=== PATIENT | female | born 1930 | race Hispanic/Latino ===

== ENCOUNTER 2017-01-08 17:50 | Emergency (ER) | payer MEDICARE ==
[2017-01-08] MEDS ORDERED: VASOTEC IV ONE (18:13)
--- NOTE | 2017-01-08 18:45 | Emergency Department Report ---
HPI - General Chief Complaint: High BP Time Seen by Provider: 01/08/17 18:11 - HPI HPI: 86-year-old white female, very pleasant, in room 10 in the ER, called EMS today with severely elevated blood pressure. She stayed at home about pressure was 210/100. She does have a history of blood pressure usually controlled, does not remember doing anything differently today, but after dinner when she checked her blood pressure and was elevated. She became anxious, but denies any chest pain, shortness of breath, nausea, vomiting, dysuria, change in vision , neck pain or headache. Aside from high blood pressure, she does have a history of lupus control with plaquenil. He also takes an occasional muscle relaxer which she does not remember the name for muscle aches and pain from time to time. ED Past Medical Hx - Past Medical History Additional medical history: Lupus - Surgical History Past Surgical History?: Yes Additional Surgical History: "thyroid surgery" - Social History Smoking Status: Never Smoker Substance Use Type: None - Medications Home Medications: Home Medications Medication Instructions Recorded Confirmed Last Taken Type Bisacodyl [Dulcolax suppos] 10 mg NE QDAY PRN #30 supp.rect 12/15/13 Unknown Rx Pantoprazole [Protonix INJ] 40 mg IV DAILY #30 vial 12/15/13 Unknown Rx Promethazine [Phenergan SUPPOS] 25 mg NE Q6H PRN #4 supp.rect 12/15/13 Unknown Rx traZODone [Desyrel] 150 mg PO QHS #30 tablet 12/15/13 Unknown Rx amLODIPine [Norvasc] 5 mg PO DAILY #30 tab 12/18/13 Unknown Rx Hydrocortisone 1% [Hydrocortisone 1 applic TP ONCE.ED #1 tube 02/20/15 Unknown Rx 1% CREAM] cloNIDine [Catapres] 0.1 mg PO BID #60 tablet 01/08/17 Unknown Rx hydrOXYzine HCL [Atarax] 25 mg PO Q6HR PRN #90 tablet 01/08/17 Unknown Rx ED Review of Systems ROS: Stated complaint: HTN Other details as noted in HPI Comment: All other systems reviewed and negative Respiratory: no symptoms reported Endocrine: no symptoms reported Physical Exam - Physical Exam Vital Signs: Vital Signs 01/08/17 18:04 Temperature 98.6 F Pulse Rate 72 Respiratory 20 Rate Blood Pressure 168/143 O2 Sat by Pulse 96 Oximetry Physical Exam: Gen. alert and oriented 3 in no distress Head atraumatic normocephalic Eyes PERR LA EOMI Chest regular rate and rhythm normal S1-S2 lungs clear bilaterally Abdomen soft nondistended Back no point tenderness paravertebral tenderness Neuro no focal deficit. Psych normal mood. ED Course Vital Signs 01/08/17 18:04 Temperature 98.6 F Pulse Rate 72 Respiratory 20 Rate Blood Pressure 168/143 O2 Sat by Pulse 96 Oximetry ED Medical Decision Making - Lab Data Result diagrams: 01/08/17 18:18 01/08/17 18:18 Critical care attestation.: If time is entered above; I have spent that time in minutes in the direct care of this critically ill patient, excluding procedure time. ED Disposition Clinical Impression: Labile hypertension Disposition: DC-01 TO HOME OR SELFCARE Is pt being admited?: No Does the pt Need Aspirin: No Condition: Stable Instructions: Hypertension (ED) Prescriptions: cloNIDine [Catapres] 0.1 mg PO BID #60 tablet hydrOXYzine HCL [Atarax] 25 mg PO Q6HR PRN #90 tablet PRN Reason: Anxiety Referrals: PRIMARY CARE, [Primary Care Provider] - 3-5 Days
[2017-01-08 18:54] LABS: Basophils % (Auto) 0.5 % (0.0-1.8); Eosinophils % (Auto) 1.8 % (0.0-4.3); Hematocrit 37.4 % (30.3-42.9); Hemoglobin 12.1 gm/dl (10.1-14.3); Mean Corpuscular HGB Conc 32 % (30-34); Mean Corpuscular Hemoglobin 27 pg (28-32); Mean Corpuscular Volume 82 fl (79-97); Platelet Count 288 K/mm3 (140-440); Red Blood Count 4.57 M/mm3 (3.65-5.03); Red Cell Distribution Width 15.6 % (13.2-15.2); White Blood Count 4.9 K/mm3 (4.5-11.0)
--- NOTE | 2017-01-08 19:00 | Cat Scan Report ---
FINAL REPORT EXAM: CT HEAD/BRAIN WO CON HISTORY: headache, high bp TECHNIQUE: CT examination of the head without IV contrast PRIORS: None. FINDINGS: Near complete opacification of left maxillary sinus. This may be chronic since it includes scattered calcification. The other paranasal sinuses are clear as are the mastoid air cells and middle ear cavities. No acute air-fluid level visualized in the included air-filled sinuses. Bone windows demonstrate no acute fracture. There is ventricular and sulcal prominence compatible with global cerebrocortical atrophy. Low attenuation regions in the cerebral white matter, while nonspecific, are present and usually attributed to chronic ischemic gliosis. The differential includes demyelination in the appropriate clinical setting. The brain contains no mass, mass effect, hemorrhage, or acute infarct. There is no extra-axial intracranial bleed or brain bleed. There is no midline shift. IMPRESSION: No definite CT evidence of acute CVA, intracranial bleed, or brain mass Near complete opacification of left maxillary sinus may be chronic since it includes scattered calcification
[2017-01-08 19:04] LABS: INR 0.88 (0.87-1.13); Partial Thromboplastin Time 24.2 Sec. (24.2-36.6)
[2017-01-08 19:06] LABS: Alanine Aminotransferase 25 units/L (7-56); Albumin 4.2 g/dL (3.9-5); Albumin/Globulin Ratio 1.3 %; Alkaline Phosphatase 64 units/L (35-129); Anion Gap 20 mmol/L; BUN/Creatinine Ratio 26.25; Blood Urea Nitrogen 21 mg/dL (7-17); Carbon Dioxide 27 mmol/L (22-30); Chloride 93.8 mmol/L (98-107); Glucose 96 mg/dL (65-100); Potassium 4.6 mmol/L (3.6-5.0); Sodium 136 mmol/L (137-145); Total Protein 7.5 g/dL (6.3-8.2)
[2017-01-08 21:10] LABS: Bilirubin,Urine NEG (Negative); Blood,Urine SM (Negative); Ketones,Urine NEG (Negative); Leukocyte Esterase,Urine TR (Negative); Nitrite,Urine NEG (Negative); Protein,Urine <15 mg/dL mg/dL (Negative); RBC,Urine < 1.0 /HPF (0.0-6.0); Urobilinogen,Urine < 2.0 mg/dL (<2.0)
[2017-01-08] MEDS ORDERED: CATAPRES PO ONE (21:16)
[2017-01-09 01:44] VITALS: BP 132/60
== END 2017-01-09 01:48 | disposition home or self-care (01) ==
LOC: ED 17:50
DX: I10 Essential (primary) hypertension (principal)
CPT/HCPCS: 36415; 70450; 80053; 81001; 83880; 84484; 85025; 85610; 85730; 93005; 93010; 96374

== ENCOUNTER 2017-08-29 23:48 | Inpatient (IN) | payer MEDICARE ==
[2017-08-29] MEDS ORDERED: ZOFRAN ODT PO ONE (23:55)
[2017-08-30 00:13] LABS: Basophils # (Auto) 0.2 K/mm3 (0.0-0.1); Eosinophils % (Auto) 0.4 % (0.0-4.3); Hematocrit 35.6 % (30.3-42.9); Hemoglobin 11.7 gm/dl (10.1-14.3); Lymphocytes # (Auto) 0.4 K/mm3 (1.2-5.4); Lymphocytes % (Auto) 4.6 % (13.4-35.0); Mean Corpuscular HGB Conc 33 % (30-34); Mean Corpuscular Hemoglobin 27 pg (28-32); Mean Corpuscular Volume 83 fl (79-97); Monocytes # (Auto) 0.4 K/mm3 (0.0-0.8); Monocytes % (Auto) 4.7 % (0.0-7.3); Platelet Count 276 K/mm3 (140-440); Red Blood Count 4.29 M/mm3 (3.65-5.03); Red Cell Distribution Width 14.8 % (13.2-15.2)
--- NOTE | 2017-08-30 00:17 | Emergency Department Report ---
- General Chief complaint: Arrhythmia/Palpitations Stated complaint: POSS ALLERGIC REACTION/WEAKNESS Time Seen by Provider: 08/29/17 23:53 Source: patient, EMS Mode of arrival: Stretcher Limitations: Other - History of Present Illness Initial comments: 86-year-old female with a past medical history of arthritis, hypertension, lupus , and "thyroid surgery" presents to the hospital complaining of lightheadedness , weakness, fatigue, nausea, and vomiting for the past 2 days since starting Lopressor. Patient's local delivery truck driver Dr. Charles Duffy switched her from another blood pressure medication to Lopressor 25 mg twice a day 2 days ago and she has been symptomatic since. Family states that she might not be taken the medication correctly and taking extra doses. No pains or chest pain or shortness of breath. Patient admits to drinking a lot of water and is constantly asking for water here in the ED. - Related Data Home Medications Medication Instructions Recorded Confirmed Last Taken Hydroxychloroquine [Plaquenil] 200 mg PO QDAY 08/30/17 08/30/17 Unknown Losartan/Hydrochlorothiazide 1 each PO DAILY 08/30/17 08/30/17 Unknown [Hyzaar 100-12.5 Tablet] Metoprolol [Lopressor] 25 mg PO BID 08/30/17 08/30/17 Unknown Previous Rx's Medication Instructions Recorded Last Taken Type traZODone [Desyrel] 150 mg PO QHS #30 tablet 12/15/13 Unknown Rx Allergies Allergy/AdvReac Type Severity Reaction Status Date / Time aspirin Allergy Unknown Unknown Verified 02/20/15 13:03 cephalexin monohydrate Allergy Unknown Unknown Verified 02/20/15 13:03 [From Keflex] diazepam [From Valium] Allergy Unknown Unknown Verified 02/20/15 13:03 doxycycline calcium Allergy Unknown Unknown Verified 02/20/15 13:03 [From Vibramycin] doxycycline hyclate Allergy Unknown Unknown Verified 02/20/15 13:03 [From Vibramycin] doxycycline monohydrate Allergy Unknown Unknown Verified 02/20/15 13:03 [From Vibramycin] lorazepam [From Ativan] Allergy Unknown Diarrhea Verified 02/20/15 13:03 meperidine HCl [From Demerol] Allergy Unknown Unknown Verified 02/20/15 13:03 ofloxacin [From Floxin] Allergy Unknown Unknown Verified 02/20/15 13:03 pentazocine lactate Allergy Unknown Unknown Verified 02/20/15 13:03 [From Talwin] ciprofloxacin Allergy Unknown Verified 08/30/17 00:54 fexofenadine [From Nadine] Allergy Unknown Verified 08/30/17 00:55 hydrocodone Allergy Unknown Verified 08/30/17 00:54 morphine Allergy Unknown Verified 08/30/17 00:55 Sulfa (Sulfonamide Allergy Unknown Verified 02/20/15 13:03 Antibiotics) adhesive AdvReac Rash Verified 02/20/15 13:03 ED Review of Systems ROS: Stated complaint: POSS ALLERGIC REACTION/WEAKNESS Other details as noted in HPI Comment: All other systems reviewed and negative ED Past Medical Hx - Past Medical History Previous Medical History?: Yes Hx Hypertension: Yes Hx Arthritis: Yes Additional medical history: Lupus - Surgical History Additional Surgical History: "thyroid surgery" - Social History Smoking Status: Never Smoker Substance Use Type: None - Medications Home Medications: Home Medications Medication Instructions Recorded Confirmed Last Taken Type traZODone [Desyrel] 150 mg PO QHS #30 tablet 12/15/13 08/30/17 Unknown Rx Hydroxychloroquine [Plaquenil] 200 mg PO QDAY 08/30/17 08/30/17 Unknown History Losartan/Hydrochlorothiazide 1 each PO DAILY 08/30/17 08/30/17 Unknown History [Hyzaar 100-12.5 Tablet] Metoprolol [Lopressor] 25 mg PO BID 08/30/17 08/30/17 Unknown History ED Physical Exam - General Limitations: Other - Other Other exam information: General: No limitations, patient is alert in no acute distress Head exam: Atraumatic, normocephalic Eyes exam: Normal appearance, pupils equal reactive to light ENT: Moist mucous membrane, normal oropharynx Neck exam: Normal inspection, full range of motion, no meningismus nontender Respiratory exam: Clear to auscultation bilateral, no wheezes, rales, crackles Cardiovascular: Bradycardic regular rhythm Abdomen: Soft, nondistended, and nontender, with normal bowel sounds, no rebound, or guarding Extremity: Full range of motion normal inspection no deformity Back: Normal Inspection, full range of motion, no tenderness Neurologic: Alert, oriented x3, cranial nerves intact, no motor or sensory deficit Psychiatric: normal affect, normal mood Skin: Warm, dry, intact ED Course Vital Signs 08/29/17 08/30/17 08/30/17 23:58 00:01 00:11 Temperature Pulse Rate 58 L Respiratory 29 H Rate Blood Pressure 175/46 175/46 Blood Pressure [Left] O2 Sat by Pulse 100 92 97 Oximetry 08/30/17 08/30/17 08/30/17 00:15 00:21 00:30 Temperature 98.0 F Pulse Rate 60 59 L 60 Respiratory 20 25 H 30 H Rate Blood Pressure 153/59 154/50 Blood Pressure 153/59 [Left] O2 Sat by Pulse 94 94 91 Oximetry 08/30/17 00:41 Temperature Pulse Rate 60 Respiratory 20 Rate Blood Pressure 153/59 Blood Pressure [Left] O2 Sat by Pulse 93 Oximetry - Reevaluation(s) Reevaluation #1: 08/30/17 01:02 hr remains in the high 50-low 60's with stable bp - Consultations Consultation #1: 08/29/17 23:35 After EMS EKG review case was discussed with on-call [facility] local delivery truck driver Dr. Murillo prior to patient arrival to the ED. He is in agreement that EKG represents sinus bradycardia without signs of ST elevation FL and patient will be further evaluated once she presents to the ED. Consultation #2: 08/30/17 00:57 case d/w Dr Mak (nephro) urine lites and osmolality ordered as requested Recommendations normal saline at 75 ml/hr Consultation #3: 08/30/17 01:00 Case d/w Dr cruz (card) will consult ED Medical Decision Making - Lab Data Result diagrams: 08/30/17 00:05 08/30/17 00:05 Lab Results 08/30/17 08/30/17 08/30/17 Range/Units 00:05 00:05 00:05 WBC 8.0 (4.5-11.0) K/mm3 RBC 4.29 (3.65-5.03) M/mm3 Hgb 11.7 (10.1-14.3) gm/dl Hct 35.6 (30.3-42.9) % MCV 83 (79-97) fl MCH 27 L (28-32) pg MCHC 33 (30-34) % RDW 14.8 (13.2-15.2) % Plt Count 276 (140-440) K/mm3 Lymph % (Auto) 4.6 L (13.4-35.0) % [place] % (Auto) 4.7 (0.0-7.3) % Eos % (Auto) 0.4 (0.0-4.3) % Baso % (Auto) 2.0 H (0.0-1.8) % Lymph # 0.4 L (1.2-5.4) K/mm3 [place] # 0.4 (0.0-0.8) K/mm3 Eos # 0.0 (0.0-0.4) K/mm3 Baso # 0.2 H (0.0-0.1) K/mm3 Seg Neutrophils % 88.3 H (40.0-70.0) % Seg Neutrophils # 7.1 (1.8-7.7) K/mm3 Sodium 118 L* (137-145) mmol/L Potassium 5.0 (3.6-5.0) mmol/L Chloride 82.9 L (98-107) mmol/L Carbon Dioxide 22 (22-30) mmol/L Anion Gap 17 mmol/L BUN 24 H (7-17) mg/dL Creatinine 0.7 (0.7-1.2) mg/dL Estimated GFR > 60 ml/min BUN/Creatinine Ratio 34 % Glucose 146 H (65-100) mg/dL Calcium 7.8 L (8.4-10.2) mg/dL Troponin T 0.033 H (0.00-0.029) ng/mL TSH 2.550 (0.270-4.200) mlU/mL Free T4 1.67 H (0.76-1.46) ng/dL urine lytes pending - EKG Data -: EKG Interpreted by Me (right bundle branch block. Left anterior fascicular block) EKG shows normal: sinus rhythm, axis (-47), QRS complexes (149), ST-T waves ( LVH. No ST elevation FL) Rate: bradycardia (57) - EKG Data When compared to previous EKG there are: changes noted (01/2017 previous EKG shows persistent right bundle-branch block with A. fib) 08/29/17 11:35 PM EMS EKG shows sinus bradycardia with a heart rate of 84 and a right bundle branch and left anterior fascicular block. No ST elevation FL. Positive LVH - Medical Decision Making Symptomatic bradycardia Likely secondary to Lopressor Heart rate spontaneously improving Zofran given for nausea Troponin elevation No chest pain reported Cardiology consultation Hyponatremia Patient does take hydrochlorothiazide Normal saline at 75 mL per hour initiated as per nephrology request Nephrology consult Urine studies pending Hospital was informed for admission - Differential Diagnosis beta dylan overdose, hypothyroidism, FL Critical Care Time: No Critical care attestation.: If time is entered above; I have spent that time in minutes in the direct care of this critically ill patient, excluding procedure time. ED Disposition Clinical Impression: Hyponatremia, Symptomatic bradycardia, Adverse reaction to beta-dylan, SLE ( systemic lupus erythematosus), HTN (hypertension) Disposition: OP ADMIT IP TO THIS HOSP Is pt being admited?: Yes Condition: Stable Referrals: ABDIRIZAK SORIANO MD [Primary Care Provider] - 3-5 Days Time of Disposition: 01:02 (Dr Duffy/hosp)
[2017-08-30 00:35] LABS: BUN/Creatinine Ratio 34; Blood Urea Nitrogen 24 mg/dL (7-17); Calcium 7.8 mg/dL (8.4-10.2); Hemolysis Index 10
[2017-08-30] MEDS ORDERED: ZOFRAN ONE (00:42)
[2017-08-30 00:45] LABS: Free T4 (Free Thyroxine) 1.67 ng/dL (0.76-1.46)
[2017-08-30] MEDS ORDERED: ZOFRAN IV ONE (00:55)
[2017-08-30] MEDS ORDERED: NACL 0.9% 1000 ML 1,000 ML IV ONE (00:57)
[2017-08-30 01:41] LABS: Creatine Kinase MB 9.6 ng/mL (0.0-4.0)
[2017-08-30 01:42] LABS: Chol/HDL Ratio 2.34 %; HDL Cholesterol 67 mg/dL (40-59); LDL Cholesterol,Direct 88 mg/dL (50-130)
[2017-08-30 02:02] LABS: Bilirubin,Urine NEG (Negative); Blood,Urine NEG (Negative); Color,Urine Yellow (Yellow); Hyaline Casts,Urine 1 /LPF; Mucus,Urine FEW /HPF; Protein,Urine <15 mg/dL mg/dL (Negative); Urobilinogen,Urine < 2.0 mg/dL (<2.0)
--- NOTE | 2017-08-30 02:03 | History and Physical Report ---
History of Present Illness Date of examination: 08/30/17 History of present illness: A 6-year-old woman with a history of hypertension, lupus causing emergency room complaining of nausea vomiting, generalized weakness, dizziness. Patient is on antihypertensives and 1 was changed to Lopressor 25 twice a day. Patient started taking this Wednesday when her symptoms developed. She is also on losartan, hydrochlorothiazide. Daughter stated that she is been on several antihypertensives in the past, her blood pressure is difficult to control Review Of Systems: Constitutional: no weight loss Ears, eyes, nose, mouth and throat: no nasal congestion, no nasal discharge, no sinus pressure, blurry vision, diplopia Neck: No neck pain or rigidity. Cardiovascular: no Chest pain, orthopnea, palpitations Respiratory: No shortness of breath, cough Gastrointestinal: no hematochezia Genitourinary : no dysuria, frequency , hematuria Musculoskeletal: no muscle ache Integumentary: no rash, no pruritis Neurological: no parathesias, focal weakness Endocrine: no cold or heat intolerance, no polyuria or polydipsia Hematologic/Lymphatic: no easy bruising, no easy bleeding, no gland swelling Allergic/Immunologic: no urticaria, no angioedema. PAST MEDICAL HISTORY: Hypertension, lupus PAST SURGICAL HISTORY: Hysterectomy, thyroidectomy SOCIAL HISTORY: Denies alcohol, tobacco, drugs FAMILY HISTORY: Hypertension Medications and Allergies Allergies Allergy/AdvReac Type Severity Reaction Status Date / Time aspirin Allergy Unknown Unknown Verified 02/20/15 13:03 cephalexin monohydrate Allergy Unknown Unknown Verified 02/20/15 13:03 [From Keflex] diazepam [From Valium] Allergy Unknown Unknown Verified 02/20/15 13:03 doxycycline calcium Allergy Unknown Unknown Verified 02/20/15 13:03 [From Vibramycin] doxycycline hyclate Allergy Unknown Unknown Verified 02/20/15 13:03 [From Vibramycin] doxycycline monohydrate Allergy Unknown Unknown Verified 02/20/15 13:03 [From Vibramycin] lorazepam [From Ativan] Allergy Unknown Diarrhea Verified 02/20/15 13:03 meperidine HCl [From Demerol] Allergy Unknown Unknown Verified 02/20/15 13:03 ofloxacin [From Floxin] Allergy Unknown Unknown Verified 02/20/15 13:03 pentazocine lactate Allergy Unknown Unknown Verified 02/20/15 13:03 [From Talwin] ciprofloxacin Allergy Unknown Verified 08/30/17 00:54 fexofenadine [From Nadine] Allergy Unknown Verified 08/30/17 00:55 hydrocodone Allergy Unknown Verified 08/30/17 00:54 morphine Allergy Unknown Verified 08/30/17 00:55 Sulfa (Sulfonamide Allergy Unknown Verified 02/20/15 13:03 Antibiotics) adhesive AdvReac Rash Verified 02/20/15 13:03 Home Medications Medication Instructions Recorded Confirmed Last Taken Type traZODone [Desyrel] 150 mg PO QHS #30 tablet 12/15/13 08/30/17 Unknown Rx Hydroxychloroquine [Plaquenil] 200 mg PO QDAY 08/30/17 08/30/17 Unknown History Losartan/Hydrochlorothiazide 1 each PO DAILY 08/30/17 08/30/17 Unknown History [Hyzaar 100-12.5 Tablet] Metoprolol [Lopressor] 25 mg PO BID 08/30/17 08/30/17 Unknown History Active Meds: Active Medications Sodium Chloride (Nacl 0.9% 1000 Ml) 1,000 mls @ 75 mls/hr IV BOLUS ONE Stop: 08/30/17 14:16 Last Admin: 08/30/17 01:12 Dose: 75 mls/hr Exam - Physical Exam Narrative exam: Gen. appearance: Patient lying in bed, no apparent distress HEENT: Normocephalic, atraumatic, pupils equally round and reactive to light, extraocular movement intact, and no sclericterus,. No JVD or thyromegaly or nodule,neck supple, no carotid bruit ,mucous membranes moist, no exudate or erythema Heart: S1, S2, regular rate and rhythm Lungs: Clear to auscultation bilaterally, breathing comfortable Abdomen: Positive bowel sounds, nontender, nondistended, no organomegaly Extremity: No edema, cyanosis, clubbing Skin: No rash, nodules, warm, dry Neuro: Oriented 3, cranial nerves II-12 intact, speech is fluent, motor and sensory intact - Constitutional Vitals: Temp Pulse Resp BP Pulse Ox 98.0 F 67 22 172/65 81 L 08/30/17 00:15 08/30/17 01:41 08/30/17 01:41 08/30/17 01:41 08/30/17 01:41 Results - Labs CBC & Chem 7: 08/30/17 00:05 08/30/17 00:05 Labs: Abnormal lab results 08/30/17 08/30/17 08/30/17 Range/Units 00:05 00:05 00:05 MCH 27 L (28-32) pg Lymph % (Auto) 4.6 L (13.4-35.0) % Baso % (Auto) 2.0 H (0.0-1.8) % Lymph # 0.4 L (1.2-5.4) K/mm3 Baso # 0.2 H (0.0-0.1) K/mm3 Seg Neutrophils % 88.3 H (40.0-70.0) % Sodium 118 L* (137-145) mmol/L Chloride 82.9 L (98-107) mmol/L BUN 24 H (7-17) mg/dL Glucose 146 H (65-100) mg/dL Calcium 7.8 L (8.4-10.2) mg/dL Total Creatine Kinase 152 H (30-135) units/L CK-MB (CK-2) 9.6 H (0.0-4.0) ng/mL Troponin T 0.033 H (0.00-0.029) ng/mL HDL Cholesterol 67 H (40-59) mg/dL Free T4 1.67 H (0.76-1.46) ng/dL - Imaging and Cardiology EKG: image reviewed Assessment and Plan Assessment Symptomatic bradycardia due to lopressor Hyponatremia due to diuretic Hypertension Lupus Plan Admit to medicine Hold Lopressor, start IV fluid, monitor sodium levels Consult renal, cardiology Continue Procrit of his medication, IV hydralazine for blood pressure control Discharge prophylaxis
[2017-08-30] MEDS ORDERED: SODIUM CHLORIDE FLUSH SYRINGE 10 ML IV PRN (02:04)
[2017-08-30] MEDS ORDERED: TYLENOL PO PRN (02:04)
[2017-08-30] MEDS ORDERED: APRESOLINE IV PRN (02:20)
[2017-08-30 02:50] LABS: Chloride, Urine 22.8 mmolL (110-250)
[2017-08-30 03:08] LABS: Creatine Kinase MB 9.6 ng/mL (0.0-4.0)
[2017-08-30] MEDS: ZOFRAN IV PRN (04:21)
[2017-08-30] MEDS ORDERED: REGLAN IV ONE ×2 (06:04→06:16)
[2017-08-30 09:37] LABS: Creatine Kinase MB 11.6 ng/mL (0.0-4.0)
[2017-08-30] MEDS ORDERED: LOVENOX SUB-Q SCH ×2 (10:00→13:01)
--- NOTE | 2017-08-30 11:20 | Consultation ---
History of Present Illness - Reason for Consult Consult date: 08/30/17 hyponatremia, accelerated hypertension Requesting physician: ANÍBAL COKER - History of Present Illness A 86-year-old woman with a history of hypertension, lupus causing emergency room complaining of nausea vomiting, generalized weakness, dizziness. Patient is on antihypertensives and 1 was changed to Lopressor 25 twice a day. Patient started taking this Wednesday when her symptoms developed. She is also on losartan, hydrochlorothiazide. Daughter stated that she is been on several antihypertensives in the past, her blood pressure is difficult to control Review Of Systems: Constitutional: no weight loss Ears, eyes, nose, mouth and throat: no nasal congestion, no nasal discharge, no sinus pressure, blurry vision, diplopia Neck: No neck pain or rigidity. Cardiovascular: no Chest pain, orthopnea, palpitations Respiratory: No shortness of breath, cough Gastrointestinal: no hematochezia Genitourinary : no dysuria, frequency , hematuria Musculoskeletal: no muscle ache Integumentary: no rash, no pruritis Neurological: no parathesias, focal weakness Endocrine: no cold or heat intolerance, no polyuria or polydipsia Hematologic/Lymphatic: no easy bruising, no easy bleeding, no gland swelling Allergic/Immunologic: no urticaria, no angioedema. PAST MEDICAL HISTORY: Hypertension, lupus PAST SURGICAL HISTORY: Hysterectomy, thyroidectomy SOCIAL HISTORY: Denies alcohol, tobacco, drugs FAMILY HISTORY: Hypertension Medications and Allergies Allergies Allergy/AdvReac Type Severity Reaction Status Date / Time aspirin Allergy Unknown Unknown Verified 02/20/15 13:03 cephalexin monohydrate Allergy Unknown Unknown Verified 02/20/15 13:03 [From Keflex] diazepam [From Valium] Allergy Unknown Unknown Verified 02/20/15 13:03 doxycycline calcium Allergy Unknown Unknown Verified 02/20/15 13:03 [From Vibramycin] doxycycline hyclate Allergy Unknown Unknown Verified 02/20/15 13:03 [From Vibramycin] doxycycline monohydrate Allergy Unknown Unknown Verified 02/20/15 13:03 [From Vibramycin] lorazepam [From Ativan] Allergy Unknown Diarrhea Verified 02/20/15 13:03 meperidine HCl [From Demerol] Allergy Unknown Unknown Verified 02/20/15 13:03 ofloxacin [From Floxin] Allergy Unknown Unknown Verified 02/20/15 13:03 pentazocine lactate Allergy Unknown Unknown Verified 02/20/15 13:03 [From Talwin] ciprofloxacin Allergy Unknown Verified 08/30/17 00:54 fexofenadine [From Nadine] Allergy Unknown Verified 08/30/17 00:55 hydrocodone Allergy Unknown Verified 08/30/17 00:54 morphine Allergy Unknown Verified 08/30/17 00:55 Sulfa (Sulfonamide Allergy Unknown Verified 02/20/15 13:03 Antibiotics) adhesive AdvReac Rash Verified 02/20/15 13:03 Home Medications Medication Instructions Recorded Confirmed Last Taken Type traZODone [Desyrel] 150 mg PO QHS #30 tablet 12/15/13 08/30/17 Unknown Rx Hydroxychloroquine [Plaquenil] 200 mg PO QDAY 08/30/17 08/30/17 Unknown History Losartan/Hydrochlorothiazide 1 each PO DAILY 08/30/17 08/30/17 Unknown History [Hyzaar 100-12.5 Tablet] Metoprolol [Lopressor] 25 mg PO BID 08/30/17 08/30/17 Unknown History Active Meds: Active Medications Acetaminophen (Tylenol) 650 mg PO Q4H PRN PRN Reason: Pain MILD(1-3)/Fever >100.5/CASTRO Enoxaparin Sodium (Lovenox) 40 mg SUB-Q QDAY@1000 HARINI Hydralazine HCl (Apresoline) 5 mg IV Q6H PRN PRN Reason: Hypertension Last Admin: 08/30/17 04:21 Dose: 5 mg Sodium Chloride (Nacl 0.9% 1000 Ml) 1,000 mls @ 75 mls/hr IV BOLUS ONE Stop: 08/30/17 14:16 Last Admin: 08/30/17 01:12 Dose: 75 mls/hr Ondansetron HCl (Zofran) 4 mg IV Q8H PRN PRN Reason: Nausea And Vomiting Last Admin: 08/30/17 04:21 Dose: 4 mg Sodium Chloride (Sodium Chloride Flush Syringe 10 Ml) 10 ml IV BID HARINI Sodium Chloride (Sodium Chloride Flush Syringe 10 Ml) 10 ml IV PRN PRN PRN Reason: LINE FLUSH Exam - Vital Signs Vital signs: Vital Signs BP Pulse Ox 175/46 100 08/29/17 23:58 08/29/17 23:58 - Physical Exam Narrative exam: Gen. appearance: Patient lying in bed, no apparent distress HEENT: Normocephalic, atraumatic, pupils equally round and reactive to light, extraocular movement intact, and no sclericterus,. No JVD or thyromegaly or nodule,neck supple, no carotid bruit ,mucous membranes moist, no exudate or erythema Heart: S1, S2, regular rate and rhythm Lungs: Clear to auscultation bilaterally, breathing comfortable Abdomen: Positive bowel sounds, nontender, nondistended, no organomegaly Extremity: No edema, cyanosis, clubbing Skin: No rash, nodules, warm, dry Neuro: Oriented 3, cranial nerves II-12 intact, speech is fluent, motor and sensory intact Results - Lab Results 08/30/17 00:05 08/30/17 00:05 Most recent lab results Calcium 7.8 mg/dL (8.4-10.2) L 08/30/17 00:05 Magnesium 1.80 mg/dL (1.7-2.3) 08/30/17 00:05 Urine Sodium 18 mmol/L 08/30/17 01:49 Assessment and Plan Impression: * Symptomatic bradycardia due to lopressor * Hyponatremia * Accelerated Hypertension * Lupus Plan: * fluid restriction * stop diuretics * add clonidine * try to limit hydralazine in lupus patient * strict i/os * daily lytes * urine lytes
[2017-08-30] MEDS: SODIUM CHLORIDE FLUSH SYRINGE 10 ML IV SCH ×2 (12:46→22:08)
[2017-08-30] MEDS: PROCARDIA XL PO SCH ×2 (12:47→22:08)
[2017-08-30] MEDS: NACL 0.9% 1000 ML 1,000 ML IV SCH (12:47)
[2017-08-30] MEDS ORDERED: PLAQUENIL PO SCH (13:00)
--- NOTE | 2017-08-30 14:06 | Consultation ---
History of Present Illness Consult date: 08/30/17 Consult reason: bradycardia History of present illness: The patient is an 86-year-old woman who presented to the hospital complaining of weakness, dizziness which started 2 days after she was treated with Lopressor by her primary claims administrator. The indication for the Lopressor 25 mg twice a day is uncertain at the current time. On presentation to the hospital she was found to have a sinus bradycardia at 58, with a blood pressure elevated at 175 systolic. However, more significantly on laboratory exam shows found with severe hyponatremia with sodium 118. The chronicity of the hyponatremia is uncertain. Review of her laboratory findings shows a sodium of 122 in 2013, but sodium was corrected to 130s on multiple subsequent measurements until the current date. The patient denies chest pain, shortness of breath, no lower extremity edema and no syncope. Past medical history is consistent with hypertension. She has a chronically abnormal EKG with bifascicular block which is documented in her past records. Past History Past Medical History: hypertension Medications and Allergies Allergies Allergy/AdvReac Type Severity Reaction Status Date / Time aspirin Allergy Unknown Unknown Verified 02/20/15 13:03 cephalexin monohydrate Allergy Unknown Unknown Verified 02/20/15 13:03 [From Keflex] diazepam [From Valium] Allergy Unknown Unknown Verified 02/20/15 13:03 doxycycline calcium Allergy Unknown Unknown Verified 02/20/15 13:03 [From Vibramycin] doxycycline hyclate Allergy Unknown Unknown Verified 02/20/15 13:03 [From Vibramycin] doxycycline monohydrate Allergy Unknown Unknown Verified 02/20/15 13:03 [From Vibramycin] lorazepam [From Ativan] Allergy Unknown Diarrhea Verified 02/20/15 13:03 meperidine HCl [From Demerol] Allergy Unknown Unknown Verified 02/20/15 13:03 ofloxacin [From Floxin] Allergy Unknown Unknown Verified 02/20/15 13:03 pentazocine lactate Allergy Unknown Unknown Verified 02/20/15 13:03 [From Talwin] ciprofloxacin Allergy Unknown Verified 08/30/17 00:54 fexofenadine [From Nadine] Allergy Unknown Verified 08/30/17 00:55 hydrocodone Allergy Unknown Verified 08/30/17 00:54 morphine Allergy Unknown Verified 08/30/17 00:55 Sulfa (Sulfonamide Allergy Unknown Verified 02/20/15 13:03 Antibiotics) adhesive AdvReac Rash Verified 02/20/15 13:03 Home Medications Medication Instructions Recorded Confirmed Last Taken Type traZODone [Desyrel] 150 mg PO QHS #30 tablet 12/15/13 08/30/17 Unknown Rx Hydroxychloroquine [Plaquenil] 200 mg PO QDAY 08/30/17 08/30/17 Unknown History Losartan/Hydrochlorothiazide 1 each PO DAILY 08/30/17 08/30/17 Unknown History [Hyzaar 100-12.5 Tablet] Metoprolol [Lopressor] 25 mg PO BID 08/30/17 08/30/17 Unknown History Active Meds: Active Medications Acetaminophen (Tylenol) 650 mg PO Q4H PRN PRN Reason: Pain MILD(1-3)/Fever >100.5/CASTRO Atorvastatin Calcium (Lipitor) 40 mg PO QHS HARINI Clopidogrel Bisulfate (Plavix) 75 mg PO QDAY HARINI Enoxaparin Sodium (Lovenox) 60 mg SUB-Q Q12HR HARINI Hydralazine HCl (Apresoline) 5 mg IV Q6H PRN PRN Reason: Hypertension Last Admin: 08/30/17 04:21 Dose: 5 mg Hydroxychloroquine Sulfate (Plaquenil) 200 mg PO QDAY HARINI Sodium Chloride (Nacl 0.9% 1000 Ml) 1,000 mls @ 75 mls/hr IV BOLUS ONE Stop: 08/30/17 14:16 Last Admin: 08/30/17 01:12 Dose: 75 mls/hr Sodium Chloride (Nacl 0.9% 1000 Ml) 1,000 mls @ 75 mls/hr IV DIRECT HARINI Last Admin: 08/30/17 12:47 Dose: 75 mls/hr Metoprolol Tartrate (Lopressor) 25 mg PO BID HARINI Nifedipine (Procardia Xl) 60 mg PO Q12HR [facility] Last Admin: 08/30/17 12:47 Dose: 60 mg Ondansetron HCl (Zofran) 4 mg IV Q8H PRN PRN Reason: Nausea And Vomiting Last Admin: 08/30/17 04:21 Dose: 4 mg Sodium Chloride (Sodium Chloride Flush Syringe 10 Ml) 10 ml IV BID HARINI Last Admin: 08/30/17 12:46 Dose: 10 ml Sodium Chloride (Sodium Chloride Flush Syringe 10 Ml) 10 ml IV PRN PRN PRN Reason: LINE FLUSH Review of Systems Cardiovascular: no chest pain, no orthopnea, no palpitations, no rapid/ irregular heart beat, no edema, no syncope, no lightheadedness, no shortness of breath Physical Examination Vital Signs BP Pulse Ox 175/46 100 08/29/17 23:58 08/29/17 23:58 General appearance: no acute distress HEENT: Positive: PERRL Cardiac: Positive: Reg Rate and Rhythm Lungs: Positive: clear to auscultation Neuro: Positive: Grossly Intact Abdomen: Positive: Soft Female genitourinary: deferred Skin: Positive: Clear Extremities: Absent: edema Results 08/30/17 00:05 08/30/17 00:05 Cardiac Enzymes 08/30/17 08/30/17 08/30/17 Range/Units 00:05 02:32 08:16 CK-MB (CK-2) 9.6 H 9.6 H 11.6 H (0.0-4.0) ng/mL Lipids 08/30/17 Range/Units 00:05 Triglycerides 56 (2-149) mg/dL Cholesterol 157 (50-199) mg/dL HDL Cholesterol 67 H (40-59) mg/dL Cholesterol/HDL Ratio 2.34 % CBC 08/30/17 Range/Units 00:05 WBC 8.0 (4.5-11.0) K/mm3 RBC 4.29 (3.65-5.03) M/mm3 Hgb 11.7 (10.1-14.3) gm/dl Hct 35.6 (30.3-42.9) % Plt Count 276 (140-440) K/mm3 Lymph # 0.4 L (1.2-5.4) K/mm3 [place] # 0.4 (0.0-0.8) K/mm3 Eos # 0.0 (0.0-0.4) K/mm3 Baso # 0.2 H (0.0-0.1) K/mm3 Comprehensive Metabolic Panel 08/30/17 Range/Units 00:05 Sodium 118 L* (137-145) mmol/L Potassium 5.0 (3.6-5.0) mmol/L Chloride 82.9 L (98-107) mmol/L Carbon Dioxide 22 (22-30) mmol/L BUN 24 H (7-17) mg/dL Creatinine 0.7 (0.7-1.2) mg/dL Glucose 146 H (65-100) mg/dL Calcium 7.8 L (8.4-10.2) mg/dL EKG interpretations - Telemetry EKG Rhythm: Sinus Rhythm Assessment and Plan - Patient Problems (1) Dizziness and giddiness Current Visit: Yes Status: Acute Plan to address problem: Patient presents with fatigue, dizziness, and severe hyponatremia 118. Associated with this is a mild sinus bradycardia, on Lopressor therapy. In addition to discontinuation of the Lopressor, will recommend internal medicine and endocrine evaluation of the hyponatremia. Otherwise, cardiovascular status is stable, will follow conservatively.
--- NOTE | 2017-08-30 14:26 | Event Note ---
Date: 08/30/17 Pt seen and examined will cont current mx and plan as dictated in h and P cont IV fluid, monitor BMP, appreciate nephrology recommendation
[2017-08-30 15:18] LABS: BUN/Creatinine Ratio 29; Blood Urea Nitrogen 20 mg/dL (7-17); Calcium 8.4 mg/dL (8.4-10.2); Hemolysis Index 7
[2017-08-30 18:33] LABS: BUN/Creatinine Ratio 30; Blood Urea Nitrogen 18 mg/dL (7-17); Calcium 8.6 mg/dL (8.4-10.2); Hemolysis Index 11
[2017-08-30] MEDS: PLAVIX PO SCH (18:52)
[2017-08-30 21:22] LABS: BUN/Creatinine Ratio 30; Blood Urea Nitrogen 18 mg/dL (7-17); Calcium 8.2 mg/dL (8.4-10.2); Hemolysis Index 3
[2017-08-30] MEDS ORDERED: LOPRESSOR PO SCH (22:00)
[2017-08-30] MEDS ORDERED: DESYREL PO SCH ×2 (22:00)
[2017-08-30] MEDS: LOVENOX SUB-Q SCH (22:07)
[2017-08-30] MEDS: PLAQUENIL PO SCH (22:07)
[2017-08-31] MEDS ORDERED: CATAPRES PO PRN (00:32)
[2017-08-31 01:37] LABS: BUN/Creatinine Ratio 32; Blood Urea Nitrogen 16 mg/dL (7-17); Calcium 7.8 mg/dL (8.4-10.2); Hemolysis Index 25
[2017-08-31 06:38] LABS: Hematocrit 31.8 % (30.3-42.9); Hemoglobin 10.3 gm/dl (10.1-14.3); Mean Corpuscular HGB Conc 32 % (30-34); Mean Corpuscular Hemoglobin 27 pg (28-32); Mean Corpuscular Volume 84 fl (79-97); Platelet Count 259 K/mm3 (140-440); Red Cell Distribution Width 15.2 % (13.2-15.2)
[2017-08-31 06:46] LABS: BUN/Creatinine Ratio 28; Blood Urea Nitrogen 14 mg/dL (7-17); Calcium 7.8 mg/dL (8.4-10.2); Hemolysis Index 16
[2017-08-31 06:50] LABS: BUN/Creatinine Ratio 35; Blood Urea Nitrogen 14 mg/dL (7-17); Calcium 7.6 mg/dL (8.4-10.2); Hemolysis Index 15
--- NOTE | 2017-08-31 09:40 | Progress Note ---
Assessment and Plan Severe hyponatremia Mild sinus bradycardia Lopressor therapy discontinued. Hypertension Conservative cardiac management. Subjective Date of service: 08/31/17 Interval history: Patient complains of dizziness. No cardiac events reported on telemetry monitoring. Objective Vital Signs Temp Pulse Resp BP BP Pulse Ox 08/31/17 08:28 97.9 F 80 16 143/54 90 08/31/17 04:22 97.9 F 79 18 134/61 92 08/31/17 00:25 71 08/31/17 00:08 92 08/31/17 00:00 98.3 F 78 20 143/59 86 08/30/17 19:43 97.9 F 72 20 148/59 92 08/30/17 16:21 97.8 F 77 18 177/68 93 08/30/17 11:30 97.9 F 68 18 155/62 90 08/30/17 10:00 77 93 - Physical Examination General: No Apparent Distress HEENT: Positive: PERRL Cardiac: Positive: Reg Rate and Rhythm Lungs: Positive: Decreased Breath Sounds Neuro: Positive: Grossly Intact Extremities: Absent: edema - Labs and Meds CBC 08/31/17 Range/Units 04:29 WBC 6.4 (4.5-11.0) K/mm3 RBC 3.80 (3.65-5.03) M/mm3 Hgb 10.3 (10.1-14.3) gm/dl Hct 31.8 (30.3-42.9) % Plt Count 259 (140-440) K/mm3 Lymph # Scuba Instructor [place] # Scuba Instructor Eos # Scuba Instructor Baso # Sc[employer] Instructor Comprehensive Metabolic Panel 08/30/17 08/30/17 08/30/17 Range/Units 14:26 17:08 20:35 Sodium 120 L 121 L 125 L (137-145) mmol/L Potassium 4.4 4.4 4.3 (3.6-5.0) mmol/L Chloride 84.1 L 82.2 L 87.8 L (98-107) mmol/L Carbon Dioxide 25 27 27 (22-30) mmol/L BUN 20 H 18 H 18 H (7-17) mg/dL Creatinine 0.7 0.6 L 0.6 L (0.7-1.2) mg/dL Glucose 107 H 128 H 130 H (65-100) mg/dL Calcium 8.4 8.6 8.2 L (8.4-10.2) mg/dL 08/31/17 08/31/17 08/31/17 Range/Units 00:43 04:29 04:29 Sodium 124 L 124 L 124 L (137-145) mmol/L Potassium 4.5 4.5 4.3 (3.6-5.0) mmol/L Chloride 87.9 L 90.1 L 89.4 L (98-107) mmol/L Carbon Dioxide 25 20 L 22 (22-30) mmol/L BUN 16 14 14 (7-17) mg/dL Creatinine 0.5 L 0.4 L 0.5 L (0.7-1.2) mg/dL Glucose 112 H 100 101 H (65-100) mg/dL Calcium 7.8 L 7.6 L 7.8 L (8.4-10.2) mg/dL
[2017-08-31] MEDS: ZOFRAN IV PRN (10:00)
[2017-08-31] MEDS: LOVENOX SUB-Q SCH ×2 (10:00→22:25)
[2017-08-31] MEDS: PROCARDIA XL PO SCH ×2 (10:00→22:24)
[2017-08-31] MEDS: PLAVIX PO SCH (10:00)
[2017-08-31] MEDS: SODIUM CHLORIDE FLUSH SYRINGE 10 ML IV SCH ×2 (10:00→22:25)
--- NOTE | 2017-08-31 10:14 | Progress Note ---
Assessment and Plan Impression: * Symptomatic bradycardia due to lopressor * Hyponatremia * Accelerated Hypertension * Lupus * SIADH Plan: * fluid restriction * stop diuretics * add po samsca * added clonidine * gentle ivfs * try to limit hydralazine in lupus patient * strict i/os * daily lytes * urine lytes Subjective Date of service: 08/31/17 Principal diagnosis: hyponatremia Interval history: resting well in bed today Objective - Exam Narrative Exam: Gen. appearance: Patient lying in bed, no apparent distress HEENT: Normocephalic, atraumatic, pupils equally round and reactive to light, extraocular movement intact, and no sclericterus,. No JVD or thyromegaly or nodule,neck supple, no carotid bruit ,mucous membranes moist, no exudate or erythema Heart: S1, S2, regular rate and rhythm Lungs: Clear to auscultation bilaterally, breathing comfortable Abdomen: Positive bowel sounds, nontender, nondistended, no organomegaly Extremity: No edema, cyanosis, clubbing Skin: No rash, nodules, warm, dry Neuro: Oriented 3, cranial nerves II-12 intact, speech is fluent, motor and sensory intact - Vital Signs Vital signs: Vital Signs - 12hr 08/31/17 08/31/17 08/31/17 00:00 00:08 00:25 Temperature 98.3 F Pulse Rate 78 71 Respiratory 20 Rate Blood Pressure 143/59 Blood Pressure [Left] O2 Sat by Pulse 86 92 Oximetry 08/31/17 08/31/17 04:22 08:28 Temperature 97.9 F 97.9 F Pulse Rate 79 80 Respiratory 18 16 Rate Blood Pressure 134/61 Blood Pressure 143/54 [Left] O2 Sat by Pulse 92 90 Oximetry - Lab 08/31/17 04:29 08/31/17 04:29 Most recent lab results Calcium 7.6 mg/dL (8.4-10.2) L 08/31/17 04:29 Magnesium 1.80 mg/dL (1.7-2.3) 08/30/17 00:05 Urine Sodium 18 mmol/L 08/30/17 01:49
[2017-08-31] MEDS ORDERED: COLACE PO ONE (11:28)
[2017-08-31] MEDS: SAMSCA PO SCH (13:38)
--- NOTE | 2017-08-31 15:27 | Progress Note ---
<ELLIE SHERMAN - Last Filed: 08/31/17 15:15> Assessment and Plan Assessment and plan: An 86-year-old woman with a history of hypertension, lupus causing emergency room complaining of nausea vomiting, generalized weakness, dizziness. Patient is on antihypertensives and 1 was changed to Lopressor 25 twice a day. Patient started taking this Wednesday when her symptoms developed. Symptomatic bradycardia due to lopressor Heart rate has now normalized, continue to hold Lopressor, cardiology following Hyponatremia Possibly due to diuretic, patient also explains that she has decrease her sodium intake and increased her water intake continue IV fluid, monitor sodium levels nephrology following-initiated patient on Samsca Hypertension Hydralazine discontinued, continue current antihypertensives Lupus DVT prophylaxis Lovenox History Interval history: Patient seen and examined. No new issues overnight. Chart notes, nursing notes , labs reviewed. Hospitalist Physical - Constitutional Vitals: Temp Pulse Resp BP Pulse Ox 97.8 F 91 H 18 159/68 92 08/31/17 11:19 08/31/17 11:19 08/31/17 11:19 08/31/17 11:19 08/31/17 13:26 General appearance: Present: no acute distress, well-nourished - EENT Eyes: Present: PERRL, EOM intact ENT: hearing intact, clear oral mucosa - Neck Neck: Present: supple, normal ROM - Respiratory Respiratory effort: normal Respiratory: bilateral: CTA - Cardiovascular Rhythm: regular Heart Sounds: Present: S1 & S2 - Extremities Extremities: no ischemia, No edema - Abdominal General gastrointestinal: soft, non-tender, non-distended - Integumentary Integumentary: Present: clear, warm, dry - Psychiatric Psychiatric: appropriate mood/affect, intact judgment & insight, cooperative - Neurologic Neurologic: CNII-XII intact, moves all extremities - Allied Health Allied health notes reviewed: nursing Results - Labs CBC & Chem 7: 08/31/17 04:29 08/31/17 04:29 Labs: Laboratory Last Values WBC 6.4 K/mm3 (4.5-11.0) 08/31/17 04:29 RBC 3.80 M/mm3 (3.65-5.03) 08/31/17 04:29 Hgb 10.3 gm/dl (10.1-14.3) 08/31/17 04:29 Hct 31.8 % (30.3-42.9) 08/31/17 04:29 MCV 84 fl (79-97) 08/31/17 04:29 MCH 27 pg (28-32) L 08/31/17 04:29 MCHC 32 % (30-34) 08/31/17 04:29 RDW 15.2 % (13.2-15.2) 08/31/17 04:29 Plt Count 259 K/mm3 (140-440) 08/31/17 04:29 Lymph % (Auto) [employer] 08/31/17 04:29 [place] % (Auto) [employer] 08/31/17 04:29 Eos % (Auto) [employer] 08/31/17 04:29 Baso % (Auto) [employer] 08/31/17 04:29 Lymph # [employer] 08/31/17 04:29 [place] # [employer] 08/31/17 04:29 Eos # [employer] 08/31/17 04:29 Baso # [employer] 08/31/17 04:29 Seg Neutrophils % [employer] 08/31/17 04:29 Seg Neutrophils # [employer] 08/31/17 04:29 Sodium 124 mmol/L (137-145) L 08/31/17 04:29 Potassium 4.5 mmol/L (3.6-5.0) 08/31/17 04:29 Chloride 90.1 mmol/L (98-107) L 08/31/17 04:29 Carbon Dioxide 20 mmol/L (22-30) L 08/31/17 04:29 Anion Gap 18 mmol/L 08/31/17 04:29 BUN 14 mg/dL (7-17) 08/31/17 04:29 Creatinine 0.4 mg/dL (0.7-1.2) L 08/31/17 04:29 Estimated GFR > 60 ml/min 08/31/17 04:29 BUN/Creatinine Ratio 35 % 08/31/17 04:29 Glucose 100 mg/dL (65-100) 08/31/17 04:29 Calcium 7.6 mg/dL (8.4-10.2) L 08/31/17 04:29 Magnesium 1.80 mg/dL (1.7-2.3) 08/30/17 00:05 Total Creatine Kinase 150 units/L (30-135) H 08/30/17 08:16 CK-MB (CK-2) 11.6 ng/mL (0.0-4.0) H 08/30/17 08:16 CK-MB (CK-2) Rel Index 7.7 (0-4) H 08/30/17 08:16 Troponin T 0.037 ng/mL (0.00-0.029) H D 08/31/17 13:28 Triglycerides 56 mg/dL (2-149) 08/30/17 00:05 Cholesterol 157 mg/dL (50-199) 08/30/17 00:05 LDL Cholesterol Direct 88 mg/dL (50-130) 08/30/17 00:05 HDL Cholesterol 67 mg/dL (40-59) H 08/30/17 00:05 Cholesterol/HDL Ratio 2.34 % 08/30/17 00:05 TSH 2.550 mlU/mL (0.270-4.200) 08/30/17 00:05 Free T4 1.67 ng/dL (0.76-1.46) H 08/30/17 00:05 Urine Color Yellow (Yellow) 08/30/17 01:49 Urine Turbidity Clear (Clear) 08/30/17 01:49 Urine pH 6.0 (5.0-7.0) 08/30/17 01:49 Ur Specific [place] 1.015 (1.003-1.030) 08/30/17 01:49 Urine Protein <15 mg/dl mg/dL (Negative) 08/30/17 01:49 Urine Glucose (UA) Neg mg/dL (Negative) 08/30/17 01:49 Urine Ketones Neg mg/dL (Negative) 08/30/17 01:49 Urine Blood Neg (Negative) 08/30/17 01:49 Urine Nitrite Neg (Negative) 08/30/17 01:49 Urine Bilirubin Neg (Negative) 08/30/17 01:49 Urine Urobilinogen < 2.0 mg/dL (<2.0) 08/30/17 01:49 Ur Leukocyte Esterase Neg (Negative) 08/30/17 01:49 Urine WBC (Auto) 1.0 /HPF (0.0-6.0) 08/30/17 01:49 Urine RBC (Auto) 3.0 /HPF (0.0-6.0) 08/30/17 01:49 U Epithel Cells (Auto) < 1.0 /HPF (0-13.0) 08/30/17 01:49 Hyaline Casts 1 /LPF 08/30/17 01:49 Urine Mucus Few /HPF 08/30/17 01:49 Urine Osmolality 535 Mosm/kg 08/30/17 01:49 Urine Sodium 18 mmol/L 08/30/17 01:49 Urine Chloride 22.8 mmolL (110-250) L 08/30/17 01:49 <POOJA MCKEON - Last Filed: 08/31/17 19:15> History Interval history: I saw and evaluated the patient. I agree with the findings and the plan of care as documented in the Nurse Practitioner's~note, with the following corrections and additions. Patient seen and evaluated medical records reviewed Agree with their poor documentation and treatment plan Patient lives alone, discussed with case management Possible home health versus placement Continue current management Physical therapy occupational therapy, possible discharge in 1-2 days if stable Hospitalist Physical - Constitutional Vitals: Temp Pulse Resp BP Pulse Ox 97.9 F 82 18 135/58 98 08/31/17 17:47 08/31/17 17:47 08/31/17 17:47 08/31/17 17:47 08/31/17 17:47 Results - Labs CBC & Chem 7: 08/31/17 04:29 08/31/17 04:29 Labs: Laboratory Last Values WBC 6.4 K/mm3 (4.5-11.0) 08/31/17 04:29 RBC 3.80 M/mm3 (3.65-5.03) 08/31/17 04:29 Hgb 10.3 gm/dl (10.1-14.3) 08/31/17 04:29 Hct 31.8 % (30.3-42.9) 08/31/17 04:29 MCV 84 fl (79-97) 08/31/17 04:29 MCH 27 pg (28-32) L 08/31/17 04:29 MCHC 32 % (30-34) 08/31/17 04:29 RDW 15.2 % (13.2-15.2) 08/31/17 04:29 Plt Count 259 K/mm3 (140-440) 08/31/17 04:29 Lymph % (Auto) [employer] 08/31/17 04:29 [place] % (Auto) [employer] 08/31/17 04:29 Eos % (Auto) [employer] 08/31/17 04:29 Baso % (Auto) [employer] 08/31/17 04:29 Lymph # [employer] 08/31/17 04:29 [place] # [employer] 08/31/17 04:29 Eos # [employer] 08/31/17 04:29 Baso # [employer] 08/31/17 04:29 Seg Neutrophils % [employer] 08/31/17 04:29 Seg Neutrophils # [employer] 08/31/17 04:29 Sodium 124 mmol/L (137-145) L 08/31/17 04:29 Potassium 4.5 mmol/L (3.6-5.0) 08/31/17 04:29 Chloride 90.1 mmol/L (98-107) L 08/31/17 04:29 Carbon Dioxide 20 mmol/L (22-30) L 08/31/17 04:29 Anion Gap 18 mmol/L 08/31/17 04:29 BUN 14 mg/dL (7-17) 08/31/17 04:29 Creatinine 0.4 mg/dL (0.7-1.2) L 08/31/17 04:29 Estimated GFR > 60 ml/min 08/31/17 04:29 BUN/Creatinine Ratio 35 % 08/31/17 04:29 Glucose 100 mg/dL (65-100) 08/31/17 04:29 Calcium 7.6 mg/dL (8.4-10.2) L 08/31/17 04:29 Magnesium 1.80 mg/dL (1.7-2.3) 08/30/17 00:05 Total Creatine Kinase 150 units/L (30-135) H 08/30/17 08:16 CK-MB (CK-2) 11.6 ng/mL (0.0-4.0) H 08/30/17 08:16 CK-MB (CK-2) Rel Index 7.7 (0-4) H 08/30/17 08:16 Troponin T 0.054 ng/mL (0.00-0.029) H D 08/31/17 18:06 Triglycerides 56 mg/dL (2-149) 08/30/17 00:05 Cholesterol 157 mg/dL (50-199) 08/30/17 00:05 LDL Cholesterol Direct 88 mg/dL (50-130) 08/30/17 00:05 HDL Cholesterol 67 mg/dL (40-59) H 08/30/17 00:05 Cholesterol/HDL Ratio 2.34 % 08/30/17 00:05 TSH 2.550 mlU/mL (0.270-4.200) 08/30/17 00:05 Free T4 1.67 ng/dL (0.76-1.46) H 08/30/17 00:05 Urine Color Yellow (Yellow) 08/30/17 01:49 Urine Turbidity Clear (Clear) 08/30/17 01:49 Urine pH 6.0 (5.0-7.0) 08/30/17 01:49 Ur Specific [place] 1.015 (1.003-1.030) 08/30/17 01:49 Urine Protein <15 mg/dl mg/dL (Negative) 08/30/17 01:49 Urine Glucose (UA) Neg mg/dL (Negative) 08/30/17 01:49 Urine Ketones Neg mg/dL (Negative) 08/30/17 01:49 Urine Blood Neg (Negative) 08/30/17 01:49 Urine Nitrite Neg (Negative) 08/30/17 01:49 Urine Bilirubin Neg (Negative) 08/30/17 01:49 Urine Urobilinogen < 2.0 mg/dL (<2.0) 08/30/17 01:49 Ur Leukocyte Esterase Neg (Negative) 08/30/17 01:49 Urine WBC (Auto) 1.0 /HPF (0.0-6.0) 08/30/17 01:49 Urine RBC (Auto) 3.0 /HPF (0.0-6.0) 08/30/17 01:49 U Epithel Cells (Auto) < 1.0 /HPF (0-13.0) 08/30/17 01:49 Hyaline Casts 1 /LPF 08/30/17 01:49 Urine Mucus Few /HPF 08/30/17 01:49 Urine Osmolality 535 Mosm/kg 08/30/17 01:49 Urine Sodium 18 mmol/L 08/30/17 01:49 Urine Chloride 22.8 mmolL (110-250) L 08/30/17 01:49
[2017-08-31] MEDS: PLAQUENIL PO SCH (22:24)
[2017-09-01] MEDS: NACL 0.9% 1000 ML 1,000 ML IV SCH (05:59)
[2017-09-01 07:01] LABS: BUN/Creatinine Ratio 20; Blood Urea Nitrogen 10 mg/dL (7-17); Calcium 8.3 mg/dL (8.4-10.2); Hemolysis Index 1
[2017-09-01 10:21] VITALS: BP 127/46
[2017-09-01] MEDS: PROCARDIA XL PO SCH (10:30)
[2017-09-01] MEDS: LOVENOX SUB-Q SCH (10:30)
[2017-09-01] MEDS: PLAVIX PO SCH ×3 (10:30→10:44)
[2017-09-01] MEDS: SODIUM CHLORIDE FLUSH SYRINGE 10 ML IV SCH (10:31)
--- NOTE | 2017-09-01 11:42 | Progress Note ---
Assessment and Plan Severe hyponatremia Mild sinus bradycardia Lopressor therapy discontinued. Hypertension Conservative cardiac management. Stable, cardiac franco. Subjective Date of service: 09/01/17 Principal diagnosis: hyponatremia Interval history: Patient has no cardiac complaints. No reported cardiac events on telemetry overnight. Objective Vital Signs Temp Pulse Resp BP BP Pulse Ox 09/01/17 10:00 69 09/01/17 08:47 98.0 F 76 24 127/46 98 09/01/17 04:49 98.3 F 89 20 142/60 99 09/01/17 01:19 91 H 20 109/50 96 09/01/17 00:52 94 H 97 08/31/17 21:56 93 08/31/17 20:44 98.3 F 77 20 143/67 99 08/31/17 17:47 97.9 F 82 18 135/58 98 08/31/17 15:53 97.9 F 75 18 135/58 98 08/31/17 13:26 92 - Physical Examination General: No Apparent Distress HEENT: Positive: PERRL Neck: Positive: trachea midline Cardiac: Positive: Reg Rate and Rhythm Lungs: Positive: Decreased Breath Sounds Neuro: Positive: Grossly Intact Extremities: Absent: edema - Labs and Meds Comprehensive Metabolic Panel 09/01/17 Range/Units 04:22 Sodium 137 D (137-145) mmol/L Potassium 4.2 (3.6-5.0) mmol/L Chloride 97.1 L (98-107) mmol/L Carbon Dioxide 29 D (22-30) mmol/L BUN 10 (7-17) mg/dL Creatinine 0.5 L (0.7-1.2) mg/dL Glucose 103 H (65-100) mg/dL Calcium 8.3 L (8.4-10.2) mg/dL
--- NOTE | 2017-09-01 12:36 | Discharge Summary ---
Providers - Providers Date of Admission: 08/30/17 02:04 Attending physician: POOJA MCKEON 08/30/17 00:54 Consult to Physician [CONS] Urgent Comment: Consulting Provider: BRANDEE NEFF Physician Instructions: Reason For Exam: hyponatremia 08/30/17 01:00 Consult to Physician [CONS] Urgent Comment: Consulting Provider: DARIEN TORRES Physician Instructions: Reason For Exam: symptomatic bradycardia, lopressor use 08/31/17 11:28 Physical Therapy Evaluation and Treat [CONS] Routine Comment: Reason For Exam: weakness 08/31/17 11:29 Consult to Case Management [CONS] Routine Services Needed at Discharge: Home Health Services Notified:: Rocío Primary care physician: ABDIRIZAK SORIANO Hospitalization Condition: Stable Pertinent studies: 86-year-old woman with a history of hypertension, lupus presented to emergency room complaining of nausea vomiting, generalized weakness, dizziness. Patient is on antihypertensives and 1 was changed to Lopressor 25 twice a day. Patient started taking this past Wednesday when her symptoms developed. Discharge diagnoses Symptomatic bradycardia due to lopressor Heart rate has now normalized, discontinued Lopressor Hyponatremia Possibly due to diuretic, patient also explains that she has decrease her sodium intake and increased her water intake Sodium is now normal, patient placed on fluid restriction of less than 1000mL in 24 hours, regular diet Hypertension Antihypertensive changed to Nifedipine 60mg BID, all others discontinued Lupus Patient will continue her outpatient medication DVT prophylaxis Hospital course: 86-year-old woman with a history of hypertension, lupus presented to emergency room complaining of nausea vomiting, generalized weakness, dizziness. Patient is on antihypertensives and 1 was changed to Lopressor 25 twice a day. Patient started taking this past Wednesday when her symptoms developed. Discharge diagnoses Symptomatic bradycardia due to lopressor Heart rate has now normalized, discontinued Lopressor Hyponatremia Possibly due to diuretic, patient also explains that she has decrease her sodium intake and increased her water intake Sodium is now normal, patient placed on fluid restriction of less than 1000mL in 24 hours, regular diet Hypertension Antihypertensive changed to Nifedipine 60mg BID, all others discontinued Lupus Patient will continue her outpatient medication DVT prophylaxis Disposition: [id number] HOME UNDER HOME [facility] Time spent for discharge: 32 minutes Core Measure Documentation - Palliative Care Palliative Care/ Comfort Measures: Not Applicable - Core Measures Any of the following diagnoses?: none Exam - Constitutional Vitals: Temp Pulse Resp BP Pulse Ox 98.0 F 69 24 127/46 98 09/01/17 08:47 09/01/17 10:00 09/01/17 08:47 09/01/17 08:47 09/01/17 08:47 General appearance: Present: no acute distress, well-nourished - EENT Eyes: Present: PERRL ENT: hearing intact, clear oral mucosa - Neck Neck: Present: supple, normal ROM - Respiratory Respiratory effort: normal Respiratory: bilateral: CTA - Cardiovascular Heart Sounds: Present: S1 & S2. Absent: rub, click - Extremities Extremities: pulses symmetrical, No edema Peripheral Pulses: within normal limits - Abdominal General gastrointestinal: Present: soft, non-tender, non-distended, normal bowel sounds - Integumentary Integumentary: Present: clear, warm, dry - Musculoskeletal Musculoskeletal: gait normal, strength equal bilaterally - Psychiatric Psychiatric: appropriate mood/affect, intact judgment & insight - Neurologic Neurologic: CNII-XII intact, moves all extremities Plan Activity: fall precautions Diet: regular Special Instructions: restrict fluid intake to (less than 1000mL of free water within 24 hours), physical therapy, home health RN Follow up with: ABDIRIZAK SORIANO MD [Primary Care Provider] - 3-5 Days GE CARVER MD [Staff Physician] - 7 Days Prescriptions: NIFEdipine XL [Procardia Xl] 60 mg PO Q12HR #60 tablet
[2017-09-01] MEDS: SAMSCA PO SCH (14:27)
== END 2017-09-01 15:22 | disposition home health service (06) | DRG 309 ==
LOC: ED 23:48 → 4A 08-30 02:04
PROVIDERS: ADMIT Internal Medicine; ATTEND Internal Medicine
DX: R00.1 Bradycardia, unspecified (principal); E22.2 Syndrome of inappropriate secretion of antidiuretic hormone; M32.9 Systemic lupus erythematosus, unspecified; I10 Essential (primary) hypertension; T44.7X5A Adverse effect of beta-adrenoreceptor antagonists, initial encounter; M19.90 Unspecified osteoarthritis, unspecified site; T46.1X5A Adverse effect of calcium-channel blockers, initial encounter; E89.0 Postprocedural hypothyroidism; T50.2X5A Adverse effect of carbonic-anhydrase inhibitors, benzothiadiazides and other diuretics, initial encounter; Y92.89 Other specified places as the place of occurrence of the external cause; Z79.899 Other long term (current) drug therapy; Z90.710 Acquired absence of both cervix and uterus; Z82.49 Family history of ischemic heart disease and other diseases of the circulatory system; Z88.6 Allergy status to analgesic agent
CPT/HCPCS: 36415; 80048; 80061; 81001; 82436; 82550; 82553; 83735; 83935; 84300; 84439; 84443; 84484; 85025; 93005; 93010; 94760; 96361; 96374; A9270-GY; G8978-GP; G8979-GP; J0360; J1650; J2405; J2765; J7030

== ENCOUNTER 2018-08-20 18:46 | Inpatient (IN) | payer MEDICARE ==
[2018-08-20] MEDS ORDERED: NACL 0.9% 1000 ML 1,000 ML IV ONE ×2 (20:59→22:34)
[2018-08-20] MEDS ORDERED: PEPCID IV ONE (20:59)
[2018-08-20] MEDS ORDERED: ZOFRAN IV ONE (20:59)
--- NOTE | 2018-08-20 21:05 | Emergency Department Report ---
HPI - General Chief Complaint: Dyspnea/Respdistress Time Seen by Provider: 08/20/18 20:40 - HPI HPI: Room 2 The patient is an 87-year-old female presented with a chief complaint of dizziness nausea or vomiting. The patient states her symptoms began appr oximately one week ago when her physician switched her from her losartan (secondary to recall) to lisinopril. The patient states she took the lisinopril once one week ago and 3 hours later began complaining of dizziness nausea vomiting and one episode of diarrhea. For the past week the patient has had decreased by mouth intake secondary to the nausea and vomiting. Patient states the dizziness has been persistent. Intermittently the patient states she feels something rise in her chest and she begins to choke and cough. Patient denies history of fever or any new forms of pain. Patient denies chest pain or headache. Currently the patient states she feels diffusely weak Location: [See above] Duration: [See above] Quality: [See above] Severity: [See above] Modifying factors: [see above] Context: [see above] Mode of transportation: [not driving] ED Past Medical Hx - Past Medical History Hx Hypertension: Yes Hx Arthritis: Yes Additional medical history: Lupus - Surgical History Additional Surgical History: "thyroid surgery" - Family History Family history: no significant - Social History Smoking Status: Former Smoker (none 30 years) Substance Use Type: None - Medications Home Medications: Home Medications Medication Instructions Recorded Confirmed Last Taken Type traZODone [Desyrel] 150 mg PO QHS #30 tablet 12/15/13 08/30/17 Unknown Rx Hydroxychloroquine [Plaquenil] 200 mg PO QDAY 08/30/17 08/30/17 Unknown History NIFEdipine XL [Procardia Xl] 60 mg PO Q12HR #60 tablet 09/01/17 Unknown Rx ED Review of Systems ROS: Stated complaint: COUGH/WEAKNESS Other details as noted in HPI Constitutional: denies: fever Eyes: denies: eye pain ENT: denies: throat pain Respiratory: cough Cardiovascular: denies: chest pain Endocrine: no symptoms reported Gastrointestinal: nausea, vomiting Genitourinary: denies: dysuria Musculoskeletal: denies: back pain Neurological: other (dizziness). denies: headache Physical Exam - Physical Exam Vital Signs: Vital Signs 08/20/18 18:56 Temperature 97.4 F L Pulse Rate 70 Respiratory 16 Rate Blood Pressure 160/73 O2 Sat by Pulse 95 Oximetry Physical Exam: GENERAL: The patient is well-developed well-nourished female lying on stretcher not appearing to be in acute distress. [] HEENT: Normocephalic. Atraumatic. Extraocular motions are intact. Patient has moist mucous membranes. NECK: Supple. No stridor CHEST/LUNGS: Clear to auscultation. There is no respiratory distress noted. HEART/CARDIOVASCULAR: Regular. There is no tachycardia. There is no gallop rub or murmur. ABDOMEN: Abdomen is soft, nontender. Patient has normal bowel sounds. There is no abdominal distention. SKIN: There is no rash. There is no edema. There is no diaphoresis. NEURO: The patient is awake, alert, and oriented. The patient is cooperative. The patient has no focal neurologic deficits. The patient has normal speech MUSCULOSKELETAL: There is no evidence of acute injury. ED Course Vital Signs 08/20/18 18:56 Temperature 97.4 F L Pulse Rate 70 Respiratory 16 Rate Blood Pressure 160/73 O2 Sat by Pulse 95 Oximetry ED Medical Decision Making - Lab Data Result diagrams: 08/20/18 21:53 08/20/18 21:53 Laboratory Tests 08/20/18 08/20/18 08/20/18 21:53 21:53 21:53 WBC 7.3 RBC 4.57 Hgb 12.8 Hct 37.6 MCV 82 MCH 28 MCHC 34 RDW 15.1 Plt Count 321 Lymph % (Auto) 12.[address] [place] % (Auto) 8.0 H Eos % (Auto) 0.4 Baso % (Auto) 0.1 Lymph # 0.[address] [place] # 0.6 Eos # 0.0 Baso # 0.0 Seg Neutrophils % 79.1 H Seg Neutrophils # 5.8 PT 13.1 INR 0.94 APTT 23.1 L Sodium 123 L Potassium 5.5 H Chloride 86.9 L Carbon Dioxide 27 Anion Gap 15 BUN 18 H Creatinine 0.8 Estimated GFR > 60 BUN/Creatinine Ratio 23 Glucose 104 H Calcium 8.5 Total Bilirubin 0.60 AST 62 H ALT 82 H Alkaline Phosphatase 101 Total Creatine Kinase 257 H CK-MB (CK-2) 22.0 H CK-MB (CK-2) Rel Index 8.5 H Troponin T 0.062 H Total Protein 6.5 Albumin 3.9 Albumin/Globulin Ratio 1.5 Triglycerides 71 Cholesterol 173 LDL Cholesterol Direct 115 HDL Cholesterol 60 H Cholesterol/HDL Ratio 2.88 Lipase 27 - EKG Data -: EKG Interpreted by Me EKG shows normal: sinus rhythm Rate: normal - EKG Data When compared to previous EKG there are: no significant change Interpretation: unchanged when compared t (08/30/2017) - Radiology Data Radiology results: report reviewed (CT head), image reviewed (CT head) [facility] [address] [place] [address] Cat Scan Report Signed Patient: ELMO FRENCH MR#: [id number] : 1930 Acct:[id number] Age/Sex: 87 / F ADM Date: 08/20/18 Loc: ED Attending Dr: Ordering Physician: SIRISHA PEÑA MD Date of Service: 08/20/18 Procedure(s): CT head/brain wo con Accession Number(s): [id number] cc: SIRISHA PEÑA MD PROCEDURE: CT HEAD/BRAIN WO CON TECHNIQUE: Computerized tomography of the head was performed without contrast material. CT DOSE LENGTH PRODUCT: mGycm HISTORY: dizziness nausea vomiting COMPARISONS: None . FINDINGS: Skull and scalp: Normal . Paranasal sinuses: There is diffuse opacification of left maxillary sinus . Ventricles and subarachnoid spaces: Prominent consistent with cerebral atrophy appropriate for patient's age . Cerebrum: Mild degree nonspecific white matter hypodensity most likely related an acute intra-axial or extra-axial hemorrhage or mass effect.. Cerebellum and brainstem: No evidence of hemorrhage, acute infarction or mass . Vasculature: Atherosclerotic calcification is noted involving internal carotid and vertebral arteries. . Other: None . ASPECTS: 10 IMPRESSION: No acute disease Chronic left maxillary sinusitis. This document is electronically signed by Zac Barrios MD., August 20 2018 10:48:14 PM ET Transcribed By: [facility] [place] Dictated By: ZAC BARRIOS Electronically Authenticated By: ZAC BARRIOS Signed Date/Time: 08/20/182249 DD/ 39 TD/TT: 08/20/182240 - Differential Diagnosis medications reaction, angioedema, ICH, vertigo, Critical care attestation.: If time is entered above; I have spent that time in minutes in the direct care of this critically ill patient, excluding procedure time. ED Disposition Clinical Impression: Hyponatremia, Nausea & vomiting, Weakness, Elevated troponin Disposition: DC-09 OP ADMIT IP TO THIS HOSP Is pt being admited?: Yes Does the pt Need Aspirin: Yes Condition: Fair Referrals: QUYNH GRIFFIN MD [Primary Care Provider] - 3-5 Days Time of Disposition: 23:17 (hospitalist paged (Dr. Brandi Duffy))
[2018-08-20 22:27] LABS: Alanine Aminotransferase 82 units/L (7-56); Albumin 3.9 g/dL (3.9-5); BUN/Creatinine Ratio 23; Blood Urea Nitrogen 18 mg/dL (7-17); Calcium 8.5 mg/dL (8.4-10.2); Hemolysis Index 2
[2018-08-20 22:40] LABS: Chol/HDL Ratio 2.88 %; HDL Cholesterol 60 mg/dL (40-59); LDL Cholesterol,Direct 115 mg/dL (50-130)
[2018-08-20 22:41] LABS: INR 0.94 (0.87-1.13)
[2018-08-20 22:42] LABS: Partial Thromboplastin Time 23.1 Sec. (24.2-36.6)
--- NOTE | 2018-08-20 22:50 | Cat Scan Report ---
PROCEDURE: CT HEAD/BRAIN WO CON TECHNIQUE: Computerized tomography of the head was performed without contrast material. CT DOSE LENGTH PRODUCT: mGycm HISTORY: dizziness nausea vomiting COMPARISONS: None . FINDINGS: Skull and scalp: Normal . Paranasal sinuses: There is diffuse opacification of left maxillary sinus . Ventricles and subarachnoid spaces: Prominent consistent with cerebral atrophy appropriate for patie nt's age . Cerebrum: Mild degree nonspecific white matter hypodensity most likely related an acute intra-axial o r extra-axial hemorrhage or mass effect.. Cerebellum and brainstem: No evidence of hemorrhage, acute infarction or mass . Vasculature: Atherosclerotic calcification is noted involving internal carotid and vertebral arterie s. . Other: None . ASPECTS: 10 IMPRESSION: No acute disease Chronic left maxillary sinusitis. This document is electronically signed by Thomas Barrios MD., August 20 2018 10:48:14 PM ET
[2018-08-20 23:06] LABS: Basophils % (Auto) 0.1 % (0.0-1.8); Eosinophils % (Auto) 0.4 % (0.0-4.3); Hematocrit 37.6 % (30.3-42.9); Hemoglobin 12.8 gm/dl (10.1-14.3); Lymphocytes # (Auto) 0.9 K/mm3 (1.2-5.4); Lymphocytes % (Auto) 12.4 % (13.4-35.0); Mean Corpuscular HGB Conc 34 % (30-34); Mean Corpuscular Volume 82 fl (79-97); Monocytes # (Auto) 0.6 K/mm3 (0.0-0.8); Platelet Count 321 K/mm3 (140-440); Red Blood Count 4.57 M/mm3 (3.65-5.03); Red Cell Distribution Width 15.1 % (13.2-15.2)
[2018-08-20] MEDS ORDERED: PLAVIX PO ONE (23:16)
--- NOTE | 2018-08-20 23:44 | History and Physical Report ---
History of Present Illness Date of examination: 08/20/18 History of present illness: 87-year-old woman with a history of hypertension, lupus comes to the emergency room complaining of nausea vomiting, generalized weakness, dizziness. Symptoms started after her losartan was changed to lisinopril due to recall of losartan. They have decreased oral intake Review Of Systems: Constitutional: no weight loss Ears, eyes, nose, mouth and throat: no nasal congestion, no nasal discharge, no sinus pressure, blurry vision, diplopia Neck: No neck pain or rigidity. Cardiovascular: no Chest pain, orthopnea, palpitations Respiratory: No shortness of breath, cough Gastrointestinal: no hematochezia Genitourinary : no dysuria, frequency , hematuria Musculoskeletal: no muscle ache Integumentary: no rash, no pruritis Neurological: no parathesias, focal weakness Endocrine: no cold or heat intolerance, no polyuria or polydipsia Hematologic/Lymphatic: no easy bruising, no easy bleeding, no gland swelling Allergic/Immunologic: no urticaria, no angioedema. PAST MEDICAL HISTORY: Hypertension, lupus PAST SURGICAL HISTORY: Hysterectomy, thyroidectomy SOCIAL HISTORY: Denies alcohol, tobacco, drugs FAMILY HISTORY: Hypertension Medications and Allergies Allergies Allergy/AdvReac Type Severity Reaction Status Date / Time aspirin Allergy Unknown Unknown Verified 08/20/18 18:48 cephalexin monohydrate Allergy Unknown Unknown Verified 08/20/18 18:48 [From Keflex] diazepam [From Valium] Allergy Unknown Unknown Verified 08/20/18 18:48 doxycycline calcium Allergy Unknown Unknown Verified 08/20/18 18:48 [From Vibramycin] doxycycline hyclate Allergy Unknown Unknown Verified 08/20/18 18:48 [From Vibramycin] doxycycline monohydrate Allergy Unknown Unknown Verified 08/20/18 18:48 [From Vibramycin] lorazepam [From Ativan] Allergy Unknown Diarrhea Verified 08/20/18 18:48 meperidine HCl [From Demerol] Allergy Unknown Unknown Verified 08/20/18 18:48 ofloxacin [From Floxin] Allergy Unknown Unknown Verified 08/20/18 18:48 pentazocine lactate Allergy Unknown Unknown Verified 08/20/18 18:48 [From Talwin] ciprofloxacin Allergy Unknown Verified 08/20/18 18:48 fexofenadine [From Nadine] Allergy Unknown Verified 08/20/18 18:48 hydrocodone Allergy Unknown Verified 08/20/18 18:48 morphine Allergy Unknown Verified 08/20/18 18:48 Sulfa (Sulfonamide Allergy Unknown Verified 08/20/18 18:48 Antibiotics) adhesive AdvReac Rash Verified 08/20/18 18:48 Home Medications Medication Instructions Recorded Confirmed Last Taken Type traZODone [Desyrel] 150 mg PO QHS #30 tablet 12/15/13 08/30/17 Unknown Rx Hydroxychloroquine [Plaquenil] 200 mg PO QDAY 08/30/17 08/30/17 Unknown History NIFEdipine XL [Procardia Xl] 60 mg PO Q12HR #60 tablet 09/01/17 Unknown Rx Active Meds: Active Medications Sodium Chloride (Nacl 0.9% 1000 Ml) 1,000 mls @ 250 mls/hr IV ONCE ONE Stop: 08/21/18 02:33 Exam - Physical Exam Narrative exam: Gen. appearance: Patient lying in bed, no apparent distress HEENT: Normocephalic, atraumatic, pupils equally round and reactive to light, extraocular movement intact, and no sclericterus,. No JVD or thyromegaly or nodule,neck supple, no carotid bruit ,mucous membranes moist, no exudate or erythema Heart: S1, S2, regular rate and rhythm Lungs: Clear to auscultation bilaterally, breathing comfortable Abdomen: Positive bowel sounds, nontender, nondistended, no organomegaly Extremity: No edema, cyanosis, clubbing Skin: No rash, nodules, warm, dry Neuro: Oriented 3, cranial nerves II-12 intact, speech is fluent, motor and sensory intact - Constitutional Vitals: Temp Pulse Resp BP Pulse Ox 97.4 F L 70 16 160/73 95 08/20/18 18:56 08/20/18 18:56 08/20/18 18:56 08/20/18 18:56 08/20/18 18:56 Results - Labs CBC & Chem 7: 08/20/18 21:53 08/20/18 23:06 Labs: Abnormal lab results 08/20/18 08/20/18 08/20/18 Range/Units 21:53 21:53 21:53 Lymph % (Auto) 12.4 L (13.4-35.0) % [place] % (Auto) 8.0 H (0.0-7.3) % Lymph # 0.9 L (1.2-5.4) K/mm3 Seg Neutrophils % 79.1 H (40.0-70.0) % APTT 23.1 L (24.2-36.6) Sec. Sodium 123 L (137-145) mmol/L Potassium 5.5 H (3.6-5.0) mmol/L Chloride 86.9 L (98-107) mmol/L BUN 18 H (7-17) mg/dL Glucose 104 H (65-100) mg/dL AST 62 H (5-40) units/L ALT 82 H (7-56) units/L Total Creatine Kinase 257 H (30-135) units/L CK-MB (CK-2) 22.0 H (0.0-4.0) ng/mL CK-MB (CK-2) Rel Index 8.5 H (0-4) Troponin T 0.062 H (0.00-0.029) ng/mL HDL Cholesterol 60 H (40-59) mg/dL - Imaging and Cardiology CT Scan - head: report reviewed Assessment and Plan Assessment Hyponatremia Abnormal cardiac enzymes Hypertension Lupus Plan Admit to medicine start IV fluid, monitor sodium levels Check cardiac enzymes, echo, refuse cardiology consult Continue medication, IV hydralazine for blood pressure control DVT prophylaxis
[2018-08-21] MEDS ORDERED: PLAVIX ONE (00:33)
[2018-08-21] MEDS ORDERED: APRESOLINE IV PRN (04:32)
[2018-08-21] MEDS: ZOFRAN IV PRN ×2 (04:37→23:05)
[2018-08-21] MEDS: NACL 0.9% 1000 ML 1,000 ML IV SCH ×2 (05:46→14:44)
[2018-08-21 05:53] LABS: Creatine Kinase MB 23.5 ng/mL (0.0-4.0)
[2018-08-21] MEDS: SODIUM CHLORIDE FLUSH SYRINGE 10 ML IV SCH ×2 (10:34→22:57)
[2018-08-21] MEDS: LOVENOX SUB-Q SCH (10:34)
[2018-08-21] MEDS: TYLENOL PO PRN (10:35)
[2018-08-21 11:11] LABS: Basophils % (Auto) 0.2 % (0.0-1.8); Eosinophils % (Auto) 0.2 % (0.0-4.3); Hematocrit 37.8 % (30.3-42.9); Hemoglobin 12.2 gm/dl (10.1-14.3); Lymphocytes # (Auto) 0.5 K/mm3 (1.2-5.4); Lymphocytes % (Auto) 9.6 % (13.4-35.0); Mean Corpuscular HGB Conc 32 % (30-34); Mean Corpuscular Volume 84 fl (79-97); Monocytes # (Auto) 0.5 K/mm3 (0.0-0.8); Monocytes % (Auto) 9.2 % (0.0-7.3); Platelet Count 248 K/mm3 (140-440); Red Blood Count 4.51 M/mm3 (3.65-5.03); Red Cell Distribution Width 15.1 % (13.2-15.2)
[2018-08-21 11:32] LABS: Creatine Kinase MB 28.4 ng/mL (0.0-4.0)
[2018-08-21] MEDS: PLAQUENIL PO SCH (14:00)
--- NOTE | 2018-08-21 15:03 | Progress Note ---
Assessment and Plan Assessment and plan: 87-year-old woman with a history of hypertension, lupus comes to the emergency room complaining of nausea vomiting, generalized weakness, dizziness. Symptoms started after her losartan was changed to lisinopril due to recall of losartan. she reports decreased oral intake Diagnosis severe Hyponatremia dehydration Abnormal cardiac enzymes Hypertension Lupus N/V dehydration Hyperkalemia Plan dc losartan, K is now normal, fup BMP daily cont isotonic IV fluid, monitor sodium levels, nephrology consult cardiac enzymes are detectable, and mildly elevated, Cardiology consult switch BP meds to ca ch dylan DVT prophylaxis History Interval history: Review of systems Constitutional: No fevers, no malaise, no joint pains CVS: No chest pain, no orthopnea, no dyspnea on exertion, no pedal edema GI: No abdominal pain, no diarrhea, no vomiting, no constipation Respiratory: No shortness of breath, no wheezing, no coughing Hospitalist Physical - Physical exam Narrative exam: General.: Appears well, no distress, nontoxic HEENT: Moist mucous membranes, extraocular muscles intact, no lymphadenopathy Neck: supple Cardiac: S1-S2 heard Lungs: clear to auscultation bilaterally Abdomen: soft , nontender, nondistended, bowel sounds positive Extremities: no edema clubbing or cyanosis Skin: no rash or lesions Neurologic: no gross focal deficits Psych: calm, and cooperative - Constitutional Vitals: Temp Pulse Resp BP Pulse Ox 98.6 F 67 20 149/66 98 08/21/18 13:40 08/21/18 13:40 08/21/18 13:40 08/21/18 13:40 08/21/18 13:40 Results - Labs CBC & Chem 7: 08/21/18 10:20 08/20/18 23:06 Labs: Laboratory Last Values WBC 5.0 K/mm3 (4.5-11.0) 08/21/18 10:20 RBC 4.51 M/mm3 (3.65-5.03) 08/21/18 10:20 Hgb 12.2 gm/dl (10.1-14.3) 08/21/18 10:20 Hct 37.8 % (30.3-42.9) 08/21/18 10:20 MCV 84 fl (79-97) 08/21/18 10:20 MCH 27 pg (28-32) L 08/21/18 10:20 MCHC 32 % (30-34) 08/21/18 10:20 RDW 15.1 % (13.2-15.2) 08/21/18 10:20 Plt Count 248 K/mm3 (140-440) 08/21/18 10:20 Lymph % (Auto) 9.6 % (13.4-35.0) L 08/21/18 10:20 [place] % (Auto) 9.2 % (0.0-7.3) H 08/21/18 10:20 Eos % (Auto) 0.2 % (0.0-4.3) 08/21/18 10:20 Baso % (Auto) 0.2 % (0.0-1.8) 08/21/18 10:20 Lymph # 0.5 K/mm3 (1.2-5.4) L 08/21/18 10:20 [place] # 0.5 K/mm3 (0.0-0.8) 08/21/18 10:20 Eos # 0.0 K/mm3 (0.0-0.4) 08/21/18 10:20 Baso # 0.0 K/mm3 (0.0-0.1) 08/21/18 10:20 Seg Neutrophils % 80.8 % (40.0-70.0) H 08/21/18 10:20 Seg Neutrophils # 4.1 K/mm3 (1.8-7.7) 08/21/18 10:20 PT 13.1 Sec. (12.2-14.9) 08/20/18 21:53 INR 0.94 (0.87-1.13) 08/20/18 21:53 APTT 23.1 Sec. (24.2-36.6) L 08/20/18 21:53 Sodium 123 mmol/L (137-145) L 08/20/18 21:53 Potassium 5.0 mmol/L (3.6-5.0) 08/20/18 23:06 Chloride 86.9 mmol/L (98-107) L 08/20/18 21:53 Carbon Dioxide 27 mmol/L (22-30) 08/20/18 21:53 Anion Gap 15 mmol/L 08/20/18 21:53 BUN 18 mg/dL (7-17) H 08/20/18 21:53 Creatinine 0.8 mg/dL (0.7-1.2) 08/20/18 21:53 Estimated GFR > 60 ml/min 08/20/18 21:53 BUN/Creatinine Ratio 23 % 08/20/18 21:53 Glucose 104 mg/dL (65-100) H 08/20/18 21:53 Calcium 8.5 mg/dL (8.4-10.2) 08/20/18 21:53 Total Bilirubin 0.60 mg/dL (0.1-1.2) 08/20/18 21:53 AST 62 units/L (5-40) H 08/20/18 21:53 ALT 82 units/L (7-56) H 08/20/18 21:53 Alkaline Phosphatase 101 units/L (35-129) 08/20/18 21:53 Total Creatine Kinase 339 units/L (30-135) H 08/21/18 10:20 CK-MB (CK-2) 28.4 ng/mL (0.0-4.0) H 08/21/18 10:20 CK-MB (CK-2) Rel Index 8.3 (0-4) H 08/21/18 10:20 Troponin T 0.052 ng/mL (0.00-0.029) H 08/21/18 10:20 Total Protein 6.5 g/dL (6.3-8.2) 08/20/18 21:53 Albumin 3.9 g/dL (3.9-5) 08/20/18 21:53 Albumin/Globulin Ratio 1.5 % 08/20/18 21:53 Triglycerides 71 mg/dL (2-149) 08/20/18 21:53 Cholesterol 173 mg/dL (50-199) 08/20/18 21:53 LDL Cholesterol Direct 115 mg/dL (50-130) 08/20/18 21:53 HDL Cholesterol 60 mg/dL (40-59) H 08/20/18 21:53 Cholesterol/HDL Ratio 2.88 % 08/20/18 21:53 Lipase 27 units/L (13-60) 08/20/18 21:53
[2018-08-21 16:26] LABS: BUN/Creatinine Ratio 25; Blood Urea Nitrogen 20 mg/dL (7-17); Calcium 8.1 mg/dL (8.4-10.2); Hemolysis Index 4
--- NOTE | 2018-08-21 19:54 | XRay Report ---
PROCEDURE: XR CHEST ROUTINE 2V TECHNIQUE: PA and lateral radiographs of the chest obtained. HISTORY: cough COMPARISONS: None FINDINGS: Elevation the right hemidiaphragm noted. Left lower lobe opacity consistent with small effusion versu s pneumonia. No pneumothorax visualized. IMPRESSION: Left lower lobe opacity consistent with small effusion versus pneumonia.. This document is electronically signed by Gaudencio Silveira MD., August 21 2018 07:53:00 PM ET
[2018-08-21 20:23] LABS: Bilirubin,Urine NEG (Negative); Blood,Urine NEG (Negative); Color,Urine Yellow (Yellow); Hyaline Casts,Urine 1 /LPF; Mucus,Urine FEW /HPF; Urobilinogen,Urine < 2.0 mg/dL (<2.0)
[2018-08-21] MEDS ORDERED: PROCARDIA XL PO SCH (22:00)
[2018-08-21] MEDS ORDERED: DESYREL PO SCH (22:00)
[2018-08-22 04:07] LABS: BUN/Creatinine Ratio 30; Blood Urea Nitrogen 21 mg/dL (7-17); Calcium 7.8 mg/dL (8.4-10.2); Hemolysis Index 35
[2018-08-22] MEDS: NACL 0.9% 1000 ML 1,000 ML IV SCH ×2 (05:16→21:03)
[2018-08-22] MEDS ORDERED: COZAAR PO SCH ×2 (10:00→12:00)
--- NOTE | 2018-08-22 10:37 | Consultation ---
History of Present Illness Consult date: 08/22/18 Consult reason: elevated troponin History of present illness: Patient is an 87 year old woman with a history of Lupus and Hypertension who presented with complaints of dizziness with nausea vomiting and shortness of breath. The patient states her symptoms began one week ago after her physician switched her from her losartan to lisinopril. Head CT scan reports no acute abnormalities. Initial labs revealed multiple metabolic abnormalities including severe hyponatremia with a sodium of 123, elevated liver transaminase and hyperkalemia. A cardiac consultation was requested for elevated cardiac enzymes; CK/MB of 22.0 with a relative index of 8.5. Troponin of 0.062. Findings consistent with non-ST elevated myocardial infarction. Patient denies chest pain but admits to continued shortness of breath. Chest x-ray reports left lower lobe opacity. Further cardiac evaluation with an echocardiogram reveals evidence of severe pulmonary hypertension, RVSP 70-75 mmHg. Normal left ventricular systolic function, ejection fraction 50-55%. 12 lead EKG shows sinus rhythm, LAFB with a chronic RBBB. Medications and Allergies Allergies Allergy/AdvReac Type Severity Reaction Status Date / Time aspirin Allergy Unknown Unknown Verified 08/20/18 18:48 cephalexin monohydrate Allergy Unknown Unknown Verified 08/20/18 18:48 [From Keflex] diazepam [From Valium] Allergy Unknown Unknown Verified 08/20/18 18:48 doxycycline calcium Allergy Unknown Unknown Verified 08/20/18 18:48 [From Vibramycin] doxycycline hyclate Allergy Unknown Unknown Verified 08/20/18 18:48 [From Vibramycin] doxycycline monohydrate Allergy Unknown Unknown Verified 08/20/18 18:48 [From Vibramycin] lorazepam [From Ativan] Allergy Unknown Diarrhea Verified 08/20/18 18:48 meperidine HCl [From Demerol] Allergy Unknown Unknown Verified 08/20/18 18:48 ofloxacin [From Floxin] Allergy Unknown Unknown Verified 08/20/18 18:48 pentazocine lactate Allergy Unknown Unknown Verified 08/20/18 18:48 [From Talwin] ciprofloxacin Allergy Unknown Verified 08/20/18 18:48 fexofenadine [From Nadine] Allergy Unknown Verified 08/20/18 18:48 hydrocodone Allergy Unknown Verified 08/20/18 18:48 morphine Allergy Unknown Verified 08/20/18 18:48 Sulfa (Sulfonamide Allergy Unknown Verified 08/20/18 18:48 Antibiotics) adhesive AdvReac Rash Verified 08/20/18 18:48 Home Medications Medication Instructions Recorded Confirmed Last Taken Type Hydroxychloroquine [Plaquenil] 200 mg PO QDAY 08/30/17 08/21/18 Unknown History Losartan [Cozaar] 50 mg PO QDAY 08/21/18 08/21/18 Unknown History NIFEdipine XL [Procardia Xl] 30 mg PO QHS 08/21/18 08/21/18 Unknown History traZODone [Desyrel] 100 mg PO QHS 08/21/18 08/21/18 Unknown History Active Meds: Active Medications Acetaminophen (Tylenol) 650 mg PO Q4H PRN PRN Reason: Pain MILD(1-3)/Fever >100.5/CASTRO Last Admin: 08/21/18 10:35 Dose: 650 mg Documented by: Cyclobenzaprine HCl (Flexeril) 5 mg PO Q8H PRN PRN Reason: Muscle Spasm Enoxaparin Sodium (Lovenox) 30 mg SUB-Q QDAY [facility] Last Admin: 08/21/18 10:34 Dose: 30 mg Documented by: Hydralazine HCl (Apresoline) 5 mg IV Q6H PRN PRN Reason: Hypertension Hydroxychloroquine Sulfate (Plaquenil) 200 mg PO QDAY [facility] Last Admin: 08/21/18 14:00 Dose: 200 mg Documented by: Sodium Chloride (Nacl 0.9% 1000 Ml) 1,000 mls @ 100 mls/hr IV DIRECT [facility] Last Admin: 08/22/18 05:16 Dose: 100 mls/hr Documented by: Nifedipine (Procardia Xl) 30 mg PO QHS [facility] Last Admin: 08/21/18 22:56 Dose: 30 mg Documented by: Ondansetron HCl (Zofran) 4 mg IV Q4H PRN PRN Reason: Nausea And Vomiting Last Admin: 08/21/18 23:05 Dose: 4 mg Documented by: Sodium Chloride (Sodium Chloride Flush Syringe 10 Ml) 10 ml IV BID [facility] Last Admin: 08/21/18 22:57 Dose: 10 ml Documented by: Sodium Chloride (Sodium Chloride Flush Syringe 10 Ml) 10 ml IV PRN PRN PRN Reason: LINE FLUSH Trazodone HCl (Desyrel) 100 mg PO QHS [facility] Last Admin: 08/21/18 22:56 Dose: 100 mg Documented by: Physical Examination Vital Signs Temp Pulse Resp BP Pulse Ox 97.4 F L 70 16 160/73 95 08/20/18 18:56 08/20/18 18:56 08/20/18 18:56 08/20/18 18:56 08/20/18 18:56 General appearance: no acute distress HEENT: Positive: PERRL Neck: Positive: trachea midline Cardiac: Positive: Reg Rate and Rhythm Lungs: Positive: Decreased Breath Sounds Neuro: Positive: Grossly Intact Extremities: Absent: edema Results 08/21/18 10:20 08/22/18 03:13 Cardiac Enzymes 08/21/18 Range/Units 10:20 CK-MB (CK-2) 28.4 H (0.0-4.0) ng/mL CBC 08/21/18 Range/Units 10:20 WBC 5.0 (4.5-11.0) K/mm3 RBC 4.51 (3.65-5.03) M/mm3 Hgb 12.2 (10.1-14.3) gm/dl Hct 37.8 (30.3-42.9) % Plt Count 248 (140-440) K/mm3 Lymph # 0.5 L (1.2-5.4) K/mm3 [place] # 0.5 (0.0-0.8) K/mm3 Eos # 0.0 (0.0-0.4) K/mm3 Baso # 0.0 (0.0-0.1) K/mm3 Comprehensive Metabolic Panel 08/21/18 08/22/18 Range/Units 15:44 03:13 Sodium 125 L 124 L (137-145) mmol/L Potassium 5.6 H 5.3 H (3.6-5.0) mmol/L Chloride 90.7 L 93.1 L (98-107) mmol/L Carbon Dioxide 25 21 L (22-30) mmol/L BUN 20 H 21 H (7-17) mg/dL Creatinine 0.8 0.7 (0.7-1.2) mg/dL Glucose 113 H 116 H (65-100) mg/dL Calcium 8.1 L 7.8 L (8.4-10.2) mg/dL Assessment and Plan Shortness of breath Dizziness no acute intracranial process by head CT. Hyponatremia Elevated transaminase Hyperkalemia NSTEMI Chronic RBBB Echocardiogram reveals evidence of severe pulmonary hypertension, RVSP 70-75 mmHg. Normal left ventricular systolic function, ejection fraction 50-55%.
--- NOTE | 2018-08-22 11:23 | Progress Note ---
Assessment and Plan Assessment and plan: 87-year-old woman with a history of hypertension, lupus comes to the emergency room complaining of nausea vomiting, generalized weakness, dizziness. Symptoms started after her losartan was changed to lisinopril due to recall of losartan. she reports decreased oral intake Echocardiogram shows well-preserved left ventricular systolic function, mild to moderate concentric left ventricle hypertrophy, but dilated left and right atrium, moderate mitral regurgitation, moderate to severe tricuspid regurgitation and severe pulmonary hypertension. 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 DVT prophylaxis; lovenox History Interval history: Review of systems Constitutional: No fevers, no malaise, no joint pains CVS: No chest pain, no orthopnea, no dyspnea on exertion, no pedal edema GI: No abdominal pain, no diarrhea, no vomiting, no constipation Respiratory: No shortness of breath, no wheezing, no coughing Hospitalist Physical - Physical exam Narrative exam: General.: Appears well, no distress, nontoxic HEENT: Moist mucous membranes, extraocular muscles intact, no lymphadenopathy Neck: supple Cardiac: S1-S2 heard Lungs: clear to auscultation bilaterally Abdomen: soft , nontender, nondistended, bowel sounds positive Extremities: no edema clubbing or cyanosis Skin: no rash or lesions Neurologic: no gross focal deficits Psych: calm, and cooperative - Constitutional Vitals: Temp Pulse Resp BP Pulse Ox 97.6 F 66 20 137/62 91 08/22/18 08:06 08/22/18 08:06 08/22/18 08:06 08/22/18 08:06 08/22/18 08:06 General appearance: Present: no acute distress Results - Labs CBC & Chem 7: 08/21/18 10:20 08/22/18 03:13 Labs: Laboratory Last Values WBC 5.0 K/mm3 (4.5-11.0) 08/21/18 10:20 RBC 4.51 M/mm3 (3.65-5.03) 08/21/18 10:20 Hgb 12.2 gm/dl (10.1-14.3) 08/21/18 10:20 Hct 37.8 % (30.3-42.9) 08/21/18 10:20 MCV 84 fl (79-97) 08/21/18 10:20 MCH 27 pg (28-32) L 08/21/18 10:20 MCHC 32 % (30-34) 08/21/18 10:20 RDW 15.1 % (13.2-15.2) 08/21/18 10:20 Plt Count 248 K/mm3 (140-440) 08/21/18 10:20 Lymph % (Auto) 9.6 % (13.4-35.0) L 08/21/18 10:20 [place] % (Auto) 9.2 % (0.0-7.3) H 08/21/18 10:20 Eos % (Auto) 0.2 % (0.0-4.3) 08/21/18 10:20 Baso % (Auto) 0.2 % (0.0-1.8) 08/21/18 10:20 Lymph # 0.5 K/mm3 (1.2-5.4) L 08/21/18 10:20 [place] # 0.5 K/mm3 (0.0-0.8) 08/21/18 10:20 Eos # 0.0 K/mm3 (0.0-0.4) 08/21/18 10:20 Baso # 0.0 K/mm3 (0.0-0.1) 08/21/18 10:20 Seg Neutrophils % 80.8 % (40.0-70.0) H 08/21/18 10:20 Seg Neutrophils # 4.1 K/mm3 (1.8-7.7) 08/21/18 10:20 PT 13.1 Sec. (12.2-14.9) 08/20/18 21:53 INR 0.94 (0.87-1.13) 08/20/18 21:53 APTT 23.1 Sec. (24.2-36.6) L 08/20/18 21:53 Sodium 124 mmol/L (137-145) L 08/22/18 03:13 Potassium 5.3 mmol/L (3.6-5.0) H 08/22/18 03:13 Chloride 93.1 mmol/L (98-107) L 08/22/18 03:13 Carbon Dioxide 21 mmol/L (22-30) L 08/22/18 03:13 Anion Gap 15 mmol/L 08/22/18 03:13 BUN 21 mg/dL (7-17) H 08/22/18 03:13 Creatinine 0.7 mg/dL (0.7-1.2) 08/22/18 03:13 Estimated GFR > 60 ml/min 08/22/18 03:13 BUN/Creatinine Ratio 30 % 08/22/18 03:13 Glucose 116 mg/dL (65-100) H 08/22/18 03:13 Calcium 7.8 mg/dL (8.4-10.2) L 08/22/18 03:13 Total Bilirubin 0.60 mg/dL (0.1-1.2) 08/20/18 21:53 AST 62 units/L (5-40) H 08/20/18 21:53 ALT 82 units/L (7-56) H 08/20/18 21:53 Alkaline Phosphatase 101 units/L (35-129) 08/20/18 21:53 Total Creatine Kinase 339 units/L (30-135) H 08/21/18 10:20 CK-MB (CK-2) 28.4 ng/mL (0.0-4.0) H 08/21/18 10:20 CK-MB (CK-2) Rel Index 8.3 (0-4) H 08/21/18 10:20 Troponin T 0.052 ng/mL (0.00-0.029) H 08/21/18 10:20 Total Protein 6.5 g/dL (6.3-8.2) 08/20/18 21:53 Albumin 3.9 g/dL (3.9-5) 08/20/18 21:53 Albumin/Globulin Ratio 1.5 % 08/20/18 21:53 Triglycerides 71 mg/dL (2-149) 08/20/18 21:53 Cholesterol 173 mg/dL (50-199) 08/20/18 21:53 LDL Cholesterol Direct 115 mg/dL (50-130) 08/20/18 21:53 HDL Cholesterol 60 mg/dL (40-59) H 08/20/18 21:53 Cholesterol/HDL Ratio 2.88 % 08/20/18 21:53 Lipase 27 units/L (13-60) 08/20/18 21:53 Urine Color Yellow (Yellow) 08/20/18 19:43 Urine Turbidity Clear (Clear) 08/20/18 19:43 Urine pH 6.0 (5.0-7.0) 08/20/18 19:43 Ur Specific [place] 1.018 (1.003-1.030) 08/20/18 19:43 Urine Protein 100 mg/dl mg/dL (Negative) 08/20/18 19:43 Urine Glucose (UA) Neg mg/dL (Negative) 08/20/18 19:43 Urine Ketones Neg mg/dL (Negative) 08/20/18 19:43 Urine Blood Neg (Negative) 08/20/18 19:43 Urine Nitrite Neg (Negative) 08/20/18 19:43 Urine Bilirubin Neg (Negative) 08/20/18 19:43 Urine Urobilinogen < 2.0 mg/dL (<2.0) 08/20/18 19:43 Ur Leukocyte Esterase Neg (Negative) 08/20/18 19:43 Urine WBC (Auto) 1.0 /HPF (0.0-6.0) 08/20/18 19:43 Urine RBC (Auto) 7.0 /HPF (0.0-6.0) 08/20/18 19:43 U Epithel Cells (Auto) < 1.0 /HPF (0-13.0) 08/20/18 19:43 Hyaline Casts 1 /LPF 08/20/18 19:43 Urine Mucus Few /HPF 08/20/18 19:43 Active Medications - Current Medications Current Medications: Generic Name Dose Route Start Last Admin Trade Name Freq PRN Reason Stop Dose Admin Acetaminophen 650 mg 08/21/18 04:26 08/21/18 10:35 Tylenol PO 650 mg Q4H PRN Administration Pain MILD(1-3)/Fever >100.5/CASTRO Cyclobenzaprine HCl 5 mg 08/21/18 17:53 Flexeril PO Q8H PRN Muscle Spasm Enoxaparin Sodium 30 mg 08/21/18 10:00 08/21/18 10:34 Lovenox SUB-Q 30 mg QDAY HARINI Administration Furosemide 40 mg 08/22/18 12:00 Lasix PO QDAY HARINI Hydralazine HCl 5 mg 08/21/18 04:32 Apresoline IV Q6H PRN Hypertension Hydroxychloroquine Sulfate 200 mg 08/21/18 13:00 08/21/18 14:00 Plaquenil PO 200 mg QDAY HARINI Administration Sodium Chloride 1,000 mls @ 100 mls/hr 08/21/18 05:00 08/22/18 05:16 Nacl 0.9% 1000 Ml IV 100 mls/hr DIRECT HARINI Administration Losartan Potassium 50 mg 08/22/18 12:00 Cozaar PO QDAY HARINI Nifedipine 30 mg 08/21/18 22:00 08/21/18 22:56 Procardia Xl PO 30 mg QHS HARINI Administration Ondansetron HCl 4 mg 08/21/18 04:26 08/21/18 23:05 Zofran IV 4 mg Q4H PRN Administration Nausea And Vomiting Potassium Chloride 20 meq 08/22/18 12:00 K-Dur PO QDAY HARINI Sodium Chloride 10 ml 08/21/18 10:00 08/21/18 22:57 Sodium Chloride Flush Syringe 10 Ml IV 10 ml BID HARINI Administration Sodium Chloride 10 ml 08/21/18 04:26 Sodium Chloride Flush Syringe 10 Ml IV PRN PRN LINE FLUSH Trazodone HCl 100 mg 08/21/18 22:00 08/21/18 22:56 Desyrel PO 100 mg QHS HARINI Administration
[2018-08-22] MEDS ORDERED: LASIX PO SCH (12:00)
[2018-08-22] MEDS ORDERED: K-DUR PO SCH (12:00)
[2018-08-22] MEDS ORDERED: CHLORASEPTIC MM PRN (12:23)
[2018-08-22] MEDS ORDERED: CEPACOL X STRENGTH MM PRN (12:23)
[2018-08-22] MEDS: PLAQUENIL PO SCH (12:57)
[2018-08-22] MEDS: LOVENOX SUB-Q SCH (12:57)
[2018-08-22] MEDS: LASIX PO SCH (13:20)
--- NOTE | 2018-08-22 14:20 | Progress Note ---
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 For further workup of her current hyponatremic state, we will obtain urinary studies to include urine sodium, urine creatinine, and urine chloride levels along with a urine osmolality. We will also obtain repeat BMP and serum osmolality. Would also recommend evaluation of her thyroid-stimulating hormone and thyroid function studies in order to rule out hypothyroidism as a plausible cause for chronic hyponatremia. If lab studies are consistent with likely SIADH and she may have some hyperkalemia at baseline then would favor to initiate her on Samsca. We'll first await results of the aforementioned studies as well as CT scan today. We'll follow-up with patient tomorrow. We will highly recommend that she increases her overall protein intake. (2) Elevated troponin Current Visit: Yes Status: Acute Plan to address problem: Workup noted per cardiology. Echocardiogram is been reviewed. Pending CT chest today. We'll follow up with further recommendations. (3) Nausea & vomiting Current Visit: Yes Status: Acute Plan to address problem: Symptomatic control per primary team. It is important to control her nausea as it can also attributed to increased ADH secretion which can further worsen her chronic hyponatremic state. (4) Weakness Current Visit: Yes Status: Acute Plan to address problem: Management per primary team. Recommend physical therapy evaluation. (5) HTN (hypertension) Current Visit: No Status: Chronic Plan to address problem: We will monitor on her current regimen. Subjective Date of service: 08/22/18 Interval history: This is a 87-year-old pleasant female with a past medical history significant for hypertension as well as depression/anxiety who presents to the emergency department secondary to persistent symptoms of nausea, and vomiting over the past 7 days. Vomiting is minimal but her major symptoms are increased nausea, weakness, which is led to overall decreased appetite over the last week. Her daughter is at bedside and corroborates the aforementioned history. Nephrology is being consulted at this time secondary to hyponatremia. When looking at patient's laboratory studies and records from her previous hospitalization it seems that she has had issues with hyponatremia in the past. She was evaluated by nephrology at that time but since that admission has not followed up in the outpatient office. It seems that she was worked up for possible SIADH at that time. Looking at her laboratory studies they're very similar in regards to his serum sodium levels from back in 2017. Patient also has history of lupus without any evidence of renal involvement. She has had lupus over the past 30 years. To note on her previous evaluation for the hyponatremia it was thought that her hydrochlorothiazide use may have contributed to her aforementioned hyponatremia. The hydrochlorothiazide was discontinued at that time. In regards to blood pressure control she seems to be on nifedipine as well as losartan. The losartan was discontinued recently as it had been recalled and she was started on lisinopril. She had taken it for one day. To note patient is on trazodone which she has been on chronically for many years. Patient was evaluated by cardiology during this admission secondary to persistently elevated cardiac enzymes. She underwent an echocardiogram which did show evidence of severe pulmonary hypertension and apparently moderate di latation of the left and right atrium. She is pending CT scan of the chest today for further evaluation. Objective - Vital Signs Vital signs: Vital Signs - 12hr 08/22/18 08/22/18 08:06 13:06 Temperature 97.6 F 97.9 F Pulse Rate 66 63 Respiratory 20 20 Rate Blood Pressure 137/62 120/60 O2 Sat by Pulse 91 95 Oximetry - General Appearance General appearance: appears stated age, chronically ill EENT: ATNC, PERRL Neck: no JVD Respiratory: Present: Ronchi, Wheezes Cardiology: regular, S1S2 Gastrointestinal: normal, normoactive bowel sounds Integumentary: no rash Neurologic: no focal deficit, alert and oriented x3 Musculoskeletal: other (mild nonpitting edema) Psychiatric: cooperative - Lab 08/21/18 10:20 08/22/18 03:13 Most recent lab results Calcium 7.8 mg/dL (8.4-10.2) L 08/22/18 03:13 - Imaging Chest x-ray: report reviewed - Allied health notes Allied health notes reviewed: nursing Medications & Allergies - Medications Allergies/Adverse Reactions: Allergies aspirin Allergy (Unknown, Verified 08/20/18 18:48) Unknown cephalexin monohydrate [From Keflex] Allergy (Unknown, Verified 08/20/18 18:48) Unknown diazepam [From Valium] Allergy (Unknown, Verified 08/20/18 18:48) Unknown doxycycline calcium [From Vibramycin] Allergy (Unknown, Verified 08/20/18 18:48) Unknown doxycycline hyclate [From Vibramycin] Allergy (Unknown, Verified 08/20/18 18:48) Unknown doxycycline monohydrate [From Vibramycin] Allergy (Unknown, Verified 08/20/18 18:48) Unknown lorazepam [From Ativan] Allergy (Unknown, Verified 08/20/18 18:48) Diarrhea meperidine HCl [From Demerol] Allergy (Unknown, Verified 08/20/18 18:48) Unknown ofloxacin [From Floxin] Allergy (Unknown, Verified 08/20/18 18:48) Unknown pentazocine lactate [From Talwin] Allergy (Unknown, Verified 08/20/18 18:48) Unknown ciprofloxacin Allergy (Verified 08/20/18 18:48) Unknown fexofenadine [From Nadine] Allergy (Verified 08/20/18 18:48) Unknown hydrocodone Allergy (Verified 08/20/18 18:48) Unknown morphine Allergy (Verified 08/20/18 18:48) Unknown Sulfa (Sulfonamide Antibiotics) Allergy (Verified 08/20/18 18:48) Unknown adhesive Adverse Reaction (Verified 08/20/18 18:48) Rash Home Medications: Home Medications Medication Instructions Recorded Confirmed Last Taken Type Hydroxychloroquine [Plaquenil] 200 mg PO QDAY 08/30/17 08/21/18 Unknown History Losartan [Cozaar] 50 mg PO QDAY 08/21/18 08/21/18 Unknown History NIFEdipine XL [Procardia Xl] 30 mg PO QHS 08/21/18 08/21/18 Unknown History traZODone [Desyrel] 100 mg PO QHS 08/21/18 08/21/18 Unknown History Active Medications: Generic Name Dose Route Start Last Admin Trade Name Freq PRN Reason Stop Dose Admin Acetaminophen 650 mg 08/21/18 04:26 08/21/18 10:35 Tylenol PO 650 mg Q4H PRN Administration Pain MILD(1-3)/Fever >100.5/CASTRO Benzocaine/Menthol 1 each 08/22/18 12:23 Cepacol X Strength MM Q2HR PRN Sore Throat Cyclobenzaprine HCl 5 mg 08/21/18 17:53 Flexeril PO Q8H PRN Muscle Spasm Enoxaparin Sodium 30 mg 08/21/18 10:00 08/22/18 12:57 Lovenox SUB-Q 30 mg QDAY HARINI Administration Furosemide 20 mg 08/22/18 13:00 Lasix PO DAILY@0600 [facility] Hydralazine HCl 5 mg 08/21/18 04:32 Apresoline IV Q6H PRN Hypertension Hydroxychloroquine Sulfate 200 mg 08/21/18 13:00 08/22/18 12:57 Plaquenil PO 200 mg QDAY HARINI Administration Sodium Chloride 1,000 mls @ 100 mls/hr 08/21/18 05:00 08/22/18 05:16 Nacl 0.9% 1000 Ml IV 100 mls/hr DIRECT HARINI Administration Nifedipine 30 mg 08/22/18 19:00 Procardia Xl PO Q24H [facility] Ondansetron HCl 4 mg 08/21/18 04:26 08/21/18 23:05 Zofran IV 4 mg Q4H PRN Administration Nausea And Vomiting Pantoprazole Sodium 40 mg 08/22/18 13:37 Protonix PO QDAY [facility] Phenol 1 spray 08/22/18 12:23 Chloraseptic MM PRN PRN Sore Throat Sodium Chloride 10 ml 08/21/18 10:00 08/21/18 22:57 Sodium Chloride Flush Syringe 10 Ml IV 10 ml BID HARINI Administration Sodium Chloride 10 ml 08/21/18 04:26 Sodium Chloride Flush Syringe 10 Ml IV PRN PRN LINE FLUSH Trazodone HCl 100 mg 08/22/18 19:00 Desyrel PO Q24H [facility]
--- NOTE | 2018-08-22 16:31 | Vascular Lab Report ---
PROCEDURE: VL VENOUS DUPLEX LE BILAT TECHNIQUE: Ultrasound bilateral lower extremity deep venous system with pulsed and color Doppler swati luation HISTORY: LE edema COMPARISONS: FINDINGS: Deep venous system of bilateral lower extremities from the common femoral through the visualized prox imal calf veins demonstrates normal sonographic appearance. There is normal vascular flow and wavefor m on pulsed and color Doppler evaluation with normal compressibility. IMPRESSION: No evidence for deep venous thrombosis. This document is electronically signed by Mikel Costa MD., August 22 2018 04:29:15 PM ET
[2018-08-22] MEDS: SODIUM CHLORIDE FLUSH SYRINGE 10 ML IV SCH ×2 (17:17→22:29)
[2018-08-22] MEDS: PROTONIX PO SCH (18:35)
[2018-08-22] MEDS: PROCARDIA XL PO SCH (18:35)
[2018-08-22 18:51] LABS: Chloride, Urine 36.9 mmolL (110-250); Creatinine,Urine 89.3 mg/dL (0.1-20.0)
[2018-08-22] MEDS ORDERED: DESYREL PO SCH (19:00)
[2018-08-22] MEDS ORDERED: PROCARDIA XL PO SCH (19:00)
[2018-08-22] MEDS: DESYREL PO SCH (22:29)
[2018-08-23] MEDS ORDERED: PROVENTIL IH ONE ×3 (05:11→16:00)
[2018-08-23] MEDS: LASIX PO SCH ×2 (06:27→06:32)
[2018-08-23] MEDS: NACL 0.9% 1000 ML 1,000 ML IV SCH ×2 (06:27→18:22)
[2018-08-23 07:17] LABS: BUN/Creatinine Ratio 30; Blood Urea Nitrogen 24 mg/dL (7-17); Calcium 8.1 mg/dL (8.4-10.2); Hemolysis Index 7
--- NOTE | 2018-08-23 08:42 | Progress Note ---
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 She may also have an element of volume depletion given her low urine sodium and chloride. In this setting, would recommend that we continue with gentle IVF hydration and also set patient up for dose of tolvaptan today. Discussed with nursing staff and plan to time dose after she comes back from her CT chest today. (2) Elevated troponin Current Visit: Yes Status: Acute Plan to address problem: Workup noted per cardiology. Echocardiogram is been reviewed. Pending CT chest today. We'll follow up with further recommendations. (3) Nausea & vomiting Current Visit: Yes Status: Acute Plan to address problem: Symptomatic control per primary team. It is important to control her nausea as it can also attributed to increased ADH secretion which can further worsen her chronic hyponatremic state. (4) Weakness Current Visit: Yes Status: Acute Plan to address problem: Management per primary team. Recommend physical therapy evaluation. Weakness can also be seen in elderly with chronic hyponatremia (5) HTN (hypertension) Current Visit: No Status: Chronic Plan to address problem: We will monitor on her current regimen. Subjective Date of service: 08/23/18 Interval history: No acute changes. Labs noted and she remains hyponatremic. Her Urine studies and Uosm noted and she has element of increased ADH secretion, but with her low urine Na and Urine Cl levels, she also has an element of slight volume depletion . She also expressed that her mouth is dry. She remains on IVF with NS at 100cc/hr. Objective - Vital Signs Vital signs: Vital Signs - 12hr 08/22/18 08/23/18 08/23/18 21:17 04:40 07:47 Temperature 97.8 F 98.3 F Pulse Rate 61 62 Respiratory 20 20 Rate Blood Pressure 115/43 138/83 O2 Sat by Pulse 100 94 91 Oximetry 08/23/18 08:18 Temperature 98.0 F Pulse Rate 72 Respiratory 18 Rate Blood Pressure 158/72 O2 Sat by Pulse 92 Oximetry - General Appearance General appearance: chronically ill, frail, anxious EENT: ATNC, PERRL Neck: no JVD Respiratory: Present: Wheezes Cardiology: regular, S1S2 Gastrointestinal: normal, normoactive bowel sounds Integumentary: no rash, warm and dry Neurologic: alert and oriented x3 Musculoskeletal: other (-edema ) Psychiatric: agitated - Lab 08/21/18 10:20 08/23/18 06:00 Most recent lab results Calcium 8.1 mg/dL (8.4-10.2) L 08/23/18 06:00 Urine Creatinine 89.3 mg/dL (0.1-20.0) H 08/22/18 18:10 Urine Sodium 13 mmol/L 08/22/18 18:10 - Imaging Chest x-ray: report reviewed - Allied health notes Allied health notes reviewed: nursing Medications & Allergies - Medications Allergies/Adverse Reactions: Allergies aspirin Allergy (Unknown, Verified 08/20/18 18:48) Unknown cephalexin monohydrate [From Keflex] Allergy (Unknown, Verified 08/20/18 18:48) Unknown diazepam [From Valium] Allergy (Unknown, Verified 08/20/18 18:48) Unknown doxycycline calcium [From Vibramycin] Allergy (Unknown, Verified 08/20/18 18:48) Unknown doxycycline hyclate [From Vibramycin] Allergy (Unknown, Verified 08/20/18 18:48) Unknown doxycycline monohydrate [From Vibramycin] Allergy (Unknown, Verified 08/20/18 18:48) Unknown lorazepam [From Ativan] Allergy (Unknown, Verified 08/20/18 18:48) Diarrhea meperidine HCl [From Demerol] Allergy (Unknown, Verified 08/20/18 18:48) Unknown ofloxacin [From Floxin] Allergy (Unknown, Verified 08/20/18 18:48) Unknown pentazocine lactate [From Talwin] Allergy (Unknown, Verified 08/20/18 18:48) Unknown ciprofloxacin Allergy (Verified 08/20/18 18:48) Unknown fexofenadine [From Nadine] Allergy (Verified 08/20/18 18:48) Unknown hydrocodone Allergy (Verified 08/20/18 18:48) Unknown morphine Allergy (Verified 08/20/18 18:48) Unknown Sulfa (Sulfonamide Antibiotics) Allergy (Verified 08/20/18 18:48) Unknown adhesive Adverse Reaction (Verified 08/20/18 18:48) Rash Home Medications: Home Medications Medication Instructions Recorded Confirmed Last Taken Type Hydroxychloroquine [Plaquenil] 200 mg PO QDAY 08/30/17 08/21/18 Unknown History Losartan [Cozaar] 50 mg PO QDAY 08/21/18 08/21/18 Unknown History NIFEdipine XL [Procardia Xl] 30 mg PO QHS 08/21/18 08/21/18 Unknown History traZODone [Desyrel] 100 mg PO QHS 08/21/18 08/21/18 Unknown History Active Medications: Generic Name Dose Route Start Last Admin Trade Name Freq PRN Reason Stop Dose Admin Acetaminophen 650 mg 08/21/18 04:26 08/21/18 10:35 Tylenol PO 650 mg Q4H PRN Administration Pain MILD(1-3)/Fever >100.5/CASTRO Benzocaine/Menthol 1 each 08/22/18 12:23 Cepacol X Strength MM Q2HR PRN Sore Throat Cyclobenzaprine HCl 5 mg 08/21/18 17:53 Flexeril PO Q8H PRN Muscle Spasm Enoxaparin Sodium 30 mg 08/21/18 10:00 08/22/18 12:57 Lovenox SUB-Q 30 mg QDAY HARINI Administration Furosemide 20 mg 08/22/18 13:00 08/23/18 06:32 Lasix PO Not Given DAILY@0600 HARINI Hydralazine HCl 5 mg 08/21/18 04:32 Apresoline IV Q6H PRN Hypertension Hydroxychloroquine Sulfate 200 mg 08/21/18 13:00 08/22/18 12:57 Plaquenil PO 200 mg QDAY HARINI Administration Sodium Chloride 1,000 mls @ 100 mls/hr 08/21/18 05:00 08/23/18 06:27 Nacl 0.9% 1000 Ml IV 100 mls/hr DIRECT HARINI Administration Nifedipine 30 mg 08/22/18 19:00 08/22/18 18:35 Procardia Xl PO 30 mg Q24H HARINI Administration Ondansetron HCl 4 mg 08/21/18 04:26 08/21/18 23:05 Zofran IV 4 mg Q4H PRN Administration Nausea And Vomiting Pantoprazole Sodium 40 mg 08/22/18 13:37 08/22/18 18:35 Protonix PO 40 mg QDAY HARINI Administration Phenol 1 spray 08/22/18 12:23 Chloraseptic MM PRN PRN Sore Throat Sodium Chloride 10 ml 08/21/18 10:00 08/22/18 22:29 Sodium Chloride Flush Syringe 10 Ml IV Not Given BID HARINI Sodium Chloride 10 ml 08/21/18 04:26 Sodium Chloride Flush Syringe 10 Ml IV PRN PRN LINE FLUSH Trazodone HCl 100 mg 08/22/18 19:00 08/22/18 22:29 Desyrel PO Not Given Q24H HARINI
--- NOTE | 2018-08-23 10:19 | Cat Scan Report ---
CTA CHEST: HISTORY: Dizziness. COMPARISON: none. TECHNIQUE: Helical CT in 1.25mm intervals following IV contrast. Pulmonary embolus protocol. Sagittal and coronal reformatted images. Rotational MIP images. FINDINGS: Contrast bolus is satisfactory. No pulmonary embolus is identified. Thyroid gland: The left lobe is atrophic. The right lobe is normal-sized but contains tiny hypodensities and calcifications which have a benign appearance. Tracheobronchial tree: Normal. Esophagus: Normal. Heart: Mild cardiomegaly. Pericardium: Normal. Mediastinum: Normal. Lung [place]: Normal. Mild compressive atelectasis in the lower lobes. Pleural Spaces: Moderate bilateral layering pleural effusions. Musculoskeletal: Intact. Mild osteopenia and thoracic spondylosis are noted. IMPRESSION: No evidence for pulmonary embolus. CHF.
[2018-08-23] MEDS ORDERED: KIONEX PO ONE (11:00)
[2018-08-23] MEDS: LOVENOX SUB-Q SCH (11:17)
[2018-08-23] MEDS: PLAQUENIL PO SCH (11:18)
[2018-08-23] MEDS: PROTONIX PO SCH (11:18)
[2018-08-23] MEDS: SODIUM CHLORIDE FLUSH SYRINGE 10 ML IV SCH (11:19)
[2018-08-23] MEDS: ZOFRAN IV PRN ×2 (12:48→23:59)
--- NOTE | 2018-08-23 13:03 | Progress Note ---
Assessment and Plan - Patient Problems (1) Cardiac enzymes elevated Current Visit: Yes Status: Acute Plan to address problem: I had an extensive discussion with the patient and her daughter regarding the elevated cardiac isoenzymes, and a recommendation to consider invasive cardiac evaluation. Patient and daughter adamantly refuse, prefer conservative management. We will treat empirically with beta blockers, nitrates, statin and oral antiplatelet therapy as tolerated. Predischarge Lexiscan thallium. Subjective Date of service: 08/23/18 Interval history: Patient's shortness of breath has improved, but due to her persistent hyponatremia, the Lasix may need to be discontinued. There is no chest pain. She is still awaiting CT scan of the chest PE protocol. I had an extensive discussion with the patient and her daughter regarding the elevated cardiac isoenzymes, and a recommendation to consider invasive cardiac evaluation. Patient and daughter adamantly refuse, prefer conservative management. Objective Vital Signs Temp Pulse Resp BP Pulse Ox 08/23/18 08:18 98.0 F 72 18 158/72 92 08/23/18 07:47 91 08/23/18 04:40 98.3 F 62 20 138/83 94 08/22/18 21:17 97.8 F 61 20 115/43 100 08/22/18 13:06 97.9 F 63 20 120/60 95 - Physical Examination General: No Apparent Distress HEENT: Positive: PERRL Neck: Positive: trachea midline Cardiac: Positive: Reg Rate and Rhythm Lungs: Positive: Decreased Breath Sounds Neuro: Positive: Grossly Intact Abdomen: Positive: Soft Skin: Positive: Clear Extremities: Absent: edema - Labs and Meds Comprehensive Metabolic Panel 08/23/18 Range/Units 06:00 Sodium 123 L (137-145) mmol/L Potassium 5.7 H (3.6-5.0) mmol/L Chloride 92.0 L (98-107) mmol/L Carbon Dioxide 22 (22-30) mmol/L BUN 24 H (7-17) mg/dL Creatinine 0.8 (0.7-1.2) mg/dL Glucose 113 H (65-100) mg/dL Calcium 8.1 L (8.4-10.2) mg/dL - Allied health notes Allied health notes reviewed: nursing
[2018-08-23] MEDS: HumuLIN R IV SCH ×2 (15:17→18:22)
[2018-08-23] MEDS: D50W (25GM) Syringe IV SCH ×2 (15:18→23:52)
[2018-08-23] MEDS: FLEXERIL PO PRN (15:49)
--- NOTE | 2018-08-23 16:58 | Progress Note ---
Assessment and Plan Assessment and plan: 87-year-old woman with a history of hypertension, lupus comes to the emergency room complaining of nausea vomiting, generalized weakness, dizziness. Symptoms started after her losartan was changed to lisinopril due to recall of losartan. she reports decreased oral intake Echocardiogram shows well-preserved left ventricular systolic function, mild to moderate concentric left ventricle hypertrophy, but dilated left and right atrium, moderate mitral regurgitation, moderate to severe tricuspid regurgitation and severe pulmonary hypertension. Diagnosis severe Hyponatremia dehydration transient autonomic imbalance Dizzyness Chronic RBBB Abnormal cardiac enzymes Hypertension Lupus N/V dehydration Hyperkalemia pulm htn moderate protein malnutrition acute hypercapneic respiratory failure Acute COPD/Asthma diastolic CHF, acute Plan dc losartan, K still high, she did not tolerate Kayexalate, rx with insulin and d50w cont isotonic IV fluid, monitor sodium levels, nephrology consult appreciated, vaptan ordered cardiac enzymes are detectable, and mildly elevated, Cardiology consult switched BP meds to ca ch dylan CTA chest and LE dopplers neg for VTE cardiology recommended cath, but family declined and would like to continue conservative mgt cont lasix -steroids, nebs, High flow oxygen, patient is unlikely to tolerate BIPAP (pH was 7.1, and pCO2 was 60) 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 DVT prophylaxis; lovenox History Interval history: c/o muscle spasms in LE Review of systems Constitutional: No fevers, no malaise, no joint pains CVS: No chest pain, no orthopnea, no dyspnea on exertion, no pedal edema GI: No abdominal pain, no diarrhea, no constipation; she vomited today after taking kayexalate Respiratory: c/o sob and wheezing Hospitalist Physical - Physical exam Narrative exam: General.: Appears well, no distress, nontoxic HEENT: Moist mucous membranes, extraocular muscles intact, no lymphadenopathy Neck: supple Cardiac: S1-S2 heard Lungs: clear to auscultation bilaterally Abdomen: soft , nontender, nondistended, bowel sounds positive Extremities: no edema clubbing or cyanosis Skin: no rash or lesions Neurologic: no gross focal deficits Psych: calm, and cooperative - Constitutional Vitals: Temp Pulse Resp BP Pulse Ox 97.3 F L 98 H 20 137/72 96 08/23/18 13:25 08/23/18 16:28 08/23/18 16:28 08/23/18 13:25 08/23/18 15:56 General appearance: Present: no acute distress Results - Labs CBC & Chem 7: 08/21/18 10:20 08/23/18 06:00 Labs: Laboratory Last Values WBC 5.0 K/mm3 (4.5-11.0) 08/21/18 10:20 RBC 4.51 M/mm3 (3.65-5.03) 08/21/18 10:20 Hgb 12.2 gm/dl (10.1-14.3) 08/21/18 10:20 Hct 37.8 % (30.3-42.9) 08/21/18 10:20 MCV 84 fl (79-97) 08/21/18 10:20 MCH 27 pg (28-32) L 08/21/18 10:20 MCHC 32 % (30-34) 08/21/18 10:20 RDW 15.1 % (13.2-15.2) 08/21/18 10:20 Plt Count 248 K/mm3 (140-440) 08/21/18 10:20 Lymph % (Auto) 9.6 % (13.4-35.0) L 08/21/18 10:20 [place] % (Auto) 9.2 % (0.0-7.3) H 08/21/18 10:20 Eos % (Auto) 0.2 % (0.0-4.3) 08/21/18 10:20 Baso % (Auto) 0.2 % (0.0-1.8) 08/21/18 10:20 Lymph # 0.5 K/mm3 (1.2-5.4) L 08/21/18 10:20 [place] # 0.5 K/mm3 (0.0-0.8) 08/21/18 10:20 Eos # 0.0 K/mm3 (0.0-0.4) 08/21/18 10:20 Baso # 0.0 K/mm3 (0.0-0.1) 08/21/18 10:20 Seg Neutrophils % 80.8 % (40.0-70.0) H 08/21/18 10:20 Seg Neutrophils # 4.1 K/mm3 (1.8-7.7) 08/21/18 10:20 PT 13.1 Sec. (12.2-14.9) 08/20/18 21:53 INR 0.94 (0.87-1.13) 08/20/18 21:53 APTT 23.1 Sec. (24.2-36.6) L 08/20/18 21:53 POC ABG pH 7.120 (7.35-7.45) L 08/23/18 05:22 POC ABG pCO2 63.6 (35-45) H 08/23/18 05:22 POC ABG pO2 107 (80-105) H 08/23/18 05:22 POC ABG HCO3 20.7 (22-26 mml/L) 08/23/18 05:22 POC ABG Total CO2 23 (23-27mmol/L) 08/23/18 05:22 POC ABG O2 Sat 96 08/23/18 05:22 POC ABG Base Excess -9 ((-2) - (+3)mmol/L) 08/23/18 05:22 FiO2 2 % 08/23/18 05:22 Sodium 123 mmol/L (137-145) L 08/23/18 06:00 Potassium 5.7 mmol/L (3.6-5.0) H 08/23/18 06:00 Chloride 92.0 mmol/L (98-107) L 08/23/18 06:00 Carbon Dioxide 22 mmol/L (22-30) 08/23/18 06:00 Anion Gap 15 mmol/L 08/23/18 06:00 BUN 24 mg/dL (7-17) H 08/23/18 06:00 Creatinine 0.8 mg/dL (0.7-1.2) 08/23/18 06:00 Estimated GFR > 60 ml/min 08/23/18 06:00 BUN/Creatinine Ratio 30 % 08/23/18 06:00 Glucose 113 mg/dL (65-100) H 08/23/18 06:00 Calcium 8.1 mg/dL (8.4-10.2) L 08/23/18 06:00 Total Bilirubin 0.60 mg/dL (0.1-1.2) 08/20/18 21:53 AST 62 units/L (5-40) H 08/20/18 21:53 ALT 82 units/L (7-56) H 08/20/18 21:53 Alkaline Phosphatase 101 units/L (35-129) 08/20/18 21:53 Total Creatine Kinase 339 units/L (30-135) H 08/21/18 10:20 CK-MB (CK-2) 28.4 ng/mL (0.0-4.0) H 08/21/18 10:20 CK-MB (CK-2) Rel Index 8.3 (0-4) H 08/21/18 10:20 Troponin T 0.052 ng/mL (0.00-0.029) H 08/21/18 10:20 Total Protein 6.5 g/dL (6.3-8.2) 08/20/18 21:53 Albumin 3.9 g/dL (3.9-5) 08/20/18 21:53 Albumin/Globulin Ratio 1.5 % 08/20/18 21:53 Triglycerides 71 mg/dL (2-149) 08/20/18 21:53 Cholesterol 173 mg/dL (50-199) 08/20/18 21:53 LDL Cholesterol Direct 115 mg/dL (50-130) 08/20/18 21:53 HDL Cholesterol 60 mg/dL (40-59) H 08/20/18 21:53 Cholesterol/HDL Ratio 2.88 % 08/20/18 21:53 Lipase 27 units/L (13-60) 08/20/18 21:53 TSH 1.120 mlU/mL (0.270-4.200) 08/23/18 06:00 Free T4 1.14 ng/dL (0.76-1.46) 08/23/18 06:00 Urine Color Yellow (Yellow) 08/20/18 19:43 Urine Turbidity Clear (Clear) 08/20/18 19:43 Urine pH 6.0 (5.0-7.0) 08/20/18 19:43 Ur Specific [place] 1.018 (1.003-1.030) 08/20/18 19:43 Urine Protein 100 mg/dl mg/dL (Negative) 08/20/18 19:43 Urine Glucose (UA) Neg mg/dL (Negative) 08/20/18 19:43 Urine Ketones Neg mg/dL (Negative) 08/20/18 19:43 Urine Blood Neg (Negative) 08/20/18 19:43 Urine Nitrite Neg (Negative) 08/20/18 19:43 Urine Bilirubin Neg (Negative) 08/20/18 19:43 Urine Urobilinogen < 2.0 mg/dL (<2.0) 08/20/18 19:43 Ur Leukocyte Esterase Neg (Negative) 08/20/18 19:43 Urine WBC (Auto) 1.0 /HPF (0.0-6.0) 08/20/18 19:43 Urine RBC (Auto) 7.0 /HPF (0.0-6.0) 08/20/18 19:43 U Epithel Cells (Auto) < 1.0 /HPF (0-13.0) 08/20/18 19:43 Hyaline Casts 1 /LPF 08/20/18 19:43 Urine Mucus Few /HPF 08/20/18 19:43 Urine Osmolality 466 Mosm/kg 08/22/18 18:10 Urine Creatinine 89.3 mg/dL (0.1-20.0) H 08/22/18 18:10 Urine Sodium 13 mmol/L 08/22/18 18:10 Urine Chloride 36.9 mmolL (110-250) L 08/22/18 18:10 Active Medications - Current Medications Current Medications: Generic Name Dose Route Start Last Admin Trade Name Freq PRN Reason Stop Dose Admin Acetaminophen 650 mg 08/21/18 04:26 08/21/18 10:35 Tylenol PO 650 mg Q4H PRN Administration Pain MILD(1-3)/Fever >100.5/CASTRO Albuterol/Ipratropium 1 ampul 08/23/18 16:30 Duoneb *Not For Prn Use* Q6HRT [facility] Arformoterol Tartrate 15 mcg 08/23/18 20:00 Brovana Nebu Q12HRT [facility] Atorvastatin Calcium 20 mg 08/23/18 22:00 Lipitor PO QHS [facility] Benzocaine/Menthol 1 each 08/22/18 12:23 Cepacol X Strength MM Q2HR PRN Sore Throat Budesonide 0.5 mg 08/23/18 20:00 Pulmicort Q12HRT [facility] Cyclobenzaprine HCl 5 mg 08/21/18 17:53 08/23/18 15:49 Flexeril PO 5 mg Q8H PRN Administration Muscle Spasm Dextrose 50 ml 08/23/18 14:00 08/23/18 15:18 D50w (25gm) Syringe IV 08/24/18 02:01 50 ml Q6H [facility]INI Administration Enoxaparin Sodium 30 mg 08/21/18 10:00 08/23/18 11:17 Lovenox SUB-Q 30 mg QDAY [facility]INI Administration Furosemide 20 mg 08/22/18 13:00 08/23/18 06:32 Lasix PO Not Given DAILY@0600 [facility] Hydralazine HCl 5 mg 08/21/18 04:32 Apresoline IV Q6H PRN Hypertension Hydroxychloroquine Sulfate 200 mg 08/21/18 13:00 08/23/18 11:18 Plaquenil PO 200 mg QDAY HARINI Administration Sodium Chloride 1,000 mls @ 100 mls/hr 08/21/18 05:00 08/23/18 06:27 Nacl 0.9% 1000 Ml IV 100 mls/hr DIRECT HARINI Administration Insulin Human Regular 5 units 08/23/18 14:00 08/23/18 15:17 Humulin R IV 08/24/18 00:01 5 units Q6HR [facility]INI Administration Methylprednisolone Sodium Succinate 40 mg 08/23/18 17:00 Solu-Medrol IV Q8HR [facility] Nifedipine 30 mg 08/22/18 19:00 08/22/18 18:35 Procardia Xl PO 30 mg Q24H [facility]I Administration Nitroglycerin 0.4 mg 08/24/18 06:00 Nitro Dur TD QDAY@0600 [facility] Ondansetron HCl 4 mg 08/21/18 04:26 08/23/18 12:48 Zofran IV 4 mg Q4H PRN Administration Nausea And Vomiting Pantoprazole Sodium 40 mg 08/22/18 13:37 08/23/18 11:18 Protonix PO 40 mg QDAY [facility] Administration Phenol 1 spray 08/22/18 12:23 Chloraseptic MM PRN PRN Sore Throat Sodium Chloride 10 ml 08/21/18 10:00 08/23/18 11:19 Sodium Chloride Flush Syringe 10 Ml IV 10 ml BID HARINI Administration Sodium Chloride 10 ml 08/21/18 04:26 Sodium Chloride Flush Syringe 10 Ml IV PRN PRN LINE FLUSH Tolvaptan 15 mg 08/23/18 17:00 [place] PO 08/23/18 17:01 ONCE ONE Trazodone HCl 100 mg 08/22/18 19:00 08/22/18 22:29 Desyrel PO Not Given Q24H [facility] Nutrition/Malnutrition Assess - Dietary Evaluation Nutrition/Malnutrition Findings: Nutrition Notes Start: 08/23/18 14:01 Freq: Status: Active Protocol: Document 08/23/18 14:01 RD (Rec: 08/23/18 14:59 RD [id number]) Co-Sign 08/23/18 14:01 NHALL Nutrition Notes Need for Assessment generated from: MD Order Initial or Follow up Assessment Current Diagnosis Hypertension Other Pertinent Diagnosis hyponatremia, lupus, depression, anxiety, Current Diet cardiac Labs/Tests K 5.7 BUN 24 BG 113 Pertinent Medications Lasix Height 5 ft 2 in Weight 58.06 kg [place] Body Weight (kg) 50.00 BMI 23.3 Subjective/Other Information RD consulted for malnutrition. Pt's daughter at bedside and able to answer questions. No recent weight loss. Pt vomiting and not eating much per daughter report. Pt ate a few bites of breakfast and no lunch due to decreased appetite. Pt daughter requests vanilla supplemental nutrition drink for pt. Percent of energy/protein needs met: 0%/0% Burn Absent Trauma Absent GI Symptoms Vomiting Current % PO Poor (25-49%) Minimum of two criteria Yes Body Fat Depletion Moderate depletion (severe) Muscle Mass Moderate Depletion (severe) #1 Nutrition Diagnosis Inadequate oral intake Etiology Decreased appetite As Evidenced by Signs and Symptoms Pt eating less than 50% of meals Is patient on ventilator? No Is Patient Ambulatory and/or Out of Bed Yes REE-([facility]-ambulatory/OOB) [ 1266.005 [id number]] Calculation Used for Recommendations [facility] Additional Notes Protein needs: (1-1.2g/kg/day) 58-70g/day Fluid needs: 1mL/kcal Nutrition Intervention Change Diet Order: Continue cardiac Add Supplement/Snack (indicate name/kcal Ensure Enlive BID /protein ) Provides kCal: 700 Provides Protein (gm) 40 Goal #1 Meet at least 75% of nutrient needs via PO and ONS intakes Anticipated Discharge Needs: Cardiac diet Follow-Up By: 08/25/18 Additional Comments f/u: intakes
[2018-08-23] MEDS ORDERED: SAMSCA PO ONE (17:00)
[2018-08-23] MEDS: SOLU-Medrol IV SCH (18:37)
[2018-08-23] MEDS: PULMICORT IH SCH (20:10)
[2018-08-23] MEDS: BROVANA NEBU IH SCH (20:11)
[2018-08-23] MEDS: DUONEB *Not for PRN Use IH SCH ×2 (20:11)
[2018-08-24] MEDS: SOLU-Medrol IV SCH ×2 (00:02→05:59)
[2018-08-24] MEDS: SODIUM CHLORIDE FLUSH SYRINGE 10 ML IV SCH ×3 (00:03→21:01)
[2018-08-24] MEDS: TYLENOL PO PRN (01:44)
[2018-08-24] MEDS: FLEXERIL PO PRN (03:08)
[2018-08-24] MEDS: DESYREL PO SCH ×2 (03:26→20:59)
[2018-08-24] MEDS: PROCARDIA XL PO SCH ×2 (03:27→20:59)
[2018-08-24] MEDS: HumuLIN R IV SCH (04:24)
[2018-08-24] MEDS ORDERED: D10W 1,000 ML IV SCH (05:00)
[2018-08-24 05:13] LABS: Hematocrit 37.8 % (30.3-42.9); Hemoglobin 12.5 gm/dl (10.1-14.3); Mean Corpuscular HGB Conc 33 % (30-34); Mean Corpuscular Volume 82 fl (79-97); Platelet Count 223 K/mm3 (140-440); Red Blood Count 4.59 M/mm3 (3.65-5.03); Red Cell Distribution Width 14.7 % (13.2-15.2)
[2018-08-24 05:21] LABS: Partial Thromboplastin Time 24.3 Sec. (24.2-36.6)
[2018-08-24 05:31] LABS: BUN/Creatinine Ratio 32; Blood Urea Nitrogen 19 mg/dL (7-17); Hemolysis Index 11
[2018-08-24] MEDS: D50W (25GM) Syringe IV SCH (05:58)
[2018-08-24] MEDS: LASIX PO SCH ×2 (05:59→07:50)
[2018-08-24] MEDS: NITRO DUR TD SCH (06:01)
[2018-08-24 06:16] LABS: Basophils % (Manual) 0 % (0.0-1.8); Eosinophils % (Manual) 0 % (0.0-4.3); Platelet Estimate Consistent w Auto; Total Cells Counted 100
[2018-08-24] MEDS: NACL 0.9% 1000 ML 1,000 ML IV SCH (07:24)
--- NOTE | 2018-08-24 08:21 | Progress Note ---
Assessment and Plan Shortness of breath chest CTA: no evidence of PE Dizziness no acute intracranial process by head CT. Hyponatremia Elevated transaminase Hyperkalemia NSTEMI Chronic RBBB Echocardiogram reveals evidence of severe pulmonary hypertension, RVSP 70-75 mmHg. Normal left ventricular systolic function, ejection fraction 50-55%. Patient and daughter adamantly refuse, invasive cardiac evaluation. We will obtain a Lexiscan tomorrow. Continue current medical management. Subjective Date of service: 08/24/18 Interval history: Patient is resting in bed comfortably. No distress noted. Stable sinus rhythm on telemetry. Objective Vital Signs Temp Pulse Pulse Pulse Resp Resp BP 08/24/18 07:47 96 H 08/24/18 06:01 71 128/54 08/24/18 04:18 98.2 F 20 08/24/18 03:27 77 08/24/18 02:15 79 16 08/24/18 02:05 80 16 08/24/18 00:17 146/63 08/23/18 22:00 71 08/23/18 20:28 98.7 F 20 08/23/18 20:12 60 77 18 154/61 08/23/18 18:25 08/23/18 17:40 08/23/18 16:28 98 H 20 08/23/18 15:56 08/23/18 15:52 92 H 26 H 08/23/18 13:25 97.3 F L 75 18 137/72 Pulse Ox 08/24/18 07:47 08/24/18 06:01 08/24/18 04:18 08/24/18 03:27 92 08/24/18 02:15 08/24/18 02:05 08/24/18 00:17 08/23/18 22:00 92 08/23/18 20:28 08/23/18 20:12 92 08/23/18 18:25 96 08/23/18 17:40 91 08/23/18 16:28 08/23/18 15:56 96 08/23/18 15:52 08/23/18 13:25 90 - Physical Examination General: No Apparent Distress HEENT: Positive: PERRL Neck: Positive: trachea midline Cardiac: Positive: Reg Rate and Rhythm Lungs: Positive: Decreased Breath Sounds Neuro: Positive: Grossly Intact, Weakness Extremities: Absent: edema - Labs and Meds Coagulation 08/24/18 Range/Units 04:16 PT 13.8 (12.2-14.9) Sec. INR 1.00 (0.87-1.13) APTT 24.3 (24.2-36.6) Sec. CBC 08/24/18 Range/Units 04:16 WBC 6.7 (4.5-11.0) K/mm3 RBC 4.59 (3.65-5.03) M/mm3 Hgb 12.5 (10.1-14.3) gm/dl Hct 37.8 (30.3-42.9) % Plt Count 223 (140-440) K/mm3 Comprehensive Metabolic Panel 08/24/18 08/24/18 Range/Units 00:26 04:16 Sodium 125 L (137-145) mmol/L Potassium 4.8 (3.6-5.0) mmol/L Chloride 93.1 L (98-107) mmol/L Carbon Dioxide 21 L (22-30) mmol/L BUN 19 H (7-17) mg/dL Creatinine 0.6 L (0.7-1.2) mg/dL Glucose 133 H 118 H (65-100) mg/dL Calcium 8.0 L (8.4-10.2) mg/dL - Allied health notes Allied health notes reviewed: nursing
[2018-08-24] MEDS: PULMICORT IH SCH ×2 (09:00→19:44)
[2018-08-24] MEDS: BROVANA NEBU IH SCH ×2 (09:00→19:44)
[2018-08-24] MEDS: PROTONIX PO SCH (09:01)
[2018-08-24] MEDS: PLAQUENIL PO SCH (09:01)
[2018-08-24] MEDS: LOVENOX SUB-Q SCH ×2 (09:01→11:21)
[2018-08-24] MEDS: DUONEB *Not for PRN Use IH SCH ×3 (09:10→19:44)
--- NOTE | 2018-08-24 09:40 | Progress Note ---
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 She may also have an element of volume depletion given her low urine sodium and chloride. In this setting, would recommend that we continue with gentle IVF hydration but decrease to 50 cc/hr, and also set patient up for another dose of tolvaptan today which we will increase to 30 mg. (2) Elevated troponin Current Visit: Yes Status: Acute Plan to address problem: Workup noted per cardiology. Echocardiogram is been reviewed. CTA noted without any acute abnormalities. Family and patient does not want to go through with cardiac cath at this time and are opting for more medical/conservative management. (3) Nausea & vomiting Current Visit: Yes Status: Acute Plan to address problem: Symptomatic control per primary team. It is important to control her nausea as it can also attributed to increased ADH secretion which can further worsen her chronic hyponatremic state. (4) Weakness Current Visit: Yes Status: Acute Plan to address problem: Management per primary team. Recommend physical therapy evaluation. Weakness can also be seen in elderly with chronic hyponatremia (5) HTN (hypertension) Current Visit: No Status: Chronic Plan to address problem: We will monitor on her current regimen. Subjective Date of service: 08/24/18 Interval history: Hypoglycemic episode overnight. Currently on D10 @ 30 cc/hr. She continues on NS @ 100 cc/hr. She received dose of tolvaptan 15 mg last night with mild improvem ent noted. Will administer second dose today. Renal function overall is stable. Objective - Vital Signs Vital signs: Vital Signs - 12hr 08/23/18 08/24/18 08/24/18 22:00 00:17 02:05 Temperature Pulse Rate Pulse Rate [ 80 Bilateral Throughout] Pulse Rate [ 71 Left Brachial] Respiratory Rate Respiratory 16 Rate [Bilateral Throughout] Blood Pressure 146/63 O2 Sat by Pulse 92 Oximetry 08/24/18 08/24/18 08/24/18 02:15 03:27 04:18 Temperature 98.2 F Pulse Rate 77 Pulse Rate [ 79 Bilateral Throughout] Pulse Rate [ Left Brachial] Respiratory 20 Rate Respiratory 16 Rate [Bilateral Throughout] Blood Pressure O2 Sat by Pulse 92 Oximetry 08/24/18 08/24/18 08/24/18 06:01 07:47 07:51 Temperature 96.7 F L Pulse Rate 71 96 H 78 Pulse Rate [ Bilateral Throughout] Pulse Rate [ Left Brachial] Respiratory 20 Rate Respiratory Rate [Bilateral Throughout] Blood Pressure 128/54 140/72 O2 Sat by Pulse 72 L Oximetry - General Appearance General appearance: chronically ill, fatigue, frail EENT: ATNC Neck: no thyromegaly, supple Respiratory: Present: Wheezes, Decreased Breath Sounds Cardiology: regular, S1S2 Gastrointestinal: normal, normoactive bowel sounds Integumentary: no rash, warm and dry Neurologic: no focal deficit Musculoskeletal: other (mild non pitting edema ) Psychiatric: cooperative - Lab 08/24/18 04:16 08/24/18 04:16 Most recent lab results Calcium 8.0 mg/dL (8.4-10.2) L 08/24/18 04:16 Urine Creatinine 89.3 mg/dL (0.1-20.0) H 08/22/18 18:10 Urine Sodium 13 mmol/L 08/22/18 18:10 - Imaging Chest x-ray: report reviewed - Allied health notes Allied health notes reviewed: nursing Medications & Allergies - Medications Allergies/Adverse Reactions: Allergies aspirin Allergy (Unknown, Verified 08/20/18 18:48) Unknown cephalexin monohydrate [From Keflex] Allergy (Unknown, Verified 08/20/18 18:48) Unknown diazepam [From Valium] Allergy (Unknown, Verified 08/20/18 18:48) Unknown doxycycline calcium [From Vibramycin] Allergy (Unknown, Verified 08/20/18 18:48) Unknown doxycycline hyclate [From Vibramycin] Allergy (Unknown, Verified 08/20/18 18:48) Unknown doxycycline monohydrate [From Vibramycin] Allergy (Unknown, Verified 08/20/18 18:48) Unknown lorazepam [From Ativan] Allergy (Unknown, Verified 08/20/18 18:48) Diarrhea meperidine HCl [From Demerol] Allergy (Unknown, Verified 08/20/18 18:48) Unknown ofloxacin [From Floxin] Allergy (Unknown, Verified 08/20/18 18:48) Unknown pentazocine lactate [From Talwin] Allergy (Unknown, Verified 03/16/19 18:48) Unknown ciprofloxacin Allergy (Verified 08/20/18 18:48) Unknown fexofenadine [From Nadine] Allergy (Verified 08/20/18 18:48) Unknown hydrocodone Allergy (Verified 08/20/18 18:48) Unknown morphine Allergy (Verified 08/20/18 18:48) Unknown Sulfa (Sulfonamide Antibiotics) Allergy (Verified 08/20/18 18:48) Unknown adhesive Adverse Reaction (Verified 08/20/18 18:48) Rash Home Medications: Home Medications Medication Instructions Recorded Confirmed Last Taken Type Hydroxychloroquine [Plaquenil] 200 mg PO QDAY 08/30/17 08/21/18 Unknown History Losartan [Cozaar] 50 mg PO QDAY 08/21/18 08/21/18 Unknown History NIFEdipine XL [Procardia Xl] 30 mg PO QHS 08/21/18 08/21/18 Unknown History traZODone [Desyrel] 100 mg PO QHS 08/21/18 08/21/18 Unknown History Active Medications: Generic Name Dose Route Start Last Admin Trade Name Freq PRN Reason Stop Dose Admin Acetaminophen 650 mg 08/21/18 04:26 08/24/18 01:44 Tylenol PO 650 mg Q4H PRN Administration Pain MILD(1-3)/Fever >100.5/CASTRO Albuterol/Ipratropium 1 ampul 08/23/18 16:30 08/23/18 20:11 Duoneb *Not For Prn Use* IH 1 ampul Q6HRT [facility]INI Administration Arformoterol Tartrate 15 mcg 08/23/18 20:00 08/23/18 20:11 Brovana Nebu IH 15 mcg Q12HRT [facility]INI Administration Atorvastatin Calcium 20 mg 08/23/18 22:00 08/24/18 03:26 Lipitor PO 20 mg QHS [facility]INI Administration Benzocaine/Menthol 1 each 08/22/18 12:23 Cepacol X Strength MM Q2HR PRN Sore Throat Budesonide 0.5 mg 08/23/18 20:00 08/23/18 20:10 Pulmicort IH 0.5 mg Q12HRT HARINI Administration Cyclobenzaprine HCl 5 mg 08/21/18 17:53 08/24/18 03:08 Flexeril PO 5 mg Q8H PRN Administration Muscle Spasm Enoxaparin Sodium 30 mg 08/21/18 10:00 08/24/18 09:01 Lovenox SUB-Q 30 mg QDAY HARINI Administration Furosemide 20 mg 08/22/18 13:00 08/24/18 07:50 Lasix PO Not Given DAILY@0600 [facility] Hydralazine HCl 5 mg 08/21/18 04:32 Apresoline IV Q6H PRN Hypertension Hydroxychloroquine Sulfate 200 mg 08/21/18 13:00 08/24/18 09:01 Plaquenil PO 200 mg QDAY HARINI Administration Sodium Chloride 1,000 mls @ 100 mls/hr 08/21/18 05:00 08/24/18 07:24 Nacl 0.9% 1000 Ml IV 100 mls/hr DIRECT HARINI Administration Dextrose 1,000 mls @ 30 mls/hr 08/24/18 05:00 08/24/18 04:58 D10w IV 30 mls/hr DIRECT HARINI Administration Methylprednisolone Sodium Succinate 40 mg 08/23/18 17:00 08/24/18 05:59 Solu-Medrol IV 40 mg Q8HR HARIIN Administration Nifedipine 30 mg 08/22/18 19:00 08/24/18 03:27 Procardia Xl PO 30 mg Q24H [facility]INI Administration Nitroglycerin 0.4 mg 08/24/18 06:00 08/24/18 06:01 Nitro Dur TD 0.4 mg QDAY@0600 [facility] Administration Ondansetron HCl 4 mg 08/21/18 04:26 08/23/18 23:59 Zofran IV 4 mg Q4H PRN Administration Nausea And Vomiting Pantoprazole Sodium 40 mg 08/22/18 13:37 08/24/18 09:01 Protonix PO 40 mg QDAY HARINI Administration Phenol 1 spray 08/22/18 12:23 Chloraseptic MM PRN PRN Sore Throat Sodium Chloride 10 ml 08/21/18 10:00 08/24/18 09:01 Sodium Chloride Flush Syringe 10 Ml IV Not Given BID HARINI Sodium Chloride 10 ml 08/21/18 04:26 Sodium Chloride Flush Syringe 10 Ml IV PRN PRN LINE FLUSH Trazodone HCl 100 mg 08/22/18 19:00 08/24/18 03:26 Desyrel PO 100 mg Q24H [facility]INI Administration
--- NOTE | 2018-08-24 12:47 | Consultation ---
History of Present Illness Consult date: 08/25/18 Requesting physician: HERNANDEZ ABBASI Reason for consult: dyspnea History of present illness: 87 yo admitted with nausea, vomiting, chest discomfort, choking while eating, coughing while eating, poor PO intake, SOB, LE edema. No fevers, chills, sputum, hemoptysis. On HFNC currently. Feeling better since admission. Symptoms started after Losartan was changed to ACEI. Meds reviewed Past History Past Medical History: other (HTN, SLE, Hx of Hyponatremia) Social history: full code. denies: smoking, alcohol abuse, prescription drug abuse, IV drug use Family history: other (No pulm issues reported) Medications and Allergies Allergies Allergy/AdvReac Type Severity Reaction Status Date / Time aspirin Allergy Unknown Unknown Verified 08/20/18 18:48 cephalexin monohydrate Allergy Unknown Unknown Verified 08/20/18 18:48 [From Keflex] diazepam [From Valium] Allergy Unknown Unknown Verified 08/20/18 18:48 doxycycline calcium Allergy Unknown Unknown Verified 08/20/18 18:48 [From Vibramycin] doxycycline hyclate Allergy Unknown Unknown Verified 08/20/18 18:48 [From Vibramycin] doxycycline monohydrate Allergy Unknown Unknown Verified 08/20/18 18:48 [From Vibramycin] lorazepam [From Ativan] Allergy Unknown Diarrhea Verified 08/20/18 18:48 meperidine HCl [From Demerol] Allergy Unknown Unknown Verified 08/20/18 18:48 ofloxacin [From Floxin] Allergy Unknown Unknown Verified 08/20/18 18:48 pentazocine lactate Allergy Unknown Unknown Verified 08/20/18 18:48 [From Talwin] ciprofloxacin Allergy Unknown Verified 08/20/18 18:48 fexofenadine [From Nadine] Allergy Unknown Verified 08/20/18 18:48 hydrocodone Allergy Unknown Verified 08/20/18 18:48 morphine Allergy Unknown Verified 08/20/18 18:48 Sulfa (Sulfonamide Allergy Unknown Verified 08/20/18 18:48 Antibiotics) adhesive AdvReac Rash Verified 08/20/18 18:48 Home Medications Medication Instructions Recorded Confirmed Last Taken Type Hydroxychloroquine [Plaquenil] 200 mg PO QDAY 08/30/17 08/21/18 Unknown History Losartan [Cozaar] 50 mg PO QDAY 08/21/18 08/21/18 Unknown History NIFEdipine XL [Procardia Xl] 30 mg PO QHS 08/21/18 08/21/18 Unknown History traZODone [Desyrel] 100 mg PO QHS 08/21/18 08/21/18 Unknown History Active Meds: Active Medications Acetaminophen (Tylenol) 650 mg PO Q4H PRN PRN Reason: Pain MILD(1-3)/Fever >100.5/CASTRO Last Admin: 08/24/18 01:44 Dose: 650 mg Documented by: Albuterol/Ipratropium (Duoneb *Not For Prn Use*) 1 ampul IH Q6HRT [facility] Last Admin: 08/23/18 20:11 Dose: 1 ampul Documented by: Arformoterol Tartrate (Brovana Nebu) 15 mcg IH Q12HRT [facility] Last Admin: 08/23/18 20:11 Dose: 15 mcg Documented by: Atorvastatin Calcium (Lipitor) 20 mg PO QHS [facility] Last Admin: 08/24/18 03:26 Dose: 20 mg Documented by: Benzocaine/Menthol (Cepacol X Strength) 1 each MM Q2HR PRN PRN Reason: Sore Throat Budesonide (Pulmicort) 0.5 mg IH Q12HRT [facility] Last Admin: 08/23/18 20:10 Dose: 0.5 mg Documented by: Cyclobenzaprine HCl (Flexeril) 5 mg PO Q8H PRN PRN Reason: Muscle Spasm Last Admin: 08/24/18 03:08 Dose: 5 mg Documented by: Enoxaparin Sodium (Lovenox) 40 mg SUB-Q QDAY [facility] Last Admin: 08/24/18 11:21 Dose: Not Given Documented by: Fludrocortisone Acetate (Florinef) 0.2 mg PO QDAY [facility] Furosemide (Lasix) 20 mg PO DAILY@0600 [facility] Last Admin: 08/24/18 07:50 Dose: Not Given Documented by: Hydralazine HCl (Apresoline) 5 mg IV Q6H PRN PRN Reason: Hypertension Hydrocortisone Sodium Succinate (Solu-Cortef) 100 mg IV Q8HR [facility] Hydroxychloroquine Sulfate (Plaquenil) 200 mg PO QDAY [facility] Last Admin: 08/24/18 09:01 Dose: 200 mg Documented by: Nifedipine (Procardia Xl) 30 mg PO Q24H [facility] Last Admin: 08/24/18 03:27 Dose: 30 mg Documented by: Nitroglycerin (Nitro Dur) 0.4 mg TD QDAY@0600 [facility] Last Admin: 08/24/18 06:01 Dose: 0.4 mg Documented by: Ondansetron HCl (Zofran) 4 mg IV Q4H PRN PRN Reason: Nausea And Vomiting Last Admin: 08/23/18 23:59 Dose: 4 mg Documented by: Pantoprazole Sodium (Protonix) 40 mg PO QDAY [facility] Last Admin: 08/24/18 09:01 Dose: 40 mg Documented by: Phenol (Chloraseptic) 1 spray MM PRN PRN PRN Reason: Sore Throat Sodium Chloride (Sodium Chloride Flush Syringe 10 Ml) 10 ml IV BID [facility] Last Admin: 08/24/18 09:01 Dose: Not Given Documented by: Sodium Chloride (Sodium Chloride Flush Syringe 10 Ml) 10 ml IV PRN PRN PRN Reason: LINE FLUSH Tolvaptan (Samsca) 30 mg PO Q24H [facility] Trazodone HCl (Desyrel) 100 mg PO Q24H [facility] Last Admin: 08/24/18 03:26 Dose: 100 mg Documented by: Review of Systems All systems: negative Physical Examination Vital signs: Vital Signs Temp Pulse Resp BP Pulse Ox 97.4 F L 70 16 160/73 95 08/20/18 18:56 08/20/18 18:56 08/20/18 18:56 08/20/18 18:56 08/20/18 18:56 General appearance: no acute distress, alert Eyes: non-icteric ENT: oropharynx moist Neck: supple Effort: mildly labored Ascultation: Bilateral: diminished breath sounds (prolonged expiratory phase) Cardiovascular: regular rate and rhythm (no mrg) Gastrointestinal: normoactive bowel sounds, soft, non-tender, non-distended Integumentary: normal Extremities: no cyanosis, pink and warm, edema (1+ bilateral LE edema) normal mental status, non-focal exam, pupils equal and round, CN II-XII normal mood appropriate, affect normal Results - Laboratory Findings CBC and BMP: 08/24/18 04:16 08/25/18 05:50 ABG POC ABG pH 7.193 (7.35-7.45) L 08/23/18 18:22 POC ABG pCO2 54.9 (35-45) H 08/23/18 18:22 POC ABG pO2 102 (80-105) 08/23/18 18:22 POC ABG HCO3 21.1 (22-26 mml/L) 08/23/18 18:22 POC ABG Total CO2 23 (23-27mmol/L) 08/23/18 18:22 POC ABG O2 Sat 96 08/23/18 18:22 PT/INR, D-dimer PT 13.8 Sec. (12.2-14.9) 08/24/18 04:16 INR 1.00 (0.87-1.13) 08/24/18 04:16 Abnormal lab findings: Abnormal Labs 08/20/18 08/20/18 08/20/18 21:53 21:53 21:53 MCH Lymph % (Auto) 12.4 L Foard % (Auto) 8.0 H Lymph # 0.9 L Seg Neutrophils % 79.1 H Seg Neuts % (Manual) Lymphocytes % (Manual) Lymphocytes # (Manual) APTT 23.1 L POC ABG pH POC ABG pCO2 POC ABG pO2 Sodium 123 L Potassium 5.5 H Chloride 86.9 L Carbon Dioxide BUN 18 H Creatinine Glucose 104 H POC Glucose Calcium AST 62 H ALT 82 H Total Creatine Kinase 257 H CK-MB (CK-2) 22.0 H CK-MB (CK-2) Rel Index 8.5 H Troponin T 0.062 H HDL Cholesterol 60 H Urine Creatinine Urine Chloride 08/21/18 08/21/18 08/21/18 05:12 10:20 10:20 MCH 27 L Lymph % (Auto) 9.6 L Foard % (Auto) 9.2 H Lymph # 0.5 L Seg Neutrophils % 80.8 H Seg Neuts % (Manual) Lymphocytes % (Manual) Lymphocytes # (Manual) APTT POC ABG pH POC ABG pCO2 POC ABG pO2 Sodium Potassium Chloride Carbon Dioxide BUN Creatinine Glucose POC Glucose Calcium AST ALT Total Creatine Kinase 272 H 339 H CK-MB (CK-2) 23.5 H 28.4 H CK-MB (CK-2) Rel Index 8.6 H 8.3 H Troponin T 0.065 H 0.052 H HDL Cholesterol Urine Creatinine Urine Chloride 08/21/18 08/22/18 08/22/18 15:44 03:13 18:10 MCH Lymph % (Auto) Foard % (Auto) Lymph # Seg Neutrophils % Seg Neuts % (Manual) Lymphocytes % (Manual) Lymphocytes # (Manual) APTT POC ABG pH POC ABG pCO2 POC ABG pO2 Sodium 125 L 124 L Potassium 5.6 H 5.3 H Chloride 90.7 L 93.1 L Carbon Dioxide 21 L BUN 20 H 21 H Creatinine Glucose 113 H 116 H POC Glucose Calcium 8.1 L 7.8 L AST ALT Total Creatine Kinase CK-MB (CK-2) CK-MB (CK-2) Rel Index Troponin T HDL Cholesterol Urine Creatinine 89.3 H Urine Chloride 36.9 L 08/23/18 08/23/18 08/23/18 05:22 06:00 18:22 MCH Lymph % (Auto) Foard % (Auto) Lymph # Seg Neutrophils % Seg Neuts % (Manual) Lymphocytes % (Manual) Lymphocytes # (Manual) APTT POC ABG pH 7.120 L 7.193 L POC ABG pCO2 63.6 H 54.9 H POC ABG pO2 107 H Sodium 123 L Potassium 5.7 H Chloride 92.0 L Carbon Dioxide BUN 24 H Creatinine Glucose 113 H POC Glucose Calcium 8.1 L AST ALT Total Creatine Kinase CK-MB (CK-2) CK-MB (CK-2) Rel Index Troponin T HDL Cholesterol Urine Creatinine Urine Chloride 08/23/18 08/24/18 08/24/18 23:48 00:26 04:16 MCH Lymph % (Auto) Foard % (Auto) Lymph # Seg Neutrophils % Seg Neuts % (Manual) Lymphocytes % (Manual) Lymphocytes # (Manual) APTT POC ABG pH POC ABG pCO2 POC ABG pO2 Sodium 125 L Potassium Chloride 93.1 L Carbon Dioxide 21 L BUN 19 H Creatinine 0.6 L Glucose 133 H 118 H POC Glucose < 40 L Calcium 8.0 L AST ALT Total Creatine Kinase CK-MB (CK-2) CK-MB (CK-2) Rel Index Troponin T HDL Cholesterol Urine Creatinine Urine Chloride 08/24/18 08/24/18 08/24/18 04:16 06:12 11:49 MCH 27 L Lymph % (Auto) [place]oard % (Auto) Lymph # Seg Neutrophils % Seg Neuts % (Manual) 97.0 H Lymphocytes % (Manual) 1.0 L Lymphocytes # (Manual) 0.1 L APTT POC ABG pH POC ABG pCO2 POC ABG pO2 Sodium Potassium Chloride Carbon Dioxide BUN Creatinine Glucose POC Glucose 114 H 186 H Calcium AST ALT Total Creatine Kinase CK-MB (CK-2) CK-MB (CK-2) Rel Index Troponin T HDL Cholesterol Urine Creatinine Urine Chloride - Diagnostic Findings Chest x-ray: report reviewed, image reviewed CT scan - chest: report reviewed, image reviewed (small bilateral pleural effusions) Assessment and Plan Imp: 1. Hyponatremia 2. Hyperkalemia 3. Bilateral pleural effusions, ? CHF 4. NSTEMI 5. Pulm HTN, unclear etiology; could be due to L sided diastolic dysfunction 6. Acute respiratory failure, hypoxia 7. R/o Aspiration 8. SLE, doubt flare Rec: 1. Agree w/ Shreyassca, gentle Lasix 2. Wean off O2 to keep sats 88% or greater; repeat ABG and CXR in AM 3. ST eval. 4. Control BP 5. Stress test in AM; family refuses LHC 6. Consider outpatient PFTs re: pulm HTN; optimally would need RHC prior to co nsidering pulmonary vasodilators 7. Further plans pending clinical course Plan of care reviewed with patient/daughter, they understand/agree Thx for the consult. Will follow w/ you.
[2018-08-24] MEDS: FLORINEF PO SCH (14:24)
[2018-08-24] MEDS ORDERED: SAMSCA PO SCH (17:00)
[2018-08-24] MEDS: LASIX IV SCH (17:08)
--- NOTE | 2018-08-24 17:44 | Progress Note ---
Assessment and Plan Assessment and plan: 87-year-old woman with a history of hypertension, lupus comes to the emergency room complaining of nausea vomiting, generalized weakness, dizziness. Symptoms started after her losartan was changed to lisinopril due to recall of losartan. she reports decreased oral intake Echocardiogram shows well-preserved left ventricular systolic function, mild to moderate concentric left ventricle hypertrophy, but dilated left and right atrium, moderate mitral regurgitation, moderate to severe tricuspid regurgitation and severe pulmonary hypertension. 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, hydrocortisone and fludrocortisone empirically, check orthostatic vital signs dc losartan, K improved, she did not tolerate Kayexalate, rx with insulin and d50w, and K now normal cont isotonic IV fluid, monitor sodium levels, nephrology consult appreciated, vaptan ordered cardiac enzymes are detectable, and mildly elevated, Cardiology consult switched BP meds to ca ch dylan CTA chest and LE dopplers neg for VTE cardiology recommended cath, but family declined and would like to continue conservative mgt cont lasix -steroids, nebs, High flow oxygen, 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 DVT prophylaxis; lovenox History Interval history: c/o muscle spasms in LE Review of systems Constitutional: No fevers, co gen weakness CVS: No chest pain, no orthopnea, trace pedal edema GI: No abdominal pain, no diarrhea, no constipation; no vomiting Respiratory: c/o sob Hospitalist Physical - Physical exam Narrative exam: General.: Appears well, no distress, nontoxic HEENT: Moist mucous membranes, extraocular muscles intact, no lymphadenopathy Neck: supple Cardiac: S1-S2 heard Lungs: decreased air entry Abdomen: soft , nontender, nondistended, bowel sounds positive Extremities: trace bipedal edema Skin: no rash or lesions Neurologic: no gross focal deficits Psych: calm, and cooperative - Constitutional Vitals: Temp Pulse Resp BP Pulse Ox 97.3 F L 79 20 130/56 93 08/24/18 13:22 08/24/18 13:22 08/24/18 13:22 08/24/18 13:22 08/24/18 13:22 General appearance: Present: no acute distress Results - Labs CBC & Chem 7: 08/24/18 04:16 08/24/18 04:16 Labs: Laboratory Last Values WBC 6.7 K/mm3 (4.5-11.0) 08/24/18 04:16 RBC 4.59 M/mm3 (3.65-5.03) 08/24/18 04:16 Hgb 12.5 gm/dl (10.1-14.3) 08/24/18 04:16 Hct 37.8 % (30.3-42.9) 08/24/18 04:16 MCV 82 fl (79-97) 08/24/18 04:16 MCH 27 pg (28-32) L 08/24/18 04:16 MCHC 33 % (30-34) 08/24/18 04:16 RDW 14.7 % (13.2-15.2) 08/24/18 04:16 Plt Count 223 K/mm3 (140-440) 08/24/18 04:16 Lymph % (Auto) 9.6 % (13.4-35.0) L 08/21/18 10:20 Burnett % (Auto) 9.2 % (0.0-7.3) H 08/21/18 10:20 Eos % (Auto) 0.2 % (0.0-4.3) 08/21/18 10:20 Baso % (Auto) 0.2 % (0.0-1.8) 08/21/18 10:20 Lymph # 0.5 K/mm3 (1.2-5.4) L 08/21/18 10:20 Burnett # 0.5 K/mm3 (0.0-0.8) 08/21/18 10:20 Eos # 0.0 K/mm3 (0.0-0.4) 08/21/18 10:20 Baso # 0.0 K/mm3 (0.0-0.1) 08/21/18 10:20 Add Manual Diff Complete 08/24/18 04:16 Total Counted 100 08/24/18 04:16 Seg Neutrophils % Child Care Worker 08/24/18 04:16 Seg Neuts % (Manual) 97.0 % (40.0-70.0) H 08/24/18 04:16 Band Neutrophils % 0 % 08/24/18 04:16 Lymphocytes % (Manual) 1.0 % (13.4-35.0) L 08/24/18 04:16 Reactive Lymphs % (Man) 0 % 08/24/18 04:16 Monocytes % (Manual) 2.0 % (0.0-7.3) 08/24/18 04:16 Eosinophils % (Manual) 0 % (0.0-4.3) 08/24/18 04:16 Basophils % (Manual) 0 % (0.0-1.8) 08/24/18 04:16 Metamyelocytes % 0 % 08/24/18 04:16 Myelocytes % 0 % 08/24/18 04:16 Promyelocytes % 0 % 08/24/18 04:16 Blast Cells % 0 % 08/24/18 04:16 Nucleated RBC % Not Reportable 08/24/18 04:16 Seg Neutrophils # 4.1 K/mm3 (1.8-7.7) 08/21/18 10:20 Seg Neutrophils # Man 6.5 K/mm3 (1.8-7.7) 08/24/18 04:16 Band Neutrophils # 0.0 K/mm3 08/24/18 04:16 Lymphocytes # (Manual) 0.1 K/mm3 (1.2-5.4) L 08/24/18 04:16 Abs React Lymphs (Man) 0.0 K/mm3 08/24/18 04:16 Monocytes # (Manual) 0.1 K/mm3 (0.0-0.8) 08/24/18 04:16 Eosinophils # (Manual) 0.0 K/mm3 (0.0-0.4) 08/24/18 04:16 Basophils # (Manual) 0.0 K/mm3 (0.0-0.1) 08/24/18 04:16 Metamyelocytes # 0.0 K/mm3 08/24/18 04:16 Myelocytes # 0.0 K/mm3 08/24/18 04:16 Promyelocytes # 0.0 K/mm3 08/24/18 04:16 Blast Cells # 0.0 K/mm3 08/24/18 04:16 WBC Morphology Not Reportable 08/24/18 04:16 Hypersegmented Neuts Not Reportable 08/24/18 04:16 Hyposegmented Neuts Not Reportable 08/24/18 04:16 Hypogranular Neuts Not Reportable 08/24/18 04:16 Smudge Cells Not Reportable 08/24/18 04:16 Toxic Granulation Not Reportable 08/24/18 04:16 Toxic Vacuolation Not Reportable 08/24/18 04:16 Dohle Bodies Not Reportable 08/24/18 04:16 Pelger-Huet Anomaly Not Reportable 08/24/18 04:16 Kaden Rods Not Reportable 08/24/18 04:16 Platelet Estimate Consistent w auto 08/24/18 04:16 Clumped Platelets Not Reportable 08/24/18 04:16 Plt Clumps, EDTA Not Reportable 08/24/18 04:16 Large Platelets Not Reportable 08/24/18 04:16 Giant Platelets Not Reportable 08/24/18 04:16 Platelet Satelliting Not Reportable 08/24/18 04:16 Plt Morphology Comment Not Reportable 08/24/18 04:16 RBC Morphology Not Reportable 08/24/18 04:16 Dimorphic RBCs Not Reportable 08/24/18 04:16 Polychromasia Not Reportable 08/24/18 04:16 Hypochromasia Not Reportable 08/24/18 04:16 Poikilocytosis Not Reportable 08/24/18 04:16 Anisocytosis Not Reportable 08/24/18 04:16 Microcytosis Not Reportable 08/24/18 04:16 Macrocytosis Not Reportable 08/24/18 04:16 Spherocytes Not Reportable 08/24/18 04:16 Pappenheimer Bodies Not Reportable 08/24/18 04:16 Sickle Cells Not Reportable 08/24/18 04:16 Target Cells Not Reportable 08/24/18 04:16 Tear Drop Cells Not Reportable 08/24/18 04:16 Ovalocytes Not Reportable 08/24/18 04:16 Helmet Cells Not Reportable 08/24/18 04:16 Dougherty-Whitefield Bodies Not Reportable 08/24/18 04:16 Camden Rings Not Reportable 08/24/18 04:16 Pasquale Cells Not Reportable 08/24/18 04:16 Bite Cells Not Reportable 08/24/18 04:16 Crenated Cell Not Reportable 08/24/18 04:16 Elliptocytes Not Reportable 08/24/18 04:16 Acanthocytes (Spur) Not Reportable 08/24/18 04:16 Rouleaux Not Reportable 08/24/18 04:16 Hemoglobin C Crystals Not Reportable 08/24/18 04:16 Schistocytes Not Reportable 08/24/18 04:16 Malaria parasites Not Reportable 08/24/18 04:16 Sky Bodies Not Reportable 08/24/18 04:16 Hem Pathologist Commnt No 08/24/18 04:16 PT 13.8 Sec. (12.2-14.9) 08/24/18 04:16 INR 1.00 (0.87-1.13) 08/24/18 04:16 APTT 24.3 Sec. (24.2-36.6) 08/24/18 04:16 POC ABG pH 7.193 (7.35-7.45) L 08/23/18 18:22 POC ABG pCO2 54.9 (35-45) H 08/23/18 18:22 POC ABG pO2 102 (80-105) 08/23/18 18:22 POC ABG HCO3 21.1 (22-26 mml/L) 08/23/18 18:22 POC ABG Total CO2 23 (23-27mmol/L) 08/23/18 18:22 POC ABG O2 Sat 96 08/23/18 18:22 POC ABG Base Excess -7 ((-2) - (+3)mmol/L) 08/23/18 18:22 FiO2 40 % 08/23/18 18:22 Sodium 125 mmol/L (137-145) L 08/24/18 04:16 Potassium 4.8 mmol/L (3.6-5.0) 08/24/18 04:16 Chloride 93.1 mmol/L (98-107) L 08/24/18 04:16 Carbon Dioxide 21 mmol/L (22-30) L 08/24/18 04:16 Anion Gap 16 mmol/L 08/24/18 04:16 BUN 19 mg/dL (7-17) H 08/24/18 04:16 Creatinine 0.6 mg/dL (0.7-1.2) L 08/24/18 04:16 Estimated GFR > 60 ml/min 08/24/18 04:16 BUN/Creatinine Ratio 32 % 08/24/18 04:16 Glucose 118 mg/dL (65-100) H 08/24/18 04:16 POC Glucose 186 (70-105) H 08/24/18 11:49 Calcium 8.0 mg/dL (8.4-10.2) L 08/24/18 04:16 Total Bilirubin 0.60 mg/dL (0.1-1.2) 08/20/18 21:53 AST 62 units/L (5-40) H 08/20/18 21:53 ALT 82 units/L (7-56) H 08/20/18 21:53 Alkaline Phosphatase 101 units/L (35-129) 08/20/18 21:53 Total Creatine Kinase 339 units/L (30-135) H 08/21/18 10:20 CK-MB (CK-2) 28.4 ng/mL (0.0-4.0) H 08/21/18 10:20 CK-MB (CK-2) Rel Index 8.3 (0-4) H 08/21/18 10:20 Troponin T 0.052 ng/mL (0.00-0.029) H 08/21/18 10:20 Total Protein 6.5 g/dL (6.3-8.2) 08/20/18 21:53 Albumin 3.9 g/dL (3.9-5) 08/20/18 21:53 Albumin/Globulin Ratio 1.5 % 08/20/18 21:53 Triglycerides 71 mg/dL (2-149) 08/20/18 21:53 Cholesterol 173 mg/dL (50-199) 08/20/18 21:53 LDL Cholesterol Direct 115 mg/dL (50-130) 08/20/18 21:53 HDL Cholesterol 60 mg/dL (40-59) H 08/20/18 21:53 Cholesterol/HDL Ratio 2.88 % 08/20/18 21:53 Lipase 27 units/L (13-60) 08/20/18 21:53 TSH 1.120 mlU/mL (0.270-4.200) 08/23/18 06:00 Free T4 1.14 ng/dL (0.76-1.46) 08/23/18 06:00 Urine Color Yellow (Yellow) 08/20/18 19:43 Urine Turbidity Clear (Clear) 03/16/19 19:43 Urine pH 6.0 (5.0-7.0) 08/20/18 19:43 Ur Specific [place] 1.018 (1.003-1.030) 08/20/18 19:43 Urine Protein 100 mg/dl mg/dL (Negative) 08/20/18 19:43 Urine Glucose (UA) Neg mg/dL (Negative) 08/20/18 19:43 Urine Ketones Neg mg/dL (Negative) 08/20/18 19:43 Urine Blood Neg (Negative) 08/20/18 19:43 Urine Nitrite Neg (Negative) 08/20/18 19:43 Urine Bilirubin Neg (Negative) 08/20/18 19:43 Urine Urobilinogen < 2.0 mg/dL (<2.0) 08/20/18 19:43 Ur Leukocyte Esterase Neg (Negative) 08/20/18 19:43 Urine WBC (Auto) 1.0 /HPF (0.0-6.0) 08/20/18 19:43 Urine RBC (Auto) 7.0 /HPF (0.0-6.0) 08/20/18 19:43 U Epithel Cells (Auto) < 1.0 /HPF (0-13.0) 08/20/18 19:43 Hyaline Casts 1 /LPF 08/20/18 19:43 Urine Mucus Few /HPF 08/20/18 19:43 Urine Osmolality 466 Mosm/kg 08/22/18 18:10 Urine Creatinine 89.3 mg/dL (0.1-20.0) H 08/22/18 18:10 Urine Sodium 13 mmol/L 08/22/18 18:10 Urine Chloride 36.9 mmolL (110-250) L 08/22/18 18:10 Active Medications - Current Medications Current Medications: Generic Name Dose Route Start Last Admin Trade Name Freq PRN Reason Stop Dose Admin Acetaminophen 650 mg 08/21/18 04:26 08/24/18 01:44 Tylenol PO 650 mg Q4H PRN Administration Pain MILD(1-3)/Fever >100.5/CASTRO Albuterol/Ipratropium 1 ampul 08/23/18 16:30 08/24/18 15:00 Duoneb *Not For Prn Use* IH 1 ampul Q6HRT HARINI Administration Arformoterol Tartrate 15 mcg 08/23/18 20:00 08/24/18 09:00 Brovana Nebu IH 15 mcg Q12HRT HARINI Administration Atorvastatin Calcium 20 mg 08/23/18 22:00 08/24/18 03:26 Lipitor PO 20 mg QHS HARINI Administration Benzocaine/Menthol 1 each 08/22/18 12:23 Cepacol X Strength MM Q2HR PRN Sore Throat Budesonide 0.5 mg 08/23/18 20:00 08/24/18 09:00 Pulmicort IH 0.5 mg Q12HRT HARINI Administration Cyclobenzaprine HCl 5 mg 08/21/18 17:53 08/24/18 03:08 Flexeril PO 5 mg Q8H PRN Administration Muscle Spasm Enoxaparin Sodium 40 mg 08/24/18 12:00 08/24/18 11:21 Lovenox SUB-Q Not Given QDAY HARINI Fludrocortisone Acetate 0.2 mg 08/24/18 13:00 08/24/18 14:24 Florinef PO 0.2 mg QDAY HARINI Administration Furosemide 40 mg 08/24/18 17:00 08/24/18 17:08 Lasix IV 40 mg QDAY HARINI Administration Hydralazine HCl 5 mg 08/21/18 04:32 Apresoline IV Q6H PRN Hypertension Hydrocortisone Sodium Succinate 100 mg 08/24/18 14:00 08/24/18 14:23 Solu-Cortef IV 100 mg Q8HR HARINI Administration Hydroxychloroquine Sulfate 200 mg 08/21/18 13:00 08/24/18 09:01 Plaquenil PO 200 mg QDAY HARINI Administration Nifedipine 30 mg 08/22/18 19:00 08/24/18 03:27 Procardia Xl PO 30 mg Q24H HARINI Administration Nitroglycerin 0.4 mg 08/24/18 06:00 08/24/18 06:01 Nitro Dur TD 0.4 mg QDAY@0600 [facility] Administration Ondansetron HCl 4 mg 08/21/18 04:26 08/23/18 23:59 Zofran IV 4 mg Q4H PRN Administration Nausea And Vomiting Pantoprazole Sodium 40 mg 08/22/18 13:37 08/24/18 09:01 Protonix PO 40 mg QDAY [facility] Administration Phenol 1 spray 08/22/18 12:23 Chloraseptic MM PRN PRN Sore Throat Sodium Chloride 10 ml 08/21/18 10:00 08/24/18 09:01 Sodium Chloride Flush Syringe 10 Ml IV Not Given BID HARINI Sodium Chloride 10 ml 08/21/18 04:26 Sodium Chloride Flush Syringe 10 Ml IV PRN PRN LINE FLUSH Tolvaptan 30 mg 08/24/18 17:00 08/24/18 16:59 Samsca PO 30 mg Q24H HARINI Administration Trazodone HCl 100 mg 08/22/18 19:00 08/24/18 03:26 Desyrel PO 100 mg Q24H HARINI Administration Nutrition/Malnutrition Assess - Dietary Evaluation Nutrition/Malnutrition Findings: Nutrition Notes Start: 08/23/18 14:01 Freq: Status: Active Protocol: Document 08/23/18 14:01 RD (Rec: 08/23/18 14:59 RD [id number]) Co-Sign 08/23/18 14:01 NHALL Nutrition Notes Need for Assessment generated from: MD Order Initial or Follow up Assessment Current Diagnosis Hypertension Other Pertinent Diagnosis hyponatremia, lupus, depression, anxiety, Current Diet cardiac Labs/Tests K 5.7 BUN 24 BG 113 Pertinent Medications Lasix Height 5 ft 2 in Weight 58.06 kg [place] Body Weight (kg) 50.00 BMI 23.3 Subjective/Other Information RD consulted for malnutrition. Pt's daughter at bedside and able to answer questions. No recent weight loss. Pt vomiting and not eating much per daughter report. Pt ate a few bites of breakfast and no lunch due to decreased appetite. Pt daughter requests vanilla supplemental nutrition drink for pt. Percent of energy/protein needs met: 0%/0% Burn Absent Trauma Absent GI Symptoms Vomiting Current % PO Poor (25-49%) Minimum of two criteria Yes Body Fat Depletion Moderate depletion (severe) Muscle Mass Moderate Depletion (severe) #1 Nutrition Diagnosis Inadequate oral intake Etiology Decreased appetite As Evidenced by Signs and Symptoms Pt eating less than 50% of meals Is patient on ventilator? No Is Patient Ambulatory and/or Out of Bed Yes REE-([place]. Jeor-ambulatory/OOB) [ 1266.005 NUTR.[id number]] Calculation Used for Recommendations [facility] Additional Notes Protein needs: (1-1.2g/kg/day) 58-70g/day Fluid needs: 1mL/kcal Nutrition Intervention Change Diet Order: Continue cardiac Add Supplement/Snack (indicate name/kcal Ensure Enlive BID /protein ) Provides kCal: 700 Provides Protein (gm) 40 Goal #1 Meet at least 75% of nutrient needs via PO and ONS intakes Anticipated Discharge Needs: Cardiac diet Follow-Up By: 08/25/18 Additional Comments f/u: intakes
[2018-08-25] MEDS ORDERED: MILK OF MAGNESIA PO PRN (01:08)
[2018-08-25] MEDS: TYLENOL PO PRN (01:27)
[2018-08-25] MEDS: DUONEB *Not for PRN Use IH SCH ×5 (04:31→21:19)
[2018-08-25] MEDS: NITRO DUR TD SCH (06:04)
[2018-08-25 06:24] LABS: BUN/Creatinine Ratio 29; Blood Urea Nitrogen 20 mg/dL (7-17); Calcium 8.2 mg/dL (8.4-10.2); Hemolysis Index 22
[2018-08-25] MEDS: LOVENOX SUB-Q SCH (08:59)
[2018-08-25] MEDS: PLAQUENIL PO SCH (08:59)
[2018-08-25] MEDS: PROTONIX PO SCH (08:59)
[2018-08-25] MEDS: FLORINEF PO SCH (08:59)
[2018-08-25] MEDS: LASIX IV SCH (08:59)
[2018-08-25] MEDS: SODIUM CHLORIDE FLUSH SYRINGE 10 ML IV SCH ×2 (09:00→22:20)
--- NOTE | 2018-08-25 09:44 | Progress Note ---
Assessment and Plan Assessment and plan: 87-year-old woman with a history of hypertension, lupus comes to the emergency room complaining of nausea vomiting, generalized weakness, dizziness. Symptoms started after her losartan was changed to lisinopril due to recall of losartan. she reports decreased oral intake Echocardiogram shows well-preserved left ventricular systolic function, mild to moderate concentric left ventricle hypertrophy, but dilated left and right atrium, moderate mitral regurgitation, moderate to severe tricuspid regurgitation and severe pulmonary hypertension. 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 Hyponatremia dehydration transient autonomic imbalance Dizzyness Chronic RBBB Abnormal cardiac enzymes Hypertension Lupus N/V dehydration Hyperkalemia pulm htn moderate protein malnutrition acute hypercapneic respiratory failure Acute COPD/Asthma diastolic CHF, acute Plan -air conditioning unit tester cortisol tomorrow, hydrocortisone and fludrocortisone empirically, orthostatic vital signs wnl dc losartan, K improved, she did not tolerate Kayexalate, rx with insulin and d50w, and K now normal cont isotonic IV fluid, monitor sodium levels, nephrology consult appreciated, vaptan ordered cardiac enzymes are detectable, and mildly elevated, Cardiology consult switched BP meds to ca ch dylan CTA chest and LE dopplers neg for VTE cardiology recommended cath, but family declined and would like to continue conservative mgt cont iv lasix -steroids, nebs, High flow oxygen, stone banker consult appreciated DVT prophylaxis; lovenox History Interval history: c/o muscle spasms in LE Review of systems Constitutional: No fevers, co gen weakness CVS: No chest pain, no orthopnea, trace pedal edema GI: No abdominal pain, no diarrhea, no constipation; no vomiting Respiratory: c/o sob Hospitalist Physical - Physical exam Narrative exam: General.: Appears well, no distress, nontoxic HEENT: Moist mucous membranes, extraocular muscles intact, no lymphadenopathy Neck: supple Cardiac: S1-S2 heard Lungs: decreased air entry Abdomen: soft , nontender, nondistended, bowel sounds positive Extremities: trace bipedal edema Skin: no rash or lesions Neurologic: no gross focal deficits Psych: calm, and cooperative - Constitutional Vitals: Temp Pulse Resp BP Pulse Ox 97.3 F L 118 H 18 123/51 95 08/25/18 02:20 08/25/18 09:32 08/25/18 09:32 08/25/18 06:04 08/25/18 02:21 General appearance: Present: no acute distress Results - Labs CBC & Chem 7: 08/24/18 04:16 08/25/18 05:50 Labs: Laboratory Last Values WBC 6.7 K/mm3 (4.5-11.0) 08/24/18 04:16 RBC 4.59 M/mm3 (3.65-5.03) 08/24/18 04:16 Hgb 12.5 gm/dl (10.1-14.3) 08/24/18 04:16 Hct 37.8 % (30.3-42.9) 08/24/18 04:16 MCV 82 fl (79-97) 08/24/18 04:16 MCH 27 pg (28-32) L 08/24/18 04:16 MCHC 33 % (30-34) 08/24/18 04:16 RDW 14.7 % (13.2-15.2) 08/24/18 04:16 Plt Count 223 K/mm3 (140-440) 08/24/18 04:16 Lymph % (Auto) 9.6 % (13.4-35.0) L 08/21/18 10:20 Pender % (Auto) 9.2 % (0.0-7.3) H 08/21/18 10:20 Eos % (Auto) 0.2 % (0.0-4.3) 08/21/18 10:20 Baso % (Auto) 0.2 % (0.0-1.8) 08/21/18 10:20 Lymph # 0.5 K/mm3 (1.2-5.4) L 08/21/18 10:20 Pender # 0.5 K/mm3 (0.0-0.8) 08/21/18 10:20 Eos # 0.0 K/mm3 (0.0-0.4) 08/21/18 10:20 Baso # 0.0 K/mm3 (0.0-0.1) 08/21/18 10:20 Add Manual Diff Complete 08/24/18 04:16 Total Counted 100 08/24/18 04:16 Seg Neutrophils % Bank Guard 08/24/18 04:16 Seg Neuts % (Manual) 97.0 % (40.0-70.0) H 08/24/18 04:16 Band Neutrophils % 0 % 08/24/18 04:16 Lymphocytes % (Manual) 1.0 % (13.4-35.0) L 08/24/18 04:16 Reactive Lymphs % (Man) 0 % 08/24/18 04:16 Monocytes % (Manual) 2.0 % (0.0-7.3) 08/24/18 04:16 Eosinophils % (Manual) 0 % (0.0-4.3) 08/24/18 04:16 Basophils % (Manual) 0 % (0.0-1.8) 08/24/18 04:16 Metamyelocytes % 0 % 08/24/18 04:16 Myelocytes % 0 % 08/24/18 04:16 Promyelocytes % 0 % 08/24/18 04:16 Blast Cells % 0 % 08/24/18 04:16 Nucleated RBC % Not Reportable 08/24/18 04:16 Seg Neutrophils # 4.1 K/mm3 (1.8-7.7) 08/21/18 10:20 Seg Neutrophils # Man 6.5 K/mm3 (1.8-7.7) 08/24/18 04:16 Band Neutrophils # 0.0 K/mm3 08/24/18 04:16 Lymphocytes # (Manual) 0.1 K/mm3 (1.2-5.4) L 08/24/18 04:16 Abs React Lymphs (Man) 0.0 K/mm3 08/24/18 04:16 Monocytes # (Manual) 0.1 K/mm3 (0.0-0.8) 08/24/18 04:16 Eosinophils # (Manual) 0.0 K/mm3 (0.0-0.4) 08/24/18 04:16 Basophils # (Manual) 0.0 K/mm3 (0.0-0.1) 08/24/18 04:16 Metamyelocytes # 0.0 K/mm3 08/24/18 04:16 Myelocytes # 0.0 K/mm3 08/24/18 04:16 Promyelocytes # 0.0 K/mm3 08/24/18 04:16 Blast Cells # 0.0 K/mm3 08/24/18 04:16 WBC Morphology Not Reportable 08/24/18 04:16 Hypersegmented Neuts Not Reportable 08/24/18 04:16 Hyposegmented Neuts Not Reportable 08/24/18 04:16 Hypogranular Neuts Not Reportable 08/24/18 04:16 Smudge Cells Not Reportable 08/24/18 04:16 Toxic Granulation Not Reportable 08/24/18 04:16 Toxic Vacuolation Not Reportable 08/24/18 04:16 Dohle Bodies Not Reportable 08/24/18 04:16 Pelger-Huet Anomaly Not Reportable 08/24/18 04:16 Kaden Rods Not Reportable 08/24/18 04:16 Platelet Estimate Consistent w auto 08/24/18 04:16 Clumped Platelets Not Reportable 08/24/18 04:16 Plt Clumps, EDTA Not Reportable 08/24/18 04:16 Large Platelets Not Reportable 08/24/18 04:16 Giant Platelets Not Reportable 08/24/18 04:16 Platelet Satelliting Not Reportable 08/24/18 04:16 Plt Morphology Comment Not Reportable 08/24/18 04:16 RBC Morphology Not Reportable 08/24/18 04:16 Dimorphic RBCs Not Reportable 08/24/18 04:16 Polychromasia Not Reportable 08/24/18 04:16 Hypochromasia Not Reportable 08/24/18 04:16 Poikilocytosis Not Reportable 08/24/18 04:16 Anisocytosis Not Reportable 08/24/18 04:16 Microcytosis Not Reportable 08/24/18 04:16 Macrocytosis Not Reportable 08/24/18 04:16 Spherocytes Not Reportable 08/24/18 04:16 Pappenheimer Bodies Not Reportable 08/24/18 04:16 Sickle Cells Not Reportable 08/24/18 04:16 Target Cells Not Reportable 08/24/18 04:16 Tear Drop Cells Not Reportable 08/24/18 04:16 Ovalocytes Not Reportable 08/24/18 04:16 Helmet Cells Not Reportable 08/24/18 04:16 [place] Bodies Not Reportable 08/24/18 04:16 [place] Rings Not Reportable 08/24/18 04:16 Pasquale Cells Not Reportable 08/24/18 04:16 Bite Cells Not Reportable 08/24/18 04:16 Crenated Cell Not Reportable 08/24/18 04:16 Elliptocytes Not Reportable 08/24/18 04:16 Acanthocytes (Spur) Not Reportable 08/24/18 04:16 Rouleaux Not Reportable 08/24/18 04:16 Hemoglobin C Crystals Not Reportable 08/24/18 04:16 Schistocytes Not Reportable 08/24/18 04:16 Malaria parasites Not Reportable 08/24/18 04:16 Sky Bodies Not Reportable 08/24/18 04:16 Hem Pathologist Commnt No 08/24/18 04:16 PT 13.8 Sec. (12.2-14.9) 08/24/18 04:16 INR 1.00 (0.87-1.13) 08/24/18 04:16 APTT 24.3 Sec. (24.2-36.6) 08/24/18 04:16 POC ABG pH 7.193 (7.35-7.45) L 08/23/18 18:22 POC ABG pCO2 54.9 (35-45) H 08/23/18 18:22 POC ABG pO2 102 (80-105) 08/23/18 18:22 POC ABG HCO3 21.1 (22-26 mml/L) 08/23/18 18:22 POC ABG Total CO2 23 (23-27mmol/L) 08/23/18 18:22 POC ABG O2 Sat 96 08/23/18 18:22 POC ABG Base Excess -7 ((-2) - (+3)mmol/L) 08/23/18 18:22 FiO2 40 % 08/23/18 18:22 Sodium 133 mmol/L (137-145) L D 08/25/18 05:50 Potassium 4.0 mmol/L (3.6-5.0) 08/25/18 05:50 Chloride 96.4 mmol/L (98-107) L 08/25/18 05:50 Carbon Dioxide 26 mmol/L (22-30) 08/25/18 05:50 Anion Gap 15 mmol/L 08/25/18 05:50 BUN 20 mg/dL (7-17) H 08/25/18 05:50 Creatinine 0.7 mg/dL (0.7-1.2) 08/25/18 05:50 Estimated GFR > 60 ml/min 08/25/18 05:50 BUN/Creatinine Ratio 29 % 08/25/18 05:50 Glucose 147 mg/dL (65-100) H 08/25/18 05:50 POC Glucose 122 (70-105) H 08/25/18 07:36 Calcium 8.2 mg/dL (8.4-10.2) L 08/25/18 05:50 Total Bilirubin 0.60 mg/dL (0.1-1.2) 08/20/18 21:53 AST 62 units/L (5-40) H 08/20/18 21:53 ALT 82 units/L (7-56) H 08/20/18 21:53 Alkaline Phosphatase 101 units/L (35-129) 08/20/18 21:53 Total Creatine Kinase 339 units/L (30-135) H 08/21/18 10:20 CK-MB (CK-2) 28.4 ng/mL (0.0-4.0) H 08/21/18 10:20 CK-MB (CK-2) Rel Index 8.3 (0-4) H 08/21/18 10:20 Troponin T 0.052 ng/mL (0.00-0.029) H 08/21/18 10:20 Total Protein 6.5 g/dL (6.3-8.2) 08/20/18 21:53 Albumin 3.9 g/dL (3.9-5) 08/20/18 21:53 Albumin/Globulin Ratio 1.5 % 08/20/18 21:53 Triglycerides 71 mg/dL (2-149) 08/20/18 21:53 Cholesterol 173 mg/dL (50-199) 08/20/18 21:53 LDL Cholesterol Direct 115 mg/dL (50-130) 08/20/18 21:53 HDL Cholesterol 60 mg/dL (40-59) H 08/20/18 21:53 Cholesterol/HDL Ratio 2.88 % 08/20/18 21:53 Lipase 27 units/L (13-60) 08/20/18 21:53 TSH 1.120 mlU/mL (0.270-4.200) 08/23/18 06:00 Free T4 1.14 ng/dL (0.76-1.46) 08/23/18 06:00 Urine Color Yellow (Yellow) 08/20/18 19:43 Urine Turbidity Clear (Clear) 08/20/18 19:43 Urine pH 6.0 (5.0-7.0) 08/20/18 19:43 Ur Specific [place] 1.018 (1.003-1.030) 08/20/18 19:43 Urine Protein 100 mg/dl mg/dL (Negative) 08/20/18 19:43 Urine Glucose (UA) Neg mg/dL (Negative) 08/20/18 19:43 Urine Ketones Neg mg/dL (Negative) 08/20/18 19:43 Urine Blood Neg (Negative) 08/20/18 19:43 Urine Nitrite Neg (Negative) 08/20/18 19:43 Urine Bilirubin Neg (Negative) 08/20/18 19:43 Urine Urobilinogen < 2.0 mg/dL (<2.0) 08/20/18 19:43 Ur Leukocyte Esterase Neg (Negative) 08/20/18 19:43 Urine WBC (Auto) 1.0 /HPF (0.0-6.0) 08/20/18 19:43 Urine RBC (Auto) 7.0 /HPF (0.0-6.0) 08/20/18 19:43 U Epithel Cells (Auto) < 1.0 /HPF (0-13.0) 08/20/18 19:43 Hyaline Casts 1 /LPF 08/20/18 19:43 Urine Mucus Few /HPF 08/20/18 19:43 Urine Osmolality 466 Mosm/kg 08/22/18 18:10 Urine Creatinine 89.3 mg/dL (0.1-20.0) H 08/22/18 18:10 Urine Sodium 13 mmol/L 08/22/18 18:10 Urine Chloride 36.9 mmolL (110-250) L 08/22/18 18:10 Active Medications - Current Medications Current Medications: Generic Name Dose Route Start Last Admin Trade Name Freq PRN Reason Stop Dose Admin Acetaminophen 650 mg 08/21/18 04:26 08/25/18 01:27 Tylenol PO 650 mg Q4H PRN Administration Pain MILD(1-3)/Fever >100.5/CASTRO Albuterol/Ipratropium 1 ampul 08/23/18 16:30 08/25/18 04:31 Duoneb *Not For Prn Use* IH Not Given Q6HRT HARINI Arformoterol Tartrate 15 mcg 08/23/18 20:00 08/24/18 19:44 Brovana Nebu IH 15 mcg Q12HRT HARINI Administration Atorvastatin Calcium 20 mg 08/23/18 22:00 08/24/18 21:01 Lipitor PO 20 mg QHS HARINI Administration Benzocaine/Menthol 1 each 08/22/18 12:23 Cepacol X Strength MM Q2HR PRN Sore Throat Budesonide 0.5 mg 08/23/18 20:00 08/24/18 19:44 Pulmicort IH 0.5 mg Q12HRT HARINI Administration Cyclobenzaprine HCl 5 mg 08/21/18 17:53 08/24/18 03:08 Flexeril PO 5 mg Q8H PRN Administration Muscle Spasm Enoxaparin Sodium 40 mg 08/24/18 12:00 08/25/18 08:59 Lovenox SUB-Q 40 mg QDAY [facility] Administration Fludrocortisone Acetate 0.2 mg 08/24/18 13:00 08/25/18 08:59 Florinef PO 0.2 mg QDAY HARINI Administration Furosemide 40 mg 08/24/18 17:00 08/25/18 08:59 Lasix IV 40 mg QDAY HARINI Administration Hydralazine HCl 5 mg 08/21/18 04:32 Apresoline IV Q6H PRN Hypertension Hydrocortisone Sodium Succinate 100 mg 08/24/18 14:00 08/25/18 06:05 Solu-Cortef IV 100 mg Q8HR HARINI Administration Hydroxychloroquine Sulfate 200 mg 08/21/18 13:00 08/25/18 08:59 Plaquenil PO 200 mg QDAY [facility] Administration Magnesium Hydroxide 30 ml 08/25/18 01:08 08/25/18 01:27 Milk Of Magnesia PO 30 ml Q8H PRN Administration Constipation Nifedipine 30 mg 08/22/18 19:00 08/24/18 20:59 Procardia Xl PO 30 mg Q24H HARINI Administration Nitroglycerin 0.4 mg 08/24/18 06:00 08/25/18 06:04 Nitro Dur TD 0.4 mg QDAY@0600 [facility] Administration Ondansetron HCl 4 mg 08/21/18 04:26 08/23/18 23:59 Zofran IV 4 mg Q4H PRN Administration Nausea And Vomiting Pantoprazole Sodium 40 mg 08/22/18 13:37 08/25/18 08:59 Protonix PO 40 mg QDAY HARINI Administration Phenol 1 spray 08/22/18 12:23 Chloraseptic MM PRN PRN Sore Throat Sodium Chloride 10 ml 08/21/18 10:00 08/25/18 09:00 Sodium Chloride Flush Syringe 10 Ml IV 10 ml BID HARINI Administration Sodium Chloride 10 ml 08/21/18 04:26 Sodium Chloride Flush Syringe 10 Ml IV PRN PRN LINE FLUSH Tolvaptan 30 mg 08/24/18 17:00 08/24/18 16:59 Samsca PO 30 mg Q24H HARINI Administration Trazodone HCl 100 mg 08/22/18 19:00 08/24/18 20:59 Desyrel PO 100 mg Q24H HARINI Administration Nutrition/Malnutrition Assess - Dietary Evaluation Nutrition/Malnutrition Findings: Nutrition Notes Start: 08/23/18 14:01 Freq: Status: Active Protocol: Document 08/23/18 14:01 RD (Rec: 08/23/18 14:59 RD [id number]) Co-Sign 08/23/18 14:01 NHALL Nutrition Notes Need for Assessment generated from: MD Order Initial or Follow up Assessment Current Diagnosis Hypertension Other Pertinent Diagnosis hyponatremia, lupus, depression, anxiety, Current Diet cardiac Labs/Tests K 5.7 BUN 24 BG 113 Pertinent Medications Lasix Height 5 ft 2 in Weight 58.06 kg [place] Body Weight (kg) 50.00 BMI 23.3 Subjective/Other Information RD consulted for malnutrition. Pt's daughter at bedside and able to answer questions. No recent weight loss. Pt vomiting and not eating much per daughter report. Pt ate a few bites of breakfast and no lunch due to decreased appetite. Pt daughter requests vanilla supplemental nutrition drink for pt. Percent of energy/protein needs met: 0%/0% Burn Absent Trauma Absent GI Symptoms Vomiting Current % PO Poor (25-49%) Minimum of two criteria Yes Body Fat Depletion Moderate depletion (severe) Muscle Mass Moderate Depletion (severe) #1 Nutrition Diagnosis Inadequate oral intake Etiology Decreased appetite As Evidenced by Signs and Symptoms Pt eating less than 50% of meals Is patient on ventilator? No Is Patient Ambulatory and/or Out of Bed Yes REE-(Lehigh-St. Jeor-ambulatory/OOB) [ 1266.005 [id number]] Calculation Used for Recommendations [place]-St Jeor Additional Notes Protein needs: (1-1.2g/kg/day) 58-70g/day Fluid needs: 1mL/kcal Nutrition Intervention Change Diet Order: Continue cardiac Add Supplement/Snack (indicate name/kcal Ensure Enlive BID /protein ) Provides kCal: 700 Provides Protein (gm) 40 Goal #1 Meet at least 75% of nutrient needs via PO and ONS intakes Anticipated Discharge Needs: Cardiac diet Follow-Up By: 08/25/18 Additional Comments f/u: intakes
--- NOTE | 2018-08-25 10:04 | Progress Note ---
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 She may also have an element of volume depletion given her low urine sodium and chloride. The possibility of adrenal insufficiency was brought up by the primary attending and she was empirically started on solucortef/florinef therapy and serum cortisol levels were sent this am. Will discontinue any further doses of tolvaptan at present time and closely monitor. (2) Elevated troponin Current Visit: Yes Status: Acute Plan to address problem: Workup noted per cardiology. Echocardiogram is been reviewed. CTA noted without any acute abnormalities. Family and patient does not want to go through with cardiac cath at this time and are opting for more medical/conservative management. (3) Nausea & vomiting Current Visit: Yes Status: Acute Plan to address problem: Symptomatic control per primary team. It is important to control her nausea as it can also attributed to increased ADH secretion which can further worsen her chronic hyponatremic state. (4) Weakness Current Visit: Yes Status: Acute Plan to address problem: Management per primary team. Recommend physical therapy evaluation. Weakness can also be seen in elderly with chronic hyponatremia (5) HTN (hypertension) Current Visit: No Status: Chronic Plan to address problem: We will monitor on her current regimen. Subjective Date of service: 08/25/18 Interval history: Labs noted and there is improvement. Patient was started on solucortef/florinef empirically secondary to concern for possible underlying adrenal insufficiency. She was given a second dose of tolvapatan yesterday evening, which we will hold off on further administrations at present time. Cortisol levels have been sent this am and will await the results. Per patient and her daughter she had not been on steroids for ~20 years, and during this time was only on plaquenil. Patient unfortunately had some tachyarrythmias/atrial flutter this am on telemetry and is receiving an EKG. Discussed with the primary attending, and plan is to wean steroids. Objective - Vital Signs Vital signs: Vital Signs - 12hr 08/24/18 08/25/18 08/25/18 22:00 02:20 02:21 Temperature 97.3 F L Pulse Rate 90 61 63 Pulse Rate [ 85 Left Brachial] Respiratory 18 Rate Blood Pressure 123/51 O2 Sat by Pulse 98 79 L 95 Oximetry 08/25/18 08/25/18 08/25/18 06:04 09:30 09:32 Temperature Pulse Rate 63 118 H Pulse Rate [ 118 H Left Brachial] Respiratory 18 Rate Blood Pressure 123/51 O2 Sat by Pulse Oximetry - General Appearance General appearance: well-developed, appears stated age, chronically ill, frail EENT: ATNC, PERRL Neck: no JVD, supple Respiratory: Present: Clear to Ascultation Cardiology: tachycardia Gastrointestinal: normal Integumentary: warm and dry Neurologic: no focal deficit, alert and oriented x3 Musculoskeletal: other (-edema ) Psychiatric: cooperative - Lab 08/24/18 04:16 08/25/18 05:50 Most recent lab results Calcium 8.2 mg/dL (8.4-10.2) L 08/25/18 05:50 Urine Creatinine 89.3 mg/dL (0.1-20.0) H 08/22/18 18:10 Urine Sodium 13 mmol/L 08/22/18 18:10 - Allied health notes Allied health notes reviewed: nursing Medications & Allergies - Medications Allergies/Adverse Reactions: Allergies aspirin Allergy (Unknown, Verified 08/20/18 18:48) Unknown cephalexin monohydrate [From Keflex] Allergy (Unknown, Verified 08/20/18 18:48) Unknown diazepam [From Valium] Allergy (Unknown, Verified 08/20/18 18:48) Unknown doxycycline calcium [From Vibramycin] Allergy (Unknown, Verified 08/20/18 18:48) Unknown doxycycline hyclate [From Vibramycin] Allergy (Unknown, Verified 08/20/18 18:48) Unknown doxycycline monohydrate [From Vibramycin] Allergy (Unknown, Verified 08/20/18 18:48) Unknown lorazepam [From Ativan] Allergy (Unknown, Verified 08/20/18 18:48) Diarrhea meperidine HCl [From Demerol] Allergy (Unknown, Verified 08/20/18 18:48) Unknown ofloxacin [From Floxin] Allergy (Unknown, Verified 08/20/18 18:48) Unknown pentazocine lactate [From Talwin] Allergy (Unknown, Verified 08/20/18 18:48) Unknown ciprofloxacin Allergy (Verified 08/20/18 18:48) Unknown fexofenadine [From Nadine] Allergy (Verified 08/20/18 18:48) Unknown hydrocodone Allergy (Verified 08/20/18 18:48) Unknown morphine Allergy (Verified 08/20/18 18:48) Unknown Sulfa (Sulfonamide Antibiotics) Allergy (Verified 08/20/18 18:48) Unknown adhesive Adverse Reaction (Verified 08/20/18 18:48) Rash Home Medications: Home Medications Medication Instructions Recorded Confirmed Last Taken Type Hydroxychloroquine [Plaquenil] 200 mg PO QDAY 08/30/17 08/21/18 Unknown History Losartan [Cozaar] 50 mg PO QDAY 08/21/18 08/21/18 Unknown History NIFEdipine XL [Procardia Xl] 30 mg PO QHS 08/21/18 08/21/18 Unknown History traZODone [Desyrel] 100 mg PO QHS 08/21/18 08/21/18 Unknown History Active Medications: Generic Name Dose Route Start Last Admin Trade Name Freq PRN Reason Stop Dose Admin Acetaminophen 650 mg 08/21/18 04:26 08/25/18 01:27 Tylenol PO 650 mg Q4H PRN Administration Pain MILD(1-3)/Fever >100.5/CASTRO Albuterol/Ipratropium 1 ampul 08/23/18 16:30 08/25/18 04:31 Duoneb *Not For Prn Use* IH Not Given Q6HRT HARINI Arformoterol Tartrate 15 mcg 08/23/18 20:00 08/24/18 19:44 Brovana Nebu IH 15 mcg Q12HRT HARINI Administration Atorvastatin Calcium 20 mg 08/23/18 22:00 08/24/18 21:01 Lipitor PO 20 mg QHS HARINI Administration Benzocaine/Menthol 1 each 08/22/18 12:23 Cepacol X Strength MM Q2HR PRN Sore Throat Budesonide 0.5 mg 08/23/18 20:00 08/24/18 19:44 Pulmicort IH 0.5 mg Q12HRT HARINI Administration Cyclobenzaprine HCl 5 mg 08/21/18 17:53 08/24/18 03:08 Flexeril PO 5 mg Q8H PRN Administration Muscle Spasm Enoxaparin Sodium 40 mg 08/24/18 12:00 08/25/18 08:59 Lovenox SUB-Q 40 mg QDAY HARINI Administration Fludrocortisone Acetate 0.2 mg 08/24/18 13:00 08/25/18 08:59 Florinef PO 0.2 mg QDAY HARINI Administration Furosemide 40 mg 08/24/18 17:00 08/25/18 08:59 Lasix IV 40 mg QDAY HARINI Administration Hydralazine HCl 5 mg 08/21/18 04:32 Apresoline IV Q6H PRN Hypertension Hydrocortisone Sodium Succinate 100 mg 08/24/18 14:00 08/25/18 06:05 Solu-Cortef IV 100 mg Q8HR HARINI Administration Hydroxychloroquine Sulfate 200 mg 08/21/18 13:00 08/25/18 08:59 Plaquenil PO 200 mg QDAY HARINI Administration Magnesium Hydroxide 30 ml 08/25/18 01:08 08/25/18 01:27 Milk Of Magnesia PO 30 ml Q8H PRN Administration Constipation Nifedipine 30 mg 08/22/18 19:00 08/24/18 20:59 Procardia Xl PO 30 mg Q24H HARINI Administration Nitroglycerin 0.4 mg 08/24/18 06:00 08/25/18 06:04 Nitro Dur TD 0.4 mg QDAY@0600 [facility] Administration Ondansetron HCl 4 mg 08/21/18 04:26 08/23/18 23:59 Zofran IV 4 mg Q4H PRN Administration Nausea And Vomiting Pantoprazole Sodium 40 mg 08/22/18 13:37 08/25/18 08:59 Protonix PO 40 mg QDAY [facility] Administration Phenol 1 spray 08/22/18 12:23 Chloraseptic MM PRN PRN Sore Throat Sodium Chloride 10 ml 08/21/18 10:00 08/25/18 09:00 Sodium Chloride Flush Syringe 10 Ml IV 10 ml BID HARINI Administration Sodium Chloride 10 ml 08/21/18 04:26 Sodium Chloride Flush Syringe 10 Ml IV PRN PRN LINE FLUSH Tolvaptan 30 mg 08/24/18 17:00 08/24/18 16:59 Samsca PO 30 mg Q24H HARINI Administration Trazodone HCl 100 mg 08/22/18 19:00 08/24/18 20:59 Desyrel PO 100 mg Q24H HARINI Administration
[2018-08-25] MEDS: PULMICORT IH SCH ×2 (10:20→20:52)
[2018-08-25] MEDS: BROVANA NEBU IH SCH ×2 (10:21→20:52)
[2018-08-25] MEDS ORDERED: GLYCERIN ADULT 2 GM PR PRN (10:26)
[2018-08-25] MEDS: MIRALAX 3350 PO SCH (10:54)
[2018-08-25] MEDS ORDERED: DULCOLAX PR ONE (11:00)
--- NOTE | 2018-08-25 11:18 | XRay Report ---
AP CHEST: HISTORY: Pleural effusions Small bilateral pleural effusions are identified which appear unchanged since the CTA chest performed 2 days ago. Mild atelectatic changes are noted at the lung bases. The upper lung zones remain clear. Mild cardiomegaly is stable. IMPRESSION: Mild cardiomegaly and small bilateral pleural effusions.
[2018-08-25] MEDS ORDERED: MIRALAX 3350 PO SCH (12:00)
[2018-08-25] MEDS ORDERED: FLORINEF PO SCH (12:28)
--- NOTE | 2018-08-25 12:54 | Progress Note ---
Assessment and Plan Imp: 1. Hyponatremia 2. Hyperkalemia 3. Bilateral pleural effusions, ? CHF 4. NSTEMI 5. Pulm HTN, unclear etiology; could be due to L sided diastolic dysfunction 6. Acute respiratory failure, hypoxia 7. R/o Aspiration 8. SLE, doubt flare Rec: 1. Agree w/ Lasix IV and monitor sodium closely; no need for steroids pulm-franco 2. Wean off O2 to keep sats 88% or greater; repeat ABG; check CXR periodically 3. ST eval. 4. Control BP 5. Family refused stress test and LHC 6. Consider outpatient PFTs re: pulm HTN; optimally would need RHC prior to considering pulmonary vasodilators 7. Try to mobilize 8. Further plans pending clinical course; clinically better today Plan of care reviewed with patient/daughter, they understand/agree Subjective Date of service: 08/25/18 Principal diagnosis: SOB Interval history: No events. More alert. Still SOB but better. Down to 2.5L NC. Eating well. Active Medications Acetaminophen (Tylenol) 650 mg PO Q4H PRN PRN Reason: Pain MILD(1-3)/Fever >100.5/CASTRO Last Admin: 08/25/18 01:27 Dose: 650 mg Documented by: Albuterol/Ipratropium (Duoneb *Not For Prn Use*) 1 ampul IH Q6HRT [facility] Last Admin: 08/25/18 11:59 Dose: Not Given Documented by: Arformoterol Tartrate (Brovana Nebu) 15 mcg IH Q12HRT [facility] Last Admin: 08/25/18 10:21 Dose: 15 mcg Documented by: Atorvastatin Calcium (Lipitor) 20 mg PO QHS [facility] Last Admin: 08/24/18 21:01 Dose: 20 mg Documented by: Benzocaine/Menthol (Cepacol X Strength) 1 each MM Q2HR PRN PRN Reason: Sore Throat Budesonide (Pulmicort) 0.5 mg IH Q12HRT [facility] Last Admin: 08/25/18 10:20 Dose: 0.5 mg Documented by: Cyclobenzaprine HCl (Flexeril) 5 mg PO Q8H PRN PRN Reason: Muscle Spasm Last Admin: 08/24/18 03:08 Dose: 5 mg Documented by: Enoxaparin Sodium (Lovenox) 40 mg SUB-Q QDAY [facility] Last Admin: 08/25/18 08:59 Dose: 40 mg Documented by: Fludrocortisone Acetate (Florinef) 0.1 mg PO QDAY [facility] Furosemide (Lasix) 40 mg IV QDAY [facility] Glycerin (Glycerin Adult 2 Gm) 1 supp ME QDAY PRN PRN Reason: Constipation Hydralazine HCl (Apresoline) 5 mg IV Q6H PRN PRN Reason: Hypertension Hydrocortisone Sodium Succinate (Solu-Cortef) 100 mg IV Q12H [facility] Last Admin: 08/25/18 11:50 Dose: 100 mg Documented by: Hydroxychloroquine Sulfate (Plaquenil) 200 mg PO QDAY [facility] Last Admin: 08/25/18 08:59 Dose: 200 mg Documented by: Magnesium Hydroxide (Milk Of Magnesia) 30 ml PO Q8H PRN PRN Reason: Constipation Last Admin: 08/25/18 01:27 Dose: 30 ml Documented by: Nifedipine (Procardia Xl) 30 mg PO Q24H [facility] Last Admin: 08/24/18 20:59 Dose: 30 mg Documented by: Nitroglycerin (Nitro Dur) 0.4 mg TD QDAY@0600 [facility] Last Admin: 08/25/18 06:04 Dose: 0.4 mg Documented by: Ondansetron HCl (Zofran) 4 mg IV Q4H PRN PRN Reason: Nausea And Vomiting Last Admin: 08/23/18 23:59 Dose: 4 mg Documented by: Pantoprazole Sodium (Protonix) 40 mg PO QDAY [facility] Last Admin: 08/25/18 08:59 Dose: 40 mg Documented by: Phenol (Chloraseptic) 1 spray MM PRN PRN PRN Reason: Sore Throat Polyethylene Glycol (Miralax 3350) 17 gm PO QDAY [facility] Last Admin: 08/25/18 10:54 Dose: 17 gm Documented by: Senna/Docusate Sodium (Senokot S) 2 tab PO Q12H PRN PRN Reason: Laxative Effect Sodium Chloride (Sodium Chloride Flush Syringe 10 Ml) 10 ml IV BID [facility] Last Admin: 08/25/18 09:00 Dose: 10 ml Documented by: Sodium Chloride (Sodium Chloride Flush Syringe 10 Ml) 10 ml IV PRN PRN PRN Reason: LINE FLUSH Trazodone HCl (Desyrel) 100 mg PO Q24H [facility] Last Admin: 08/24/18 20:59 Dose: 100 mg Documented by: Objective Vital Signs - 12hr 08/25/18 08/25/18 08/25/18 02:20 02:21 06:04 Temperature 97.3 F L Pulse Rate 61 63 63 Pulse Rate [ Left Brachial] Respiratory 18 Rate Blood Pressure 123/51 123/51 Blood Pressure [Left] O2 Sat by Pulse 79 L 95 Oximetry 08/25/18 08/25/18 08/25/18 09:30 09:32 10:02 Temperature 97.6 F Pulse Rate 118 H 77 Pulse Rate [ 118 H Left Brachial] Respiratory 18 24 Rate Blood Pressure Blood Pressure 135/54 [Left] O2 Sat by Pulse 92 Oximetry Constitutional: no acute distress, alert Eyes: non-icteric ENT: oropharynx moist Neck: supple Effort: mildly labored Ascultation: Bilateral: diminished breath sounds (bases) Cardiovascular: other (ir/ir, no mrg) Gastrointestinal: normoactive bowel sounds, soft, non-tender, non-distended Integumentary: normal Extremities: no cyanosis, pink and warm, edema (2+ bilateral LE edema) Neurologic: normal mental status, non-focal exam, pupils equal and round, CN II- XII normal Psychiatric: mood appropriate, affect normal CBC and BMP: 08/24/18 04:16 08/25/18 05:50 ABG, PT/INR, D-dimer: ABG POC ABG pH 7.193 (7.35-7.45) L 08/23/18 18:22 POC ABG pCO2 54.9 (35-45) H 08/23/18 18:22 POC ABG pO2 102 (80-105) 08/23/18 18:22 POC ABG HCO3 21.1 (22-26 mml/L) 08/23/18 18:22 POC ABG Total CO2 23 (23-27mmol/L) 08/23/18 18:22 POC ABG O2 Sat 96 08/23/18 18:22 PT/INR, D-dimer PT 13.8 Sec. (12.2-14.9) 08/24/18 04:16 INR 1.00 (0.87-1.13) 08/24/18 04:16 Abnormal lab findings: Abnormal Labs 08/20/18 08/20/18 08/20/18 21:53 21:53 21:53 MCH Lymph % (Auto) 12.4 L [place] % (Auto) 8.0 H Lymph # 0.9 L Seg Neutrophils % 79.1 H Seg Neuts % (Manual) Lymphocytes % (Manual) Lymphocytes # (Manual) APTT 23.1 L POC ABG pH POC ABG pCO2 POC ABG pO2 Sodium 123 L Potassium 5.5 H Chloride 86.9 L Carbon Dioxide BUN 18 H Creatinine Glucose 104 H POC Glucose Calcium AST 62 H ALT 82 H Total Creatine Kinase 257 H CK-MB (CK-2) 22.0 H CK-MB (CK-2) Rel Index 8.5 H Troponin T 0.062 H HDL Cholesterol 60 H Urine Creatinine Urine Chloride 08/21/18 08/21/18 08/21/18 05:12 10:20 10:20 MCH 27 L Lymph % (Auto) 9.6 L Canadian % (Auto) 9.2 H Lymph # 0.5 L Seg Neutrophils % 80.8 H Seg Neuts % (Manual) Lymphocytes % (Manual) Lymphocytes # (Manual) APTT POC ABG pH POC ABG pCO2 POC ABG pO2 Sodium Potassium Chloride Carbon Dioxide BUN Creatinine Glucose POC Glucose Calcium AST ALT Total Creatine Kinase 272 H 339 H CK-MB (CK-2) 23.5 H 28.4 H CK-MB (CK-2) Rel Index 8.6 H 8.3 H Troponin T 0.065 H 0.052 H HDL Cholesterol Urine Creatinine Urine Chloride 08/21/18 08/22/18 08/22/18 15:44 03:13 18:10 MCH Lymph % (Auto) Canadian % (Auto) Lymph # Seg Neutrophils % Seg Neuts % (Manual) Lymphocytes % (Manual) Lymphocytes # (Manual) APTT POC ABG pH POC ABG pCO2 POC ABG pO2 Sodium 125 L 124 L Potassium 5.6 H 5.3 H Chloride 90.7 L 93.1 L Carbon Dioxide 21 L BUN 20 H 21 H Creatinine Glucose 113 H 116 H POC Glucose Calcium 8.1 L 7.8 L AST ALT Total Creatine Kinase CK-MB (CK-2) CK-MB (CK-2) Rel Index Troponin T HDL Cholesterol Urine Creatinine 89.3 H Urine Chloride 36.9 L 08/23/18 08/23/18 08/23/18 05:22 06:00 18:22 MCH Lymph % (Auto) Canadian % (Auto) Lymph # Seg Neutrophils % Seg Neuts % (Manual) Lymphocytes % (Manual) Lymphocytes # (Manual) APTT POC ABG pH 7.120 L 7.193 L POC ABG pCO2 63.6 H 54.9 H POC ABG pO2 107 H Sodium 123 L Potassium 5.7 H Chloride 92.0 L Carbon Dioxide BUN 24 H Creatinine Glucose 113 H POC Glucose Calcium 8.1 L AST ALT Total Creatine Kinase CK-MB (CK-2) CK-MB (CK-2) Rel Index Troponin T HDL Cholesterol Urine Creatinine Urine Chloride 08/23/18 08/24/18 08/24/18 23:48 00:26 04:16 MCH Lymph % (Auto) [place] % (Auto) Lymph # Seg Neutrophils % Seg Neuts % (Manual) Lymphocytes % (Manual) Lymphocytes # (Manual) APTT POC ABG pH POC ABG pCO2 POC ABG pO2 Sodium 125 L Potassium Chloride 93.1 L Carbon Dioxide 21 L BUN 19 H Creatinine 0.6 L Glucose 133 H 118 H POC Glucose < 40 L Calcium 8.0 L AST ALT Total Creatine Kinase CK-MB (CK-2) CK-MB (CK-2) Rel Index Troponin T HDL Cholesterol Urine Creatinine Urine Chloride 08/24/18 08/24/18 08/24/18 04:16 06:12 11:49 MCH 27 L Lymph % (Auto) Canadian % (Auto) Lymph # Seg Neutrophils % Seg Neuts % (Manual) 97.0 H Lymphocytes % (Manual) 1.0 L Lymphocytes # (Manual) 0.1 L APTT POC ABG pH POC ABG pCO2 POC ABG pO2 Sodium Potassium Chloride Carbon Dioxide BUN Creatinine Glucose POC Glucose 114 H 186 H Calcium AST ALT Total Creatine Kinase CK-MB (CK-2) CK-MB (CK-2) Rel Index Troponin T HDL Cholesterol Urine Creatinine Urine Chloride 08/24/18 08/25/18 08/25/18 22:28 05:50 07:36 MCH Lymph % (Auto) [place] % (Auto) Lymph # Seg Neutrophils % Seg Neuts % (Manual) Lymphocytes % (Manual) Lymphocytes # (Manual) APTT POC ABG pH POC ABG pCO2 POC ABG pO2 Sodium 133 L D Potassium Chloride 96.4 L Carbon Dioxide BUN 20 H Creatinine Glucose 147 H POC Glucose 110 H 122 H Calcium 8.2 L AST ALT Total Creatine Kinase CK-MB (CK-2) CK-MB (CK-2) Rel Index Troponin T HDL Cholesterol Urine Creatinine Urine Chloride 08/25/18 11:37 MCH Lymph % (Auto) [place] % (Auto) Lymph # Seg Neutrophils % Seg Neuts % (Manual) Lymphocytes % (Manual) Lymphocytes # (Manual) APTT POC ABG pH POC ABG pCO2 POC ABG pO2 Sodium Potassium Chloride Carbon Dioxide BUN Creatinine Glucose POC Glucose 131 H Calcium AST ALT Total Creatine Kinase CK-MB (CK-2) CK-MB (CK-2) Rel Index Troponin T HDL Cholesterol Urine Creatinine Urine Chloride Chest x-ray: report reviewed, image reviewed (small bilateral effusions) Allied health notes reviewed: nursing
--- NOTE | 2018-08-25 13:07 | Progress Note ---
Assessment and Plan Shortness of breath chest CTA: no evidence of PE Dizziness no acute intracranial process by head CT. Hyponatremia Elevated transaminase Hyperkalemia NSTEMI -patient and family members declined further cardiac evaluation and prefers conservative cardiac management. Chronic RBBB Echocardiogram reveals evidence of severe pulmonary hypertension, RVSP 70-75 mmHg. Normal left ventricular systolic function, ejection fraction 50-55%. Conservative cardiac management Subjective Date of service: 08/25/18 Principal diagnosis: SOB Interval history: Patient and daughter decline a persantine thallium stress test. Sinus rhythm with PACs on telemetry. Objective Vital Signs Temp Pulse Pulse Pulse Resp Resp BP 08/25/18 10:02 97.6 F 77 24 08/25/18 09:32 118 H 18 08/25/18 09:30 118 H 08/25/18 06:04 63 123/51 08/25/18 02:21 63 08/25/18 02:20 97.3 F L 61 18 123/51 08/24/18 22:00 90 85 08/24/18 19:53 97.3 F L 85 20 147/75 08/24/18 19:50 08/24/18 19:44 86 19 08/24/18 13:22 97.3 F L 79 20 130/56 BP Pulse Ox 08/25/18 10:02 135/54 92 08/25/18 09:32 08/25/18 09:30 08/25/18 06:04 08/25/18 02:21 95 08/25/18 02:20 79 L 08/24/18 22:00 98 08/24/18 19:53 98 08/24/18 19:50 95 08/24/18 19:44 08/24/18 13:22 93 - Physical Examination General: No Apparent Distress HEENT: Positive: PERRL Neck: Positive: trachea midline Cardiac: Positive: Irregularly Regular Lungs: Positive: Decreased Breath Sounds Neuro: Positive: Grossly Intact, Weakness Extremities: Absent: edema - Labs and Meds Comprehensive Metabolic Panel 08/25/18 Range/Units 05:50 Sodium 133 L D (137-145) mmol/L Potassium 4.0 (3.6-5.0) mmol/L Chloride 96.4 L (98-107) mmol/L Carbon Dioxide 26 (22-30) mmol/L BUN 20 H (7-17) mg/dL Creatinine 0.7 (0.7-1.2) mg/dL Glucose 147 H (65-100) mg/dL Calcium 8.2 L (8.4-10.2) mg/dL - Allied health notes Allied health notes reviewed: nursing
[2018-08-25] MEDS: DESYREL PO SCH (22:21)
[2018-08-25] MEDS: PROCARDIA XL PO SCH (22:30)
[2018-08-26] MEDS: DUONEB *Not for PRN Use IH SCH ×4 (02:30→19:42)
[2018-08-26 06:08] LABS: BUN/Creatinine Ratio 42; Blood Urea Nitrogen 25 mg/dL (7-17); Calcium 8.1 mg/dL (8.4-10.2); Hemolysis Index 0
[2018-08-26] MEDS: NITRO DUR TD SCH (07:25)
[2018-08-26] MEDS: BROVANA NEBU IH SCH ×2 (07:33→19:42)
[2018-08-26] MEDS: PULMICORT IH SCH ×2 (07:33→19:42)
--- NOTE | 2018-08-26 07:45 | Progress Note ---
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 She may also have an element of volume depletion given her low urine sodium and chloride. The possibility of adrenal insufficiency was brought up by the primary attending and she was empirically started on solucortef/florinef therapy and serum cortisol levels were sent this am. Will discontinue any further doses of tolvaptan at present time and closely monitor. Her overall serum sodium is improved at this time. Orthostatic blood pressure readings noted. Will continue to monitor. (2) Elevated troponin Current Visit: Yes Status: Acute Plan to address problem: Workup noted per cardiology. Echocardiogram is been reviewed. CTA noted without any acute abnormalities. Family and patient does not want to go through with cardiac cath at this time and are opting for more medical/conservative management. (3) Nausea & vomiting Current Visit: Yes Status: Acute Plan to address problem: Symptomatic control per primary team. It is important to control her nausea as it can also attributed to increased ADH secretion which can further worsen her chronic hyponatremic state. Her symptoms are better controlled this am. (4) Weakness Current Visit: Yes Status: Acute Plan to address problem: Management per primary team. Recommend physical therapy evaluation. Weakness can also be seen in elderly with chronic hyponatremia (5) HTN (hypertension) Current Visit: No Status: Chronic Plan to address problem: We will monitor on her current regimen. Subjective Date of service: 08/26/18 Principal diagnosis: SOB Interval history: No acute issues overnight. Labs are improved. She is receiving duoneb tx this am. Objective - Vital Signs Vital signs: Vital Signs - 12hr 08/25/18 08/25/18 08/25/18 20:26 20:39 20:55 Temperature 97.7 F Pulse Rate 100 H Pulse Rate [ Bilateral Throughout] Respiratory 24 Rate Respiratory Rate [Bilateral Throughout] Blood Pressure 125/53 O2 Sat by Pulse 91 95 Oximetry 08/25/18 08/25/18 08/26/18 20:56 21:05 02:39 Temperature 100.4 F H Pulse Rate 83 Pulse Rate [ 93 H 100 H Bilateral Throughout] Respiratory 20 Rate Respiratory 21 20 Rate [Bilateral Throughout] Blood Pressure 128/53 O2 Sat by Pulse 95 Oximetry 08/26/18 08/26/18 07:25 07:33 Temperature Pulse Rate 88 Pulse Rate [ 92 H Bilateral Throughout] Respiratory Rate Respiratory 18 Rate [Bilateral Throughout] Blood Pressure 134/43 O2 Sat by Pulse 95 Oximetry - General Appearance General appearance: well-developed, appears stated age, frail EENT: ATNC, PERRL Neck: no JVD, no thyromegaly Respiratory: Present: Wheezes Cardiology: regular, S1S2 Gastrointestinal: normal, normoactive bowel sounds Integumentary: warm and dry Neurologic: no focal deficit Psychiatric: cooperative - Lab 08/24/18 04:16 08/26/18 05:27 Most recent lab results Calcium 8.1 mg/dL (8.4-10.2) L 08/26/18 05:27 Urine Creatinine 89.3 mg/dL (0.1-20.0) H 08/22/18 18:10 Urine Sodium 13 mmol/L 08/22/18 18:10 - Allied health notes Allied health notes reviewed: nursing Medications & Allergies - Medications Allergies/Adverse Reactions: Allergies aspirin Allergy (Unknown, Verified 08/20/18 18:48) Unknown cephalexin monohydrate [From Keflex] Allergy (Unknown, Verified 08/20/18 18:48) Unknown diazepam [From Valium] Allergy (Unknown, Verified 08/20/18 18:48) Unknown doxycycline calcium [From Vibramycin] Allergy (Unknown, Verified 08/20/18 18:48) Unknown doxycycline hyclate [From Vibramycin] Allergy (Unknown, Verified 08/20/18 18:48) Unknown doxycycline monohydrate [From Vibramycin] Allergy (Unknown, Verified 08/20/18 18:48) Unknown lorazepam [From Ativan] Allergy (Unknown, Verified 08/20/18 18:48) Diarrhea meperidine HCl [From Demerol] Allergy (Unknown, Verified 08/20/18 18:48) Unknown ofloxacin [From Floxin] Allergy (Unknown, Verified 08/20/18 18:48) Unknown pentazocine lactate [From Talwin] Allergy (Unknown, Verified 08/20/18 18:48) Unknown ciprofloxacin Allergy (Verified 08/20/18 18:48) Unknown fexofenadine [From Nadine] Allergy (Verified 08/20/18 18:48) Unknown hydrocodone Allergy (Verified 08/20/18 18:48) Unknown morphine Allergy (Verified 08/20/18 18:48) Unknown Sulfa (Sulfonamide Antibiotics) Allergy (Verified 08/20/18 18:48) Unknown adhesive Adverse Reaction (Verified 08/20/18 18:48) Rash Home Medications: Home Medications Medication Instructions Recorded Confirmed Last Taken Type Hydroxychloroquine [Plaquenil] 200 mg PO QDAY 08/30/17 08/21/18 Unknown History Losartan [Cozaar] 50 mg PO QDAY 08/21/18 08/21/18 Unknown History NIFEdipine XL [Procardia Xl] 30 mg PO QHS 08/21/18 08/21/18 Unknown History traZODone [Desyrel] 100 mg PO QHS 08/21/18 08/21/18 Unknown History Active Medications: Generic Name Dose Route Start Last Admin Trade Name Freq PRN Reason Stop Dose Admin Acetaminophen 650 mg 08/21/18 04:26 08/25/18 01:27 Tylenol PO 650 mg Q4H PRN Administration Pain MILD(1-3)/Fever >100.5/CASTRO Albuterol/Ipratropium 1 ampul 08/23/18 16:30 08/26/18 07:33 Duoneb *Not For Prn Use* IH 1 ampul Q6HRT [facility] Administration Arformoterol Tartrate 15 mcg 08/23/18 20:00 08/26/18 07:33 Brovana Nebu IH Not Given Q12HRT [facility] Atorvastatin Calcium 20 mg 08/23/18 22:00 08/25/18 22:21 Lipitor PO 20 mg QHS [facility] Administration Benzocaine/Menthol 1 each 08/22/18 12:23 Cepacol X Strength MM Q2HR PRN Sore Throat Budesonide 0.5 mg 08/23/18 20:00 08/26/18 07:33 Pulmicort IH 0.5 mg Q12HRT [facility] Administration Cyclobenzaprine HCl 5 mg 08/21/18 17:53 08/24/18 03:08 Flexeril PO 5 mg Q8H PRN Administration Muscle Spasm Enoxaparin Sodium 40 mg 08/24/18 12:00 08/25/18 08:59 Lovenox SUB-Q 40 mg QDAY [facility] Administration Fludrocortisone Acetate 0.1 mg 08/26/18 10:00 Florinef PO QDAY [facility] Furosemide 40 mg 08/26/18 10:00 Lasix IV QDAY [facility] Glycerin 1 supp 08/25/18 10:26 Glycerin Adult 2 Gm MO QDAY PRN Constipation Hydralazine HCl 5 mg 08/21/18 04:32 Apresoline IV Q6H PRN Hypertension Hydrocortisone Sodium Succinate 100 mg 08/25/18 12:00 08/26/18 00:20 Solu-Cortef IV 100 mg Q12H [facility] Administration Hydroxychloroquine Sulfate 200 mg 08/21/18 13:00 08/25/18 08:59 Plaquenil PO 200 mg QDAY [facility] Administration Magnesium Hydroxide 30 ml 08/25/18 01:08 08/25/18 01:27 Milk Of Magnesia PO 30 ml Q8H PRN Administration Constipation Nifedipine 30 mg 08/22/18 19:00 08/25/18 22:30 Procardia Xl PO Not Given Q24H [facility] Nitroglycerin 0.4 mg 08/24/18 06:00 08/26/18 07:25 Nitro Dur TD 0.4 mg QDAY@0600 [facility] Administration Ondansetron HCl 4 mg 08/21/18 04:26 08/23/18 23:59 Zofran IV 4 mg Q4H PRN Administration Nausea And Vomiting Pantoprazole Sodium 40 mg 08/22/18 13:37 08/25/18 08:59 Protonix PO 40 mg QDAY [facility] Administration Phenol 1 spray 08/22/18 12:23 Chloraseptic MM PRN PRN Sore Throat Polyethylene Glycol 17 gm 08/25/18 11:00 08/25/18 10:54 Miralax 3350 PO 17 gm QDAY [facility] Administration Senna/Docusate Sodium 2 tab 08/25/18 10:25 Senokot S PO Q12H PRN Laxative Effect Sodium Chloride 10 ml 08/21/18 10:00 08/25/18 22:20 Sodium Chloride Flush Syringe 10 Ml IV 10 ml BID [facility] Administration Sodium Chloride 10 ml 08/21/18 04:26 Sodium Chloride Flush Syringe 10 Ml IV PRN PRN LINE FLUSH Trazodone HCl 100 mg 08/22/18 19:00 08/25/18 22:21 Desyrel PO 100 mg Q24H [facility] Administration
[2018-08-26] MEDS: LOVENOX SUB-Q SCH (08:59)
[2018-08-26] MEDS: LASIX IV SCH (08:59)
[2018-08-26] MEDS: MIRALAX 3350 PO SCH (08:59)
[2018-08-26] MEDS: PROTONIX PO SCH (09:00)
[2018-08-26] MEDS: PLAQUENIL PO SCH (09:00)
[2018-08-26] MEDS: SODIUM CHLORIDE FLUSH SYRINGE 10 ML IV SCH ×2 (09:01→23:50)
[2018-08-26] MEDS ORDERED: FLORINEF PO SCH (10:00)
--- NOTE | 2018-08-26 11:58 | Progress Note ---
Assessment and Plan Imp: 1. Hyponatremia 2. Hyperkalemia 3. Bilateral pleural effusions, ? CHF 4. NSTEMI 5. Pulm HTN, unclear etiology; could be due to L sided diastolic dysfunction 6. Acute respiratory failure, hypoxia 7. R/o Aspiration 8. SLE, doubt flare Rec: 1. Agree w/ Lasix IV and monitor sodium closely; no need for steroids pulm-franco; would not attempt tapping an effusion unless worsens despite diuresis 2. Wean off O2 to keep sats 88% or greater; daughter refused repeat ABG; check CXR periodically 3. ST eval. negative 4. Control BP 5. Family refused stress test and LHC 6. Consider outpatient PFTs re: pulm HTN; optimally would need RHC prior to considering pulmonary vasodilators 7. Try to mobilize 8. Further plans pending clinical course; clinically better today Plan of care reviewed with patient/daughter, they understand/agree Subjective Date of service: 08/26/18 Principal diagnosis: SOB Interval history: No events. More alert. Still SOB but better. Down to 2.5L NC. Eating well. C/o muscle aches from lying in bed. Active Medications Acetaminophen (Tylenol) 650 mg PO Q4H PRN PRN Reason: Pain MILD(1-3)/Fever >100.5/CASTRO Last Admin: 08/25/18 01:27 Dose: 650 mg Documented by: Albuterol/Ipratropium (Duoneb *Not For Prn Use*) 1 ampul IH Q6HRT [facility] Last Admin: 08/26/18 07:33 Dose: 1 ampul Documented by: Arformoterol Tartrate (Brovana Nebu) 15 mcg IH Q12HRT [facility] Last Admin: 08/26/18 07:33 Dose: Not Given Documented by: Atorvastatin Calcium (Lipitor) 20 mg PO QHS [facility] Last Admin: 08/25/18 22:21 Dose: 20 mg Documented by: Benzocaine/Menthol (Cepacol X Strength) 1 each MM Q2HR PRN PRN Reason: Sore Throat Budesonide (Pulmicort) 0.5 mg IH Q12HRT [facility] Last Admin: 08/26/18 07:33 Dose: 0.5 mg Documented by: Cyclobenzaprine HCl (Flexeril) 5 mg PO Q8H PRN PRN Reason: Muscle Spasm Last Admin: 08/24/18 03:08 Dose: 5 mg Documented by: Enoxaparin Sodium (Lovenox) 40 mg SUB-Q QDAY [facility] Last Admin: 08/26/18 08:59 Dose: 40 mg Documented by: Fludrocortisone Acetate (Florinef) 0.1 mg PO Q48HR [facility] Furosemide (Lasix) 40 mg IV QDAY [facility] Last Admin: 08/26/18 08:59 Dose: 40 mg Documented by: Glycerin (Glycerin Adult 2 Gm) 1 supp [place] QDAY PRN PRN Reason: Constipation Hydralazine HCl (Apresoline) 5 mg IV Q6H PRN PRN Reason: Hypertension Hydrocortisone Sodium Succinate (Solu-Cortef) 50 mg IV Q12HR [facility] Hydroxychloroquine Sulfate (Plaquenil) 200 mg PO QDAY [facility] Last Admin: 08/26/18 09:00 Dose: 200 mg Documented by: Magnesium Hydroxide (Milk Of Magnesia) 30 ml PO Q8H PRN PRN Reason: Constipation Last Admin: 08/25/18 01:27 Dose: 30 ml Documented by: Nifedipine (Procardia Xl) 30 mg PO Q24H [facility] Last Admin: 08/25/18 22:30 Dose: Not Given Documented by: Nitroglycerin (Nitro Dur) 0.4 mg TD QDAY@0600 [facility] Last Admin: 08/26/18 07:25 Dose: 0.4 mg Documented by: Ondansetron HCl (Zofran) 4 mg IV Q4H PRN PRN Reason: Nausea And Vomiting Last Admin: 08/23/18 23:59 Dose: 4 mg Documented by: Pantoprazole Sodium (Protonix) 40 mg PO QDAY [facility] Last Admin: 08/26/18 09:00 Dose: 40 mg Documented by: Phenol (Chloraseptic) 1 spray MM PRN PRN PRN Reason: Sore Throat Polyethylene Glycol (Miralax 3350) 17 gm PO QDAY [facility] Last Admin: 08/26/18 08:59 Dose: 17 gm Documented by: Senna/Docusate Sodium (Senokot S) 2 tab PO Q12H PRN PRN Reason: Laxative Effect Sodium Chloride (Sodium Chloride Flush Syringe 10 Ml) 10 ml IV BID [facility] Last Admin: 08/26/18 09:01 Dose: 10 ml Documented by: Sodium Chloride (Sodium Chloride Flush Syringe 10 Ml) 10 ml IV PRN PRN PRN Reason: LINE FLUSH Trazodone HCl (Desyrel) 100 mg PO Q24H [facility] Last Admin: 08/25/18 22:21 Dose: 100 mg Documented by: Objective Vital Signs - 12hr 08/26/18 08/26/18 08/26/18 02:39 07:25 07:31 Temperature 100.4 F H 97.8 F Pulse Rate 83 88 75 Pulse Rate [ Bilateral Throughout] Pulse Rate [ Left Brachial] Respiratory 20 21 Rate Respiratory Rate [Bilateral Throughout] Blood Pressure 128/53 134/43 130/57 O2 Sat by Pulse 95 97 Oximetry 08/26/18 08/26/18 08/26/18 07:32 07:33 07:54 Temperature 97.8 F Pulse Rate 74 Pulse Rate [ 92 H 83 Bilateral Throughout] Pulse Rate [ Left Brachial] Respiratory 21 Rate Respiratory 18 18 Rate [Bilateral Throughout] Blood Pressure O2 Sat by Pulse 98 95 Oximetry 08/26/18 10:00 Temperature Pulse Rate 95 H Pulse Rate [ Bilateral Throughout] Pulse Rate [ 95 H Left Brachial] Respiratory 18 Rate Respiratory Rate [Bilateral Throughout] Blood Pressure O2 Sat by Pulse 95 Oximetry Constitutional: no acute distress, alert Eyes: non-icteric ENT: oropharynx moist Neck: supple Effort: mildly labored Ascultation: Bilateral: diminished breath sounds (bases) Cardiovascular: other (ir/ir, no mrg) Gastrointestinal: normoactive bowel sounds, soft, non-tender, non-distended Integumentary: normal Extremities: no cyanosis, pink and warm, edema (2+ bilateral LE edema) Neurologic: normal mental status, non-focal exam, pupils equal and round, CN II- XII normal Psychiatric: mood appropriate, affect normal CBC and BMP: 08/24/18 04:16 08/26/18 05:27 ABG, PT/INR, D-dimer: ABG POC ABG pH 7.193 (7.35-7.45) L 08/23/18 18:22 POC ABG pCO2 54.9 (35-45) H 08/23/18 18:22 POC ABG pO2 102 (80-105) 08/23/18 18:22 POC ABG HCO3 21.1 (22-26 mml/L) 08/23/18 18:22 POC ABG Total CO2 23 (23-27mmol/L) 08/23/18 18:22 POC ABG O2 Sat 96 08/23/18 18:22 PT/INR, D-dimer PT 13.8 Sec. (12.2-14.9) 08/24/18 04:16 INR 1.00 (0.87-1.13) 08/24/18 04:16 Abnormal lab findings: Abnormal Labs 08/20/18 08/20/18 08/20/18 21:53 21:53 21:53 MCH Lymph % (Auto) 12.4 L [place] % (Auto) 8.0 H Lymph # 0.9 L Seg Neutrophils % 79.1 H Seg Neuts % (Manual) Lymphocytes % (Manual) Lymphocytes # (Manual) APTT 23.1 L POC ABG pH POC ABG pCO2 POC ABG pO2 Sodium 123 L Potassium 5.5 H Chloride 86.9 L Carbon Dioxide BUN 18 H Creatinine Glucose 104 H POC Glucose Calcium AST 62 H ALT 82 H Total Creatine Kinase 257 H CK-MB (CK-2) 22.0 H CK-MB (CK-2) Rel Index 8.5 H Troponin T 0.062 H HDL Cholesterol 60 H Urine Creatinine Urine Chloride 08/21/18 08/21/18 08/21/18 05:12 10:20 10:20 MCH 27 L Lymph % (Auto) 9.6 L [place] % (Auto) 9.2 H Lymph # 0.5 L Seg Neutrophils % 80.8 H Seg Neuts % (Manual) Lymphocytes % (Manual) Lymphocytes # (Manual) APTT POC ABG pH POC ABG pCO2 POC ABG pO2 Sodium Potassium Chloride Carbon Dioxide BUN Creatinine Glucose POC Glucose Calcium AST ALT Total Creatine Kinase 272 H 339 H CK-MB (CK-2) 23.5 H 28.4 H CK-MB (CK-2) Rel Index 8.6 H 8.3 H Troponin T 0.065 H 0.052 H HDL Cholesterol Urine Creatinine Urine Chloride 08/21/18 08/22/18 08/22/18 15:44 03:13 18:10 MCH Lymph % (Auto) [place] % (Auto) Lymph # Seg Neutrophils % Seg Neuts % (Manual) Lymphocytes % (Manual) Lymphocytes # (Manual) APTT POC ABG pH POC ABG pCO2 POC ABG pO2 Sodium 125 L 124 L Potassium 5.6 H 5.3 H Chloride 90.7 L 93.1 L Carbon Dioxide 21 L BUN 20 H 21 H Creatinine Glucose 113 H 116 H POC Glucose Calcium 8.1 L 7.8 L AST ALT Total Creatine Kinase CK-MB (CK-2) CK-MB (CK-2) Rel Index Troponin T HDL Cholesterol Urine Creatinine 89.3 H Urine Chloride 36.9 L 08/23/18 08/23/18 08/23/18 05:22 06:00 18:22 MCH Lymph % (Auto) [place] % (Auto) Lymph # Seg Neutrophils % Seg Neuts % (Manual) Lymphocytes % (Manual) Lymphocytes # (Manual) APTT POC ABG pH 7.120 L 7.193 L POC ABG pCO2 63.6 H 54.9 H POC ABG pO2 107 H Sodium 123 L Potassium 5.7 H Chloride 92.0 L Carbon Dioxide BUN 24 H Creatinine Glucose 113 H POC Glucose Calcium 8.1 L AST ALT Total Creatine Kinase CK-MB (CK-2) CK-MB (CK-2) Rel Index Troponin T HDL Cholesterol Urine Creatinine Urine Chloride 08/23/18 08/24/18 08/24/18 23:48 00:26 04:16 MCH Lymph % (Auto) [place] % (Auto) Lymph # Seg Neutrophils % Seg Neuts % (Manual) Lymphocytes % (Manual) Lymphocytes # (Manual) APTT POC ABG pH POC ABG pCO2 POC ABG pO2 Sodium 125 L Potassium Chloride 93.1 L Carbon Dioxide 21 L BUN 19 H Creatinine 0.6 L Glucose 133 H 118 H POC Glucose < 40 L Calcium 8.0 L AST ALT Total Creatine Kinase CK-MB (CK-2) CK-MB (CK-2) Rel Index Troponin T HDL Cholesterol Urine Creatinine Urine Chloride 08/24/18 08/24/18 08/24/18 04:16 06:12 11:49 MCH 27 L Lymph % (Auto) [place] % (Auto) Lymph # Seg Neutrophils % Seg Neuts % (Manual) 97.0 H Lymphocytes % (Manual) 1.0 L Lymphocytes # (Manual) 0.1 L APTT POC ABG pH POC ABG pCO2 POC ABG pO2 Sodium Potassium Chloride Carbon Dioxide BUN Creatinine Glucose POC Glucose 114 H 186 H Calcium AST ALT Total Creatine Kinase CK-MB (CK-2) CK-MB (CK-2) Rel Index Troponin T HDL Cholesterol Urine Creatinine Urine Chloride 08/24/18 08/25/18 08/25/18 22:28 05:50 07:36 MCH Lymph % (Auto) [place] % (Auto) Lymph # Seg Neutrophils % Seg Neuts % (Manual) Lymphocytes % (Manual) Lymphocytes # (Manual) APTT POC ABG pH POC ABG pCO2 POC ABG pO2 Sodium 133 L D Potassium Chloride 96.4 L Carbon Dioxide BUN 20 H Creatinine Glucose 147 H POC Glucose 110 H 122 H Calcium 8.2 L AST ALT Total Creatine Kinase CK-MB (CK-2) CK-MB (CK-2) Rel Index Troponin T HDL Cholesterol Urine Creatinine Urine Chloride 08/25/18 08/25/18 08/25/18 11:37 16:29 22:17 MCH Lymph % (Auto) [place] % (Auto) Lymph # Seg Neutrophils % Seg Neuts % (Manual) Lymphocytes % (Manual) Lymphocytes # (Manual) APTT POC ABG pH POC ABG pCO2 POC ABG pO2 Sodium Potassium Chloride Carbon Dioxide BUN Creatinine Glucose POC Glucose 131 H 132 H 127 H Calcium AST ALT Total Creatine Kinase CK-MB (CK-2) CK-MB (CK-2) Rel Index Troponin T HDL Cholesterol Urine Creatinine Urine Chloride 08/26/18 05:27 MCH Lymph % (Auto) [place] % (Auto) Lymph # Seg Neutrophils % Seg Neuts % (Manual) Lymphocytes % (Manual) Lymphocytes # (Manual) APTT POC ABG pH POC ABG pCO2 POC ABG pO2 Sodium Potassium Chloride Carbon Dioxide 33 H D BUN 25 H Creatinine 0.6 L Glucose 114 H POC Glucose Calcium 8.1 L AST ALT Total Creatine Kinase CK-MB (CK-2) CK-MB (CK-2) Rel Index Troponin T HDL Cholesterol Urine Creatinine Urine Chloride Chest x-ray: report reviewed, image reviewed (no change) Allied health notes reviewed: nursing
[2018-08-26] MEDS: TYLENOL PO PRN ×2 (12:18→23:35)
--- NOTE | 2018-08-26 13:11 | Progress Note ---
Assessment and Plan Shortness of breath chest CTA: no evidence of PE Dizziness no acute intracranial process by head CT. Hyponatremia Elevated transaminase Hyperkalemia NSTEMI -patient and family members declined further cardiac evaluation and prefers conservative cardiac management. Chronic RBBB Echocardiogram reveals evidence of severe pulmonary hypertension, RVSP 70-75 mmHg. Normal left ventricular systolic function, ejection fraction 50-55%. Conservative cardiac management Subjective Date of service: 08/26/18 Principal diagnosis: SOB Interval history: Patient is resting in bed. Still short of breath but no distress noted. Objective Vital Signs Temp Pulse Pulse Pulse Resp Resp BP 08/26/18 10:00 95 H 95 H 18 08/26/18 07:54 83 18 08/26/18 07:33 92 H 18 08/26/18 07:32 97.8 F 74 21 08/26/18 07:31 97.8 F 75 21 130/57 08/26/18 07:25 88 134/43 08/26/18 02:39 100.4 F H 83 20 128/53 08/25/18 21:05 100 H 20 08/25/18 20:56 93 H 21 08/25/18 20:55 08/25/18 20:39 100 H 08/25/18 20:26 97.7 F 24 125/53 08/25/18 14:27 106 H 18 08/25/18 14:10 96 H 18 08/25/18 13:41 97.8 F 89 22 113/52 Pulse Ox 08/26/18 10:00 95 08/26/18 07:54 08/26/18 07:33 95 08/26/18 07:32 98 08/26/18 07:31 97 08/26/18 07:25 08/26/18 02:39 95 08/25/18 21:05 08/25/18 20:56 08/25/18 20:55 95 08/25/18 20:39 91 08/25/18 20:26 08/25/18 14:27 08/25/18 14:10 08/25/18 13:41 95 - Physical Examination General: No Apparent Distress HEENT: Positive: PERRL Neck: Positive: trachea midline Cardiac: Positive: Irregularly Regular Lungs: Positive: Decreased Breath Sounds Neuro: Positive: Grossly Intact, Weakness Abdomen: Positive: Soft Skin: Positive: Clear Extremities: Absent: edema - Labs and Meds Comprehensive Metabolic Panel 08/26/18 Range/Units 05:27 Sodium 138 (137-145) mmol/L Potassium 4.9 D (3.6-5.0) mmol/L Chloride 98.1 (98-107) mmol/L Carbon Dioxide 33 H D (22-30) mmol/L BUN 25 H (7-17) mg/dL Creatinine 0.6 L (0.7-1.2) mg/dL Glucose 114 H (65-100) mg/dL Calcium 8.1 L (8.4-10.2) mg/dL - Allied health notes Allied health notes reviewed: nursing
--- NOTE | 2018-08-26 14:48 | Progress Note ---
Assessment and Plan Assessment and plan: 87-year-old woman with a history of hypertension, lupus comes to the emergency room complaining of nausea vomiting, generalized weakness, dizziness. Symptoms started after her losartan was changed to lisinopril due to recall of losartan. she reports decreased oral intake Echocardiogram shows well-preserved left ventricular systolic function, mild to moderate concentric left ventricle hypertrophy, but dilated left and right atrium, moderate mitral regurgitation, moderate to severe tricuspid regurgitation and severe pulmonary hypertension. 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 Hyponatremia dehydration transient autonomic imbalance Dizzyness Chronic RBBB Abnormal cardiac enzymes Hypertension Lupus N/V dehydration Hyperkalemia pulm htn moderate protein malnutrition acute hypercapneic respiratory failure Acute COPD/Asthma diastolic CHF, acute Plan -wic site coordinator cortisol drawn and pending, takes 3-4 days for result, hydrocortisone and fludrocortisone empirically, orthostatic vital signs wnl, Na now normal dc losartan, K improved, she did not tolerate Kayexalate, rx with insulin and d50w, and K now normal cont isotonic IV fluid, monitor sodium levels, nephrology consult appreciated, sp tolvaptan x 2 days, last dose 08/24 cardiac enzymes are detectable, and mildly elevated, Cardiology consult appreciated, she is not interested in cath., may consider stress test when she is felling better switched BP meds to ca ch dylan CTA chest and LE dopplers neg for VTE cont iv lasix -steroids, nebs, 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 DVT prophylaxis; lovenox History Interval history: muscle spasms in LE are improved Review of systems Constitutional: No fevers, co gen weakness CVS: No chest pain, no orthopnea, c/o pedal edema, and sob GI: No abdominal pain, no diarrhea, no constipation; no vomiting Respiratory: c/o sob Hospitalist Physical - Physical exam Narrative exam: General.: Appears well, no distress, nontoxic HEENT: Moist mucous membranes, extraocular muscles intact, no lymphadenopathy Neck: supple Cardiac: S1-S2 heard Lungs: decreased air entry, rales in bases Abdomen: soft , nontender, nondistended, bowel sounds positive Extremities: 2 plus bipedal edema Skin: no rash or lesions Neurologic: no gross focal deficits Psych: calm, and cooperative - Constitutional Vitals: Temp Pulse Resp BP Pulse Ox 97.6 F 82 22 149/79 91 08/26/18 14:10 08/26/18 14:38 08/26/18 14:38 08/26/18 14:10 08/26/18 14:10 General appearance: Present: no acute distress Results - Labs CBC & Chem 7: 08/24/18 04:16 08/26/18 05:27 Labs: Laboratory Last Values WBC 6.7 K/mm3 (4.5-11.0) 08/24/18 04:16 RBC 4.59 M/mm3 (3.65-5.03) 08/24/18 04:16 Hgb 12.5 gm/dl (10.1-14.3) 08/24/18 04:16 Hct 37.8 % (30.3-42.9) 08/24/18 04:16 MCV 82 fl (79-97) 08/24/18 04:16 MCH 27 pg (28-32) L 08/24/18 04:16 MCHC 33 % (30-34) 08/24/18 04:16 RDW 14.7 % (13.2-15.2) 08/24/18 04:16 Plt Count 223 K/mm3 (140-440) 08/24/18 04:16 Lymph % (Auto) 9.6 % (13.4-35.0) L 08/21/18 10:20 [place] % (Auto) 9.2 % (0.0-7.3) H 08/21/18 10:20 Eos % (Auto) 0.2 % (0.0-4.3) 08/21/18 10:20 Baso % (Auto) 0.2 % (0.0-1.8) 08/21/18 10:20 Lymph # 0.5 K/mm3 (1.2-5.4) L 08/21/18 10:20 [place]ball # 0.5 K/mm3 (0.0-0.8) 08/21/18 10:20 Eos # 0.0 K/mm3 (0.0-0.4) 08/21/18 10:20 Baso # 0.0 K/mm3 (0.0-0.1) 08/21/18 10:20 Add Manual Diff Complete 08/24/18 04:16 Total Counted 100 08/24/18 04:16 Seg Neutrophils % Elder Assistant 08/24/18 04:16 Seg Neuts % (Manual) 97.0 % (40.0-70.0) H 08/24/18 04:16 Band Neutrophils % 0 % 08/24/18 04:16 Lymphocytes % (Manual) 1.0 % (13.4-35.0) L 08/24/18 04:16 Reactive Lymphs % (Man) 0 % 08/24/18 04:16 Monocytes % (Manual) 2.0 % (0.0-7.3) 08/24/18 04:16 Eosinophils % (Manual) 0 % (0.0-4.3) 08/24/18 04:16 Basophils % (Manual) 0 % (0.0-1.8) 08/24/18 04:16 Metamyelocytes % 0 % 08/24/18 04:16 Myelocytes % 0 % 08/24/18 04:16 Promyelocytes % 0 % 08/24/18 04:16 Blast Cells % 0 % 08/24/18 04:16 Nucleated RBC % Not Reportable 08/24/18 04:16 Seg Neutrophils # 4.1 K/mm3 (1.8-7.7) 08/21/18 10:20 Seg Neutrophils # Man 6.5 K/mm3 (1.8-7.7) 08/24/18 04:16 Band Neutrophils # 0.0 K/mm3 08/24/18 04:16 Lymphocytes # (Manual) 0.1 K/mm3 (1.2-5.4) L 08/24/18 04:16 Abs React Lymphs (Man) 0.0 K/mm3 08/24/18 04:16 Monocytes # (Manual) 0.1 K/mm3 (0.0-0.8) 08/24/18 04:16 Eosinophils # (Manual) 0.0 K/mm3 (0.0-0.4) 08/24/18 04:16 Basophils # (Manual) 0.0 K/mm3 (0.0-0.1) 08/24/18 04:16 Metamyelocytes # 0.0 K/mm3 08/24/18 04:16 Myelocytes # 0.0 K/mm3 08/24/18 04:16 Promyelocytes # 0.0 K/mm3 08/24/18 04:16 Blast Cells # 0.0 K/mm3 08/24/18 04:16 WBC Morphology Not Reportable 08/24/18 04:16 Hypersegmented Neuts Not Reportable 08/24/18 04:16 Hyposegmented Neuts Not Reportable 08/24/18 04:16 Hypogranular Neuts Not Reportable 08/24/18 04:16 Smudge Cells Not Reportable 08/24/18 04:16 Toxic Granulation Not Reportable 08/24/18 04:16 Toxic Vacuolation Not Reportable 08/24/18 04:16 Dohle Bodies Not Reportable 08/24/18 04:16 Pelger-Huet Anomaly Not Reportable 08/24/18 04:16 Kaden Rods Not Reportable 08/24/18 04:16 Platelet Estimate Consistent w auto 08/24/18 04:16 Clumped Platelets Not Reportable 08/24/18 04:16 Plt Clumps, EDTA Not Reportable 08/24/18 04:16 Large Platelets Not Reportable 08/24/18 04:16 Giant Platelets Not Reportable 08/24/18 04:16 Platelet Satelliting Not Reportable 08/24/18 04:16 Plt Morphology Comment Not Reportable 08/24/18 04:16 RBC Morphology Not Reportable 08/24/18 04:16 Dimorphic RBCs Not Reportable 08/24/18 04:16 Polychromasia Not Reportable 08/24/18 04:16 Hypochromasia Not Reportable 08/24/18 04:16 Poikilocytosis Not Reportable 08/24/18 04:16 Anisocytosis Not Reportable 08/24/18 04:16 Microcytosis Not Reportable 08/24/18 04:16 Macrocytosis Not Reportable 08/24/18 04:16 Spherocytes Not Reportable 08/24/18 04:16 Pappenheimer Bodies Not Reportable 08/24/18 04:16 Sickle Cells Not Reportable 08/24/18 04:16 Target Cells Not Reportable 08/24/18 04:16 Tear Drop Cells Not Reportable 08/24/18 04:16 Ovalocytes Not Reportable 08/24/18 04:16 Helmet Cells Not Reportable 08/24/18 04:16 [place] Bodies Not Reportable 08/24/18 04:16 Only Rings Not Reportable 08/24/18 04:16 Pasquale Cells Not Reportable 08/24/18 04:16 Bite Cells Not Reportable 08/24/18 04:16 Crenated Cell Not Reportable 08/24/18 04:16 Elliptocytes Not Reportable 08/24/18 04:16 Acanthocytes (Spur) Not Reportable 08/24/18 04:16 Rouleaux Not Reportable 08/24/18 04:16 Hemoglobin C Crystals Not Reportable 08/24/18 04:16 Schistocytes Not Reportable 08/24/18 04:16 Malaria parasites Not Reportable 08/24/18 04:16 Sky Bodies Not Reportable 08/24/18 04:16 Hem Pathologist Commnt No 08/24/18 04:16 PT 13.8 Sec. (12.2-14.9) 08/24/18 04:16 INR 1.00 (0.87-1.13) 08/24/18 04:16 APTT 24.3 Sec. (24.2-36.6) 08/24/18 04:16 POC ABG pH 7.193 (7.35-7.45) L 08/23/18 18:22 POC ABG pCO2 54.9 (35-45) H 08/23/18 18:22 POC ABG pO2 102 (80-105) 08/23/18 18:22 POC ABG HCO3 21.1 (22-26 mml/L) 08/23/18 18:22 POC ABG Total CO2 23 (23-27mmol/L) 08/23/18 18:22 POC ABG O2 Sat 96 08/23/18 18:22 POC ABG Base Excess -7 ((-2) - (+3)mmol/L) 08/23/18 18:22 FiO2 40 % 08/23/18 18:22 Sodium 138 mmol/L (137-145) 08/26/18 05:27 Potassium 4.9 mmol/L (3.6-5.0) D 08/26/18 05:27 Chloride 98.1 mmol/L (98-107) 08/26/18 05:27 Carbon Dioxide 33 mmol/L (22-30) H D 08/26/18 05:27 Anion Gap 12 mmol/L 08/26/18 05:27 BUN 25 mg/dL (7-17) H 08/26/18 05:27 Creatinine 0.6 mg/dL (0.7-1.2) L 08/26/18 05:27 Estimated GFR > 60 ml/min 08/26/18 05:27 BUN/Creatinine Ratio 42 % 08/26/18 05:27 Glucose 114 mg/dL (65-100) H 08/26/18 05:27 POC Glucose 127 (70-105) H 08/25/18 22:17 Calcium 8.1 mg/dL (8.4-10.2) L 08/26/18 05:27 Total Bilirubin 0.60 mg/dL (0.1-1.2) 08/20/18 21:53 AST 62 units/L (5-40) H 08/20/18 21:53 ALT 82 units/L (7-56) H 08/20/18 21:53 Alkaline Phosphatase 101 units/L (35-129) 08/20/18 21:53 Total Creatine Kinase 339 units/L (30-135) H 08/21/18 10:20 CK-MB (CK-2) 28.4 ng/mL (0.0-4.0) H 08/21/18 10:20 CK-MB (CK-2) Rel Index 8.3 (0-4) H 08/21/18 10:20 Troponin T 0.052 ng/mL (0.00-0.029) H 08/21/18 10:20 Total Protein 6.5 g/dL (6.3-8.2) 08/20/18 21:53 Albumin 3.9 g/dL (3.9-5) 08/20/18 21:53 Albumin/Globulin Ratio 1.5 % 08/20/18 21:53 Triglycerides 71 mg/dL (2-149) 08/20/18 21:53 Cholesterol 173 mg/dL (50-199) 08/20/18 21:53 LDL Cholesterol Direct 115 mg/dL (50-130) 08/20/18 21:53 HDL Cholesterol 60 mg/dL (40-59) H 08/20/18 21:53 Cholesterol/HDL Ratio 2.88 % 08/20/18 21:53 Lipase 27 units/L (13-60) 08/20/18 21:53 TSH 1.120 mlU/mL (0.270-4.200) 08/23/18 06:00 Free T4 1.14 ng/dL (0.76-1.46) 08/23/18 06:00 Urine Color Yellow (Yellow) 08/20/18 19:43 Urine Turbidity Clear (Clear) 08/20/18 19:43 Urine pH 6.0 (5.0-7.0) 08/20/18 19:43 Ur Specific [place] 1.018 (1.003-1.030) 08/20/18 19:43 Urine Protein 100 mg/dl mg/dL (Negative) 08/20/18 19:43 Urine Glucose (UA) Neg mg/dL (Negative) 08/20/18 19:43 Urine Ketones Neg mg/dL (Negative) 08/20/18 19:43 Urine Blood Neg (Negative) 08/20/18 19:43 Urine Nitrite Neg (Negative) 08/20/18 19:43 Urine Bilirubin Neg (Negative) 08/20/18 19:43 Urine Urobilinogen < 2.0 mg/dL (<2.0) 08/20/18 19:43 Ur Leukocyte Esterase Neg (Negative) 08/20/18 19:43 Urine WBC (Auto) 1.0 /HPF (0.0-6.0) 08/20/18 19:43 Urine RBC (Auto) 7.0 /HPF (0.0-6.0) 08/20/18 19:43 U Epithel Cells (Auto) < 1.0 /HPF (0-13.0) 08/20/18 19:43 Hyaline Casts 1 /LPF 08/20/18 19:43 Urine Mucus Few /HPF 08/20/18 19:43 Urine Osmolality 466 Mosm/kg 08/22/18 18:10 Urine Creatinine 89.3 mg/dL (0.1-20.0) H 08/22/18 18:10 Urine Sodium 13 mmol/L 08/22/18 18:10 Urine Chloride 36.9 mmolL (110-250) L 08/22/18 18:10 Active Medications - Current Medications Current Medications: Generic Name Dose Route Start Last Admin Trade Name Freq PRN Reason Stop Dose Admin Acetaminophen 650 mg 08/21/18 04:26 08/26/18 12:18 Tylenol PO 650 mg Q4H PRN Administration Pain MILD(1-3)/Fever >100.5/CASTRO Albuterol/Ipratropium 1 ampul 08/23/18 16:30 08/26/18 14:37 Duoneb *Not For Prn Use* IH 1 ampul Q6HRT [facility] Administration Arformoterol Tartrate 15 mcg 08/23/18 20:00 08/26/18 07:33 Brovana Nebu IH Not Given Q12HRT [facility] Atorvastatin Calcium 20 mg 08/23/18 22:00 08/25/18 22:21 Lipitor PO 20 mg QHS [facility] Administration Benzocaine/Menthol 1 each 08/22/18 12:23 Cepacol X Strength MM Q2HR PRN Sore Throat Budesonide 0.5 mg 08/23/18 20:00 08/26/18 07:33 Pulmicort IH 0.5 mg Q12HRT [facility] Administration Cyclobenzaprine HCl 5 mg 08/21/18 17:53 08/24/18 03:08 Flexeril PO 5 mg Q8H PRN Administration Muscle Spasm Enoxaparin Sodium 40 mg 08/24/18 12:00 08/26/18 08:59 Lovenox SUB-Q 40 mg QDAY [facility] Administration Fludrocortisone Acetate 0.1 mg 08/28/18 10:00 Florinef PO Q48HR [facility] Furosemide 40 mg 08/26/18 10:00 08/26/18 08:59 Lasix IV 40 mg QDAY [facility] Administration Glycerin 1 supp 08/25/18 10:26 Glycerin Adult 2 Gm LA QDAY PRN Constipation Hydralazine HCl 5 mg 08/21/18 04:32 Apresoline IV Q6H PRN Hypertension Hydrocortisone Sodium Succinate 50 mg 08/26/18 22:00 Solu-Cortef IV Q12HR [facility] Hydroxychloroquine Sulfate 200 mg 08/21/18 13:00 08/26/18 09:00 Plaquenil PO 200 mg QDAY [facility] Administration Magnesium Hydroxide 30 ml 08/25/18 01:08 08/25/18 01:27 Milk Of Magnesia PO 30 ml Q8H PRN Administration Constipation Nifedipine 30 mg 08/22/18 19:00 08/25/18 22:30 Procardia Xl PO Not Given Q24H [facility] Nitroglycerin 0.4 mg 08/24/18 06:00 08/26/18 07:25 Nitro Dur TD 0.4 mg QDAY@0600 [facility] Administration Ondansetron HCl 4 mg 08/21/18 04:26 08/23/18 23:59 Zofran IV 4 mg Q4H PRN Administration Nausea And Vomiting Pantoprazole Sodium 40 mg 08/22/18 13:37 08/26/18 09:00 Protonix PO 40 mg QDAY [facility] Administration Phenol 1 spray 08/22/18 12:23 Chloraseptic MM PRN PRN Sore Throat Polyethylene Glycol 17 gm 08/25/18 11:00 08/26/18 08:59 Miralax 3350 PO 17 gm QDAY [facility] Administration Senna/Docusate Sodium 2 tab 08/25/18 10:25 Senokot S PO Q12H PRN Laxative Effect Sodium Chloride 10 ml 08/21/18 10:00 08/26/18 09:01 Sodium Chloride Flush Syringe 10 Ml IV 10 ml BID HARINI Administration Sodium Chloride 10 ml 08/21/18 04:26 Sodium Chloride Flush Syringe 10 Ml IV PRN PRN LINE FLUSH Trazodone HCl 100 mg 08/22/18 19:00 08/25/18 22:21 Desyrel PO 100 mg Q24H [facility] Administration Nutrition/Malnutrition Assess - Dietary Evaluation Nutrition/Malnutrition Findings: Nutrition Notes Start: 08/23/18 14 :01 Freq: Status: Active Protocol: Document 08/25/18 15:49 RD (Rec: 08/25/18 16:24 RD [email or web address]) Co-Sign 08/25/18 15:49 RM Nutrition Notes Initial or Follow up Reassessment Other Pertinent Diagnosis hyponatremia, lupus, depression, anxiety Current Diet CARDIAC Labs/Tests Reviewed Pertinent Medications Lasix Height 5 ft 2 in Weight 58.06 kg [place] Body Weight (kg) 50.00 BMI 23.3 Subjective/Other Information Pt has difficulty speaking. Pt daughter able to give information. Reports pt ate all of breakfast today, and ate half of a sandwich last night. Daughter unsure whether pt drinking Ensure. Reports pt is very picky about what food she will eat. Pt is having trouble with constipation. Percent of energy/protein needs met: 83%/ 72% Burn Absent Trauma Absent #1 Nutrition Diagnosis Inadequate oral intake As Evidenced by Signs and Symptoms Pt meeting 83% of calorie needs and 72% of protein needs Diagnosis Progress(for reassessment Improved documentation) Is patient on ventilator? No Is Patient Ambulatory and/or Out of Bed Yes REE-([place]-St. Jeor-ambulatory/OOB) [ 1266.005 [id number]] Calculation [facility] Additional Notes Protein needs: (1-1.2g/kg/day) 58-70g/day Fluid needs: 1mL/kcal Nutrition Intervention Change Diet Order: Continue cardiac Add Supplement/Snack (indicate name/kcal Ensure Enlive BID /protein ) Provides kCal: 700 Provides Protein (gm) 40 Goal #1 Meet at least 75% of nutrient needs via PO and ONS intakes Anticipated Discharge Needs: Cardiac diet Follow-Up By: 08/30/18 Additional Comments f/u: PO and ONS intakes
[2018-08-26] MEDS: DESYREL PO SCH (23:41)
[2018-08-27] MEDS: DUONEB *Not for PRN Use IH SCH ×4 (04:38→19:27)
[2018-08-27] MEDS: PULMICORT IH SCH ×2 (07:42→19:27)
[2018-08-27] MEDS: BROVANA NEBU IH SCH ×2 (07:42→19:27)
--- NOTE | 2018-08-27 07:57 | Progress Note ---
Assessment and Plan Assessment and plan: 87-year-old woman with a history of hypertension, lupus comes to the emergency room complaining of nausea vomiting, generalized weakness, dizziness. Symptoms started after her losartan was changed to lisinopril due to recall of losartan. she reports decreased oral intake Echocardiogram shows well-preserved left ventricular systolic function, mild to moderate concentric left ventricle hypertrophy, but dilated left and right atrium, moderate mitral regurgitation, moderate to severe tricuspid regurgitation and severe pulmonary hypertension. 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 manager cortisol drawn and pending, takes 3-4 days for result, hydrocortisone and fludrocortisone empirically, orthostatic vital signs wnl, Na now normal dc losartan, K improved, she did not tolerate Kayexalate, rx with insulin and d50w, and K now normal cont isotonic IV fluid, monitor sodium levels, nephrology consult appreciated, sp tolvaptan x 2 d ays, last dose 08/24 cardiac enzymes are detectable, and mildly elevated, Cardiology consult appreciated, she is not interested in cath., may consider stress test when she is felling better switched BP meds to ca ch dylan CTA chest and LE dopplers neg for VTE cont iv lasix -steroids, nebs, 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 vinay mascorro, will attempt TOV on Wednesday DVT prophylaxis; lovenox History Interval history: muscle spasms in LE are improved Review of systems Constitutional: No fevers, co gen weakness CVS: No chest pain, no orthopnea, c/o pedal edema, and sob GI: No abdominal pain, no diarrhea, no constipation; no vomiting Respiratory: sob is improved Hospitalist Physical - Physical exam Narrative exam: General.: Appears well, no distress, nontoxic HEENT: Moist mucous membranes, extraocular muscles intact, no lymphadenopathy Neck: supple Cardiac: S1-S2 heard Lungs: decreased air entry, rales in bases Abdomen: soft , nontender, nondistended, bowel sounds positive Extremities: 2 plus bipedal edema Skin: no rash or lesions Neurologic: no gross focal deficits Psych: calm, and cooperative - Constitutional Vitals: Temp Pulse Resp BP Pulse Ox 97.5 F L 68 20 134/67 95 08/27/18 02:18 08/27/18 07:42 08/27/18 07:42 08/27/18 02:18 08/27/18 07:42 General appearance: Present: no acute distress Results - Labs CBC & Chem 7: 08/24/18 04:16 08/27/18 08:16 Labs: Laboratory Last Values WBC 6.7 K/mm3 (4.5-11.0) 08/24/18 04:16 RBC 4.59 M/mm3 (3.65-5.03) 08/24/18 04:16 Hgb 12.5 gm/dl (10.1-14.3) 08/24/18 04:16 Hct 37.8 % (30.3-42.9) 08/24/18 04:16 MCV 82 fl (79-97) 08/24/18 04:16 MCH 27 pg (28-32) L 08/24/18 04:16 MCHC 33 % (30-34) 08/24/18 04:16 RDW 14.7 % (13.2-15.2) 08/24/18 04:16 Plt Count 223 K/mm3 (140-440) 08/24/18 04:16 Lymph % (Auto) 9.6 % (13.4-35.0) L 08/21/18 10:20 [place] % (Auto) 9.2 % (0.0-7.3) H 08/21/18 10:20 Eos % (Auto) 0.2 % (0.0-4.3) 08/21/18 10:20 Baso % (Auto) 0.2 % (0.0-1.8) 08/21/18 10:20 Lymph # 0.5 K/mm3 (1.2-5.4) L 08/21/18 10:20 [place] # 0.5 K/mm3 (0.0-0.8) 08/21/18 10:20 Eos # 0.0 K/mm3 (0.0-0.4) 08/21/18 10:20 Baso # 0.0 K/mm3 (0.0-0.1) 08/21/18 10:20 Add Manual Diff Complete 08/24/18 04:16 Total Counted 100 08/24/18 04:16 Seg Neutrophils % Radio Despatcher 08/24/18 04:16 Seg Neuts % (Manual) 97.0 % (40.0-70.0) H 08/24/18 04:16 Band Neutrophils % 0 % 08/24/18 04:16 Lymphocytes % (Manual) 1.0 % (13.4-35.0) L 08/24/18 04:16 Reactive Lymphs % (Man) 0 % 08/24/18 04:16 Monocytes % (Manual) 2.0 % (0.0-7.3) 08/24/18 04:16 Eosinophils % (Manual) 0 % (0.0-4.3) 08/24/18 04:16 Basophils % (Manual) 0 % (0.0-1.8) 08/24/18 04:16 Metamyelocytes % 0 % 08/24/18 04:16 Myelocytes % 0 % 08/24/18 04:16 Promyelocytes % 0 % 08/24/18 04:16 Blast Cells % 0 % 08/24/18 04:16 Nucleated RBC % Not Reportable 08/24/18 04:16 Seg Neutrophils # 4.1 K/mm3 (1.8-7.7) 08/21/18 10:20 Seg Neutrophils # Man 6.5 K/mm3 (1.8-7.7) 08/24/18 04:16 Band Neutrophils # 0.0 K/mm3 08/24/18 04:16 Lymphocytes # (Manual) 0.1 K/mm3 (1.2-5.4) L 08/24/18 04:16 Abs React Lymphs (Man) 0.0 K/mm3 08/24/18 04:16 Monocytes # (Manual) 0.1 K/mm3 (0.0-0.8) 08/24/18 04:16 Eosinophils # (Manual) 0.0 K/mm3 (0.0-0.4) 08/24/18 04:16 Basophils # (Manual) 0.0 K/mm3 (0.0-0.1) 08/24/18 04:16 Metamyelocytes # 0.0 K/mm3 08/24/18 04:16 Myelocytes # 0.0 K/mm3 08/24/18 04:16 Promyelocytes # 0.0 K/mm3 08/24/18 04:16 Blast Cells # 0.0 K/mm3 08/24/18 04:16 WBC Morphology Not Reportable 08/24/18 04:16 Hypersegmented Neuts Not Reportable 08/24/18 04:16 Hyposegmented Neuts Not Reportable 08/24/18 04:16 Hypogranular Neuts Not Reportable 08/24/18 04:16 Smudge Cells Not Reportable 08/24/18 04:16 Toxic Granulation Not Reportable 08/24/18 04:16 Toxic Vacuolation Not Reportable 08/24/18 04:16 Dohle Bodies Not Reportable 08/24/18 04:16 Pelger-Huet Anomaly Not Reportable 08/24/18 04:16 Kaden Rods Not Reportable 08/24/18 04:16 Platelet Estimate Consistent w auto 08/24/18 04:16 Clumped Platelets Not Reportable 08/24/18 04:16 Plt Clumps, EDTA Not Reportable 08/24/18 04:16 Large Platelets Not Reportable 08/24/18 04:16 Giant Platelets Not Reportable 08/24/18 04:16 Platelet Satelliting Not Reportable 08/24/18 04:16 Plt Morphology Comment Not Reportable 08/24/18 04:16 RBC Morphology Not Reportable 08/24/18 04:16 Dimorphic RBCs Not Reportable 08/24/18 04:16 Polychromasia Not Reportable 08/24/18 04:16 Hypochromasia Not Reportable 08/24/18 04:16 Poikilocytosis Not Reportable 08/24/18 04:16 Anisocytosis Not Reportable 08/24/18 04:16 Microcytosis Not Reportable 08/24/18 04:16 Macrocytosis Not Reportable 08/24/18 04:16 Spherocytes Not Reportable 08/24/18 04:16 Pappenheimer Bodies Not Reportable 08/24/18 04:16 Sickle Cells Not Reportable 08/24/18 04:16 Target Cells Not Reportable 08/24/18 04:16 Tear Drop Cells Not Reportable 08/24/18 04:16 Ovalocytes Not Reportable 08/24/18 04:16 Helmet Cells Not Reportable 08/24/18 04:16 Dougherty-Allison Bodies Not Reportable 08/24/18 04:16 [place] Rings Not Reportable 08/24/18 04:16 Pasquale Cells Not Reportable 08/24/18 04:16 Bite Cells Not Reportable 08/24/18 04:16 Crenated Cell Not Reportable 08/24/18 04:16 Elliptocytes Not Reportable 08/24/18 04:16 Acanthocytes (Spur) Not Reportable 08/24/18 04:16 Rouleaux Not Reportable 08/24/18 04:16 Hemoglobin C Crystals Not Reportable 08/24/18 04:16 Schistocytes Not Reportable 08/24/18 04:16 Malaria parasites Not Reportable 08/24/18 04:16 Sky Bodies Not Reportable 08/24/18 04:16 Hem Pathologist Commnt No 08/24/18 04:16 PT 13.8 Sec. (12.2-14.9) 08/24/18 04:16 INR 1.00 (0.87-1.13) 08/24/18 04:16 APTT 24.3 Sec. (24.2-36.6) 08/24/18 04:16 POC ABG pH 7.193 (7.35-7.45) L 08/23/18 18:22 POC ABG pCO2 54.9 (35-45) H 08/23/18 18:22 POC ABG pO2 102 (80-105) 08/23/18 18:22 POC ABG HCO3 21.1 (22-26 mml/L) 08/23/18 18:22 POC ABG Total CO2 23 (23-27mmol/L) 08/23/18 18:22 POC ABG O2 Sat 96 08/23/18 18:22 POC ABG Base Excess -7 ((-2) - (+3)mmol/L) 08/23/18 18:22 FiO2 40 % 08/23/18 18:22 Sodium 138 mmol/L (137-145) 08/26/18 05:27 Potassium 4.9 mmol/L (3.6-5.0) D 08/26/18 05:27 Chloride 98.1 mmol/L (98-107) 08/26/18 05:27 Carbon Dioxide 33 mmol/L (22-30) H D 08/26/18 05:27 Anion Gap 12 mmol/L 08/26/18 05:27 BUN 25 mg/dL (7-17) H 08/26/18 05:27 Creatinine 0.6 mg/dL (0.7-1.2) L 08/26/18 05:27 Estimated GFR > 60 ml/min 08/26/18 05:27 BUN/Creatinine Ratio 42 % 08/26/18 05:27 Glucose 114 mg/dL (65-100) H 08/26/18 05:27 POC Glucose 127 (70-105) H 08/25/18 22:17 Calcium 8.1 mg/dL (8.4-10.2) L 08/26/18 05:27 Total Bilirubin 0.60 mg/dL (0.1-1.2) 08/20/18 21:53 AST 62 units/L (5-40) H 08/20/18 21:53 ALT 82 units/L (7-56) H 08/20/18 21:53 Alkaline Phosphatase 101 units/L (35-129) 08/20/18 21:53 Total Creatine Kinase 339 units/L (30-135) H 08/21/18 10:20 CK-MB (CK-2) 28.4 ng/mL (0.0-4.0) H 08/21/18 10:20 CK-MB (CK-2) Rel Index 8.3 (0-4) H 08/21/18 10:20 Troponin T 0.052 ng/mL (0.00-0.029) H 08/21/18 10:20 Total Protein 6.5 g/dL (6.3-8.2) 08/20/18 21:53 Albumin 3.9 g/dL (3.9-5) 08/20/18 21:53 Albumin/Globulin Ratio 1.5 % 08/20/18 21:53 Triglycerides 71 mg/dL (2-149) 08/20/18 21:53 Cholesterol 173 mg/dL (50-199) 08/20/18 21:53 LDL Cholesterol Direct 115 mg/dL (50-130) 08/20/18 21:53 HDL Cholesterol 60 mg/dL (40-59) H 08/20/18 21:53 Cholesterol/HDL Ratio 2.88 % 08/20/18 21:53 Lipase 27 units/L (13-60) 08/20/18 21:53 TSH 1.120 mlU/mL (0.270-4.200) 08/23/18 06:00 Free T4 1.14 ng/dL (0.76-1.46) 08/23/18 06:00 Urine Color Yellow (Yellow) 08/20/18 19:43 Urine Turbidity Clear (Clear) 08/20/18 19:43 Urine pH 6.0 (5.0-7.0) 08/20/18 19:43 Ur Specific [place] 1.018 (1.003-1.030) 08/20/18 19:43 Urine Protein 100 mg/dl mg/dL (Negative) 08/20/18 19:43 Urine Glucose (UA) Neg mg/dL (Negative) 08/20/18 19:43 Urine Ketones Neg mg/dL (Negative) 08/20/18 19:43 Urine Blood Neg (Negative) 08/20/18 19:43 Urine Nitrite Neg (Negative) 08/20/18 19:43 Urine Bilirubin Neg (Negative) 08/20/18 19:43 Urine Urobilinogen < 2.0 mg/dL (<2.0) 08/20/18 19:43 Ur Leukocyte Esterase Neg (Negative) 08/20/18 19:43 Urine WBC (Auto) 1.0 /HPF (0.0-6.0) 08/20/18 19:43 Urine RBC (Auto) 7.0 /HPF (0.0-6.0) 08/20/18 19:43 U Epithel Cells (Auto) < 1.0 /HPF (0-13.0) 08/20/18 19:43 Hyaline Casts 1 /LPF 08/20/18 19:43 Urine Mucus Few /HPF 08/20/18 19:43 Urine Osmolality 466 Mosm/kg 08/22/18 18:10 Urine Creatinine 89.3 mg/dL (0.1-20.0) H 08/22/18 18:10 Urine Sodium 13 mmol/L 08/22/18 18:10 Urine Chloride 36.9 mmolL (110-250) L 08/22/18 18:10 Active Medications - Current Medications Current Medications: Generic Name Dose Route Start Last Admin Trade Name Freq PRN Reason Stop Dose Admin Acetaminophen 650 mg 08/21/18 04:26 08/26/18 23:35 Tylenol PO 650 mg Q4H PRN Administration Pain MILD(1-3)/Fever >100.5/CASTRO Albuterol/Ipratropium 1 ampul 08/23/18 16:30 08/27/18 07:42 Duoneb *Not For Prn Use* IH 1 ampul Q6HRT HARINI Administration Arformoterol Tartrate 15 mcg 08/23/18 20:00 08/27/18 07:42 Brovana Nebu IH 15 mcg Q12HRT HARINI Administration Atorvastatin Calcium 20 mg 08/23/18 22:00 08/26/18 23:36 Lipitor PO 20 mg QHS HARINI Administration Benzocaine/Menthol 1 each 08/22/18 12:23 Cepacol X Strength MM Q2HR PRN Sore Throat Budesonide 0.5 mg 08/23/18 20:00 08/27/18 07:42 Pulmicort IH 0.5 mg Q12HRT HARINI Administration Cyclobenzaprine HCl 5 mg 08/21/18 17:53 08/24/18 03:08 Flexeril PO 5 mg Q8H PRN Administration Muscle Spasm Enoxaparin Sodium 40 mg 08/24/18 12:00 08/26/18 08:59 Lovenox SUB-Q 40 mg QDAY [facility] Administration Fludrocortisone Acetate 0.1 mg 08/28/18 10:00 Florinef PO Q48HR [facility] Furosemide 40 mg 08/26/18 10:00 08/26/18 08:59 Lasix IV 40 mg QDAY HARINI Administration Glycerin 1 supp 08/25/18 10:26 Glycerin Adult 2 Gm MO QDAY PRN Constipation Hydralazine HCl 5 mg 08/21/18 04:32 Apresoline IV Q6H PRN Hypertension Hydrocortisone Sodium Succinate 50 mg 08/26/18 22:00 08/26/18 23:43 Solu-Cortef IV 50 mg Q12HR HARINI Administration Hydroxychloroquine Sulfate 200 mg 08/21/18 13:00 08/26/18 09:00 Plaquenil PO 200 mg QDAY [facility] Administration Magnesium Hydroxide 30 ml 08/25/18 01:08 08/25/18 01:27 Milk Of Magnesia PO 30 ml Q8H PRN Administration Constipation Nifedipine 30 mg 08/22/18 19:00 08/25/18 22:30 Procardia Xl PO Not Given Q24H [facility] Nitroglycerin 0.4 mg 08/24/18 06:00 08/26/18 07:25 Nitro Dur TD 0.4 mg QDAY@0600 HARINI Administration Ondansetron HCl 4 mg 08/21/18 04:26 08/23/18 23:59 Zofran IV 4 mg Q4H PRN Administration Nausea And Vomiting Pantoprazole Sodium 40 mg 08/22/18 13:37 08/26/18 09:00 Protonix PO 40 mg QDAY HARINI Administration Phenol 1 spray 08/22/18 12:23 Chloraseptic MM PRN PRN Sore Throat Polyethylene Glycol 17 gm 08/25/18 11:00 08/26/18 08:59 Miralax 3350 PO 17 gm QDAY [facility] Administration Senna/Docusate Sodium 2 tab 08/25/18 10:25 Senokot S PO Q12H PRN Laxative Effect Sodium Chloride 10 ml 08/21/18 10:00 08/26/18 23:50 Sodium Chloride Flush Syringe 10 Ml IV 10 ml BID HARINI Administration Sodium Chloride 10 ml 08/21/18 04:26 Sodium Chloride Flush Syringe 10 Ml IV PRN PRN LINE FLUSH Trazodone HCl 100 mg 08/22/18 19:00 08/26/18 23:41 Desyrel PO 100 mg Q24H [facility]INI Administration Nutrition/Malnutrition Assess - Dietary Evaluation Nutrition/Malnutrition Findings: Nutrition Notes Start: 08/23/18 14:01 Freq: Status: Active Protocol: Document 08/25/18 15:49 RD (Rec: 08/25/18 16:24 RD [email or web address]) Co-Sign 08/25/18 15:49 RM Nutrition Notes Initial or Follow up Reassessment Other Pertinent Diagnosis hyponatremia, lupus, depression, anxiety Current Diet CARDIAC Labs/Tests Reviewed Pertinent Medications Lasix Height 5 ft 2 in Weight 58.06 kg [place] Body Weight (kg) 50.00 BMI 23.3 Subjective/Other Information Pt has difficulty speaking. Pt daughter able to give information. Reports pt ate all of breakfast today, and ate half of a sandwich last night. Daughter unsure whether pt drinking Ensure. Reports pt is very picky about what food she will eat. Pt is having trouble with constipation. Percent of energy/protein needs met: 83%/ 72% Burn Absent Trauma Absent #1 Nutrition Diagnosis Inadequate oral intake As Evidenced by Signs and Symptoms Pt meeting 83% of calorie needs and 72% of protein needs Diagnosis Progress(for reassessment Improved documentation) Is patient on ventilator? No Is Patient Ambulatory and/or Out of Bed Yes REE-([facility]-ambulatory/OOB) [ 1266.005 [id number]] Calculation Used for Recommendations [facility] Additional Notes Protein needs: (1-1.2g/kg/day) 58-70g/day Fluid needs: 1mL/kcal Nutrition Intervention Change Diet Order: Continue cardiac Add Supplement/Snack (indicate name/kcal Ensure Enlive BID /protein ) Provides kCal: 700 Provides Protein (gm) 40 Goal #1 Meet at least 75% of nutrient needs via PO and ONS intakes Anticipated Discharge Needs: Cardiac diet Follow-Up By: 08/30/18 Additional Comments f/u: PO and ONS intakes
[2018-08-27 08:47] LABS: BUN/Creatinine Ratio 34; Blood Urea Nitrogen 24 mg/dL (7-17); Calcium 8.3 mg/dL (8.4-10.2); Hemolysis Index 7
[2018-08-27] MEDS: LOVENOX SUB-Q SCH (09:46)
[2018-08-27] MEDS: PROTONIX PO SCH (09:47)
[2018-08-27] MEDS: LASIX IV SCH ×2 (09:47→18:21)
[2018-08-27] MEDS: MIRALAX 3350 PO SCH (09:47)
[2018-08-27] MEDS: PLAQUENIL PO SCH (09:47)
[2018-08-27] MEDS: SODIUM CHLORIDE FLUSH SYRINGE 10 ML IV SCH ×2 (09:48→21:24)
--- NOTE | 2018-08-27 10:07 | Progress Note ---
Assessment and Plan 1. 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 Left ventricular ejection fraction 50-55%. 2. Status post NSTEMI. 3. SLE 4. COPD Plan. Continue with diuresis. Follow-up chest x-ray. Subjective Date of service: 08/27/18 Principal diagnosis: SOB Interval history: Complains of SOB Objective Vital Signs Temp Pulse Pulse Resp Resp BP BP 08/27/18 08:07 86 20 08/27/18 08:03 97.6 F 86 20 154/58 08/27/18 07:42 68 20 08/27/18 02:18 97.5 F L 90 18 134/67 08/26/18 20:56 97.8 F 83 18 143/57 08/26/18 20:00 83 17 08/26/18 19:43 84 16 08/26/18 15:54 08/26/18 14:53 90 20 08/26/18 14:38 82 22 08/26/18 14:10 97.6 F 150 H 22 149/79 Pulse Ox 08/27/18 08:07 08/27/18 08:03 96 08/27/18 07:42 95 08/27/18 02:18 93 08/26/18 20:56 94 08/26/18 20:00 08/26/18 19:43 95 08/26/18 15:54 95 08/26/18 14:53 08/26/18 14:38 08/26/18 14:10 91 - Physical Examination General: No Apparent Distress, Other (mild generalized anasarca) HEENT: Positive: PERRL Neck: Positive: trachea midline Cardiac: Positive: Regular Rate, Regular Rhythm, S1/S2, PMI, Laterally Displaced Lungs: Positive: clear to auscultation, No Wheeze, Rales, Rhonchi Neuro: Positive: Grossly Intact, Weakness Abdomen: Positive: Soft Skin: Positive: Clear Extremities: Present: edema, +1 Edema - Labs and Meds Comprehensive Metabolic Panel 08/27/18 Range/Units 08:16 Sodium 135 L (137-145) mmol/L Potassium 5.1 H (3.6-5.0) mmol/L Chloride 92.9 L (98-107) mmol/L Carbon Dioxide 33 H (22-30) mmol/L BUN 24 H (7-17) mg/dL Creatinine 0.7 (0.7-1.2) mg/dL Glucose 117 H (65-100) mg/dL Calcium 8.3 L (8.4-10.2) mg/dL - Telemetry EKG Rhythm: Sinus Rhythm - Allied health notes Allied health notes reviewed: nursing
[2018-08-27] MEDS: HumuLIN R IV SCH ×2 (11:49→17:18)
[2018-08-27] MEDS: D50W (25GM) Syringe IV SCH ×2 (11:49→17:18)
[2018-08-27] MEDS ORDERED: DIAMOX PO ONE ×2 (13:02→15:00)
--- NOTE | 2018-08-27 13:08 | Progress Note ---
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 Na improved s/p tolvaptan. pt also with persistent fluid overload, will cont IV lasix 40mg bid. added diamox for developing metabolic alkalosis. The possibility of adrenal insufficiency was brought up by the primary attending and she was empirically started on solucortef/florinef therapy and serum cortisol levels were sent. (2) Elevated troponin Current Visit: Yes Status: Acute Plan to address problem: Workup noted per cardiology. Echocardiogram is been reviewed. CTA noted without any acute abnormalities. Family and patient does not want to go through with cardiac cath at this time and are opting for more medical/conservative management. (3) Nausea & vomiting Current Visit: Yes Status: Acute Plan to address problem: improved (4) Weakness Current Visit: Yes Status: Acute Plan to address problem: Management per primary team. Recommend physical therapy evaluation. (5) HTN (hypertension) Current Visit: No Status: Chronic Plan to address problem: We will monitor on her current regimen. Subjective Date of service: 08/27/18 Principal diagnosis: SOB Interval history: Pt still with SOB, dyspnea interfering with sleep overnight. Objective - Vital Signs Vital signs: Vital Signs - 12hr 08/27/18 08/27/18 08/27/18 02:18 07:42 08:03 Temperature 97.5 F L 97.6 F Pulse Rate 90 86 Pulse Rate [ 68 Bilateral Throughout] Pulse Rate [ Left Brachial] Respiratory 18 20 Rate Respiratory 20 Rate [Bilateral Throughout] Blood Pressure 134/67 154/58 O2 Sat by Pulse 93 95 96 Oximetry 08/27/18 08/27/18 08:07 10:00 Temperature Pulse Rate 118 H Pulse Rate [ 86 Bilateral Throughout] Pulse Rate [ 86 Left Brachial] Respiratory 20 Rate Respiratory 20 Rate [Bilateral Throughout] Blood Pressure O2 Sat by Pulse 96 Oximetry - General Appearance General appearance: appears stated age, moderate distress, chronically ill EENT: ATNC, PERRL, mucous membranes moist Neck: no JVD Respiratory: Present: Ronchi, Decreased Breath Sounds Cardiology: regular, S1S2 Gastrointestinal: normoactive bowel sounds Integumentary: no rash, other (++ edema b/l LE ) Neurologic: no focal deficit, alert and oriented x3, strength 5/5, CN 3-12 intact Psychiatric: mood/affect appropriate, cooperative - Lab 08/24/18 04:16 08/27/18 08:16 Most recent lab results Calcium 8.3 mg/dL (8.4-10.2) L 08/27/18 08:16 Urine Creatinine 89.3 mg/dL (0.1-20.0) H 08/22/18 18:10 Urine Sodium 13 mmol/L 08/22/18 18:10 Medications & Allergies - Medications Allergies/Adverse Reactions: Allergies aspirin Allergy (Unknown, Verified 08/20/18 18:48) Unknown cephalexin monohydrate [From Keflex] Allergy (Unknown, Verified 08/20/18 18:48) Unknown diazepam [From Valium] Allergy (Unknown, Verified 08/20/18 18:48) Unknown doxycycline calcium [From Vibramycin] Allergy (Unknown, Verified 08/20/18 18:48) Unknown doxycycline hyclate [From Vibramycin] Allergy (Unknown, Verified 08/20/18 18:48) Unknown doxycycline monohydrate [From Vibramycin] Allergy (Unknown, Verified 08/20/18 18:48) Unknown lorazepam [From Ativan] Allergy (Unknown, Verified 08/20/18 18:48) Diarrhea meperidine HCl [From Demerol] Allergy (Unknown, Verified 08/20/18 18:48) Unknown ofloxacin [From Floxin] Allergy (Unknown, Verified 08/20/18 18:48) Unknown pentazocine lactate [From Talwin] Allergy (Unknown, Verified 08/20/18 18:48) Unknown ciprofloxacin Allergy (Verified 08/20/18 18:48) Unknown fexofenadine [From Nadine] Allergy (Verified 08/20/18 18:48) Unknown hydrocodone Allergy (Verified 08/20/18 18:48) Unknown morphine Allergy (Verified 08/20/18 18:48) Unknown Sulfa (Sulfonamide Antibiotics) Allergy (Verified 08/20/18 18:48) Unknown adhesive Adverse Reaction (Verified 08/20/18 18:48) Rash Home Medications: Home Medications Medication Instructions Recorded Confirmed Last Taken Type Hydroxychloroquine [Plaquenil] 200 mg PO QDAY 08/30/17 08/21/18 Unknown History Losartan [Cozaar] 50 mg PO QDAY 08/21/18 08/21/18 Unknown History NIFEdipine XL [Procardia Xl] 30 mg PO QHS 08/21/18 08/21/18 Unknown History traZODone [Desyrel] 100 mg PO QHS 08/21/18 08/21/18 Unknown History Active Medications: Generic Name Dose Route Start Last Admin Trade Name Freq PRN Reason Stop Dose Admin Acetaminophen 650 mg 08/21/18 04:26 08/26/18 23:35 Tylenol PO 650 mg Q4H PRN Administration Pain MILD(1-3)/Fever >100.5/CASTRO Acetazolamide 500 mg 08/27/18 13:02 Diamox PO 08/27/18 13:03 ONCE ONE Albuterol/Ipratropium 1 ampul 08/23/18 16:30 08/27/18 07:42 Duoneb *Not For Prn Use* IH 1 ampul Q6HRT HARINI Administration Arformoterol Tartrate 15 mcg 08/23/18 20:00 08/27/18 07:42 Brovana Nebu IH 15 mcg Q12HRT [facility]INI Administration Atorvastatin Calcium 20 mg 08/23/18 22:00 08/26/18 23:36 Lipitor PO 20 mg QHS [facility]INI Administration Benzocaine/Menthol 1 each 08/22/18 12:23 Cepacol X Strength MM Q2HR PRN Sore Throat Budesonide 0.5 mg 08/23/18 20:00 08/27/18 07:42 Pulmicort IH 0.5 mg Q12HRT HARINI Administration Cyclobenzaprine HCl 5 mg 08/21/18 17:53 08/24/18 03:08 Flexeril PO 5 mg Q8H PRN Administration Muscle Spasm Dextrose 50 ml 08/27/18 11:00 08/27/18 11:49 D50w (25gm) Syringe IV 08/27/18 17:01 50 ml Q6H HARINI Administration Enoxaparin Sodium 40 mg 08/24/18 12:00 08/27/18 09:46 Lovenox SUB-Q 40 mg QDAY [facility]IN[facility] Administration Fludrocortisone Acetate 0.1 mg 08/29/18 10:00 Florinef PO 3XW [facility]INI Furosemide 40 mg 08/27/18 18:00 Lasix IV 0600,1800 [facility] Glycerin 1 supp 08/25/18 10:26 Glycerin Adult 2 Gm SC QDAY PRN Constipation Hydralazine HCl 5 mg 08/21/18 04:32 Apresoline IV Q6H PRN Hypertension Hydrocortisone Sodium Succinate 50 mg 08/27/18 12:00 08/27/18 11:53 Solu-Cortef IV 50 mg Q24H [facility]INI Administration Hydroxychloroquine Sulfate 200 mg 08/21/18 13:00 08/27/18 09:47 Plaquenil PO 200 mg QDAY [facility] Administration Insulin Human Regular 4 units 08/27/18 11:00 08/27/18 11:49 Humulin R IV 08/27/18 17:01 4 units Q6H [facility] Administration Magnesium Hydroxide 30 ml 08/25/18 01:08 08/25/18 01:27 Milk Of Magnesia PO 30 ml Q8H PRN Administration Constipation Nifedipine 30 mg 08/22/18 19:00 08/25/18 22:30 Procardia Xl PO Not Given Q24H [facility] Nitroglycerin 0.4 mg 08/24/18 06:00 08/26/18 07:25 Nitro Dur TD 0.4 mg QDAY@0600 [facility] Administration Ondansetron HCl 4 mg 08/21/18 04:26 08/23/18 23:59 Zofran IV 4 mg Q4H PRN Administration Nausea And Vomiting Pantoprazole Sodium 40 mg 08/22/18 13:37 08/27/18 09:47 Protonix PO 40 mg QDAY [facility] Administration Phenol 1 spray 08/22/18 12:23 Chloraseptic MM PRN PRN Sore Throat Polyethylene Glycol 17 gm 08/25/18 11:00 08/27/18 09:47 Miralax 3350 PO 17 gm QDAY [facility] Administration Senna/Docusate Sodium 2 tab 08/25/18 10:25 Senokot S PO Q12H PRN Laxative Effect Sodium Chloride 10 ml 08/21/18 10:00 08/27/18 09:48 Sodium Chloride Flush Syringe 10 Ml IV 10 ml BID [facility] Administration Sodium Chloride 10 ml 08/21/18 04:26 Sodium Chloride Flush Syringe 10 Ml IV PRN PRN LINE FLUSH Trazodone HCl 100 mg 08/22/18 19:00 08/26/18 23:41 Desyrel PO 100 mg Q24H [facility] Administration Zolpidem Tartrate 5 mg 08/27/18 11:06 Ambien PO QHS PRN Sleep
--- NOTE | 2018-08-27 15:34 | Progress Note ---
Assessment and Plan Imp: 1. Hyponatremia 2. Hyperkalemia 3. Bilateral pleural effusions, ? CHF 4. NSTEMI 5. Pulm HTN, unclear etiology; could be due to L sided diastolic dysfunction 6. Acute respiratory failure, hypoxia 7. R/o Aspiration 8. SLE, doubt flare Rec: 1. Agree w/ Lasix IV and monitor sodium closely; no need for steroids pulm-franco -> these are being weaned by primary; would not attempt tapping an effusion unless worsens despite diuresis 2. Wean off O2 to keep sats 88% or greater; daughter refused repeat ABG; check CXR periodically re: effusions 3. ST eval. negative 4. Control BP 5. Family refused stress test and LHC 6. Consider outpatient PFTs re: pulm HTN; optimally would need RHC prior to considering pulmonary vasodilators 7. Try to mobilize 8. Repeat LFTs and mag, phos levels 9. Pt. basically has anasarca; repeat Albumin and check spot urine protein/Cr; optimize nutrition 10. Prognosis is guarded Plan of care reviewed with patient/daughter, they understand/agree Subjective Date of service: 08/27/18 Principal diagnosis: SOB Interval history: No events. C/o SOB, worse earlier when O2 was weaned off. Back on 2L NC. + Weak. + Agitated and anxious. Active Medications Acetaminophen (Tylenol) 650 mg PO Q4H PRN PRN Reason: Pain MILD(1-3)/Fever >100.5/CASTRO Last Admin: 08/26/18 23:35 Dose: 650 mg Documented by: Albuterol/Ipratropium (Duoneb *Not For Prn Use*) 1 ampul IH Q6HRT [facility] Last Admin: 08/27/18 13:06 Dose: Not Given Documented by: Arformoterol Tartrate (Brovana Nebu) 15 mcg IH Q12HRT [facility] Last Admin: 08/27/18 07:42 Dose: 15 mcg Documented by: Atorvastatin Calcium (Lipitor) 20 mg PO QHS [facility] Last Admin: 08/26/18 23:36 Dose: 20 mg Documented by: Benzocaine/Menthol (Cepacol X Strength) 1 each MM Q2HR PRN PRN Reason: Sore Throat Budesonide (Pulmicort) 0.5 mg IH Q12HRT [facility] Last Admin: 08/27/18 07:42 Dose: 0.5 mg Documented by: Cyclobenzaprine HCl (Flexeril) 5 mg PO Q8H PRN PRN Reason: Muscle Spasm Last Admin: 08/24/18 03:08 Dose: 5 mg Documented by: Dextrose (D50w (25gm) Syringe) 50 ml IV Q6H [facility] Stop: 08/27/18 17:01 Last Admin: 08/27/18 11:49 Dose: 50 ml Documented by: Enoxaparin Sodium (Lovenox) 40 mg SUB-Q QDAY [facility] Last Admin: 08/27/18 09:46 Dose: 40 mg Documented by: Fludrocortisone Acetate (Florinef) 0.1 mg PO 3XW [facility] Furosemide (Lasix) 40 mg IV 0600,1800 [facility] Glycerin (Glycerin Adult 2 Gm) 1 supp ND QDAY PRN PRN Reason: Constipation Hydralazine HCl (Apresoline) 5 mg IV Q6H PRN PRN Reason: Hypertension Hydrocortisone Sodium Succinate (Solu-Cortef) 50 mg IV Q24H [facility] Last Admin: 08/27/18 11:53 Dose: 50 mg Documented by: Hydroxychloroquine Sulfate (Plaquenil) 200 mg PO QDAY [facility] Last Admin: 08/27/18 09:47 Dose: 200 mg Documented by: Insulin Human Regular (Humulin R) 4 units IV Q6H [facility] Stop: 08/27/18 17:01 Last Admin: 08/27/18 11:49 Dose: 4 units Documented by: Magnesium Hydroxide (Milk Of Magnesia) 30 ml PO Q8H PRN PRN Reason: Constipation Last Admin: 08/25/18 01:27 Dose: 30 ml Documented by: Nifedipine (Procardia Xl) 30 mg PO Q24H [facility] Last Admin: 08/25/18 22:30 Dose: Not Given Documented by: Nitroglycerin (Nitro Dur) 0.4 mg TD QDAY@0600 [facility] Last Admin: 08/26/18 07:25 Dose: 0.4 mg Documented by: Ondansetron HCl (Zofran) 4 mg IV Q4H PRN PRN Reason: Nausea And Vomiting Last Admin: 08/23/18 23:59 Dose: 4 mg Documented by: Pantoprazole Sodium (Protonix) 40 mg PO QDAY [facility] Last Admin: 08/27/18 09:47 Dose: 40 mg Documented by: Phenol (Chloraseptic) 1 spray MM PRN PRN PRN Reason: Sore Throat Polyethylene Glycol (Miralax 3350) 17 gm PO QDAY [facility] Last Admin: 08/27/18 09:47 Dose: 17 gm Documented by: Senna/Docusate Sodium (Senokot S) 2 tab PO Q12H PRN PRN Reason: Laxative Effect Sodium Chloride (Sodium Chloride Flush Syringe 10 Ml) 10 ml IV BID [facility] Last Admin: 08/27/18 09:48 Dose: 10 ml Documented by: Sodium Chloride (Sodium Chloride Flush Syringe 10 Ml) 10 ml IV PRN PRN PRN Reason: LINE FLUSH Trazodone HCl (Desyrel) 100 mg PO Q24H [facility] Last Admin: 08/26/18 23:41 Dose: 100 mg Documented by: Zolpidem Tartrate (Ambien) 5 mg PO QHS PRN PRN Reason: Sleep Objective Vital Signs - 12hr 08/27/18 08/27/18 08/27/18 07:42 08:03 08:07 Temperature 97.6 F Pulse Rate 86 Pulse Rate [ 68 86 Bilateral Throughout] Pulse Rate [ Left Brachial] Respiratory 20 Rate Respiratory 20 20 Rate [Bilateral Throughout] Blood Pressure 154/58 O2 Sat by Pulse 95 96 Oximetry 08/27/18 08/27/18 10:00 13:15 Temperature 97.9 F Pulse Rate 118 H 126 H Pulse Rate [ Bilateral Throughout] Pulse Rate [ 86 Left Brachial] Respiratory 20 18 Rate Respiratory Rate [Bilateral Throughout] Blood Pressure 163/76 O2 Sat by Pulse 96 86 Oximetry Constitutional: no acute distress, alert Eyes: non-icteric ENT: oropharynx moist Neck: supple Effort: mildly labored Ascultation: Bilateral: diminished breath sounds (bases) Cardiovascular: other (ir/ir, no mrg) Gastrointestinal: normoactive bowel sounds, soft, non-tender, non-distended Integumentary: normal Extremities: no cyanosis, pink and warm, edema (2+ bilateral LE edema) Neurologic: normal mental status, non-focal exam, pupils equal and round, CN II- XII normal Psychiatric: mood appropriate, affect normal CBC and BMP: 08/24/18 04:16 08/27/18 08:16 ABG, PT/INR, D-dimer: ABG POC ABG pH 7.193 (7.35-7.45) L 08/23/18 18:22 POC ABG pCO2 54.9 (35-45) H 08/23/18 18:22 POC ABG pO2 102 (80-105) 08/23/18 18:22 POC ABG HCO3 21.1 (22-26 mml/L) 08/23/18 18:22 POC ABG Total CO2 23 (23-27mmol/L) 08/23/18 18:22 POC ABG O2 Sat 96 08/23/18 18:22 PT/INR, D-dimer PT 13.8 Sec. (12.2-14.9) 08/24/18 04:16 INR 1.00 (0.87-1.13) 08/24/18 04:16 Abnormal lab findings: Abnormal Labs 08/20/18 08/20/18 08/20/18 21:53 21:53 21:53 MCH Lymph % (Auto) 12.4 L [place] % (Auto) 8.0 H Lymph # 0.9 L Seg Neutrophils % 79.1 H Seg Neuts % (Manual) Lymphocytes % (Manual) Lymphocytes # (Manual) APTT 23.1 L POC ABG pH POC ABG pCO2 POC ABG pO2 Sodium 123 L Potassium 5.5 H Chloride 86.9 L Carbon Dioxide BUN 18 H Creatinine Glucose 104 H POC Glucose Calcium AST 62 H ALT 82 H Total Creatine Kinase 257 H CK-MB (CK-2) 22.0 H CK-MB (CK-2) Rel Index 8.5 H Troponin T 0.062 H HDL Cholesterol 60 H Urine Creatinine Urine Chloride 08/21/18 08/21/18 08/21/18 05:12 10:20 10:20 MCH 27 L Lymph % (Auto) 9.6 L [place] % (Auto) 9.2 H Lymph # 0.5 L Seg Neutrophils % 80.8 H Seg Neuts % (Manual) Lymphocytes % (Manual) Lymphocytes # (Manual) APTT POC ABG pH POC ABG pCO2 POC ABG pO2 Sodium Potassium Chloride Carbon Dioxide BUN Creatinine Glucose POC Glucose Calcium AST ALT Total Creatine Kinase 272 H 339 H CK-MB (CK-2) 23.5 H 28.4 H CK-MB (CK-2) Rel Index 8.6 H 8.3 H Troponin T 0.065 H 0.052 H HDL Cholesterol Urine Creatinine Urine Chloride 08/21/18 08/22/18 08/22/18 15:44 03:13 18:10 MCH Lymph % (Auto) [place] % (Auto) Lymph # Seg Neutrophils % Seg Neuts % (Manual) Lymphocytes % (Manual) Lymphocytes # (Manual) APTT POC ABG pH POC ABG pCO2 POC ABG pO2 Sodium 125 L 124 L Potassium 5.6 H 5.3 H Chloride 90.7 L 93.1 L Carbon Dioxide 21 L BUN 20 H 21 H Creatinine Glucose 113 H 116 H POC Glucose Calcium 8.1 L 7.8 L AST ALT Total Creatine Kinase CK-MB (CK-2) CK-MB (CK-2) Rel Index Troponin T HDL Cholesterol Urine Creatinine 89.3 H Urine Chloride 36.9 L 08/23/18 08/23/18 08/23/18 05:22 06:00 18:22 MCH Lymph % (Auto) [place] % (Auto) Lymph # Seg Neutrophils % Seg Neuts % (Manual) Lymphocytes % (Manual) Lymphocytes # (Manual) APTT POC ABG pH 7.120 L 7.193 L POC ABG pCO2 63.6 H 54.9 H POC ABG pO2 107 H Sodium 123 L Potassium 5.7 H Chloride 92.0 L Carbon Dioxide BUN 24 H Creatinine Glucose 113 H POC Glucose Calcium 8.1 L AST ALT Total Creatine Kinase CK-MB (CK-2) CK-MB (CK-2) Rel Index Troponin T HDL Cholesterol Urine Creatinine Urine Chloride 08/23/18 08/24/18 08/24/18 23:48 00:26 04:16 MCH Lymph % (Auto) [place] % (Auto) Lymph # Seg Neutrophils % Seg Neuts % (Manual) Lymphocytes % (Manual) Lymphocytes # (Manual) APTT POC ABG pH POC ABG pCO2 POC ABG pO2 Sodium 125 L Potassium Chloride 93.1 L Carbon Dioxide 21 L BUN 19 H Creatinine 0.6 L Glucose 133 H 118 H POC Glucose < 40 L Calcium 8.0 L AST ALT Total Creatine Kinase CK-MB (CK-2) CK-MB (CK-2) Rel Index Troponin T HDL Cholesterol Urine Creatinine Urine Chloride 08/24/18 08/24/18 08/24/18 04:16 06:12 11:49 MCH 27 L Lymph % (Auto) [place] % (Auto) Lymph # Seg Neutrophils % Seg Neuts % (Manual) 97.0 H Lymphocytes % (Manual) 1.0 L Lymphocytes # (Manual) 0.1 L APTT POC ABG pH POC ABG pCO2 POC ABG pO2 Sodium Potassium Chloride Carbon Dioxide BUN Creatinine Glucose POC Glucose 114 H 186 H Calcium AST ALT Total Creatine Kinase CK-MB (CK-2) CK-MB (CK-2) Rel Index Troponin T HDL Cholesterol Urine Creatinine Urine Chloride 08/24/18 08/25/18 08/25/18 22:28 05:50 07:36 MCH Lymph % (Auto) [place] % (Auto) Lymph # Seg Neutrophils % Seg Neuts % (Manual) Lymphocytes % (Manual) Lymphocytes # (Manual) APTT POC ABG pH POC ABG pCO2 POC ABG pO2 Sodium 133 L D Potassium Chloride 96.4 L Carbon Dioxide BUN 20 H Creatinine Glucose 147 H POC Glucose 110 H 122 H Calcium 8.2 L AST ALT Total Creatine Kinase CK-MB (CK-2) CK-MB (CK-2) Rel Index Troponin T HDL Cholesterol Urine Creatinine Urine Chloride 08/25/18 08/25/18 08/25/18 11:37 16:29 22:17 MCH Lymph % (Auto) [place] % (Auto) Lymph # Seg Neutrophils % Seg Neuts % (Manual) Lymphocytes % (Manual) Lymphocytes # (Manual) APTT POC ABG pH POC ABG pCO2 POC ABG pO2 Sodium Potassium Chloride Carbon Dioxide BUN Creatinine Glucose POC Glucose 131 H 132 H 127 H Calcium AST ALT Total Creatine Kinase CK-MB (CK-2) CK-MB (CK-2) Rel Index Troponin T HDL Cholesterol Urine Creatinine Urine Chloride 08/26/18 08/27/18 05:27 08:16 MCH Lymph % (Auto) [place] % (Auto) Lymph # Seg Neutrophils % Seg Neuts % (Manual) Lymphocytes % (Manual) Lymphocytes # (Manual) APTT POC ABG pH POC ABG pCO2 POC ABG pO2 Sodium 135 L Potassium 5.1 H Chloride 92.9 L Carbon Dioxide 33 H D 33 H BUN 25 H 24 H Creatinine 0.6 L Glucose 114 H 117 H POC Glucose Calcium 8.1 L 8.3 L AST ALT Total Creatine Kinase CK-MB (CK-2) CK-MB (CK-2) Rel Index Troponin T HDL Cholesterol Urine Creatinine Urine Chloride Chest x-ray: report reviewed CT scan - chest: report reviewed, image reviewed Allied health notes reviewed: nursing
[2018-08-27] MEDS: SODIUM CHLORIDE FLUSH SYRINGE 10 ML IV PRN (18:22)
[2018-08-27 18:33] LABS: Creatinine,Urine 19.4 mg/dL (0.1-20.0)
[2018-08-27] MEDS: DESYREL PO SCH (21:24)
[2018-08-27] MEDS: PROCARDIA XL PO SCH (21:27)
[2018-08-28] MEDS: NITRO DUR TD SCH (05:16)
[2018-08-28] MEDS: LASIX IV SCH ×2 (05:16→18:16)
[2018-08-28] MEDS: BROVANA NEBU IH SCH ×2 (08:32→22:34)
[2018-08-28] MEDS: PULMICORT IH SCH ×2 (08:32→22:33)
[2018-08-28] MEDS: DUONEB *Not for PRN Use IH SCH ×3 (08:32→22:35)
[2018-08-28] MEDS: LOVENOX SUB-Q SCH (09:26)
[2018-08-28] MEDS: PLAQUENIL PO SCH (09:26)
[2018-08-28] MEDS: PROTONIX PO SCH (09:26)
[2018-08-28] MEDS: SODIUM CHLORIDE FLUSH SYRINGE 10 ML IV SCH ×2 (09:27→22:00)
[2018-08-28] MEDS: MIRALAX 3350 PO SCH (09:27)
[2018-08-28] MEDS ORDERED: FLORINEF PO SCH (10:00)
--- NOTE | 2018-08-28 11:34 | Progress Note ---
Assessment and Plan 1. 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 Left ventricular ejection fraction 50-55%. 2. Status post NSTEMI. 3. SLE 4. COPD Plan. Continue present management. Subjective Date of service: 08/28/18 Principal diagnosis: SOB Interval history: Complains of SOB Objective Vital Signs Temp Pulse Pulse Pulse Resp Resp BP 08/28/18 08:50 66 16 08/28/18 08:35 63 18 08/28/18 05:16 73 128/57 08/28/18 05:00 102 H 08/28/18 02:42 98.7 F 20 125/52 08/27/18 22:00 83 16 08/27/18 19:46 83 16 08/27/18 19:28 08/27/18 19:27 81 16 08/27/18 13:15 97.9 F 126 H 18 163/76 Pulse Ox 08/28/18 08:50 08/28/18 08:35 88 08/28/18 05:16 08/28/18 05:00 08/28/18 02:42 08/27/18 22:00 96 08/27/18 19:46 08/27/18 19:28 96 08/27/18 19:27 08/27/18 13:15 86 - Physical Examination General: No Apparent Distress, Other (mild generalized anasarca) HEENT: Positive: PERRL Neck: Positive: trachea midline Cardiac: Positive: Regular Rate, S1/S2, PMI, Laterally Displaced. Negative: S3, S4 Lungs: Positive: clear to auscultation, No Wheeze, Rales, Rhonchi Neuro: Positive: Grossly Intact, Weakness Abdomen: Positive: Soft Skin: Positive: Clear Extremities: Present: edema, +1 Edema - Allied health notes Allied health notes reviewed: nursing
--- NOTE | 2018-08-28 11:36 | Progress Note ---
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 Na improved s/p tolvaptan and on IV diuretic therapy. Being worked up for adrenal insufficiency (2) Elevated troponin Current Visit: Yes Status: Acute Plan to address problem: Workup noted per cardiology. Echocardiogram is been reviewed. CTA noted without any acute abnormalities. Family and patient does not want to go through with cardiac cath at this time and are opting for more medical/conservative management. (3) Nausea & vomiting Current Visit: Yes Status: Acute Plan to address problem: improved (4) Weakness Current Visit: Yes Status: Acute Plan to address problem: Management per primary team. Recommend physical therapy evaluation. (5) HTN (hypertension) Current Visit: No Status: Chronic Plan to address problem: We will monitor on her current regimen. Subjective Date of service: 08/28/18 Principal diagnosis: SOB Interval history: Pt with improved respiratory status, denies CP, palpitations, fever, chills, n/v/d Objective - Vital Signs Vital signs: Vital Signs - 12hr 08/28/18 08/28/18 08/28/18 02:42 05:00 05:16 Temperature 98.7 F Pulse Rate 102 H 73 Pulse Rate [ Bilateral Throughout] Respiratory 20 Rate Respiratory Rate [Bilateral Throughout] Blood Pressure 125/52 128/57 O2 Sat by Pulse Oximetry 08/28/18 08/28/18 08:35 08:50 Temperature Pulse Rate Pulse Rate [ 63 66 Bilateral Throughout] Respiratory Rate Respiratory 18 16 Rate [Bilateral Throughout] Blood Pressure O2 Sat by Pulse 88 Oximetry - General Appearance General appearance: appears stated age, chronically ill EENT: ATNC, PERRL, mucous membranes moist Respiratory: Present: Decreased Breath Sounds Cardiology: regular, S1S2 Gastrointestinal: normoactive bowel sounds Integumentary: no rash, other (2+ edema b/l LE ) Neurologic: no focal deficit, alert and oriented x3, strength 5/5, CN 3-12 intact Psychiatric: mood/affect appropriate, cooperative - Lab 08/24/18 04:16 08/27/18 08:16 Most recent lab results Calcium 8.3 mg/dL (8.4-10.2) L 08/27/18 08:16 Urine Creatinine 19.4 mg/dL (0.1-20.0) 08/27/18 15:29 Urine Sodium 13 mmol/L 08/22/18 18:10 Urine Total Protein 23 mg/dL (5-11.8) H 08/27/18 15:29 Medications & Allergies - Medications Allergies/Adverse Reactions: Allergies aspirin Allergy (Unknown, Verified 08/20/18 18:48) Unknown cephalexin monohydrate [From Keflex] Allergy (Unknown, Verified 08/20/18 18:48) Unknown diazepam [From Valium] Allergy (Unknown, Verified 08/20/18 18:48) Unknown doxycycline calcium [From Vibramycin] Allergy (Unknown, Verified 08/20/18 18:48) Unknown doxycycline hyclate [From Vibramycin] Allergy (Unknown, Verified 08/20/18 18:48) Unknown doxycycline monohydrate [From Vibramycin] Allergy (Unknown, Verified 08/20/18 18:48) Unknown lorazepam [From Ativan] Allergy (Unknown, Verified 08/20/18 18:48) Diarrhea meperidine HCl [From Demerol] Allergy (Unknown, Verified 08/20/18 18:48) Unknown ofloxacin [From Floxin] Allergy (Unknown, Verified 08/20/18 18:48) Unknown pentazocine lactate [From Talwin] Allergy (Unknown, Verified 08/20/18 18:48) Unknown ciprofloxacin Allergy (Verified 08/20/18 18:48) Unknown fexofenadine [From Nadine] Allergy (Verified 08/20/18 18:48) Unknown hydrocodone Allergy (Verified 08/20/18 18:48) Unknown morphine Allergy (Verified 08/20/18 18:48) Unknown Sulfa (Sulfonamide Antibiotics) Allergy (Verified 08/20/18 18:48) Unknown adhesive Adverse Reaction (Verified 08/20/18 18:48) Rash Home Medications: Home Medications Medication Instructions Recorded Confirmed Last Taken Type Hydroxychloroquine [Plaquenil] 200 mg PO QDAY 08/30/17 08/21/18 Unknown History Losartan [Cozaar] 50 mg PO QDAY 08/21/18 08/21/18 Unknown History NIFEdipine XL [Procardia Xl] 30 mg PO QHS 08/21/18 08/21/18 Unknown History traZODone [Desyrel] 100 mg PO QHS 08/21/18 08/21/18 Unknown History Active Medications: Generic Name Dose Route Start Last Admin Trade Name Freq PRN Reason Stop Dose Admin Acetaminophen 650 mg 08/21/18 04:26 08/26/18 23:35 Tylenol PO 650 mg Q4H PRN Administration Pain MILD(1-3)/Fever >100.5/CASTRO Albuterol/Ipratropium 1 ampul 08/28/18 08:00 08/28/18 08:32 Duoneb *Not For Prn Use* IH 1 ampul TIDRT [facility] Administration Arformoterol Tartrate 15 mcg 08/23/18 20:00 08/28/18 08:32 Brovana Nebu IH 15 mcg Q12HRT [facility] Administration Atorvastatin Calcium 20 mg 08/23/18 22:00 08/27/18 21:23 Lipitor PO 20 mg QHS [facility] Administration Benzocaine/Menthol 1 each 08/22/18 12:23 Cepacol X Strength MM Q2HR PRN Sore Throat Budesonide 0.5 mg 08/23/18 20:00 08/28/18 08:32 Pulmicort IH 0.5 mg Q12HRT [facility] Administration Cyclobenzaprine HCl 5 mg 08/21/18 17:53 08/24/18 03:08 Flexeril PO 5 mg Q8H PRN Administration Muscle Spasm Enoxaparin Sodium 40 mg 08/24/18 12:00 08/28/18 09:26 Lovenox SUB-Q 40 mg QDAY [facility] Administration Fludrocortisone Acetate 0.1 mg 08/29/18 10:00 Florinef PO 3XW [facility] Furosemide 40 mg 08/27/18 18:00 08/28/18 05:16 Lasix IV 40 mg 0600,1800 [facility] Administration Glycerin 1 supp 08/25/18 10:26 Glycerin Adult 2 Gm [place] QDAY PRN Constipation Hydralazine HCl 5 mg 08/21/18 04:32 Apresoline IV Q6H PRN Hypertension Hydrocortisone Sodium Succinate 50 mg 08/27/18 12:00 08/27/18 11:53 Solu-Cortef IV 50 mg Q24H [facility] Administration Hydroxychloroquine Sulfate 200 mg 08/21/18 13:00 08/28/18 09:26 Plaquenil PO 200 mg QDAY [facility] Administration Magnesium Hydroxide 30 ml 08/25/18 01:08 08/25/18 01:27 Milk Of Magnesia PO 30 ml Q8H PRN Administration Constipation Nifedipine 30 mg 08/22/18 19:00 08/27/18 21:27 Procardia Xl PO 30 mg Q24H [facility] Administration Nitroglycerin 0.4 mg 08/24/18 06:00 08/28/18 05:16 Nitro Dur TD 0.4 mg QDAY@0600 [facility] Administration Ondansetron HCl 4 mg 08/21/18 04:26 08/23/18 23:59 Zofran IV 4 mg Q4H PRN Administration Nausea And Vomiting Pantoprazole Sodium 40 mg 08/22/18 13:37 08/28/18 09:26 Protonix PO 40 mg QDAY [facility] Administration Phenol 1 spray 08/22/18 12:23 Chloraseptic MM PRN PRN Sore Throat Polyethylene Glycol 17 gm 08/25/18 11:00 08/28/18 09:27 Miralax 3350 PO 17 gm QDAY [facility] Administration Senna/Docusate Sodium 2 tab 08/25/18 10:25 Senokot S PO Q12H PRN Laxative Effect Sodium Chloride 10 ml 08/21/18 10:00 08/28/18 09:27 Sodium Chloride Flush Syringe 10 Ml IV 10 ml BID [facility] Administration Sodium Chloride 10 ml 08/21/18 04:26 08/27/18 18:22 Sodium Chloride Flush Syringe 10 Ml IV 10 ml PRN PRN Administration LINE FLUSH Trazodone HCl 100 mg 08/22/18 19:00 08/27/18 21:24 Desyrel PO 100 mg Q24H [facility] Administration Zolpidem Tartrate 5 mg 08/27/18 11:06 Ambien PO QHS PRN Sleep
[2018-08-28] MEDS: SODIUM CHLORIDE FLUSH SYRINGE 10 ML IV PRN ×2 (12:37→16:46)
[2018-08-28 12:56] LABS: Basophils % (Auto) 0.2 % (0.0-1.8); Eosinophils # (Auto) 0.1 K/mm3 (0.0-0.4); Eosinophils % (Auto) 1.1 % (0.0-4.3); Hematocrit 38.5 % (30.3-42.9); Hemoglobin 12.5 gm/dl (10.1-14.3); Lymphocytes # (Auto) 0.8 K/mm3 (1.2-5.4); Lymphocytes % (Auto) 7.7 % (13.4-35.0); Mean Corpuscular HGB Conc 33 % (30-34); Mean Corpuscular Volume 83 fl (79-97); Monocytes # (Auto) 1.1 K/mm3 (0.0-0.8); Monocytes % (Auto) 10.4 % (0.0-7.3); Platelet Count 278 K/mm3 (140-440); Red Blood Count 4.66 M/mm3 (3.65-5.03); Red Cell Distribution Width 15.8 % (13.2-15.2)
[2018-08-28 13:13] LABS: Alanine Aminotransferase 52 units/L (7-56); Albumin 3.4 g/dL (3.9-5); BUN/Creatinine Ratio 36; Blood Urea Nitrogen 25 mg/dL (7-17); Calcium 8.1 mg/dL (8.4-10.2); Hemolysis Index 15
[2018-08-28 13:18] LABS: Bilirubin,Direct < 0.2 mg/dL (0-0.2)
[2018-08-28] MEDS: MAGIC MOUTHWASH PO SCH ×2 (14:40→21:14)
[2018-08-28] MEDS ORDERED: MAGNESIUM SULFATE 2GM/50ML 2 GM/50 ML BAG IV ONE (14:58)
[2018-08-28] MEDS ORDERED: K-DUR PO ONE (14:58)
--- NOTE | 2018-08-28 15:01 | Progress Note ---
Assessment and Plan Imp: 1. Hyponatremia 2. Hyperkalemia 3. Bilateral pleural effusions, ? CHF 4. NSTEMI 5. Pulm HTN, unclear etiology; could be due to L sided diastolic dysfunction 6. Acute respiratory failure, hypoxia 7. R/o Aspiration 8. SLE, doubt flare Rec: 1. Agree w/ Lasix IV and monitor sodium closely; no need for steroids pulm-franco -> these are being weaned by primary; would not attempt tapping an effusion unless worsens despite diuresis; recommend repeat CXR in 1-2 days 2. Wean off O2 to keep sats 88% or greater; daughter refused repeat ABG 3. ST eval. negative 4. Control BP 5. Family refused stress test and LHC 6. Consider outpatient PFTs re: pulm HTN; optimally would need RHC prior to considering pulmonary vasodilators 7. Try to mobilize 8. Replete K and Mag today 9. Albumin and Spot urine Pro/Cr unremarkable 10. Improved pulm-franco today Plan of care reviewed with patient, she understands/agrees Subjective Date of service: 08/28/18 Principal diagnosis: SOB Interval history: No events. Good diuresis. SOB is improving today. No new complaints. Active Medications Acetaminophen (Tylenol) 650 mg PO Q4H PRN PRN Reason: Pain MILD(1-3)/Fever >100.5/CASTRO Last Admin: 08/26/18 23:35 Dose: 650 mg Documented by: Albuterol/Ipratropium (Duoneb *Not For Prn Use*) 1 ampul IH TIDRT [facility] Last Admin: 08/28/18 14:11 Dose: 1 ampul Documented by: Arformoterol Tartrate (Brovana Nebu) 15 mcg IH Q12HRT [facility] Last Admin: 08/28/18 08:32 Dose: 15 mcg Documented by: Atorvastatin Calcium (Lipitor) 20 mg PO QHS [facility] Last Admin: 08/27/18 21:23 Dose: 20 mg Documented by: Benzocaine/Menthol (Cepacol X Strength) 1 each MM Q2HR PRN PRN Reason: Sore Throat Budesonide (Pulmicort) 0.5 mg IH Q12HRT [facility] Last Admin: 08/28/18 08:32 Dose: 0.5 mg Documented by: Cyclobenzaprine HCl (Flexeril) 5 mg PO Q8H PRN PRN Reason: Muscle Spasm Last Admin: 08/24/18 03:08 Dose: 5 mg Documented by: Enoxaparin Sodium (Lovenox) 40 mg SUB-Q QDAY [facility] Last Admin: 08/28/18 09:26 Dose: 40 mg Documented by: Fludrocortisone Acetate (Florinef) 0.1 mg PO 3XW HARINI Furosemide (Lasix) 40 mg IV 0600,1800 [facility] Last Admin: 08/28/18 05:16 Dose: 40 mg Documented by: Glycerin (Glycerin Adult 2 Gm) 1 supp SD QDAY PRN PRN Reason: Constipation Hydralazine HCl (Apresoline) 5 mg IV Q6H PRN PRN Reason: Hypertension Hydroxychloroquine Sulfate (Plaquenil) 200 mg PO QDAY [facility] Last Admin: 08/28/18 09:26 Dose: 200 mg Documented by: Magnesium Sulfate (Magnesium Sulfate 2gm/50ml) 2 gm in 50 mls @ 25 mls/hr IV ONCE ONE Stop: 08/28/18 16:57 Lidocaine HCl (Magic Mouthwash) 15 ml PO TID [facility] Last Admin: 08/28/18 14:40 Dose: 15 ml Documented by: Magnesium Hydroxide (Milk Of Magnesia) 30 ml PO Q8H PRN PRN Reason: Constipation Last Admin: 08/25/18 01:27 Dose: 30 ml Documented by: Nifedipine (Procardia Xl) 30 mg PO Q24H [facility] Last Admin: 08/27/18 21:27 Dose: 30 mg Documented by: Nitroglycerin (Nitro Dur) 0.4 mg TD QDAY@0600 [facility] Last Admin: 08/28/18 05:16 Dose: 0.4 mg Documented by: Ondansetron HCl (Zofran) 4 mg IV Q4H PRN PRN Reason: Nausea And Vomiting Last Admin: 08/23/18 23:59 Dose: 4 mg Documented by: Pantoprazole Sodium (Protonix) 40 mg PO QDAY [facility] Last Admin: 08/28/18 09:26 Dose: 40 mg Documented by: Phenol (Chloraseptic) 1 spray MM PRN PRN PRN Reason: Sore Throat Polyethylene Glycol (Miralax 3350) 17 gm PO QDAY [facility] Last Admin: 08/28/18 09:27 Dose: 17 gm Documented by: Potassium Chloride (K-Dur) 40 meq PO ONCE ONE Stop: 08/28/18 14:59 Senna/Docusate Sodium (Senokot S) 2 tab PO Q12H PRN PRN Reason: Laxative Effect Sodium Chloride (Sodium Chloride Flush Syringe 10 Ml) 10 ml IV BID [facility] Last Admin: 08/28/18 09:27 Dose: 10 ml Documented by: Sodium Chloride (Sodium Chloride Flush Syringe 10 Ml) 10 ml IV PRN PRN PRN Reason: LINE FLUSH Last Admin: 08/28/18 12:37 Dose: 10 ml Documented by: Trazodone HCl (Desyrel) 100 mg PO Q24H [facility] Last Admin: 08/27/18 21:24 Dose: 100 mg Documented by: Zolpidem Tartrate (Ambien) 5 mg PO QHS PRN PRN Reason: Sleep Objective Vital Signs - 12hr 08/28/18 08/28/18 08/28/18 05:00 05:16 08:35 Temperature Pulse Rate 102 H 73 Pulse Rate [ 63 Bilateral Throughout] Pulse Rate [ Left Brachial] Respiratory Rate Respiratory 18 Rate [Bilateral Throughout] Blood Pressure 128/57 O2 Sat by Pulse 88 Oximetry 08/28/18 08/28/18 08/28/18 08:50 10:00 12:01 Temperature 97.4 F L Pulse Rate 105 H 59 L Pulse Rate [ 66 Bilateral Throughout] Pulse Rate [ 66 Left Brachial] Respiratory 16 20 Rate Respiratory 16 Rate [Bilateral Throughout] Blood Pressure 121/61 O2 Sat by Pulse 86 Oximetry 08/28/18 08/28/18 08/28/18 13:59 14:13 14:25 Temperature 97.7 F Pulse Rate 60 Pulse Rate [ 60 62 Bilateral Throughout] Pulse Rate [ Left Brachial] Respiratory 18 Rate Respiratory 16 16 Rate [Bilateral Throughout] Blood Pressure 118/48 O2 Sat by Pulse 93 Oximetry Constitutional: no acute distress, alert Eyes: non-icteric ENT: oropharynx moist Neck: supple Effort: normal Ascultation: Bilateral: diminished breath sounds (bases) Cardiovascular: other (ir/ir, no mrg) Gastrointestinal: normoactive bowel sounds, soft, non-tender, non-distended Integumentary: normal Extremities: no cyanosis, pink and warm, edema (2+ bilateral LE edema) Neurologic: normal mental status, non-focal exam, pupils equal and round, CN II- XII normal Psychiatric: mood appropriate, affect normal CBC and BMP: 08/28/18 12:30 08/28/18 12:30 ABG, PT/INR, D-dimer: ABG POC ABG pH 7.193 (7.35-7.45) L 08/23/18 18:22 POC ABG pCO2 54.9 (35-45) H 08/23/18 18:22 POC ABG pO2 102 (80-105) 08/23/18 18:22 POC ABG HCO3 21.1 (22-26 mml/L) 08/23/18 18:22 POC ABG Total CO2 23 (23-27mmol/L) 08/23/18 18:22 POC ABG O2 Sat 96 08/23/18 18:22 PT/INR, D-dimer PT 13.8 Sec. (12.2-14.9) 08/24/18 04:16 INR 1.00 (0.87-1.13) 08/24/18 04:16 Abnormal lab findings: Abnormal Labs 08/20/18 08/20/18 08/20/18 21:53 21:53 21:53 MCH RDW Lymph % (Auto) 12.4 L [place] % (Auto) 8.0 H Lymph # 0.9 L [place] # Seg Neutrophils % 79.1 H Seg Neuts % (Manual) Lymphocytes % (Manual) Seg Neutrophils # Lymphocytes # (Manual) APTT 23.1 L POC ABG pH POC ABG pCO2 POC ABG pO2 Sodium 123 L Potassium 5.5 H Chloride 86.9 L Carbon Dioxide BUN 18 H Creatinine Glucose 104 H POC Glucose Calcium AST 62 H ALT 82 H Total Creatine Kinase 257 H CK-MB (CK-2) 22.0 H CK-MB (CK-2) Rel Index 8.5 H Troponin T 0.062 H Total Protein Albumin HDL Cholesterol 60 H Urine Creatinine Urine Chloride Urine Total Protein 08/21/18 08/21/18 08/21/18 05:12 10:20 10:20 MCH 27 L RDW Lymph % (Auto) 9.6 L [place] % (Auto) 9.2 H Lymph # 0.5 L [place] # Seg Neutrophils % 80.8 H Seg Neuts % (Manual) Lymphocytes % (Manual) Seg Neutrophils # Lymphocytes # (Manual) APTT POC ABG pH POC ABG pCO2 POC ABG pO2 Sodium Potassium Chloride Carbon Dioxide BUN Creatinine Glucose POC Glucose Calcium AST ALT Total Creatine Kinase 272 H 339 H CK-MB (CK-2) 23.5 H 28.4 H CK-MB (CK-2) Rel Index 8.6 H 8.3 H Troponin T 0.065 H 0.052 H Total Protein Albumin HDL Cholesterol Urine Creatinine Urine Chloride Urine Total Protein 08/21/18 08/22/18 08/22/18 15:44 03:13 18:10 MCH RDW Lymph % (Auto) [place] % (Auto) Lymph # [place] # Seg Neutrophils % Seg Neuts % (Manual) Lymphocytes % (Manual) Seg Neutrophils # Lymphocytes # (Manual) APTT POC ABG pH POC ABG pCO2 POC ABG pO2 Sodium 125 L 124 L Potassium 5.6 H 5.3 H Chloride 90.7 L 93.1 L Carbon Dioxide 21 L BUN 20 H 21 H Creatinine Glucose 113 H 116 H POC Glucose Calcium 8.1 L 7.8 L AST ALT Total Creatine Kinase CK-MB (CK-2) CK-MB (CK-2) Rel Index Troponin T Total Protein Albumin HDL Cholesterol Urine Creatinine 89.3 H Urine Chloride 36.9 L Urine Total Protein 08/23/18 08/23/18 08/23/18 05:22 06:00 18:22 MCH RDW Lymph % (Auto) [place] % (Auto) Lymph # [place] # Seg Neutrophils % Seg Neuts % (Manual) Lymphocytes % (Manual) Seg Neutrophils # Lymphocytes # (Manual) APTT POC ABG pH 7.120 L 7.193 L POC ABG pCO2 63.6 H 54.9 H POC ABG pO2 107 H Sodium 123 L Potassium 5.7 H Chloride 92.0 L Carbon Dioxide BUN 24 H Creatinine Glucose 113 H POC Glucose Calcium 8.1 L AST ALT Total Creatine Kinase CK-MB (CK-2) CK-MB (CK-2) Rel Index Troponin T Total Protein Albumin HDL Cholesterol Urine Creatinine Urine Chloride Urine Total Protein 08/23/18 08/24/18 08/24/18 23:48 00:26 04:16 MCH RDW Lymph % (Auto) [place] % (Auto) Lymph # [place] # Seg Neutrophils % Seg Neuts % (Manual) Lymphocytes % (Manual) Seg Neutrophils # Lymphocytes # (Manual) APTT POC ABG pH POC ABG pCO2 POC ABG pO2 Sodium 125 L Potassium Chloride 93.1 L Carbon Dioxide 21 L BUN 19 H Creatinine 0.6 L Glucose 133 H 118 H POC Glucose < 40 L Calcium 8.0 L AST ALT Total Creatine Kinase CK-MB (CK-2) CK-MB (CK-2) Rel Index Troponin T Total Protein Albumin HDL Cholesterol Urine Creatinine Urine Chloride Urine Total Protein 08/24/18 08/24/18 08/24/18 04:16 06:12 11:49 MCH 27 L RDW Lymph % (Auto) [place] % (Auto) Lymph # [place] # Seg Neutrophils % Seg Neuts % (Manual) 97.0 H Lymphocytes % (Manual) 1.0 L Seg Neutrophils # Lymphocytes # (Manual) 0.1 L APTT POC ABG pH POC ABG pCO2 POC ABG pO2 Sodium Potassium Chloride Carbon Dioxide BUN Creatinine Glucose POC Glucose 114 H 186 H Calcium AST ALT Total Creatine Kinase CK-MB (CK-2) CK-MB (CK-2) Rel Index Troponin T Total Protein Albumin HDL Cholesterol Urine Creatinine Urine Chloride Urine Total Protein 08/24/18 08/25/18 08/25/18 22:28 05:50 07:36 MCH RDW Lymph % (Auto) [place] % (Auto) Lymph # [place] # Seg Neutrophils % Seg Neuts % (Manual) Lymphocytes % (Manual) Seg Neutrophils # Lymphocytes # (Manual) APTT POC ABG pH POC ABG pCO2 POC ABG pO2 Sodium 133 L D Potassium Chloride 96.4 L Carbon Dioxide BUN 20 H Creatinine Glucose 147 H POC Glucose 110 H 122 H Calcium 8.2 L AST ALT Total Creatine Kinase CK-MB (CK-2) CK-MB (CK-2) Rel Index Troponin T Total Protein Albumin HDL Cholesterol Urine Creatinine Urine Chloride Urine Total Protein 08/25/18 08/25/18 08/25/18 11:37 16:29 22:17 MCH RDW Lymph % (Auto) [place] % (Auto) Lymph # [place] # Seg Neutrophils % Seg Neuts % (Manual) Lymphocytes % (Manual) Seg Neutrophils # Lymphocytes # (Manual) APTT POC ABG pH POC ABG pCO2 POC ABG pO2 Sodium Potassium Chloride Carbon Dioxide BUN Creatinine Glucose POC Glucose 131 H 132 H 127 H Calcium AST ALT Total Creatine Kinase CK-MB (CK-2) CK-MB (CK-2) Rel Index Troponin T Total Protein Albumin HDL Cholesterol Urine Creatinine Urine Chloride Urine Total Protein 08/26/18 08/27/18 08/27/18 05:27 08:16 15:29 MCH RDW Lymph % (Auto) [place] % (Auto) Lymph # [place] # Seg Neutrophils % Seg Neuts % (Manual) Lymphocytes % (Manual) Seg Neutrophils # Lymphocytes # (Manual) APTT POC ABG pH POC ABG pCO2 POC ABG pO2 Sodium 135 L Potassium 5.1 H Chloride 92.9 L Carbon Dioxide 33 H D 33 H BUN 25 H 24 H Creatinine 0.6 L Glucose 114 H 117 H POC Glucose Calcium 8.1 L 8.3 L AST ALT Total Creatine Kinase CK-MB (CK-2) CK-MB (CK-2) Rel Index Troponin T Total Protein Albumin HDL Cholesterol Urine Creatinine Urine Chloride Urine Total Protein 23 H 08/28/18 08/28/18 12:30 12:30 MCH 27 L RDW 15.8 H Lymph % (Auto) 7.7 L [place] % (Auto) 10.4 H Lymph # 0.8 L [place] # 1.1 H Seg Neutrophils % 80.6 H Seg Neuts % (Manual) Lymphocytes % (Manual) Seg Neutrophils # 8.8 H Lymphocytes # (Manual) APTT POC ABG pH POC ABG pCO2 POC ABG pO2 Sodium Potassium 3.2 L D Chloride 90.1 L Carbon Dioxide 35 H BUN 25 H Creatinine Glucose 129 H POC Glucose Calcium 8.1 L AST 72 H ALT Total Creatine Kinase CK-MB (CK-2) CK-MB (CK-2) Rel Index Troponin T Total Protein 5.3 L Albumin 3.4 L HDL Cholesterol Urine Creatinine Urine Chloride Urine Total Protein Chest x-ray: report reviewed, image reviewed CT scan - chest: report reviewed, image reviewed Allied health notes reviewed: nursing
[2018-08-28] MEDS: DESYREL PO SCH (20:59)
[2018-08-28] MEDS: PROCARDIA XL PO SCH (21:00)
[2018-08-29] MEDS: LASIX IV SCH (06:06)
[2018-08-29] MEDS: NITRO DUR TD SCH (06:08)
[2018-08-29 06:16] LABS: BUN/Creatinine Ratio 36; Blood Urea Nitrogen 25 mg/dL (7-17); Hemolysis Index 6
[2018-08-29] MEDS: PULMICORT IH SCH ×2 (07:26→21:26)
[2018-08-29] MEDS: DUONEB *Not for PRN Use IH SCH ×3 (07:26→21:54)
[2018-08-29] MEDS: BROVANA NEBU IH SCH ×2 (07:26→21:26)
--- NOTE | 2018-08-29 09:28 | Progress Note ---
Assessment and Plan Shortness of breath chest CTA: no evidence of PE Dizziness no acute intracranial process by head CT. Hyponatremia Elevated transaminase Hyperkalemia NSTEMI -patient and family members declined further cardiac evaluation and prefers conservative cardiac management. Chronic RBBB Echocardiogram reveals evidence of severe pulmonary hypertension, RVSP 70-75 mmHg. Normal left ventricular systolic function, ejection fraction 50-55%. We will obtain a 12 lead ECG for review. Subjective Date of service: 08/29/18 Principal diagnosis: SOB Interval history: Tachycardic on assessment. Patient denies chest pain and palpitations. No distress noted. Objective Vital Signs Temp Pulse Pulse Pulse Resp Resp BP 08/29/18 08:10 144 H 22 127/80 08/29/18 07:28 08/29/18 06:08 99 H 129/68 08/29/18 04:10 97.7 F 100 H 18 08/29/18 02:38 109 H 08/28/18 22:50 60 16 08/28/18 22:00 100 H 18 08/28/18 20:47 97.9 F 96 H 22 116/51 08/28/18 14:25 62 16 08/28/18 14:13 60 16 08/28/18 13:59 97.7 F 60 18 118/48 08/28/18 12:01 97.4 F L 59 L 20 121/61 08/28/18 10:00 105 H 66 16 BP Pulse Ox 08/29/18 08:10 96 08/29/18 07:28 96 08/29/18 06:08 08/29/18 04:10 113/53 93 08/29/18 02:38 08/28/18 22:50 08/28/18 22:00 93 08/28/18 20:47 94 08/28/18 14:25 08/28/18 14:13 08/28/18 13:59 93 08/28/18 12:01 86 08/28/18 10:00 - Physical Examination General: No Apparent Distress HEENT: Positive: PERRL Neck: Positive: trachea midline Cardiac: Positive: Tachycardia Lungs: Positive: Decreased Breath Sounds Neuro: Positive: Grossly Intact, Weakness Skin: Positive: Bruising Extremities: Present: +1 Edema - Labs and Meds Cardiac Enzymes 08/28/18 Range/Units 12:30 AST 72 H (5-40) units/L CBC 08/28/18 Range/Units 12:30 WBC 10.9 (4.5-11.0) K/mm3 RBC 4.66 (3.65-5.03) M/mm3 Hgb 12.5 (10.1-14.3) gm/dl Hct 38.5 (30.3-42.9) % Plt Count 278 (140-440) K/mm3 Lymph # 0.8 L (1.2-5.4) K/mm3 [place] # 1.1 H (0.0-0.8) K/mm3 Eos # 0.1 (0.0-0.4) K/mm3 Baso # 0.0 (0.0-0.1) K/mm3 Comprehensive Metabolic Panel 08/28/18 08/29/18 Range/Units 12:30 05:36 Sodium 139 137 (137-145) mmol/L Potassium 3.2 L D 3.6 (3.6-5.0) mmol/L Chloride 90.1 L 90.1 L (98-107) mmol/L Carbon Dioxide 35 H 40 H (22-30) mmol/L BUN 25 H 25 H (7-17) mg/dL Creatinine 0.7 0.7 (0.7-1.2) mg/dL Glucose 129 H 89 (65-100) mg/dL Calcium 8.1 L 8.0 L (8.4-10.2) mg/dL Direct Bilirubin < 0.2 (0-0.2) mg/dL Indirect Bilirubin 0.2 mg/dL AST 72 H (5-40) units/L ALT 52 (7-56) units/L Alkaline Phosphatase 59 (35-129) units/L Total Protein 5.3 L (6.3-8.2) g/dL Albumin 3.4 L (3.9-5) g/dL - Allied health notes Allied health notes reviewed: nursing
--- NOTE | 2018-08-29 10:12 | Progress Note ---
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 Na improved s/p tolvaptan and on IV diuretic therapy, no normalized. Being worked up for adrenal insufficiency. excellent diuresis > 4L/day UOP. switched IV lasix to po 40mg bid. (2) Elevated troponin Current Visit: Yes Status: Acute Plan to address problem: Workup noted per cardiology. Echocardiogram is been reviewed. CTA noted without any acute abnormalities. Family and patient does not want to go through with cardiac cath at this time and are opting for more medical/conservative management. (3) Nausea & vomiting Current Visit: Yes Status: Acute Plan to address problem: improved (4) Weakness Current Visit: Yes Status: Acute Plan to address problem: Management per primary team. Recommend physical therapy evaluation. (5) HTN (hypertension) Current Visit: No Status: Chronic Plan to address problem: We will monitor on her current regimen. Subjective Date of service: 08/29/18 Principal diagnosis: SOB Interval history: Pt with improved respiratory status, denies CP, palpitations, fever, chills, n/v/d Objective - Vital Signs Vital signs: Vital Signs - 12hr 08/28/18 08/29/18 08/29/18 22:50 02:38 04:10 Temperature 97.7 F Pulse Rate 109 H 100 H Pulse Rate [ 60 Bilateral Throughout] Respiratory 18 Rate Respiratory 16 Rate [Bilateral Throughout] Blood Pressure Blood Pressure 113/53 [Left] O2 Sat by Pulse 93 Oximetry 08/29/18 08/29/18 08/29/18 06:08 07:28 08:10 Temperature Pulse Rate 99 H 144 H Pulse Rate [ Bilateral Throughout] Respiratory 22 Rate Respiratory Rate [Bilateral Throughout] Blood Pressure 129/68 127/80 Blood Pressure [Left] O2 Sat by Pulse 96 96 Oximetry - General Appearance General appearance: well-developed, well-nourished, appears stated age EENT: ATNC, PERRL, mucous membranes moist Neck: no JVD Respiratory: Present: Clear to Ascultation Cardiology: regular, S1S2 Gastrointestinal: normoactive bowel sounds Integumentary: no rash, other (+ edema b/l LE ) Neurologic: no focal deficit, alert and oriented x3, strength 5/5, CN 3-12 intact Psychiatric: mood/affect appropriate, cooperative - Lab 08/28/18 12:30 08/29/18 05:36 Most recent lab results Calcium 8.0 mg/dL (8.4-10.2) L 08/29/18 05:36 Phosphorus 2.90 mg/dL (2.5-4.5) 08/28/18 12:30 Magnesium 1.70 mg/dL (1.7-2.3) 08/28/18 12:30 Urine Creatinine 19.4 mg/dL (0.1-20.0) 08/27/18 15:29 Urine Sodium 13 mmol/L 08/22/18 18:10 Urine Total Protein 23 mg/dL (5-11.8) H 08/27/18 15:29 Medications & Allergies - Medications Allergies/Adverse Reactions: Allergies aspirin Allergy (Unknown, Verified 08/20/18 18:48) Unknown cephalexin monohydrate [From Keflex] Allergy (Unknown, Verified 08/20/18 18:48) Unknown diazepam [From Valium] Allergy (Unknown, Verified 08/20/18 18:48) Unknown doxycycline calcium [From Vibramycin] Allergy (Unknown, Verified 08/20/18 18:48) Unknown doxycycline hyclate [From Vibramycin] Allergy (Unknown, Verified 08/20/18 18:48) Unknown doxycycline monohydrate [From Vibramycin] Allergy (Unknown, Verified 08/20/18 18:48) Unknown lorazepam [From Ativan] Allergy (Unknown, Verified 08/20/18 18:48) Diarrhea meperidine HCl [From Demerol] Allergy (Unknown, Verified 08/20/18 18:48) Unknown ofloxacin [From Floxin] Allergy (Unknown, Verified 08/20/18 18:48) Unknown pentazocine lactate [From Talwin] Allergy (Unknown, Verified 08/20/18 18:48) Unknown ciprofloxacin Allergy (Verified 08/20/18 18:48) Unknown fexofenadine [From Nadine] Allergy (Verified 08/20/18 18:48) Unknown hydrocodone Allergy (Verified 08/20/18 18:48) Unknown morphine Allergy (Verified 08/20/18 18:48) Unknown Sulfa (Sulfonamide Antibiotics) Allergy (Verified 08/20/18 18:48) Unknown adhesive Adverse Reaction (Verified 08/20/18 18:48) Rash Home Medications: Home Medications Medication Instructions Recorded Confirmed Last Taken Type Hydroxychloroquine [Plaquenil] 200 mg PO QDAY 08/30/17 08/21/18 Unknown History Losartan [Cozaar] 50 mg PO QDAY 08/21/18 08/21/18 Unknown History NIFEdipine XL [Procardia Xl] 30 mg PO QHS 08/21/18 08/21/18 Unknown History traZODone [Desyrel] 100 mg PO QHS 08/21/18 08/21/18 Unknown History Active Medications: Generic Name Dose Route Start Last Admin Trade Name Freq PRN Reason Stop Dose Admin Acetaminophen 650 mg 08/21/18 04:26 08/26/18 23:35 Tylenol PO 650 mg Q4H PRN Administration Pain MILD(1-3)/Fever >100.5/CASTRO Albuterol/Ipratropium 1 ampul 08/28/18 08:00 08/29/18 07:26 Duoneb *Not For Prn Use* IH Not Given TIDRT [facility] Arformoterol Tartrate 15 mcg 08/23/18 20:00 08/29/18 07:26 Brovana Nebu IH Not Given Q12HRT [facility] Atorvastatin Calcium 20 mg 08/23/18 22:00 08/28/18 20:59 Lipitor PO 20 mg QHS [facility] Administration Benzocaine/Menthol 1 each 08/22/18 12:23 Cepacol X Strength MM Q2HR PRN Sore Throat Budesonide 0.5 mg 08/23/18 20:00 08/29/18 07:26 Pulmicort IH Not Given Q12HRT [facility] Cyclobenzaprine HCl 5 mg 08/21/18 17:53 08/24/18 03:08 Flexeril PO 5 mg Q8H PRN Administration Muscle Spasm Enoxaparin Sodium 40 mg 08/24/18 12:00 08/28/18 09:26 Lovenox SUB-Q 40 mg QDAY [facility] Administration Fludrocortisone Acetate 0.1 mg 08/29/18 10:00 Florinef PO 3XW [facility]INI Furosemide 40 mg 08/29/18 18:00 Lasix PO BID [facility] Glycerin 1 supp 08/25/18 10:26 Glycerin Adult 2 Gm IN QDAY PRN Constipation Hydralazine HCl 5 mg 08/21/18 04:32 Apresoline IV Q6H PRN Hypertension Hydroxychloroquine Sulfate 200 mg 08/21/18 13:00 08/28/18 09:26 Plaquenil PO 200 mg QDAY [facility] Administration Lidocaine HCl 15 ml 08/28/18 14:00 08/28/18 21:14 Magic Mouthwash PO 15 ml TID [facility] Administration Magnesium Hydroxide 30 ml 08/25/18 01:08 08/25/18 01:27 Milk Of Magnesia PO 30 ml Q8H PRN Administration Constipation Nifedipine 30 mg 08/22/18 19:00 08/28/18 21:00 Procardia Xl PO 30 mg Q24H [facility] Administration Nitroglycerin 0.4 mg 08/24/18 06:00 08/29/18 06:08 Nitro Dur TD 0.4 mg QDAY@0600 [facility] Administration Ondansetron HCl 4 mg 08/21/18 04:26 08/23/18 23:59 Zofran IV 4 mg Q4H PRN Administration Nausea And Vomiting Pantoprazole Sodium 40 mg 08/22/18 13:37 08/28/18 09:26 Protonix PO 40 mg QDAY [facility] Administration Phenol 1 spray 08/22/18 12:23 08/28/18 21:08 Chloraseptic MM 1 spray PRN PRN Administration Sore Throat Polyethylene Glycol 17 gm 08/25/18 11:00 08/28/18 09:27 Miralax 3350 PO 17 gm QDAY [facility] Administration Senna/Docusate Sodium 2 tab 08/25/18 10:25 Senokot S PO Q12H PRN Laxative Effect Sodium Chloride 10 ml 08/21/18 10:00 08/28/18 22:00 Sodium Chloride Flush Syringe 10 Ml IV 10 ml BID [facility] Administration Sodium Chloride 10 ml 08/21/18 04:26 08/28/18 16:46 Sodium Chloride Flush Syringe 10 Ml IV 10 ml PRN PRN Administration LINE FLUSH Trazodone HCl 100 mg 08/22/18 19:00 08/28/18 20:59 Desyrel PO 100 mg Q24H [facility] Administration Zolpidem Tartrate 5 mg 08/27/18 11:06 Ambien PO QHS PRN Sleep
[2018-08-29] MEDS: PLAQUENIL PO SCH (10:37)
[2018-08-29] MEDS: LOVENOX SUB-Q SCH ×2 (10:38→21:51)
[2018-08-29] MEDS: PROTONIX PO SCH (10:39)
[2018-08-29] MEDS: FLORINEF PO SCH (10:40)
[2018-08-29] MEDS: MIRALAX 3350 PO SCH (10:40)
[2018-08-29] MEDS: SODIUM CHLORIDE FLUSH SYRINGE 10 ML IV SCH (10:41)
[2018-08-29] MEDS: MAGIC MOUTHWASH PO SCH ×2 (11:09→14:42)
--- NOTE | 2018-08-29 11:55 | Progress Note ---
Assessment and Plan Imp: 1. Hyponatremia 2. Hyperkalemia 3. Bilateral pleural effusions, ? CHF 4. NSTEMI 5. Pulm HTN, unclear etiology; could be due to L sided diastolic dysfunction 6. Acute respiratory failure, hypoxia 7. R/o Aspiration 8. SLE, doubt flare Rec: 1. Agree w/ Lasix IV and monitor sodium closely; no need for steroids pulm-franco -> these are being weaned by primary; would not attempt tapping an effusion unless worsens despite diuresis; recommend repeat CXR in 1-2 days, ordered for tomorrow 08/30 2. Wean off O2 to keep sats 88% or greater; daughter refused repeat ABG 3. ST eval. negative 4. Control BP 5. Family refused stress test and LHC 6. Consider outpatient PFTs re: pulm HTN; optimally would need RHC prior to considering pulmonary vasodilators 7. Try to mobilize 8. Replete K 9. Albumin and Spot urine Pro/Cr unremarkable 10. Improved pulm-franco today Plan of care reviewed with patient, she understands/agrees Subjective Date of service: 08/29/18 Principal diagnosis: SOB Interval history: No acute events. On 2 liters NC with sats in the mid to high 90's Objective Vital Signs - 12hr 08/29/18 08/29/18 08/29/18 02:38 04:10 06:08 Temperature 97.7 F Pulse Rate 109 H 100 H 99 H Respiratory 18 Rate Blood Pressure 129/68 Blood Pressure 113/53 [Left] O2 Sat by Pulse 93 Oximetry 08/29/18 08/29/18 07:28 08:10 Temperature Pulse Rate 144 H Respiratory 22 Rate Blood Pressure 127/80 Blood Pressure [Left] O2 Sat by Pulse 96 96 Oximetry Constitutional: no acute distress, alert Eyes: non-icteric ENT: oropharynx moist Neck: supple Effort: normal Ascultation: Bilateral: diminished breath sounds (bases) Cardiovascular: other (ir/ir, no mrg) Gastrointestinal: normoactive bowel sounds, soft, non-tender, non-distended Integumentary: normal Extremities: no cyanosis, pink and warm, edema (2+ bilateral LE edema) Neurologic: normal mental status, non-focal exam, pupils equal and round, CN II- XII normal Psychiatric: mood appropriate, affect normal CBC and BMP: 08/28/18 12:30 08/29/18 05:36 ABG, PT/INR, D-dimer: ABG POC ABG pH 7.193 (7.35-7.45) L 08/23/18 18:22 POC ABG pCO2 54.9 (35-45) H 08/23/18 18:22 POC ABG pO2 102 (80-105) 08/23/18 18:22 POC ABG HCO3 21.1 (22-26 mml/L) 08/23/18 18:22 POC ABG Total CO2 23 (23-27mmol/L) 08/23/18 18:22 POC ABG O2 Sat 96 08/23/18 18:22 PT/INR, D-dimer PT 13.8 Sec. (12.2-14.9) 08/24/18 04:16 INR 1.00 (0.87-1.13) 08/24/18 04:16 Abnormal lab findings: Abnormal Labs 08/20/18 08/20/18 08/20/18 21:53 21:53 21:53 MCH RDW Lymph % (Auto) 12.4 L [place] % (Auto) 8.0 H Lymph # 0.9 L [place] # Seg Neutrophils % 79.1 H Seg Neuts % (Manual) Lymphocytes % (Manual) Seg Neutrophils # Lymphocytes # (Manual) APTT 23.1 L POC ABG pH POC ABG pCO2 POC ABG pO2 Sodium 123 L Potassium 5.5 H Chloride 86.9 L Carbon Dioxide BUN 18 H Creatinine Glucose 104 H POC Glucose Calcium AST 62 H ALT 82 H Total Creatine Kinase 257 H CK-MB (CK-2) 22.0 H CK-MB (CK-2) Rel Index 8.5 H Troponin T 0.062 H Total Protein Albumin HDL Cholesterol 60 H Urine Creatinine Urine Chloride Urine Total Protein 08/21/18 08/21/18 08/21/18 05:12 10:20 10:20 MCH 27 L RDW Lymph % (Auto) 9.6 L [place] % (Auto) 9.2 H Lymph # 0.5 L [place] # Seg Neutrophils % 80.8 H Seg Neuts % (Manual) Lymphocytes % (Manual) Seg Neutrophils # Lymphocytes # (Manual) APTT POC ABG pH POC ABG pCO2 POC ABG pO2 Sodium Potassium Chloride Carbon Dioxide BUN Creatinine Glucose POC Glucose Calcium AST ALT Total Creatine Kinase 272 H 339 H CK-MB (CK-2) 23.5 H 28.4 H CK-MB (CK-2) Rel Index 8.6 H 8.3 H Troponin T 0.065 H 0.052 H Total Protein Albumin HDL Cholesterol Urine Creatinine Urine Chloride Urine Total Protein 08/21/18 08/22/18 08/22/18 15:44 03:13 18:10 MCH RDW Lymph % (Auto) [place] % (Auto) Lymph # [place] # Seg Neutrophils % Seg Neuts % (Manual) Lymphocytes % (Manual) Seg Neutrophils # Lymphocytes # (Manual) APTT POC ABG pH POC ABG pCO2 POC ABG pO2 Sodium 125 L 124 L Potassium 5.6 H 5.3 H Chloride 90.7 L 93.1 L Carbon Dioxide 21 L BUN 20 H 21 H Creatinine Glucose 113 H 116 H POC Glucose Calcium 8.1 L 7.8 L AST ALT Total Creatine Kinase CK-MB (CK-2) CK-MB (CK-2) Rel Index Troponin T Total Protein Albumin HDL Cholesterol Urine Creatinine 89.3 H Urine Chloride 36.9 L Urine Total Protein 08/23/18 08/23/18 08/23/18 05:22 06:00 18:22 MCH RDW Lymph % (Auto) [place] % (Auto) Lymph # [place] # Seg Neutrophils % Seg Neuts % (Manual) Lymphocytes % (Manual) Seg Neutrophils # Lymphocytes # (Manual) APTT POC ABG pH 7.120 L 7.193 L POC ABG pCO2 63.6 H 54.9 H POC ABG pO2 107 H Sodium 123 L Potassium 5.7 H Chloride 92.0 L Carbon Dioxide BUN 24 H Creatinine Glucose 113 H POC Glucose Calcium 8.1 L AST ALT Total Creatine Kinase CK-MB (CK-2) CK-MB (CK-2) Rel Index Troponin T Total Protein Albumin HDL Cholesterol Urine Creatinine Urine Chloride Urine Total Protein 08/23/18 08/24/18 08/24/18 23:48 00:26 04:16 MCH RDW Lymph % (Auto) [place] % (Auto) Lymph # [place] # Seg Neutrophils % Seg Neuts % (Manual) Lymphocytes % (Manual) Seg Neutrophils # Lymphocytes # (Manual) APTT POC ABG pH POC ABG pCO2 POC ABG pO2 Sodium 125 L Potassium Chloride 93.1 L Carbon Dioxide 21 L BUN 19 H Creatinine 0.6 L Glucose 133 H 118 H POC Glucose < 40 L Calcium 8.0 L AST ALT Total Creatine Kinase CK-MB (CK-2) CK-MB (CK-2) Rel Index Troponin T Total Protein Albumin HDL Cholesterol Urine Creatinine Urine Chloride Urine Total Protein 08/24/18 08/24/18 08/24/18 04:16 06:12 11:49 MCH 27 L RDW Lymph % (Auto) [place] % (Auto) Lymph # [place] # Seg Neutrophils % Seg Neuts % (Manual) 97.0 H Lymphocytes % (Manual) 1.0 L Seg Neutrophils # Lymphocytes # (Manual) 0.1 L APTT POC ABG pH POC ABG pCO2 POC ABG pO2 Sodium Potassium Chloride Carbon Dioxide BUN Creatinine Glucose POC Glucose 114 H 186 H Calcium AST ALT Total Creatine Kinase CK-MB (CK-2) CK-MB (CK-2) Rel Index Troponin T Total Protein Albumin HDL Cholesterol Urine Creatinine Urine Chloride Urine Total Protein 08/24/18 08/25/18 08/25/18 22:28 05:50 07:36 MCH RDW Lymph % (Auto) [place] % (Auto) Lymph # [place] # Seg Neutrophils % Seg Neuts % (Manual) Lymphocytes % (Manual) Seg Neutrophils # Lymphocytes # (Manual) APTT POC ABG pH POC ABG pCO2 POC ABG pO2 Sodium 133 L D Potassium Chloride 96.4 L Carbon Dioxide BUN 20 H Creatinine Glucose 147 H POC Glucose 110 H 122 H Calcium 8.2 L AST ALT Total Creatine Kinase CK-MB (CK-2) CK-MB (CK-2) Rel Index Troponin T Total Protein Albumin HDL Cholesterol Urine Creatinine Urine Chloride Urine Total Protein 08/25/18 08/25/18 08/25/18 11:37 16:29 22:17 MCH RDW Lymph % (Auto) [place] % (Auto) Lymph # [place] # Seg Neutrophils % Seg Neuts % (Manual) Lymphocytes % (Manual) Seg Neutrophils # Lymphocytes # (Manual) APTT POC ABG pH POC ABG pCO2 POC ABG pO2 Sodium Potassium Chloride Carbon Dioxide BUN Creatinine Glucose POC Glucose 131 H 132 H 127 H Calcium AST ALT Total Creatine Kinase CK-MB (CK-2) CK-MB (CK-2) Rel Index Troponin T Total Protein Albumin HDL Cholesterol Urine Creatinine Urine Chloride Urine Total Protein 08/26/18 08/27/18 08/27/18 05:27 08:16 15:29 MCH RDW Lymph % (Auto) [place] % (Auto) Lymph # [place] # Seg Neutrophils % Seg Neuts % (Manual) Lymphocytes % (Manual) Seg Neutrophils # Lymphocytes # (Manual) APTT POC ABG pH POC ABG pCO2 POC ABG pO2 Sodium 135 L Potassium 5.1 H Chloride 92.9 L Carbon Dioxide 33 H D 33 H BUN 25 H 24 H Creatinine 0.6 L Glucose 114 H 117 H POC Glucose Calcium 8.1 L 8.3 L AST ALT Total Creatine Kinase CK-MB (CK-2) CK-MB (CK-2) Rel Index Troponin T Total Protein Albumin HDL Cholesterol Urine Creatinine Urine Chloride Urine Total Protein 23 H 08/28/18 08/28/18 08/29/18 12:30 12:30 05:36 MCH 27 L RDW 15.8 H Lymph % (Auto) 7.7 L [place] % (Auto) 10.4 H Lymph # 0.8 L [place] # 1.1 H Seg Neutrophils % 80.6 H Seg Neuts % (Manual) Lymphocytes % (Manual) Seg Neutrophils # 8.8 H Lymphocytes # (Manual) APTT POC ABG pH POC ABG pCO2 POC ABG pO2 Sodium Potassium 3.2 L D Chloride 90.1 L 90.1 L Carbon Dioxide 35 H 40 H BUN 25 H 25 H Creatinine Glucose 129 H POC Glucose Calcium 8.1 L 8.0 L AST 72 H ALT Total Creatine Kinase CK-MB (CK-2) CK-MB (CK-2) Rel Index Troponin T Total Protein 5.3 L Albumin 3.4 L HDL Cholesterol Urine Creatinine Urine Chloride Urine Total Protein Allied health notes reviewed: nursing
--- NOTE | 2018-08-29 12:18 | Progress Note ---
Assessment and Plan Assessment and plan: 87-year-old woman with a history of hypertension, lupus comes to the emergency room complaining of nausea vomiting, generalized weakness, dizziness. Symptoms started after her losartan was changed to lisinopril due to recall of losartan. she reports decreased oral intake Echocardiogram shows well-preserved left ventricular systolic function, mild to moderate concentric left ventricle hypertrophy, but dilated left and right atrium, moderate mitral regurgitation, moderate to severe tricuspid regurgitation and severe pulmonary hypertension. 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 Hyponatremia dehydration transient autonomic imbalance Dizzyness Chronic RBBB Abnormal cardiac enzymes Hypertension Lupus N/V dehydration Hyperkalemia pulm htn moderate protein malnutrition acute hypercapneic respiratory failure Acute COPD/Asthma diastolic CHF, acute urinary retention Plan -chief technician x ray cortisol drawn and pending, takes 3-4 days for result, hydrocortisone and fludrocortisone empirically, orthostatic vital signs wnl, Na now normal dc losartan, K improved, she did not tolerate Kayexalate, rx with insulin and d50w, and K now normal cont isotonic IV fluid, monitor sodium levels, nephrology consult appreciated, sp tolvaptan x 2 d ays, last dose 08/24 cardiac enzymes are detectable, and mildly elevated, Cardiology consult appreciated, she is not interested in cath., may consider stress test when she is felling better switched BP meds to ca ch dylan CTA chest and LE dopplers neg for VTE cont iv lasix -steroids, nebs, wean oxygen livestock 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 agent consult appreciated sp mascorro, order to dc mascorro was placed DVT prophylaxis; lovenox History Interval history: muscle spasms in LE are improved Review of systems Constitutional: No fevers, co gen weakness CVS: No chest pain, no orthopnea, c/o pedal edema, and sob GI: No abdominal pain, no diarrhea, no constipation; no vomiting Respiratory: sob is improved Hospitalist Physical - Physical exam Narrative exam: General.: Appears well, no distress, nontoxic HEENT: Moist mucous membranes, extraocular muscles intact, no lymphadenopathy Neck: supple Cardiac: S1-S2 heard Lungs: decreased air entry, rales in bases Abdomen: soft , nontender, nondistended, bowel sounds positive Extremities: 2 plus bipedal edema Skin: no rash or lesions Neurologic: no gross focal deficits Psych: calm, and cooperative - Constitutional Vitals: Temp Pulse Resp BP Pulse Ox 97.7 F 144 H 22 127/80 96 08/29/18 04:10 08/29/18 08:10 08/29/18 08:10 08/29/18 08:10 08/29/18 08:10 General appearance: Present: no acute distress Results - Labs CBC & Chem 7: 08/28/18 12:30 08/30/18 08:08 Labs: Laboratory Last Values WBC 10.9 K/mm3 (4.5-11.0) 08/28/18 12:30 RBC 4.66 M/mm3 (3.65-5.03) 08/28/18 12:30 Hgb 12.5 gm/dl (10.1-14.3) 08/28/18 12:30 Hct 38.5 % (30.3-42.9) 08/28/18 12:30 MCV 83 fl (79-97) 08/28/18 12:30 MCH 27 pg (28-32) L 08/28/18 12:30 MCHC 33 % (30-34) 08/28/18 12:30 RDW 15.8 % (13.2-15.2) H 08/28/18 12:30 Plt Count 278 K/mm3 (140-440) 08/28/18 12:30 Lymph % (Auto) 7.7 % (13.4-35.0) L 08/28/18 12:30 [place] % (Auto) 10.4 % (0.0-7.3) H 08/28/18 12:30 Eos % (Auto) 1.1 % (0.0-4.3) 08/28/18 12:30 Baso % (Auto) 0.2 % (0.0-1.8) 08/28/18 12:30 Lymph # 0.8 K/mm3 (1.2-5.4) L 08/28/18 12:30 [place] # 1.1 K/mm3 (0.0-0.8) H 08/28/18 12:30 Eos # 0.1 K/mm3 (0.0-0.4) 08/28/18 12:30 Baso # 0.0 K/mm3 (0.0-0.1) 08/28/18 12:30 Add Manual Diff Complete 08/24/18 04:16 Total Counted 100 08/24/18 04:16 Seg Neutrophils % 80.6 % (40.0-70.0) H 08/28/18 12:30 Seg Neuts % (Manual) 97.0 % (40.0-70.0) H 08/24/18 04:16 Band Neutrophils % 0 % 08/24/18 04:16 Lymphocytes % (Manual) 1.0 % (13.4-35.0) L 08/24/18 04:16 Reactive Lymphs % (Man) 0 % 08/24/18 04:16 Monocytes % (Manual) 2.0 % (0.0-7.3) 08/24/18 04:16 Eosinophils % (Manual) 0 % (0.0-4.3) 08/24/18 04:16 Basophils % (Manual) 0 % (0.0-1.8) 08/24/18 04:16 Metamyelocytes % 0 % 08/24/18 04:16 Myelocytes % 0 % 08/24/18 04:16 Promyelocytes % 0 % 08/24/18 04:16 Blast Cells % 0 % 08/24/18 04:16 Nucleated RBC % Not Reportable 08/24/18 04:16 Seg Neutrophils # 8.8 K/mm3 (1.8-7.7) H 08/28/18 12:30 Seg Neutrophils # Man 6.5 K/mm3 (1.8-7.7) 08/24/18 04:16 Band Neutrophils # 0.0 K/mm3 08/24/18 04:16 Lymphocytes # (Manual) 0.1 K/mm3 (1.2-5.4) L 08/24/18 04:16 Abs React Lymphs (Man) 0.0 K/mm3 08/24/18 04:16 Monocytes # (Manual) 0.1 K/mm3 (0.0-0.8) 08/24/18 04:16 Eosinophils # (Manual) 0.0 K/mm3 (0.0-0.4) 08/24/18 04:16 Basophils # (Manual) 0.0 K/mm3 (0.0-0.1) 08/24/18 04:16 Metamyelocytes # 0.0 K/mm3 08/24/18 04:16 Myelocytes # 0.0 K/mm3 08/24/18 04:16 Promyelocytes # 0.0 K/mm3 08/24/18 04:16 Blast Cells # 0.0 K/mm3 08/24/18 04:16 WBC Morphology Not Reportable 08/24/18 04:16 Hypersegmented Neuts Not Reportable 08/24/18 04:16 Hyposegmented Neuts Not Reportable 08/24/18 04:16 Hypogranular Neuts Not Reportable 08/24/18 04:16 Smudge Cells Not Reportable 08/24/18 04:16 Toxic Granulation Not Reportable 08/24/18 04:16 Toxic Vacuolation Not Reportable 08/24/18 04:16 Dohle Bodies Not Reportable 08/24/18 04:16 Pelger-Huet Anomaly Not Reportable 08/24/18 04:16 Kaden Rods Not Reportable 08/24/18 04:16 Platelet Estimate Consistent w auto 08/24/18 04:16 Clumped Platelets Not Reportable 08/24/18 04:16 Plt Clumps, EDTA Not Reportable 08/24/18 04:16 Large Platelets Not Reportable 08/24/18 04:16 Giant Platelets Not Reportable 08/24/18 04:16 Platelet Satelliting Not Reportable 08/24/18 04:16 Plt Morphology Comment Not Reportable 08/24/18 04:16 RBC Morphology Not Reportable 08/24/18 04:16 Dimorphic RBCs Not Reportable 08/24/18 04:16 Polychromasia Not Reportable 08/24/18 04:16 Hypochromasia Not Reportable 08/24/18 04:16 Poikilocytosis Not Reportable 08/24/18 04:16 Anisocytosis Not Reportable 08/24/18 04:16 Microcytosis Not Reportable 08/24/18 04:16 Macrocytosis Not Reportable 08/24/18 04:16 Spherocytes Not Reportable 08/24/18 04:16 Pappenheimer Bodies Not Reportable 08/24/18 04:16 Sickle Cells Not Reportable 08/24/18 04:16 Target Cells Not Reportable 08/24/18 04:16 Tear Drop Cells Not Reportable 08/24/18 04:16 Ovalocytes Not Reportable 08/24/18 04:16 Helmet Cells Not Reportable 08/24/18 04:16 [place] Bodies Not Reportable 08/24/18 04:16 [place] Rings Not Reportable 08/24/18 04:16 Pasquale Cells Not Reportable 08/24/18 04:16 Bite Cells Not Reportable 08/24/18 04:16 Crenated Cell Not Reportable 08/24/18 04:16 Elliptocytes Not Reportable 08/24/18 04:16 Acanthocytes (Spur) Not Reportable 08/24/18 04:16 Rouleaux Not Reportable 08/24/18 04:16 Hemoglobin C Crystals Not Reportable 08/24/18 04:16 Schistocytes Not Reportable 08/24/18 04:16 Malaria parasites Not Reportable 08/24/18 04:16 Sky Bodies Not Reportable 08/24/18 04:16 Hem Pathologist Commnt No 08/24/18 04:16 PT 13.8 Sec. (12.2-14.9) 08/24/18 04:16 INR 1.00 (0.87-1.13) 08/24/18 04:16 APTT 24.3 Sec. (24.2-36.6) 08/24/18 04:16 POC ABG pH 7.193 (7.35-7.45) L 08/23/18 18:22 POC ABG pCO2 54.9 (35-45) H 08/23/18 18:22 POC ABG pO2 102 (80-105) 08/23/18 18:22 POC ABG HCO3 21.1 (22-26 mml/L) 08/23/18 18:22 POC ABG Total CO2 23 (23-27mmol/L) 08/23/18 18:22 POC ABG O2 Sat 96 08/23/18 18:22 POC ABG Base Excess -7 ((-2) - (+3)mmol/L) 08/23/18 18:22 FiO2 40 % 08/23/18 18:22 Sodium 137 mmol/L (137-145) 08/29/18 05:36 Potassium 3.6 mmol/L (3.6-5.0) 08/29/18 05:36 Chloride 90.1 mmol/L (98-107) L 08/29/18 05:36 Carbon Dioxide 40 mmol/L (22-30) H 08/29/18 05:36 Anion Gap 11 mmol/L 08/29/18 05:36 BUN 25 mg/dL (7-17) H 08/29/18 05:36 Creatinine 0.7 mg/dL (0.7-1.2) 08/29/18 05:36 Estimated GFR > 60 ml/min 08/29/18 05:36 BUN/Creatinine Ratio 36 % 08/29/18 05:36 Glucose 89 mg/dL (65-100) 08/29/18 05:36 POC Glucose 94 (70-105) 08/27/18 17:21 Calcium 8.0 mg/dL (8.4-10.2) L 08/29/18 05:36 Phosphorus 2.90 mg/dL (2.5-4.5) 08/28/18 12:30 Magnesium 1.70 mg/dL (1.7-2.3) 08/28/18 12:30 Total Bilirubin 0.40 mg/dL (0.1-1.2) 08/28/18 12:30 Direct Bilirubin < 0.2 mg/dL (0-0.2) 08/28/18 12:30 Indirect Bilirubin 0.2 mg/dL 08/28/18 12:30 AST 72 units/L (5-40) H 08/28/18 12:30 ALT 52 units/L (7-56) 08/28/18 12:30 Alkaline Phosphatase 59 units/L (35-129) 08/28/18 12:30 Total Creatine Kinase 339 units/L (30-135) H 08/21/18 10:20 CK-MB (CK-2) 28.4 ng/mL (0.0-4.0) H 08/21/18 10:20 CK-MB (CK-2) Rel Index 8.3 (0-4) H 08/21/18 10:20 Troponin T 0.052 ng/mL (0.00-0.029) H 08/21/18 10:20 Total Protein 5.3 g/dL (6.3-8.2) L 08/28/18 12:30 Albumin 3.4 g/dL (3.9-5) L 08/28/18 12:30 Albumin/Globulin Ratio 1.8 % 08/28/18 12:30 Triglycerides 71 mg/dL (2-149) 08/20/18 21:53 Cholesterol 173 mg/dL (50-199) 08/20/18 21:53 LDL Cholesterol Direct 115 mg/dL (50-130) 08/20/18 21:53 HDL Cholesterol 60 mg/dL (40-59) H 08/20/18 21:53 Cholesterol/HDL Ratio 2.88 % 08/20/18 21:53 Lipase 27 units/L (13-60) 08/20/18 21:53 TSH 1.120 mlU/mL (0.270-4.200) 08/23/18 06:00 Free T4 1.14 ng/dL (0.76-1.46) 08/23/18 06:00 Total Cortisol 69.1 mcg/dL () 08/25/18 05:50 Urine Color Yellow (Yellow) 08/20/18 19:43 Urine Turbidity Clear (Clear) 08/20/18 19:43 Urine pH 6.0 (5.0-7.0) 08/20/18 19:43 Ur Specific Kelly 1.018 (1.003-1.030) 08/20/18 19:43 Urine Protein 100 mg/dl mg/dL (Negative) 08/20/18 19:43 Urine Glucose (UA) Neg mg/dL (Negative) 08/20/18 19:43 Urine Ketones Neg mg/dL (Negative) 08/20/18 19:43 Urine Blood Neg (Negative) 08/20/18 19:43 Urine Nitrite Neg (Negative) 08/20/18 19:43 Urine Bilirubin Neg (Negative) 08/20/18 19:43 Urine Urobilinogen < 2.0 mg/dL (<2.0) 08/20/18 19:43 Ur Leukocyte Esterase Neg (Negative) 08/20/18 19:43 Urine WBC (Auto) 1.0 /HPF (0.0-6.0) 08/20/18 19:43 Urine RBC (Auto) 7.0 /HPF (0.0-6.0) 08/20/18 19:43 U Epithel Cells (Auto) < 1.0 /HPF (0-13.0) 08/20/18 19:43 Hyaline Casts 1 /LPF 08/20/18 19:43 Urine Mucus Few /HPF 08/20/18 19:43 Urine Osmolality 466 Mosm/kg 08/22/18 18:10 Urine Creatinine 19.4 mg/dL (0.1-20.0) 08/27/18 15:29 Urine Sodium 13 mmol/L 08/22/18 18:10 Urine Chloride 36.9 mmolL (110-250) L 08/22/18 18:10 Urine Total Protein 23 mg/dL (5-11.8) H 08/27/18 15:29 Active Medications - Current Medications Current Medications: Generic Name Dose Route Start Last Admin Trade Name Freq PRN Reason Stop Dose Admin Acetaminophen 650 mg 08/21/18 04:26 08/26/18 23:35 Tylenol PO 650 mg Q4H PRN Administration Pain MILD(1-3)/Fever >100.5/CASTRO Albuterol/Ipratropium 1 ampul 08/28/18 08:00 08/29/18 07:26 Duoneb *Not For Prn Use* IH Not Given TIDRT [facility] Arformoterol Tartrate 15 mcg 08/23/18 20:00 08/29/18 07:26 Brovana Nebu IH Not Given Q12HRT [facility] Atorvastatin Calcium 20 mg 08/23/18 22:00 08/28/18 20:59 Lipitor PO 20 mg QHS HARINI Administration Benzocaine/Menthol 1 each 08/22/18 12:23 Cepacol X Strength MM Q2HR PRN Sore Throat Budesonide 0.5 mg 08/23/18 20:00 08/29/18 07:26 Pulmicort IH Not Given Q12HRT [facility] Cyclobenzaprine HCl 5 mg 08/21/18 17:53 08/24/18 03:08 Flexeril PO 5 mg Q8H PRN Administration Muscle Spasm Enoxaparin Sodium 40 mg 08/24/18 12:00 08/29/18 10:38 Lovenox SUB-Q 40 mg QDAY HARINI Administration Fludrocortisone Acetate 0.1 mg 08/29/18 10:00 08/29/18 10:40 Florinef PO 0.1 mg 3XW HARINI Administration Furosemide 40 mg 08/29/18 18:00 Lasix PO 0600,1800 HARINI Glycerin 1 supp 08/25/18 10:26 Glycerin Adult 2 Gm MD QDAY PRN Constipation Hydralazine HCl 5 mg 08/21/18 04:32 Apresoline IV Q6H PRN Hypertension Hydroxychloroquine Sulfate 200 mg 08/21/18 13:00 08/29/18 10:37 Plaquenil PO 200 mg QDAY HARINI Administration Lidocaine HCl 15 ml 08/28/18 14:00 08/29/18 11:09 Magic Mouthwash PO 15 ml TID HARINI Administration Magnesium Hydroxide 30 ml 08/25/18 01:08 08/25/18 01:27 Milk Of Magnesia PO 30 ml Q8H PRN Administration Constipation Nifedipine 30 mg 08/22/18 19:00 08/28/18 21:00 Procardia Xl PO 30 mg Q24H HARINI Administration Nitroglycerin 0.4 mg 08/24/18 06:00 08/29/18 06:08 Nitro Dur TD 0.4 mg QDAY@0600 HARINI Administration Ondansetron HCl 4 mg 08/21/18 04:26 08/23/18 23:59 Zofran IV 4 mg Q4H PRN Administration Nausea And Vomiting Pantoprazole Sodium 40 mg 08/22/18 13:37 08/29/18 10:39 Protonix PO 40 mg QDAY HARINI Administration Phenol 1 spray 08/22/18 12:23 08/28/18 21:08 Chloraseptic MM 1 spray PRN PRN Administration Sore Throat Polyethylene Glycol 17 gm 08/25/18 11:00 08/29/18 10:40 Miralax 3350 PO 17 gm QDAY HARINI Administration Senna/Docusate Sodium 2 tab 08/25/18 10:25 Senokot S PO Q12H PRN Laxative Effect Sodium Chloride 10 ml 08/21/18 10:00 08/29/18 10:41 Sodium Chloride Flush Syringe 10 Ml IV 10 ml BID HARINI Administration Sodium Chloride 10 ml 08/21/18 04:26 08/28/18 16:46 Sodium Chloride Flush Syringe 10 Ml IV 10 ml PRN PRN Administration LINE FLUSH Trazodone HCl 100 mg 08/22/18 19:00 08/28/18 20:59 Desyrel PO 100 mg Q24H HARINI Administration Zolpidem Tartrate 5 mg 08/27/18 11:06 Ambien PO QHS PRN Sleep Nutrition/Malnutrition Assess - Dietary Evaluation Nutrition/Malnutrition Findings: Nutrition Notes Start: 08/23/18 14:01 Freq: Status: Active Protocol: Document 08/25/18 15:49 RD (Rec: 08/25/18 16:24 RD [email or web address]) Co-Sign 08/25/18 15:49 RM Nutrition Notes Initial or Follow up Reassessment Other Pertinent Diagnosis hyponatremia, lupus, depression, anxiety Current Diet CARDIAC Labs/Tests Reviewed Pertinent Medications Lasix Height 5 ft 2 in Weight 58.06 kg [place] Body Weight (kg) 50.00 BMI 23.3 Subjective/Other Information Pt has difficulty speaking. Pt daughter able to give information. Reports pt ate all of breakfast today, and ate half of a sandwich last night. Daughter unsure whether pt drinking Ensure. Reports pt is very picky about what food she will eat. Pt is having trouble with constipation. Percent of energy/protein needs met: 83%/ 72% Burn Absent Trauma Absent #1 Nutrition Diagnosis Inadequate oral intake As Evidenced by Signs and Symptoms Pt meeting 83% of calorie needs and 72% of protein needs Diagnosis Progress(for reassessment Improved documentation) Is patient on ventilator? No Is Patient Ambulatory and/or Out of Bed Yes REE-([facility]-ambulatory/OOB) [ 1266.005 NUTR.[id number]] Calculation Used for Recommendations [facility] Additional Notes Protein needs: (1-1.2g/kg/day) 58-70g/day Fluid needs: 1mL/kcal Nutrition Intervention Change Diet Order: Continue cardiac Add Supplement/Snack (indicate name/kcal Ensure Enlive BID /protein ) Provides kCal: 700 Provides Protein (gm) 40 Goal #1 Meet at least 75% of nutrient needs via PO and ONS intakes Anticipated Discharge Needs: Cardiac diet Follow-Up By: 08/30/18 Additional Comments f/u: PO and ONS intakes
[2018-08-29] MEDS: CORDARONE PO SCH ×2 (14:39→21:49)
[2018-08-29] MEDS: LOPRESSOR PO SCH ×2 (14:39→18:41)
[2018-08-29] MEDS: PROCARDIA XL PO SCH (18:43)
[2018-08-29] MEDS: LASIX PO SCH (18:43)
[2018-08-29] MEDS: DESYREL PO SCH (18:55)
[2018-08-30] MEDS: PULMICORT IH SCH ×3 (07:30→20:28)
[2018-08-30] MEDS: BROVANA NEBU IH SCH ×3 (07:30→20:28)
[2018-08-30] MEDS: DUONEB *Not for PRN Use IH SCH ×4 (07:30→20:28)
[2018-08-30] MEDS: LASIX PO SCH ×2 (08:36→20:05)
[2018-08-30] MEDS: NITRO DUR TD SCH (08:37)
[2018-08-30 08:47] LABS: BUN/Creatinine Ratio 33; Blood Urea Nitrogen 26 mg/dL (7-17); Calcium 8.2 mg/dL (8.4-10.2); Hemolysis Index 1
--- NOTE | 2018-08-30 09:13 | Progress Note ---
Assessment and Plan Assessment and plan: 87-year-old woman with a history of hypertension, lupus comes to the emergency room complaining of nausea vomiting, generalized weakness, dizziness. Symptoms started after her losartan was changed to lisinopril due to recall of losartan. she reports decreased oral intake Echocardiogram shows well-preserved left ventricular systolic function, mild to moderate concentric left ventricle hypertrophy, but dilated left and right atrium, moderate mitral regurgitation, moderate to severe tricuspid regurgitation and severe pulmonary hypertension. 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 vinay mascorro, order to dc mascorro was placed DVT prophylaxis; lovenox Cont PT, daughter would like subacute rehab History Interval history: Review of systems Constitutional: No fevers, co gen weakness CVS: No chest pain, no orthopnea, c/o pedal edema, and sob GI: No abdominal pain, no diarrhea, no constipation; no vomiting Respiratory: sob is improved Hospitalist Physical - Physical exam Narrative exam: General.: Appears well, no distress, nontoxic HEENT: Moist mucous membranes, extraocular muscles intact, no lymphadenopathy Neck: supple Cardiac: S1-S2 heard Lungs: decreased air entry, rales in bases Abdomen: soft , nontender, nondistended, bowel sounds positive Extremities: 2 plus bipedal edema Skin: no rash or lesions Neurologic: no gross focal deficits Psych: calm, and cooperative - Constitutional Vitals: Temp Pulse Resp BP Pulse Ox 98.0 F 54 L 18 118/83 97 08/30/18 07:52 08/30/18 07:59 08/30/18 07:59 08/30/18 07:52 08/30/18 08:00 General appearance: Present: no acute distress Results - Labs CBC & Chem 7: 08/28/18 12:30 08/31/18 04:41 Labs: Laboratory Last Values WBC 10.9 K/mm3 (4.5-11.0) 08/28/18 12:30 RBC 4.66 M/mm3 (3.65-5.03) 08/28/18 12:30 Hgb 12.5 gm/dl (10.1-14.3) 08/28/18 12:30 Hct 38.5 % (30.3-42.9) 08/28/18 12:30 MCV 83 fl (79-97) 08/28/18 12:30 MCH 27 pg (28-32) L 08/28/18 12:30 MCHC 33 % (30-34) 08/28/18 12:30 RDW 15.8 % (13.2-15.2) H 08/28/18 12:30 Plt Count 278 K/mm3 (140-440) 08/28/18 12:30 Lymph % (Auto) 7.7 % (13.4-35.0) L 08/28/18 12:30 [place] % (Auto) 10.4 % (0.0-7.3) H 08/28/18 12:30 Eos % (Auto) 1.1 % (0.0-4.3) 08/28/18 12:30 Baso % (Auto) 0.2 % (0.0-1.8) 08/28/18 12:30 Lymph # 0.8 K/mm3 (1.2-5.4) L 08/28/18 12:30 [place] # 1.1 K/mm3 (0.0-0.8) H 08/28/18 12:30 Eos # 0.1 K/mm3 (0.0-0.4) 08/28/18 12:30 Baso # 0.0 K/mm3 (0.0-0.1) 08/28/18 12:30 Add Manual Diff Complete 08/24/18 04:16 Total Counted 100 08/24/18 04:16 Seg Neutrophils % 80.6 % (40.0-70.0) H 08/28/18 12:30 Seg Neuts % (Manual) 97.0 % (40.0-70.0) H 08/24/18 04:16 Band Neutrophils % 0 % 08/24/18 04:16 Lymphocytes % (Manual) 1.0 % (13.4-35.0) L 08/24/18 04:16 Reactive Lymphs % (Man) 0 % 08/24/18 04:16 Monocytes % (Manual) 2.0 % (0.0-7.3) 08/24/18 04:16 Eosinophils % (Manual) 0 % (0.0-4.3) 08/24/18 04:16 Basophils % (Manual) 0 % (0.0-1.8) 08/24/18 04:16 Metamyelocytes % 0 % 08/24/18 04:16 Myelocytes % 0 % 08/24/18 04:16 Promyelocytes % 0 % 08/24/18 04:16 Blast Cells % 0 % 08/24/18 04:16 Nucleated RBC % Not Reportable 08/24/18 04:16 Seg Neutrophils # 8.8 K/mm3 (1.8-7.7) H 08/28/18 12:30 Seg Neutrophils # Man 6.5 K/mm3 (1.8-7.7) 08/24/18 04:16 Band Neutrophils # 0.0 K/mm3 08/24/18 04:16 Lymphocytes # (Manual) 0.1 K/mm3 (1.2-5.4) L 08/24/18 04:16 Abs React Lymphs (Man) 0.0 K/mm3 08/24/18 04:16 Monocytes # (Manual) 0.1 K/mm3 (0.0-0.8) 08/24/18 04:16 Eosinophils # (Manual) 0.0 K/mm3 (0.0-0.4) 08/24/18 04:16 Basophils # (Manual) 0.0 K/mm3 (0.0-0.1) 08/24/18 04:16 Metamyelocytes # 0.0 K/mm3 08/24/18 04:16 Myelocytes # 0.0 K/mm3 08/24/18 04:16 Promyelocytes # 0.0 K/mm3 08/24/18 04:16 Blast Cells # 0.0 K/mm3 08/24/18 04:16 WBC Morphology Not Reportable 08/24/18 04:16 Hypersegmented Neuts Not Reportable 08/24/18 04:16 Hyposegmented Neuts Not Reportable 08/24/18 04:16 Hypogranular Neuts Not Reportable 08/24/18 04:16 Smudge Cells Not Reportable 08/24/18 04:16 Toxic Granulation Not Reportable 08/24/18 04:16 Toxic Vacuolation Not Reportable 08/24/18 04:16 Dohle Bodies Not Reportable 08/24/18 04:16 Pelger-Huet Anomaly Not Reportable 08/24/18 04:16 Kaden Rods Not Reportable 08/24/18 04:16 Platelet Estimate Consistent w auto 08/24/18 04:16 Clumped Platelets Not Reportable 08/24/18 04:16 Plt Clumps, EDTA Not Reportable 08/24/18 04:16 Large Platelets Not Reportable 08/24/18 04:16 Giant Platelets Not Reportable 08/24/18 04:16 Platelet Satelliting Not Reportable 08/24/18 04:16 Plt Morphology Comment Not Reportable 08/24/18 04:16 RBC Morphology Not Reportable 08/24/18 04:16 Dimorphic RBCs Not Reportable 08/24/18 04:16 Polychromasia Not Reportable 08/24/18 04:16 Hypochromasia Not Reportable 08/24/18 04:16 Poikilocytosis Not Reportable 08/24/18 04:16 Anisocytosis Not Reportable 08/24/18 04:16 Microcytosis Not Reportable 08/24/18 04:16 Macrocytosis Not Reportable 08/24/18 04:16 Spherocytes Not Reportable 08/24/18 04:16 Pappenheimer Bodies Not Reportable 08/24/18 04:16 Sickle Cells Not Reportable 08/24/18 04:16 Target Cells Not Reportable 08/24/18 04:16 Tear Drop Cells Not Reportable 08/24/18 04:16 Ovalocytes Not Reportable 08/24/18 04:16 Helmet Cells Not Reportable 08/24/18 04:16 [place] Bodies Not Reportable 08/24/18 04:16 [place] Rings Not Reportable 08/24/18 04:16 [place] Cells Not Reportable 08/24/18 04:16 Bite Cells Not Reportable 08/24/18 04:16 Crenated Cell Not Reportable 08/24/18 04:16 Elliptocytes Not Reportable 08/24/18 04:16 Acanthocytes (Spur) Not Reportable 08/24/18 04:16 Rouleaux Not Reportable 08/24/18 04:16 Hemoglobin C Crystals Not Reportable 08/24/18 04:16 Schistocytes Not Reportable 08/24/18 04:16 Malaria parasites Not Reportable 08/24/18 04:16 Sky Bodies Not Reportable 08/24/18 04:16 Hem Pathologist Commnt No 08/24/18 04:16 PT 13.8 Sec. (12.2-14.9) 08/24/18 04:16 INR 1.00 (0.87-1.13) 08/24/18 04:16 APTT 24.3 Sec. (24.2-36.6) 08/24/18 04:16 POC ABG pH 7.193 (7.35-7.45) L 08/23/18 18:22 POC ABG pCO2 54.9 (35-45) H 08/23/18 18:22 POC ABG pO2 102 (80-105) 08/23/18 18:22 POC ABG HCO3 21.1 (22-26 mml/L) 08/23/18 18:22 POC ABG Total CO2 23 (23-27mmol/L) 08/23/18 18:22 POC ABG O2 Sat 96 08/23/18 18:22 POC ABG Base Excess -7 ((-2) - (+3)mmol/L) 08/23/18 18:22 FiO2 40 % 08/23/18 18:22 Sodium 138 mmol/L (137-145) 08/30/18 08:08 Potassium 4.2 mmol/L (3.6-5.0) 08/30/18 08:08 Chloride 88.9 mmol/L (98-107) L 08/30/18 08:08 Carbon Dioxide 40 mmol/L (22-30) H 08/30/18 08:08 Anion Gap 13 mmol/L 08/30/18 08:08 BUN 26 mg/dL (7-17) H 08/30/18 08:08 Creatinine 0.8 mg/dL (0.7-1.2) 08/30/18 08:08 Estimated GFR > 60 ml/min 08/30/18 08:08 BUN/Creatinine Ratio 33 % 08/30/18 08:08 Glucose 83 mg/dL (65-100) 08/30/18 08:08 POC Glucose 94 (70-105) 08/27/18 17:21 Calcium 8.2 mg/dL (8.4-10.2) L 08/30/18 08:08 Phosphorus 2.90 mg/dL (2.5-4.5) 08/28/18 12:30 Magnesium 1.70 mg/dL (1.7-2.3) 08/28/18 12:30 Total Bilirubin 0.40 mg/dL (0.1-1.2) 08/28/18 12:30 Direct Bilirubin < 0.2 mg/dL (0-0.2) 08/28/18 12:30 Indirect Bilirubin 0.2 mg/dL 08/28/18 12:30 AST 72 units/L (5-40) H 08/28/18 12:30 ALT 52 units/L (7-56) 08/28/18 12:30 Alkaline Phosphatase 59 units/L (35-129) 08/28/18 12:30 Total Creatine Kinase 339 units/L (30-135) H 08/21/18 10:20 CK-MB (CK-2) 28.4 ng/mL (0.0-4.0) H 08/21/18 10:20 CK-MB (CK-2) Rel Index 8.3 (0-4) H 08/21/18 10:20 Troponin T 0.052 ng/mL (0.00-0.029) H 08/21/18 10:20 Total Protein 5.3 g/dL (6.3-8.2) L 08/28/18 12:30 Albumin 3.4 g/dL (3.9-5) L 08/28/18 12:30 Albumin/Globulin Ratio 1.8 % 08/28/18 12:30 Triglycerides 71 mg/dL (2-149) 08/20/18 21:53 Cholesterol 173 mg/dL (50-199) 08/20/18 21:53 LDL Cholesterol Direct 115 mg/dL (50-130) 08/20/18 21:53 HDL Cholesterol 60 mg/dL (40-59) H 08/20/18 21:53 Cholesterol/HDL Ratio 2.88 % 08/20/18 21:53 Lipase 27 units/L (13-60) 08/20/18 21:53 TSH 1.120 mlU/mL (0.270-4.200) 08/23/18 06:00 Free T4 1.14 ng/dL (0.76-1.46) 08/23/18 06:00 Total Cortisol 69.1 mcg/dL () 08/25/18 05:50 Urine Color Yellow (Yellow) 08/20/18 19:43 Urine Turbidity Clear (Clear) 08/20/18 19:43 Urine pH 6.0 (5.0-7.0) 08/20/18 19:43 Ur Specific [place] 1.018 (1.003-1.030) 08/20/18 19:43 Urine Protein 100 mg/dl mg/dL (Negative) 08/20/18 19:43 Urine Glucose (UA) Neg mg/dL (Negative) 08/20/18 19:43 Urine Ketones Neg mg/dL (Negative) 08/20/18 19:43 Urine Blood Neg (Negative) 08/20/18 19:43 Urine Nitrite Neg (Negative) 08/20/18 19:43 Urine Bilirubin Neg (Negative) 08/20/18 19:43 Urine Urobilinogen < 2.0 mg/dL (<2.0) 08/20/18 19:43 Ur Leukocyte Esterase Neg (Negative) 08/20/18 19:43 Urine WBC (Auto) 1.0 /HPF (0.0-6.0) 08/20/18 19:43 Urine RBC (Auto) 7.0 /HPF (0.0-6.0) 08/20/18 19:43 U Epithel Cells (Auto) < 1.0 /HPF (0-13.0) 08/20/18 19:43 Hyaline Casts 1 /LPF 08/20/18 19:43 Urine Mucus Few /HPF 08/20/18 19:43 Urine Osmolality 466 Mosm/kg 08/22/18 18:10 Urine Creatinine 19.4 mg/dL (0.1-20.0) 08/27/18 15:29 Urine Sodium 13 mmol/L 08/22/18 18:10 Urine Chloride 36.9 mmolL (110-250) L 08/22/18 18:10 Urine Total Protein 23 mg/dL (5-11.8) H 08/27/18 15:29 Active Medications - Current Medications Current Medications: Generic Name Dose Route Start Last Admin Trade Name Freq PRN Reason Stop Dose Admin Acetaminophen 650 mg 08/21/18 04:26 08/26/18 23:35 Tylenol PO 650 mg Q4H PRN Administration Pain MILD(1-3)/Fever >100.5/CASTRO Albuterol/Ipratropium 1 ampul 08/28/18 08:00 08/30/18 07:30 Duoneb *Not For Prn Use* IH 1 ampul TIDRT HARINI Administration Amiodarone HCl 400 mg 08/29/18 13:00 08/29/18 21:49 Cordarone PO 08/30/18 22:01 400 mg BID HARINI Administration Amiodarone HCl 200 mg 08/31/18 10:00 Cordarone PO QDAY HARINI Arformoterol Tartrate 15 mcg 08/23/18 20:00 08/30/18 07:30 Brovana Nebu IH 15 mcg Q12HRT HARINI Administration Atorvastatin Calcium 20 mg 08/23/18 22:00 08/29/18 21:50 Lipitor PO 20 mg QHS HARINI Administration Benzocaine/Menthol 1 each 08/22/18 12:23 Cepacol X Strength MM Q2HR PRN Sore Throat Budesonide 0.5 mg 08/23/18 20:00 08/30/18 07:30 Pulmicort IH 0.5 mg Q12HRT HARINI Administration Cyclobenzaprine HCl 5 mg 08/21/18 17:53 08/24/18 03:08 Flexeril PO 5 mg Q8H PRN Administration Muscle Spasm Enoxaparin Sodium 60 mg 08/29/18 22:00 08/29/18 21:51 Lovenox SUB-Q 60 mg BID HARINI Administration Fludrocortisone Acetate 0.1 mg 08/29/18 10:00 08/29/18 10:40 Florinef PO 0.1 mg 3XW HARINI Administration Furosemide 40 mg 08/29/18 18:00 08/30/18 08:36 Lasix PO 40 mg 0600,1800 HARINI Administration Glycerin 1 supp 08/25/18 10:26 Glycerin Adult 2 Gm ID QDAY PRN Constipation Hydralazine HCl 5 mg 08/21/18 04:32 Apresoline IV Q6H PRN Hypertension Hydroxychloroquine Sulfate 200 mg 08/21/18 13:00 08/29/18 10:37 Plaquenil PO 200 mg QDAY HARINI Administration Lidocaine HCl 15 ml 08/28/18 14:00 08/29/18 14:42 Magic Mouthwash PO 15 ml TID [facility] Administration Magnesium Hydroxide 30 ml 08/25/18 01:08 08/25/18 01:27 Milk Of Magnesia PO 30 ml Q8H PRN Administration Constipation Metoprolol Tartrate 25 mg 08/29/18 13:00 08/29/18 18:41 Lopressor PO 25 mg Q6H [facility] Administration Nifedipine 30 mg 08/22/18 19:00 08/29/18 18:43 Procardia Xl PO Not Given Q24H [facility] Nitroglycerin 0.4 mg 08/24/18 06:00 08/30/18 08:37 Nitro Dur TD 0.4 mg QDAY@0600 [facility] Administration Ondansetron HCl 4 mg 08/21/18 04:26 08/23/18 23:59 Zofran IV 4 mg Q4H PRN Administration Nausea And Vomiting Pantoprazole Sodium 40 mg 08/22/18 13:37 08/29/18 10:39 Protonix PO 40 mg QDAY [facility] Administration Phenol 1 spray 08/22/18 12:23 08/28/18 21:08 Chloraseptic MM 1 spray PRN PRN Administration Sore Throat Polyethylene Glycol 17 gm 08/25/18 11:00 08/29/18 10:40 Miralax 3350 PO 17 gm QDAY [facility] Administration Senna/Docusate Sodium 2 tab 08/25/18 10:25 Senokot S PO Q12H PRN Laxative Effect Sodium Chloride 10 ml 08/21/18 10:00 08/29/18 10:41 Sodium Chloride Flush Syringe 10 Ml IV 10 ml BID HARINI Administration Sodium Chloride 10 ml 08/21/18 04:26 08/28/18 16:46 Sodium Chloride Flush Syringe 10 Ml IV 10 ml PRN PRN Administration LINE FLUSH Trazodone HCl 100 mg 08/22/18 19:00 08/29/18 18:55 Desyrel PO 100 mg Q24H HARINI Administration Zolpidem Tartrate 5 mg 08/27/18 11:06 Ambien PO QHS PRN Sleep Nutrition/Malnutrition Assess - Dietary Evaluation Nutrition/Malnutrition Findings: Nutrition Notes Start: 08/23/18 14:01 Freq: Status: Active Protocol: Document 08/25/18 15:49 RD (Rec: 08/25/18 16:24 RD [email or web address]) Co-Sign 08/25/18 15:49 RM Nutrition Notes Initial or Follow up Reassessment Other Pertinent Diagnosis hyponatremia, lupus, depression, anxiety Current Diet CARDIAC Labs/Tests Reviewed Pertinent Medications Lasix Height 5 ft 2 in Weight 58.06 kg [place] Body Weight (kg) 50.00 BMI 23.3 Subjective/Other Information Pt has difficulty speaking. Pt daughter able to give information. Reports pt ate all of breakfast today, and ate half of a sandwich last night. Daughter unsure whether pt drinking Ensure. Reports pt is very picky about what food she will eat. Pt is having trouble with constipation. Percent of energy/protein needs met: 83%/ 72% Burn Absent Trauma Absent #1 Nutrition Diagnosis Inadequate oral intake As Evidenced by Signs and Symptoms Pt meeting 83% of calorie needs and 72% of protein needs Diagnosis Progress(for reassessment Improved documentation) Is patient on ventilator? No Is Patient Ambulatory and/or Out of Bed Yes REE-([facility]-ambulatory/OOB) [ 1266.005 [id number]] Calculation Used for Recommendations [facility] Additional Notes Protein needs: (1-1.2g/kg/day) 58-70g/day Fluid needs: 1mL/kcal Nutrition Intervention Change Diet Order: Continue cardiac Add Supplement/Snack (indicate name/kcal Ensure Enlive BID /protein ) Provides kCal: 700 Provides Protein (gm) 40 Goal #1 Meet at least 75% of nutrient needs via PO and ONS intakes Anticipated Discharge Needs: Cardiac diet Follow-Up By: 08/30/18 Additional Comments f/u: PO and ONS intakes
--- NOTE | 2018-08-30 09:22 | XRay Report ---
AP CHEST: HISTORY: Hypoxemia Compared to 08/25/18. Mild cardiomegaly is stable. Normal pulmonary vessels. Small bilateral pleural effusions are identified although they have decreased significantly since 08/25/18. Partial atelectasis of the right lower lobe and middle lobe are suspected. No obvious infiltrate or pneumothorax. The bony structures are grossly intact. IMPRESSION: Slight improvement in CHF since 08/25/18.
[2018-08-30] MEDS: CORDARONE PO SCH ×2 (09:59→21:51)
[2018-08-30] MEDS: FLORINEF PO SCH (10:00)
[2018-08-30] MEDS: LOVENOX SUB-Q SCH (10:02)
[2018-08-30] MEDS: PLAQUENIL PO SCH (10:03)
--- NOTE | 2018-08-30 10:03 | Progress Note ---
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 Na improved s/p tolvaptan and on IV diuretic therapy, now normalized. Being worked up for adrenal insufficiency. cont lasix 40mg bid. (2) Elevated troponin Current Visit: Yes Status: Acute Plan to address problem: Workup noted per cardiology. Echocardiogram is been reviewed. CTA noted without any acute abnormalities. Family and patient does not want to go through with cardiac cath at this time and are opting for more medical/conservative management. (3) Nausea & vomiting Current Visit: Yes Status: Acute Plan to address problem: improved (4) Weakness Current Visit: Yes Status: Acute Plan to address problem: Management per primary team. Recommend physical therapy evaluation. (5) HTN (hypertension) Current Visit: No Status: Chronic Plan to address problem: We will monitor on her current regimen. Subjective Date of service: 08/30/18 Principal diagnosis: SOB Interval history: Pt with improved respiratory status, denies CP, palpitations, fever, chills, n/v/d Objective - Vital Signs Vital signs: Vital Signs - 12hr 08/30/18 08/30/18 08/30/18 02:43 07:50 07:52 Temperature 97.6 F 98.0 F Pulse Rate 53 L 120 H Pulse Rate [ 53 L Bilateral Throughout] Respiratory 18 20 Rate Respiratory 18 Rate [Bilateral Throughout] Blood Pressure 110/56 118/83 O2 Sat by Pulse 97 97 Oximetry 08/30/18 08/30/18 07:59 08:00 Temperature Pulse Rate Pulse Rate [ 54 L Bilateral Throughout] Respiratory Rate Respiratory 18 Rate [Bilateral Throughout] Blood Pressure O2 Sat by Pulse 97 Oximetry - General Appearance General appearance: well-developed, appears stated age, chronically ill EENT: ATNC, PERRL, mucous membranes moist Neck: no JVD Respiratory: Present: Clear to Ascultation Cardiology: regular, S1S2 Gastrointestinal: normoactive bowel sounds Integumentary: no rash, other (++ edema b/l LE ) Neurologic: no focal deficit, alert and oriented x3, strength 5/5, CN 3-12 intact Psychiatric: mood/affect appropriate, cooperative - Lab 08/28/18 12:30 08/30/18 08:08 Most recent lab results Calcium 8.2 mg/dL (8.4-10.2) L 08/30/18 08:08 Phosphorus 2.90 mg/dL (2.5-4.5) 08/28/18 12:30 Magnesium 1.70 mg/dL (1.7-2.3) 08/28/18 12:30 Urine Creatinine 19.4 mg/dL (0.1-20.0) 08/27/18 15:29 Urine Sodium 13 mmol/L 08/22/18 18:10 Urine Total Protein 23 mg/dL (5-11.8) H 08/27/18 15:29 Medications & Allergies - Medications Allergies/Adverse Reactions: Allergies aspirin Allergy (Unknown, Verified 08/20/18 18:48) Unknown cephalexin monohydrate [From Keflex] Allergy (Unknown, Verified 08/20/18 18:48) Unknown diazepam [From Valium] Allergy (Unknown, Verified 08/20/18 18:48) Unknown doxycycline calcium [From Vibramycin] Allergy (Unknown, Verified 08/20/18 18:48) Unknown doxycycline hyclate [From Vibramycin] Allergy (Unknown, Verified 08/20/18 18:48) Unknown doxycycline monohydrate [From Vibramycin] Allergy (Unknown, Verified 08/20/18 18:48) Unknown lorazepam [From Ativan] Allergy (Unknown, Verified 08/20/18 18:48) Diarrhea meperidine HCl [From Demerol] Allergy (Unknown, Verified 08/20/18 18:48) Unknown ofloxacin [From Floxin] Allergy (Unknown, Verified 08/20/18 18:48) Unknown pentazocine lactate [From Talwin] Allergy (Unknown, Verified 08/20/18 18:48) Unknown ciprofloxacin Allergy (Verified 08/20/18 18:48) Unknown fexofenadine [From Nadine] Allergy (Verified 08/20/18 18:48) Unknown hydrocodone Allergy (Verified 08/20/18 18:48) Unknown morphine Allergy (Verified 08/20/18 18:48) Unknown Sulfa (Sulfonamide Antibiotics) Allergy (Verified 08/20/18 18:48) Unknown adhesive Adverse Reaction (Verified 08/20/18 18:48) Rash Home Medications: Home Medications Medication Instructions Recorded Confirmed Last Taken Type Hydroxychloroquine [Plaquenil] 200 mg PO QDAY 08/30/17 08/21/18 Unknown History Losartan [Cozaar] 50 mg PO QDAY 08/21/18 08/21/18 Unknown History NIFEdipine XL [Procardia Xl] 30 mg PO QHS 08/21/18 08/21/18 Unknown History traZODone [Desyrel] 100 mg PO QHS 08/21/18 08/21/18 Unknown History Active Medications: Generic Name Dose Route Start Last Admin Trade Name Freq PRN Reason Stop Dose Admin Acetaminophen 650 mg 08/21/18 04:26 08/26/18 23:35 Tylenol PO 650 mg Q4H PRN Administration Pain MILD(1-3)/Fever >100.5/CASTRO Albuterol/Ipratropium 1 ampul 08/28/18 08:00 08/30/18 07:30 Duoneb *Not For Prn Use* IH 1 ampul TIDRT HARINI Administration Amiodarone HCl 400 mg 08/29/18 13:00 08/29/18 21:49 Cordarone PO 08/30/18 22:01 400 mg BID HARINI Administration Amiodarone HCl 200 mg 08/31/18 10:00 Cordarone PO QDAY HARINI Arformoterol Tartrate 15 mcg 08/23/18 20:00 08/30/18 07:30 Brovana Nebu IH 15 mcg Q12HRT HARINI Administration Atorvastatin Calcium 20 mg 08/23/18 22:00 08/29/18 21:50 Lipitor PO 20 mg QHS HARINI Administration Benzocaine/Menthol 1 each 08/22/18 12:23 Cepacol X Strength MM Q2HR PRN Sore Throat Budesonide 0.5 mg 08/23/18 20:00 08/30/18 07:30 Pulmicort IH 0.5 mg Q12HRT HARINI Administration Cyclobenzaprine HCl 5 mg 08/21/18 17:53 08/24/18 03:08 Flexeril PO 5 mg Q8H PRN Administration Muscle Spasm Enoxaparin Sodium 60 mg 08/29/18 22:00 08/29/18 21:51 Lovenox SUB-Q 60 mg BID HARINI Administration Fludrocortisone Acetate 0.1 mg 08/29/18 10:00 08/29/18 10:40 Florinef PO 0.1 mg 3XW HARINI Administration Furosemide 40 mg 08/29/18 18:00 08/30/18 08:36 Lasix PO 40 mg 0600,1800 ON LICENSE OF [facility] Administration Glycerin 1 supp 08/25/18 10:26 Glycerin Adult 2 Gm LA QDAY PRN Constipation Hydralazine HCl 5 mg 08/21/18 04:32 Apresoline IV Q6H PRN Hypertension Hydroxychloroquine Sulfate 200 mg 08/21/18 13:00 08/29/18 10:37 Plaquenil PO 200 mg QDAY HARINI Administration Lidocaine HCl 15 ml 08/28/18 14:00 08/29/18 14:42 Magic Mouthwash PO 15 ml TID ON LICENSE OF [facility] Administration Magnesium Hydroxide 30 ml 08/25/18 01:08 08/25/18 01:27 Milk Of Magnesia PO 30 ml Q8H PRN Administration Constipation Metoprolol Tartrate 25 mg 08/29/18 13:00 08/29/18 18:41 Lopressor PO 25 mg Q6H ON LICENSE OF [facility] Administration Nifedipine 30 mg 08/22/18 19:00 08/29/18 18:43 Procardia Xl PO Not Given Q24H ON LICENSE OF [facility] Nitroglycerin 0.4 mg 08/24/18 06:00 08/30/18 08:37 Nitro Dur TD 0.4 mg QDAY@0600 ON LICENSE OF [facility] Administration Ondansetron HCl 4 mg 08/21/18 04:26 08/23/18 23:59 Zofran IV 4 mg Q4H PRN Administration Nausea And Vomiting Pantoprazole Sodium 40 mg 08/22/18 13:37 08/29/18 10:39 Protonix PO 40 mg QDAY ON LICENSE OF [facility] Administration Phenol 1 spray 08/22/18 12:23 08/28/18 21:08 Chloraseptic MM 1 spray PRN PRN Administration Sore Throat Polyethylene Glycol 17 gm 08/30/18 09:16 Miralax 3350 PO QDAY PRN Constipation Senna/Docusate Sodium 2 tab 08/25/18 10:25 Senokot S PO Q12H PRN Laxative Effect Sodium Chloride 10 ml 08/21/18 10:00 08/29/18 10:41 Sodium Chloride Flush Syringe 10 Ml IV 10 ml BID HARINI Administration Sodium Chloride 10 ml 08/21/18 04:26 08/28/18 16:46 Sodium Chloride Flush Syringe 10 Ml IV 10 ml PRN PRN Administration LINE FLUSH Trazodone HCl 100 mg 08/22/18 19:00 08/29/18 18:55 Desyrel PO 100 mg Q24H HARINI Administration Zolpidem Tartrate 5 mg 08/27/18 11:06 Ambien PO QHS PRN Sleep
[2018-08-30] MEDS: PROTONIX PO SCH (10:04)
[2018-08-30] MEDS: SODIUM CHLORIDE FLUSH SYRINGE 10 ML IV SCH ×3 (10:05→21:47)
[2018-08-30] MEDS: MAGIC MOUTHWASH PO SCH ×4 (10:37→21:49)
[2018-08-30] MEDS: LOPRESSOR PO SCH ×3 (10:38→20:06)
--- NOTE | 2018-08-30 12:10 | Progress Note ---
Assessment and Plan Shortness of breath chest CTA: no evidence of PE Dizziness no acute intracranial process by head CT. Hyponatremia Elevated transaminase Hyperkalemia NSTEMI -patient and family members declined further cardiac evaluation and prefers conservative cardiac management. Chronic RBBB Paroxysmal Atrial flutter on amiodarone and metoprolol for suppression. Echocardiogram reveals evidence of severe pulmonary hypertension, RVSP 70-75 mmHg. Normal left ventricular systolic function, ejection fraction 50-55%. Continue amiodarone and metoprolol for suppression of paroxysmal Aflutter. We will initiate long-term oral anticoagulation with low dose eliquis for CVA prophylaxis. Subjective Date of service: 08/30/18 Principal diagnosis: SOB Interval history: Patient has reverted to sinus rhythm. Objective Vital Signs Temp Pulse Pulse Resp Resp BP BP 08/30/18 10:38 118/83 08/30/18 08:00 08/30/18 07:59 54 L 18 08/30/18 07:52 98.0 F 120 H 20 118/83 08/30/18 07:50 53 L 18 08/30/18 02:43 97.6 F 53 L 18 110/56 08/29/18 21:50 121 H 18 08/29/18 21:29 08/29/18 21:28 110 H 16 08/29/18 20:01 98.6 F 82 18 110/66 08/29/18 18:45 52 L 08/29/18 18:41 110 H 110/65 08/29/18 18:15 58 L 110/65 08/29/18 13:48 98.0 F 146 H 20 110/68 Pulse Ox 08/30/18 10:38 08/30/18 08:00 97 08/30/18 07:59 08/30/18 07:52 97 08/30/18 07:50 08/30/18 02:43 97 08/29/18 21:50 08/29/18 21:29 97 08/29/18 21:28 08/29/18 20:01 96 08/29/18 18:45 92 08/29/18 18:41 08/29/18 18:15 86 08/29/18 13:48 96 - Physical Examination General: No Apparent Distress HEENT: Positive: PERRL Neck: Positive: trachea midline Cardiac: Positive: Irregularly Regular Lungs: Positive: Decreased Breath Sounds Neuro: Positive: Grossly Intact, Weakness Skin: Positive: Bruising Extremities: Present: +1 Edema - Labs and Meds Comprehensive Metabolic Panel 08/30/18 Range/Units 08:08 Sodium 138 (137-145) mmol/L Potassium 4.2 (3.6-5.0) mmol/L Chloride 88.9 L (98-107) mmol/L Carbon Dioxide 40 H (22-30) mmol/L BUN 26 H (7-17) mg/dL Creatinine 0.8 (0.7-1.2) mg/dL Glucose 83 (65-100) mg/dL Calcium 8.2 L (8.4-10.2) mg/dL - Allied health notes Allied health notes reviewed: nursing
--- NOTE | 2018-08-30 13:32 | Progress Note ---
Assessment and Plan Imp: 1. Hyponatremia 2. Hyperkalemia 3. Bilateral pleural effusions, ? CHF 4. NSTEMI 5. Pulm HTN, unclear etiology; could be due to L sided diastolic dysfunction 6. Acute respiratory failure, hypoxia 7. R/o Aspiration 8. SLE, doubt flare Rec: 1. Agree w/ Lasix IV and monitor sodium closely; no need for steroids pulm-franco 2. Wean off O2 to keep sats 88% or greater; daughter refused repeat ABG 3. ST eval. negative 4. Control BP 5. Family refused stress test and LHC 6. Consider outpatient PFTs re: pulm HTN; optimally would need RHC prior to considering pulmonary vasodilators 7. Try to mobilize 8. Improved pulm-franco today Subjective Date of service: 08/30/18 Principal diagnosis: SOB Interval history: No acute events. Repeat CXR is slightly improved on the left. Down to 2 liters NC Objective Vital Signs - 12hr 08/30/18 08/30/18 08/30/18 02:43 07:50 07:52 Temperature 97.6 F 98.0 F Pulse Rate 53 L 120 H Pulse Rate [ 53 L Bilateral Throughout] Respiratory 18 20 Rate Respiratory 18 Rate [Bilateral Throughout] Blood Pressure 110/56 118/83 O2 Sat by Pulse 97 97 Oximetry 08/30/18 08/30/18 08/30/18 07:59 08:00 10:38 Temperature Pulse Rate Pulse Rate [ 54 L Bilateral Throughout] Respiratory Rate Respiratory 18 Rate [Bilateral Throughout] Blood Pressure 118/83 O2 Sat by Pulse 97 Oximetry Constitutional: no acute distress, alert Eyes: non-icteric ENT: oropharynx moist Neck: supple Effort: normal Ascultation: Bilateral: diminished breath sounds (bases) Cardiovascular: other (ir/ir, no mrg) Gastrointestinal: normoactive bowel sounds, soft, non-tender, non-distended Integumentary: normal Extremities: no cyanosis, pink and warm, edema (2+ bilateral LE edema) Neurologic: normal mental status, non-focal exam, pupils equal and round, CN II- XII normal Psychiatric: mood appropriate, affect normal CBC and BMP: 08/28/18 12:30 08/30/18 08:08 ABG, PT/INR, D-dimer: ABG POC ABG pH 7.193 (7.35-7.45) L 08/23/18 18:22 POC ABG pCO2 54.9 (35-45) H 08/23/18 18:22 POC ABG pO2 102 (80-105) 08/23/18 18:22 POC ABG HCO3 21.1 (22-26 mml/L) 08/23/18 18:22 POC ABG Total CO2 23 (23-27mmol/L) 08/23/18 18:22 POC ABG O2 Sat 96 08/23/18 18:22 PT/INR, D-dimer PT 13.8 Sec. (12.2-14.9) 08/24/18 04:16 INR 1.00 (0.87-1.13) 08/24/18 04:16 Abnormal lab findings: Abnormal Labs 08/20/18 08/20/18 08/20/18 21:53 21:53 21:53 MCH RDW Lymph % (Auto) 12.4 L Ray % (Auto) 8.0 H Lymph # 0.9 L Ray # Seg Neutrophils % 79.1 H Seg Neuts % (Manual) Lymphocytes % (Manual) Seg Neutrophils # Lymphocytes # (Manual) APTT 23.1 L POC ABG pH POC ABG pCO2 POC ABG pO2 Sodium 123 L Potassium 5.5 H Chloride 86.9 L Carbon Dioxide BUN 18 H Creatinine Glucose 104 H POC Glucose Calcium AST 62 H ALT 82 H Total Creatine Kinase 257 H CK-MB (CK-2) 22.0 H CK-MB (CK-2) Rel Index 8.5 H Troponin T 0.062 H Total Protein Albumin HDL Cholesterol 60 H Urine Creatinine Urine Chloride Urine Total Protein 08/21/18 08/21/18 08/21/18 05:12 10:20 10:20 MCH 27 L RDW Lymph % (Auto) 9.6 L Ray % (Auto) 9.2 H Lymph # 0.5 L Ray # Seg Neutrophils % 80.8 H Seg Neuts % (Manual) Lymphocytes % (Manual) Seg Neutrophils # Lymphocytes # (Manual) APTT POC ABG pH POC ABG pCO2 POC ABG pO2 Sodium Potassium Chloride Carbon Dioxide BUN Creatinine Glucose POC Glucose Calcium AST ALT Total Creatine Kinase 272 H 339 H CK-MB (CK-2) 23.5 H 28.4 H CK-MB (CK-2) Rel Index 8.6 H 8.3 H Troponin T 0.065 H 0.052 H Total Protein Albumin HDL Cholesterol Urine Creatinine Urine Chloride Urine Total Protein 08/21/18 08/22/18 08/22/18 15:44 03:13 18:10 MCH RDW Lymph % (Auto) Ray % (Auto) Lymph # Ray # Seg Neutrophils % Seg Neuts % (Manual) Lymphocytes % (Manual) Seg Neutrophils # Lymphocytes # (Manual) APTT POC ABG pH POC ABG pCO2 POC ABG pO2 Sodium 125 L 124 L Potassium 5.6 H 5.3 H Chloride 90.7 L 93.1 L Carbon Dioxide 21 L BUN 20 H 21 H Creatinine Glucose 113 H 116 H POC Glucose Calcium 8.1 L 7.8 L AST ALT Total Creatine Kinase CK-MB (CK-2) CK-MB (CK-2) Rel Index Troponin T Total Protein Albumin HDL Cholesterol Urine Creatinine 89.3 H Urine Chloride 36.9 L Urine Total Protein 08/23/18 08/23/18 08/23/18 05:22 06:00 18:22 MCH RDW Lymph % (Auto) Ray % (Auto) Lymph # Ray # Seg Neutrophils % Seg Neuts % (Manual) Lymphocytes % (Manual) Seg Neutrophils # Lymphocytes # (Manual) APTT POC ABG pH 7.120 L 7.193 L POC ABG pCO2 63.6 H 54.9 H POC ABG pO2 107 H Sodium 123 L Potassium 5.7 H Chloride 92.0 L Carbon Dioxide BUN 24 H Creatinine Glucose 113 H POC Glucose Calcium 8.1 L AST ALT Total Creatine Kinase CK-MB (CK-2) CK-MB (CK-2) Rel Index Troponin T Total Protein Albumin HDL Cholesterol Urine Creatinine Urine Chloride Urine Total Protein 08/23/18 08/24/18 08/24/18 23:48 00:26 04:16 MCH RDW Lymph % (Auto) Ray % (Auto) Lymph # Ray # Seg Neutrophils % Seg Neuts % (Manual) Lymphocytes % (Manual) Seg Neutrophils # Lymphocytes # (Manual) APTT POC ABG pH POC ABG pCO2 POC ABG pO2 Sodium 125 L Potassium Chloride 93.1 L Carbon Dioxide 21 L BUN 19 H Creatinine 0.6 L Glucose 133 H 118 H POC Glucose < 40 L Calcium 8.0 L AST ALT Total Creatine Kinase CK-MB (CK-2) CK-MB (CK-2) Rel Index Troponin T Total Protein Albumin HDL Cholesterol Urine Creatinine Urine Chloride Urine Total Protein 08/24/18 08/24/18 08/24/18 04:16 06:12 11:49 MCH 27 L RDW Lymph % (Auto) Ray % (Auto) Lymph # Ray # Seg Neutrophils % Seg Neuts % (Manual) 97.0 H Lymphocytes % (Manual) 1.0 L Seg Neutrophils # Lymphocytes # (Manual) 0.1 L APTT POC ABG pH POC ABG pCO2 POC ABG pO2 Sodium Potassium Chloride Carbon Dioxide BUN Creatinine Glucose POC Glucose 114 H 186 H Calcium AST ALT Total Creatine Kinase CK-MB (CK-2) CK-MB (CK-2) Rel Index Troponin T Total Protein Albumin HDL Cholesterol Urine Creatinine Urine Chloride Urine Total Protein 08/24/18 08/25/18 08/25/18 22:28 05:50 07:36 MCH RDW Lymph % (Auto) Ray % (Auto) Lymph # Ray # Seg Neutrophils % Seg Neuts % (Manual) Lymphocytes % (Manual) Seg Neutrophils # Lymphocytes # (Manual) APTT POC ABG pH POC ABG pCO2 POC ABG pO2 Sodium 133 L D Potassium Chloride 96.4 L Carbon Dioxide BUN 20 H Creatinine Glucose 147 H POC Glucose 110 H 122 H Calcium 8.2 L AST ALT Total Creatine Kinase CK-MB (CK-2) CK-MB (CK-2) Rel Index Troponin T Total Protein Albumin HDL Cholesterol Urine Creatinine Urine Chloride Urine Total Protein 08/25/18 08/25/18 08/25/18 11:37 16:29 22:17 MCH RDW Lymph % (Auto) Ray % (Auto) Lymph # Ray # Seg Neutrophils % Seg Neuts % (Manual) Lymphocytes % (Manual) Seg Neutrophils # Lymphocytes # (Manual) APTT POC ABG pH POC ABG pCO2 POC ABG pO2 Sodium Potassium Chloride Carbon Dioxide BUN Creatinine Glucose POC Glucose 131 H 132 H 127 H Calcium AST ALT Total Creatine Kinase CK-MB (CK-2) CK-MB (CK-2) Rel Index Troponin T Total Protein Albumin HDL Cholesterol Urine Creatinine Urine Chloride Urine Total Protein 08/26/18 08/27/18 08/27/18 05:27 08:16 15:29 MCH RDW Lymph % (Auto) Ray % (Auto) Lymph # Ray # Seg Neutrophils % Seg Neuts % (Manual) Lymphocytes % (Manual) Seg Neutrophils # Lymphocytes # (Manual) APTT POC ABG pH POC ABG pCO2 POC ABG pO2 Sodium 135 L Potassium 5.1 H Chloride 92.9 L Carbon Dioxide 33 H D 33 H BUN 25 H 24 H Creatinine 0.6 L Glucose 114 H 117 H POC Glucose Calcium 8.1 L 8.3 L AST ALT Total Creatine Kinase CK-MB (CK-2) CK-MB (CK-2) Rel Index Troponin T Total Protein Albumin HDL Cholesterol Urine Creatinine Urine Chloride Urine Total Protein 23 H 08/28/18 08/28/18 08/29/18 12:30 12:30 05:36 MCH 27 L RDW 15.8 H Lymph % (Auto) 7.7 L Ray % (Auto) 10.4 H Lymph # 0.8 L Ray # 1.1 H Seg Neutrophils % 80.6 H Seg Neuts % (Manual) Lymphocytes % (Manual) Seg Neutrophils # 8.8 H Lymphocytes # (Manual) APTT POC ABG pH POC ABG pCO2 POC ABG pO2 Sodium Potassium 3.2 L D Chloride 90.1 L 90.1 L Carbon Dioxide 35 H 40 H BUN 25 H 25 H Creatinine Glucose 129 H POC Glucose Calcium 8.1 L 8.0 L AST 72 H ALT Total Creatine Kinase CK-MB (CK-2) CK-MB (CK-2) Rel Index Troponin T Total Protein 5.3 L Albumin 3.4 L HDL Cholesterol Urine Creatinine Urine Chloride Urine Total Protein 08/30/18 08:08 MCH RDW Lymph % (Auto) Ray % (Auto) Lymph # Ray # Seg Neutrophils % Seg Neuts % (Manual) Lymphocytes % (Manual) Seg Neutrophils # Lymphocytes # (Manual) APTT POC ABG pH POC ABG pCO2 POC ABG pO2 Sodium Potassium Chloride 88.9 L Carbon Dioxide 40 H BUN 26 H Creatinine Glucose POC Glucose Calcium 8.2 L AST ALT Total Creatine Kinase CK-MB (CK-2) CK-MB (CK-2) Rel Index Troponin T Total Protein Albumin HDL Cholesterol Urine Creatinine Urine Chloride Urine Total Protein Allied health notes reviewed: nursing
[2018-08-30] MEDS: PROCARDIA XL PO SCH (20:00)
[2018-08-30] MEDS: DESYREL PO SCH (21:47)
[2018-08-30] MEDS: ELIQUIS PO SCH (21:47)
[2018-08-31] MEDS: LOPRESSOR PO SCH ×2 (02:12→21:51)
[2018-08-31] MEDS: NITRO DUR TD SCH (05:07)
[2018-08-31] MEDS: ZOFRAN IV PRN (05:07)
[2018-08-31] MEDS: LASIX PO SCH (05:07)
[2018-08-31 06:20] LABS: BUN/Creatinine Ratio 41; Blood Urea Nitrogen 33 mg/dL (7-17); Calcium 7.9 mg/dL (8.4-10.2); Hemolysis Index 4
[2018-08-31] MEDS: PULMICORT IH SCH ×2 (08:48→21:38)
[2018-08-31] MEDS: BROVANA NEBU IH SCH ×2 (08:48→21:38)
[2018-08-31] MEDS: DUONEB *Not for PRN Use IH SCH ×3 (09:30→21:38)
[2018-08-31] MEDS: CORDARONE PO SCH (10:08)
[2018-08-31] MEDS: MAGIC MOUTHWASH PO SCH ×3 (10:08→21:54)
[2018-08-31] MEDS: PROTONIX PO SCH (10:09)
[2018-08-31] MEDS: PLAQUENIL PO SCH (10:09)
[2018-08-31] MEDS: ELIQUIS PO SCH ×2 (10:09→21:53)
[2018-08-31] MEDS: FLORINEF PO SCH (10:12)
--- NOTE | 2018-08-31 10:52 | Progress Note ---
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 Na improved s/p tolvaptan and on IV diuretic therapy. cont lasix 40mg bid. (2) Elevated troponin Current Visit: Yes Status: Acute Plan to address problem: Workup noted per cardiology. Echocardiogram is been reviewed. CTA noted without any acute abnormalities. Family and patient does not want to go through with cardiac cath at this time and are opting for more medical/conservative ma nagement. (3) Nausea & vomiting Current Visit: Yes Status: Acute Plan to address problem: improved (4) Weakness Current Visit: Yes Status: Acute Plan to address problem: Management per primary team. Recommend physical therapy evaluation. (5) HTN (hypertension) Current Visit: No Status: Chronic Plan to address problem: We will monitor on her current regimen. Subjective Date of service: 08/31/18 Principal diagnosis: SOB Interval history: Pt denies CP, SOB, palpitations, fever, chills, dysuria. Objective - Vital Signs Vital signs: Vital Signs - 12hr 08/31/18 08/31/18 08/31/18 01:49 02:12 07:50 Temperature 97.8 F 97.6 F Pulse Rate 44 L 51 L Pulse Rate [ Bilateral Throughout] Pulse Rate [ Bilateral] Respiratory 22 22 Rate Respiratory Rate [Bilateral Throughout] Respiratory Rate [Bilateral ] Blood Pressure 133/64 114/69 O2 Sat by Pulse 93 94 Oximetry 08/31/18 08/31/18 08:50 09:17 Temperature Pulse Rate Pulse Rate [ 52 L Bilateral Throughout] Pulse Rate [ 56 L Bilateral] Respiratory Rate Respiratory 20 Rate [Bilateral Throughout] Respiratory 20 Rate [Bilateral ] Blood Pressure O2 Sat by Pulse 94 Oximetry - General Appearance General appearance: well-developed, well-nourished, appears stated age EENT: ATNC, PERRL, mucous membranes moist Respiratory: Present: Decreased Breath Sounds Cardiology: regular, S1S2 Gastrointestinal: normoactive bowel sounds Integumentary: no rash, other (+2 edema b/l LE ) Neurologic: no focal deficit, alert and oriented x3, strength 5/5, CN 3-12 intact Psychiatric: mood/affect appropriate, cooperative - Lab 08/28/18 12:30 08/31/18 04:41 Most recent lab results Calcium 7.9 mg/dL (8.4-10.2) L 08/31/18 04:41 Phosphorus 2.90 mg/dL (2.5-4.5) 08/28/18 12:30 Magnesium 1.70 mg/dL (1.7-2.3) 08/28/18 12:30 Urine Creatinine 19.4 mg/dL (0.1-20.0) 08/27/18 15:29 Urine Sodium 13 mmol/L 08/22/18 18:10 Urine Total Protein 23 mg/dL (5-11.8) H 08/27/18 15:29 Medications & Allergies - Medications Allergies/Adverse Reactions: Allergies aspirin Allergy (Unknown, Verified 08/20/18 18:48) Unknown cephalexin monohydrate [From Keflex] Allergy (Unknown, Verified 08/20/18 18:48) Unknown diazepam [From Valium] Allergy (Unknown, Verified 08/20/18 18:48) Unknown doxycycline calcium [From Vibramycin] Allergy (Unknown, Verified 08/20/18 18:48) Unknown doxycycline hyclate [From Vibramycin] Allergy (Unknown, Verified 08/20/18 18:48) Unknown doxycycline monohydrate [From Vibramycin] Allergy (Unknown, Verified 08/20/18 18:48) Unknown lorazepam [From Ativan] Allergy (Unknown, Verified 08/20/18 18:48) Diarrhea meperidine HCl [From Demerol] Allergy (Unknown, Verified 08/20/18 18:48) Unknown ofloxacin [From Floxin] Allergy (Unknown, Verified 08/20/18 18:48) Unknown pentazocine lactate [From Talwin] Allergy (Unknown, Verified 08/20/18 18:48) Unknown ciprofloxacin Allergy (Verified 08/20/18 18:48) Unknown fexofenadine [From Nadine] Allergy (Verified 08/20/18 18:48) Unknown hydrocodone Allergy (Verified 08/20/18 18:48) Unknown morphine Allergy (Verified 08/20/18 18:48) Unknown Sulfa (Sulfonamide Antibiotics) Allergy (Verified 08/20/18 18:48) Unknown adhesive Adverse Reaction (Verified 08/20/18 18:48) Rash Home Medications: Home Medications Medication Instructions Recorded Confirmed Last Taken Type Hydroxychloroquine [Plaquenil] 200 mg PO QDAY 08/30/17 08/21/18 Unknown History Losartan [Cozaar] 50 mg PO QDAY 08/21/18 08/21/18 Unknown History NIFEdipine XL [Procardia Xl] 30 mg PO QHS 08/21/18 08/21/18 Unknown History traZODone [Desyrel] 100 mg PO QHS 08/21/18 08/21/18 Unknown History Active Medications: Generic Name Dose Route Start Last Admin Trade Name Freq PRN Reason Stop Dose Admin Acetaminophen 650 mg 08/21/18 04:26 08/26/18 23:35 Tylenol PO 650 mg Q4H PRN Administration Pain MILD(1-3)/Fever >100.5/CASTRO Albuterol/Ipratropium 1 ampul 08/28/18 08:00 08/31/18 09:30 Duoneb *Not For Prn Use* IH Not Given TIDRT HARINI Amiodarone HCl 200 mg 08/31/18 10:00 08/31/18 10:08 Cordarone PO 200 mg QDAY HARINI Administration Apixaban 2.5 mg 08/30/18 22:00 08/31/18 10:09 Eliquis PO 2.5 mg Q12HR HARINI Administration Protocol Arformoterol Tartrate 15 mcg 08/23/18 20:00 08/31/18 08:48 Brovana Nebu IH 15 mcg Q12HRT HARINI Administration Atorvastatin Calcium 20 mg 08/23/18 22:00 08/30/18 21:47 Lipitor PO 20 mg QHS HARINI Administration Benzocaine/Menthol 1 each 08/22/18 12:23 Cepacol X Strength MM Q2HR PRN Sore Throat Budesonide 0.5 mg 08/23/18 20:00 08/31/18 08:48 Pulmicort IH 0.5 mg Q12HRT HARINI Administration Cyclobenzaprine HCl 5 mg 08/21/18 17:53 08/24/18 03:08 Flexeril PO 5 mg Q8H PRN Administration Muscle Spasm Fludrocortisone Acetate 0.1 mg 08/29/18 10:00 08/31/18 10:12 Florinef PO 0.1 mg 3XW HARINI Administration Furosemide 40 mg 08/29/18 18:00 08/31/18 05:07 Lasix PO 40 mg 0600,1800 HARINI Administration Glycerin 1 supp 08/25/18 10:26 Glycerin Adult 2 Gm RI QDAY PRN Constipation Hydralazine HCl 5 mg 08/21/18 04:32 Apresoline IV Q6H PRN Hypertension Hydroxychloroquine Sulfate 200 mg 08/21/18 13:00 08/31/18 10:09 Plaquenil PO 200 mg QDAY HARINI Administration Lidocaine HCl 15 ml 08/28/18 14:00 08/31/18 10:08 Magic Mouthwash PO 15 ml TID HARINI Administration Magnesium Hydroxide 30 ml 08/25/18 01:08 08/25/18 01:27 Milk Of Magnesia PO 30 ml Q8H PRN Administration Constipation Metoprolol Tartrate 25 mg 08/29/18 13:00 08/31/18 02:12 Lopressor PO 25 mg Q6H HARINI Administration Nifedipine 30 mg 08/22/18 19:00 08/30/18 20:00 Procardia Xl PO 30 mg Q24H HARINI Administration Nitroglycerin 0.4 mg 08/24/18 06:00 08/31/18 05:07 Nitro Dur TD 0.4 mg QDAY@0600 [facility] Administration Ondansetron HCl 4 mg 08/21/18 04:26 08/31/18 05:07 Zofran IV 4 mg Q4H PRN Administration Nausea And Vomiting Pantoprazole Sodium 40 mg 08/22/18 13:37 08/31/18 10:09 Protonix PO 40 mg QDAY HARINI Administration Phenol 1 spray 08/22/18 12:23 08/28/18 21:08 Chloraseptic MM 1 spray PRN PRN Administration Sore Throat Polyethylene Glycol 17 gm 08/30/18 09:16 Miralax 3350 PO QDAY PRN Constipation Senna/Docusate Sodium 2 tab 08/25/18 10:25 Senokot S PO Q12H PRN Laxative Effect Sodium Chloride 10 ml 08/21/18 10:00 08/30/18 21:47 Sodium Chloride Flush Syringe 10 Ml IV 10 ml BID HARINI Administration Sodium Chloride 10 ml 08/21/18 04:26 08/28/18 16:46 Sodium Chloride Flush Syringe 10 Ml IV 10 ml PRN PRN Administration LINE FLUSH Trazodone HCl 100 mg 08/22/18 19:00 08/30/18 21:47 Desyrel PO 100 mg Q24H HARINI Administration Zolpidem Tartrate 5 mg 08/27/18 11:06 Ambien PO QHS PRN Sleep
--- NOTE | 2018-08-31 11:16 | Progress Note ---
Assessment and Plan Shortness of breath chest CTA: no evidence of PE Dizziness no acute intracranial process by head CT. Hyponatremia Elevated transaminase Hyperkalemia NSTEMI -patient and family members declined further cardiac evaluation and prefers conservative cardiac management. Chronic RBBB Paroxysmal Atrial flutter on amiodarone and metoprolol for suppression. initiated on low dose eliquis Echocardiogram reveals evidence of severe pulmonary hypertension, RVSP 70-75 mmHg. Normal left ventricular systolic function, ejection fraction 50-55%. Continue medical management for paroxysmal Aflutter. Subjective Date of service: 08/31/18 Principal diagnosis: SOB Interval history: Patient reports nausea this morning. She denies chest pain. No distress noted. Objective Vital Signs Temp Pulse Pulse Pulse Pulse Resp Resp 08/31/18 09:17 08/31/18 08:50 52 L 56 L 20 08/31/18 07:50 97.6 F 51 L 22 08/31/18 02:12 44 L 08/31/18 01:49 97.8 F 22 08/30/18 21:03 08/30/18 20:35 50 L 17 08/30/18 20:28 45 L 17 08/30/18 19:54 84 20 08/30/18 19:15 97.5 F L 62 18 08/30/18 13:50 97.8 F 43 L 20 Resp BP Pulse Ox 08/31/18 09:17 94 08/31/18 08:50 20 08/31/18 07:50 114/69 94 08/31/18 02:12 93 08/31/18 01:49 133/64 08/30/18 21:03 96 08/30/18 20:35 08/30/18 20:28 08/30/18 19:54 08/30/18 19:15 127/59 95 08/30/18 13:50 111/57 94 - Physical Examination General: No Apparent Distress HEENT: Positive: PERRL Neck: Positive: trachea midline Cardiac: Positive: Irregularly Regular Lungs: Positive: Decreased Breath Sounds Neuro: Positive: Grossly Intact, Weakness Skin: Positive: Bruising Extremities: Present: +1 Edema - Labs and Meds Comprehensive Metabolic Panel 08/31/18 Range/Units 04:41 Sodium 132 L (137-145) mmol/L Potassium 4.0 (3.6-5.0) mmol/L Chloride 84.9 L (98-107) mmol/L Carbon Dioxide 36 H (22-30) mmol/L BUN 33 H (7-17) mg/dL Creatinine 0.8 (0.7-1.2) mg/dL Glucose 81 (65-100) mg/dL Calcium 7.9 L (8.4-10.2) mg/dL - Allied health notes Allied health notes reviewed: nursing
--- NOTE | 2018-08-31 16:13 | Progress Note ---
Assessment and Plan Imp: 1. Hyponatremia 2. Hyperkalemia 3. Bilateral pleural effusions, ? CHF 4. NSTEMI 5. Pulm HTN, unclear etiology; could be due to L sided diastolic dysfunction 6. Acute respiratory failure, hypoxia 7. R/o Aspiration 8. SLE, doubt flare Rec: 1. Agree w/ Lasix IV and monitor sodium closely; no need for steroids pulm-franco, continue daily net negative state 2. Wean off O2 to keep sats 88% or greater; daughter refused repeat ABG. Should be able to wean off completely. Would still do walk test prior to discharge if patient and family in agree. 3.Consider outpatient PFTs re: pulm HTN; optimally would need RHC prior to considering pulmonary vasodilators 4. Pulm status is stable to improving. Can follow up with Melvin in 10-14 days post discharge. Will see as needed. Subjective Date of service: 08/31/18 Principal diagnosis: SOB Interval history: Patient down to 1 liter NC with sat of 94. Comfortable. Objective Vital Signs - 12hr 08/31/18 08/31/18 08/31/18 07:50 08:50 09:17 Temperature 97.6 F Pulse Rate 51 L Pulse Rate [ 52 L Bilateral Throughout] Pulse Rate [ 56 L Bilateral] Pulse Rate [ Left Brachial] Respiratory 22 Rate Respiratory 20 Rate [Bilateral Throughout] Respiratory 20 Rate [Bilateral ] Blood Pressure 114/69 O2 Sat by Pulse 94 94 Oximetry 08/31/18 08/31/18 08/31/18 10:00 10:15 13:45 Temperature Pulse Rate 65 54 L Pulse Rate [ 56 L Bilateral Throughout] Pulse Rate [ 54 L Bilateral] Pulse Rate [ 52 L Left Brachial] Respiratory 18 18 Rate Respiratory 16 Rate [Bilateral Throughout] Respiratory 20 Rate [Bilateral ] Blood Pressure 112/58 O2 Sat by Pulse 95 Oximetry 08/31/18 14:25 Temperature 97.9 F Pulse Rate 52 L Pulse Rate [ Bilateral Throughout] Pulse Rate [ Bilateral] Pulse Rate [ Left Brachial] Respiratory 21 Rate Respiratory Rate [Bilateral Throughout] Respiratory Rate [Bilateral ] Blood Pressure 127/52 O2 Sat by Pulse 96 Oximetry Constitutional: no acute distress, alert Eyes: non-icteric ENT: oropharynx moist Neck: supple Effort: normal Ascultation: Bilateral: diminished breath sounds (bases) Cardiovascular: other (ir/ir, no mrg) Gastrointestinal: normoactive bowel sounds, soft, non-tender, non-distended Integumentary: normal Extremities: no cyanosis, pink and warm, edema (2+ bilateral LE edema) Neurologic: normal mental status, non-focal exam, pupils equal and round, CN II- XII normal Psychiatric: mood appropriate, affect normal CBC and BMP: 08/28/18 12:30 08/31/18 04:41 ABG, PT/INR, D-dimer: ABG POC ABG pH 7.193 (7.35-7.45) L 08/23/18 18:22 POC ABG pCO2 54.9 (35-45) H 08/23/18 18:22 POC ABG pO2 102 (80-105) 08/23/18 18:22 POC ABG HCO3 21.1 (22-26 mml/L) 08/23/18 18:22 POC ABG Total CO2 23 (23-27mmol/L) 08/23/18 18:22 POC ABG O2 Sat 96 08/23/18 18:22 PT/INR, D-dimer PT 13.8 Sec. (12.2-14.9) 08/24/18 04:16 INR 1.00 (0.87-1.13) 08/24/18 04:16 Abnormal lab findings: Abnormal Labs 08/20/18 08/20/18 08/20/18 21:53 21:53 21:53 MCH RDW Lymph % (Auto) 12.[address] [facility] % (Auto) 8.0 H Lymph # 0.[address] [facility] # Seg Neutrophils % 79.1 H Seg Neuts % (Manual) Lymphocytes % (Manual) Seg Neutrophils # Lymphocytes # (Manual) APTT 23.1 L POC ABG pH POC ABG pCO2 POC ABG pO2 Sodium 123 L Potassium 5.5 H Chloride 86.9 L Carbon Dioxide BUN 18 H Creatinine Glucose 104 H POC Glucose Calcium AST 62 H ALT 82 H Total Creatine Kinase 257 H CK-MB (CK-2) 22.0 H CK-MB (CK-2) Rel Index 8.5 H Troponin T 0.062 H Total Protein Albumin HDL Cholesterol 60 H Urine Creatinine Urine Chloride Urine Total Protein 08/21/18 08/21/18 08/21/18 05:12 10:20 10:20 MCH 27 L RDW Lymph % (Auto) 9.[address] % (Auto) 9.2 H Lymph # 0.[address] [facility] # Seg Neutrophils % 80.8 H Seg Neuts % (Manual) Lymphocytes % (Manual) Seg Neutrophils # Lymphocytes # (Manual) APTT POC ABG pH POC ABG pCO2 POC ABG pO2 Sodium Potassium Chloride Carbon Dioxide BUN Creatinine Glucose POC Glucose Calcium AST ALT Total Creatine Kinase 272 H 339 H CK-MB (CK-2) 23.5 H 28.4 H CK-MB (CK-2) Rel Index 8.6 H 8.3 H Troponin T 0.065 H 0.052 H Total Protein Albumin HDL Cholesterol Urine Creatinine Urine Chloride Urine Total Protein 08/21/18 08/22/18 08/22/18 15:44 03:13 18:10 MCH RDW Lymph % (Auto) [facility] % (Auto) Lymph # [facility] # Seg Neutrophils % Seg Neuts % (Manual) Lymphocytes % (Manual) Seg Neutrophils # Lymphocytes # (Manual) APTT POC ABG pH POC ABG pCO2 POC ABG pO2 Sodium 125 L 124 L Potassium 5.6 H 5.3 H Chloride 90.7 L 93.1 L Carbon Dioxide 21 L BUN 20 H 21 H Creatinine Glucose 113 H 116 H POC Glucose Calcium 8.1 L 7.8 L AST ALT Total Creatine Kinase CK-MB (CK-2) CK-MB (CK-2) Rel Index Troponin T Total Protein Albumin HDL Cholesterol Urine Creatinine 89.3 H Urine Chloride 36.9 L Urine Total Protein 08/23/18 08/23/18 08/23/18 05:22 06:00 18:22 MCH RDW Lymph % (Auto) [facility] % (Auto) Lymph # [facility] # Seg Neutrophils % Seg Neuts % (Manual) Lymphocytes % (Manual) Seg Neutrophils # Lymphocytes # (Manual) APTT POC ABG pH 7.120 L 7.193 L POC ABG pCO2 63.6 H 54.9 H POC ABG pO2 107 H Sodium 123 L Potassium 5.7 H Chloride 92.0 L Carbon Dioxide BUN 24 H Creatinine Glucose 113 H POC Glucose Calcium 8.1 L AST ALT Total Creatine Kinase CK-MB (CK-2) CK-MB (CK-2) Rel Index Troponin T Total Protein Albumin HDL Cholesterol Urine Creatinine Urine Chloride Urine Total Protein 08/23/18 08/24/18 08/24/18 23:48 00:26 04:16 MCH RDW Lymph % (Auto) [facility] % (Auto) Lymph # [facility] # Seg Neutrophils % Seg Neuts % (Manual) Lymphocytes % (Manual) Seg Neutrophils # Lymphocytes # (Manual) APTT POC ABG pH POC ABG pCO2 POC ABG pO2 Sodium 125 L Potassium Chloride 93.1 L Carbon Dioxide 21 L BUN 19 H Creatinine 0.6 L Glucose 133 H 118 H POC Glucose < 40 L Calcium 8.0 L AST ALT Total Creatine Kinase CK-MB (CK-2) CK-MB (CK-2) Rel Index Troponin T Total Protein Albumin HDL Cholesterol Urine Creatinine Urine Chloride Urine Total Protein 08/24/18 08/24/18 08/24/18 04:16 06:12 11:49 MCH 27 L RDW Lymph % (Auto) [facility] % (Auto) Lymph # [facility] # Seg Neutrophils % Seg Neuts % (Manual) 97.0 H Lymphocytes % (Manual) 1.0 L Seg Neutrophils # Lymphocytes # (Manual) 0.1 L APTT POC ABG pH POC ABG pCO2 POC ABG pO2 Sodium Potassium Chloride Carbon Dioxide BUN Creatinine Glucose POC Glucose 114 H 186 H Calcium AST ALT Total Creatine Kinase CK-MB (CK-2) CK-MB (CK-2) Rel Index Troponin T Total Protein Albumin HDL Cholesterol Urine Creatinine Urine Chloride Urine Total Protein 08/24/18 08/25/18 08/25/18 22:28 05:50 07:36 MCH RDW Lymph % (Auto) [facility] % (Auto) Lymph # [facility] # Seg Neutrophils % Seg Neuts % (Manual) Lymphocytes % (Manual) Seg Neutrophils # Lymphocytes # (Manual) APTT POC ABG pH POC ABG pCO2 POC ABG pO2 Sodium 133 L D Potassium Chloride 96.4 L Carbon Dioxide BUN 20 H Creatinine Glucose 147 H POC Glucose 110 H 122 H Calcium 8.2 L AST ALT Total Creatine Kinase CK-MB (CK-2) CK-MB (CK-2) Rel Index Troponin T Total Protein Albumin HDL Cholesterol Urine Creatinine Urine Chloride Urine Total Protein 08/25/18 08/25/18 08/25/18 11:37 16:29 22:17 MCH RDW Lymph % (Auto) [facility] % (Auto) Lymph # [facility] # Seg Neutrophils % Seg Neuts % (Manual) Lymphocytes % (Manual) Seg Neutrophils # Lymphocytes # (Manual) APTT POC ABG pH POC ABG pCO2 POC ABG pO2 Sodium Potassium Chloride Carbon Dioxide BUN Creatinine Glucose POC Glucose 131 H 132 H 127 H Calcium AST ALT Total Creatine Kinase CK-MB (CK-2) CK-MB (CK-2) Rel Index Troponin T Total Protein Albumin HDL Cholesterol Urine Creatinine Urine Chloride Urine Total Protein 08/26/18 08/27/18 08/27/18 05:27 08:16 15:29 MCH RDW Lymph % (Auto) [facility] % (Auto) Lymph # [facility] # Seg Neutrophils % Seg Neuts % (Manual) Lymphocytes % (Manual) Seg Neutrophils # Lymphocytes # (Manual) APTT POC ABG pH POC ABG pCO2 POC ABG pO2 Sodium 135 L Potassium 5.1 H Chloride 92.9 L Carbon Dioxide 33 H D 33 H BUN 25 H 24 H Creatinine 0.6 L Glucose 114 H 117 H POC Glucose Calcium 8.1 L 8.3 L AST ALT Total Creatine Kinase CK-MB (CK-2) CK-MB (CK-2) Rel Index Troponin T Total Protein Albumin HDL Cholesterol Urine Creatinine Urine Chloride Urine Total Protein 23 H 08/28/18 08/28/18 08/29/18 12:30 12:30 05:36 MCH 27 L RDW 15.8 H Lymph % (Auto) 7.[address] [facility] % (Auto) 10.4 H Lymph # 0.[address] [facility] # 1.1 H Seg Neutrophils % 80.6 H Seg Neuts % (Manual) Lymphocytes % (Manual) Seg Neutrophils # 8.8 H Lymphocytes # (Manual) APTT POC ABG pH POC ABG pCO2 POC ABG pO2 Sodium Potassium 3.2 L D Chloride 90.1 L 90.1 L Carbon Dioxide 35 H 40 H BUN 25 H 25 H Creatinine Glucose 129 H POC Glucose Calcium 8.1 L 8.0 L AST 72 H ALT Total Creatine Kinase CK-MB (CK-2) CK-MB (CK-2) Rel Index Troponin T Total Protein 5.3 L Albumin 3.4 L HDL Cholesterol Urine Creatinine Urine Chloride Urine Total Protein 08/30/18 08/31/18 08:08 04:41 MCH RDW Lymph % (Auto) [facility] % (Auto) Lymph # [facility] # Seg Neutrophils % Seg Neuts % (Manual) Lymphocytes % (Manual) Seg Neutrophils # Lymphocytes # (Manual) APTT POC ABG pH POC ABG pCO2 POC ABG pO2 Sodium 132 L Potassium Chloride 88.9 L 84.9 L Carbon Dioxide 40 H 36 H BUN 26 H 33 H Creatinine Glucose POC Glucose Calcium 8.2 L 7.9 L AST ALT Total Creatine Kinase CK-MB (CK-2) CK-MB (CK-2) Rel Index Troponin T Total Protein Albumin HDL Cholesterol Urine Creatinine Urine Chloride Urine Total Protein Allied health notes reviewed: nursing
[2018-08-31] MEDS: SODIUM CHLORIDE FLUSH SYRINGE 10 ML IV SCH ×2 (16:55→21:54)
[2018-08-31] MEDS: LASIX IV SCH (17:12)
--- NOTE | 2018-08-31 17:24 | Progress Note ---
Assessment and Plan Assessment and plan: 87-year-old woman with a history of hypertension, lupus comes to the emergency room complaining of nausea vomiting, generalized weakness, dizziness. Symptoms started after her losartan was changed to lisinopril due to recall of losartan. she reports decreased oral intake Echocardiogram shows well-preserved left ventricular systolic function, mild to moderate concentric left ventricle hypertrophy, but dilated left and right atrium, moderate mitral regurgitation, moderate to severe tricuspid regurgitation and severe pulmonary hypertension. 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 Orthostatic vital signs wnl, Na now normal dc losartan, K improved, she did not tolerate Kayexalate, rx with insulin and d50w, and K now normal iv fluids were dc due to fluid overload, cardiac enzymes are detectable, and mildly elevated, Cardiology consult appreciated, she is not interested in cath., may consider stress test when she is felling better switched BP meds to ca ch dylan CTA chest and LE dopplers neg for VTE cont iv lasix, cont rate./rhythym control and eliquis per cardiology -wean oxygen as tolerated mechanical assembly consult appreciated sp mascorro, order to dc mascorro was placed DVT prophylaxis; lovenox Cont PT, daughter would like subacute rehab History Interval history: Review of systems Constitutional: No fevers, co gen weakness CVS: No chest pain, no orthopnea, c/o pedal edema, and sob GI: No abdominal pain, no diarrhea, no constipation; no vomiting Respiratory: sob is improved Hospitalist Physical - Physical exam Narrative exam: General.: Appears well, no distress, nontoxic HEENT: Moist mucous membranes, extraocular muscles intact, no lymphadenopathy Neck: supple Cardiac: S1-S2 heard Lungs: decreased air entry, rales in bases Abdomen: soft , nontender, nondistended, bowel sounds positive Extremities: 2 plus bipedal edema Skin: no rash or lesions Neurologic: no gross focal deficits Psych: calm, and cooperative - Constitutional Vitals: Temp Pulse Resp BP Pulse Ox 97.9 F 62 21 121/57 98 03/27/19 14:25 08/31/18 17:10 08/31/18 14:25 08/31/18 17:10 08/31/18 17:10 General appearance: Present: no acute distress Results - Labs CBC & Chem 7: 08/28/18 12:30 08/31/18 04:41 Labs: Laboratory Last Values WBC 10.9 K/mm3 (4.5-11.0) 08/28/18 12:30 RBC 4.66 M/mm3 (3.65-5.03) 08/28/18 12:30 Hgb 12.5 gm/dl (10.1-14.3) 08/28/18 12:30 Hct 38.5 % (30.3-42.9) 08/28/18 12:30 MCV 83 fl (79-97) 08/28/18 12:30 MCH 27 pg (28-32) L 08/28/18 12:30 MCHC 33 % (30-34) 08/28/18 12:30 RDW 15.8 % (13.2-15.2) H 08/28/18 12:30 Plt Count 278 K/mm3 (140-440) 08/28/18 12:30 Lymph % (Auto) 7.7 % (13.4-35.0) L 08/28/18 12:30 [place] % (Auto) 10.4 % (0.0-7.3) H 08/28/18 12:30 Eos % (Auto) 1.1 % (0.0-4.3) 08/28/18 12:30 Baso % (Auto) 0.2 % (0.0-1.8) 08/28/18 12:30 Lymph # 0.8 K/mm3 (1.2-5.4) L 08/28/18 12:30 [place] # 1.1 K/mm3 (0.0-0.8) H 08/28/18 12:30 Eos # 0.1 K/mm3 (0.0-0.4) 08/28/18 12:30 Baso # 0.0 K/mm3 (0.0-0.1) 08/28/18 12:30 Add Manual Diff Complete 08/24/18 04:16 Total Counted 100 08/24/18 04:16 Seg Neutrophils % 80.6 % (40.0-70.0) H 08/28/18 12:30 Seg Neuts % (Manual) 97.0 % (40.0-70.0) H 08/24/18 04:16 Band Neutrophils % 0 % 08/24/18 04:16 Lymphocytes % (Manual) 1.0 % (13.4-35.0) L 08/24/18 04:16 Reactive Lymphs % (Man) 0 % 08/24/18 04:16 Monocytes % (Manual) 2.0 % (0.0-7.3) 08/24/18 04:16 Eosinophils % (Manual) 0 % (0.0-4.3) 08/24/18 04:16 Basophils % (Manual) 0 % (0.0-1.8) 08/24/18 04:16 Metamyelocytes % 0 % 08/24/18 04:16 Myelocytes % 0 % 08/24/18 04:16 Promyelocytes % 0 % 08/24/18 04:16 Blast Cells % 0 % 08/24/18 04:16 Nucleated RBC % Not Reportable 08/24/18 04:16 Seg Neutrophils # 8.8 K/mm3 (1.8-7.7) H 08/28/18 12:30 Seg Neutrophils # Man 6.5 K/mm3 (1.8-7.7) 08/24/18 04:16 Band Neutrophils # 0.0 K/mm3 08/24/18 04:16 Lymphocytes # (Manual) 0.1 K/mm3 (1.2-5.4) L 08/24/18 04:16 Abs React Lymphs (Man) 0.0 K/mm3 08/24/18 04:16 Monocytes # (Manual) 0.1 K/mm3 (0.0-0.8) 08/24/18 04:16 Eosinophils # (Manual) 0.0 K/mm3 (0.0-0.4) 08/24/18 04:16 Basophils # (Manual) 0.0 K/mm3 (0.0-0.1) 08/24/18 04:16 Metamyelocytes # 0.0 K/mm3 08/24/18 04:16 Myelocytes # 0.0 K/mm3 08/24/18 04:16 Promyelocytes # 0.0 K/mm3 08/24/18 04:16 Blast Cells # 0.0 K/mm3 08/24/18 04:16 WBC Morphology Not Reportable 08/24/18 04:16 Hypersegmented Neuts Not Reportable 08/24/18 04:16 Hyposegmented Neuts Not Reportable 08/24/18 04:16 Hypogranular Neuts Not Reportable 08/24/18 04:16 Smudge Cells Not Reportable 08/24/18 04:16 Toxic Granulation Not Reportable 08/24/18 04:16 Toxic Vacuolation Not Reportable 08/24/18 04:16 Dohle Bodies Not Reportable 08/24/18 04:16 Pelger-Huet Anomaly Not Reportable 08/24/18 04:16 Kaden Rods Not Reportable 08/24/18 04:16 Platelet Estimate Consistent w auto 08/24/18 04:16 Clumped Platelets Not Reportable 08/24/18 04:16 Plt Clumps, EDTA Not Reportable 08/24/18 04:16 Large Platelets Not Reportable 08/24/18 04:16 Giant Platelets Not Reportable 08/24/18 04:16 Platelet Satelliting Not Reportable 08/24/18 04:16 Plt Morphology Comment Not Reportable 08/24/18 04:16 RBC Morphology Not Reportable 08/24/18 04:16 Dimorphic RBCs Not Reportable 08/24/18 04:16 Polychromasia Not Reportable 08/24/18 04:16 Hypochromasia Not Reportable 08/24/18 04:16 Poikilocytosis Not Reportable 08/24/18 04:16 Anisocytosis Not Reportable 08/24/18 04:16 Microcytosis Not Reportable 08/24/18 04:16 Macrocytosis Not Reportable 08/24/18 04:16 Spherocytes Not Reportable 08/24/18 04:16 Pappenheimer Bodies Not Reportable 08/24/18 04:16 Sickle Cells Not Reportable 08/24/18 04:16 Target Cells Not Reportable 08/24/18 04:16 Tear Drop Cells Not Reportable 08/24/18 04:16 Ovalocytes Not Reportable 08/24/18 04:16 Helmet Cells Not Reportable 08/24/18 04:16 [place] Bodies Not Reportable 08/24/18 04:16 [place] Rings Not Reportable 08/24/18 04:16 [place] Cells Not Reportable 08/24/18 04:16 Bite Cells Not Reportable 08/24/18 04:16 Crenated Cell Not Reportable 08/24/18 04:16 Elliptocytes Not Reportable 08/24/18 04:16 Acanthocytes (Spur) Not Reportable 08/24/18 04:16 Rouleaux Not Reportable 08/24/18 04:16 Hemoglobin C Crystals Not Reportable 08/24/18 04:16 Schistocytes Not Reportable 08/24/18 04:16 Malaria parasites Not Reportable 08/24/18 04:16 Sky Bodies Not Reportable 08/24/18 04:16 Hem Pathologist Commnt No 08/24/18 04:16 PT 13.8 Sec. (12.2-14.9) 08/24/18 04:16 INR 1.00 (0.87-1.13) 08/24/18 04:16 APTT 24.3 Sec. (24.2-36.6) 08/24/18 04:16 POC ABG pH 7.193 (7.35-7.45) L 08/23/18 18:22 POC ABG pCO2 54.9 (35-45) H 08/23/18 18:22 POC ABG pO2 102 (80-105) 08/23/18 18:22 POC ABG HCO3 21.1 (22-26 mml/L) 08/23/18 18:22 POC ABG Total CO2 23 (23-27mmol/L) 08/23/18 18:22 POC ABG O2 Sat 96 08/23/18 18:22 POC ABG Base Excess -7 ((-2) - (+3)mmol/L) 08/23/18 18:22 FiO2 40 % 08/23/18 18:22 Sodium 132 mmol/L (137-145) L 08/31/18 04:41 Potassium 4.0 mmol/L (3.6-5.0) 08/31/18 04:41 Chloride 84.9 mmol/L (98-107) L 08/31/18 04:41 Carbon Dioxide 36 mmol/L (22-30) H 08/31/18 04:41 Anion Gap 15 mmol/L 08/31/18 04:41 BUN 33 mg/dL (7-17) H 08/31/18 04:41 Creatinine 0.8 mg/dL (0.7-1.2) 08/31/18 04:41 Estimated GFR > 60 ml/min 08/31/18 04:41 BUN/Creatinine Ratio 41 % 08/31/18 04:41 Glucose 81 mg/dL (65-100) 08/31/18 04:41 POC Glucose 94 (70-105) 08/27/18 17:21 Calcium 7.9 mg/dL (8.4-10.2) L 08/31/18 04:41 Phosphorus 2.90 mg/dL (2.5-4.5) 08/28/18 12:30 Magnesium 1.70 mg/dL (1.7-2.3) 08/28/18 12:30 Total Bilirubin 0.40 mg/dL (0.1-1.2) 08/28/18 12:30 Direct Bilirubin < 0.2 mg/dL (0-0.2) 08/28/18 12:30 Indirect Bilirubin 0.2 mg/dL 08/28/18 12:30 AST 72 units/L (5-40) H 08/28/18 12:30 ALT 52 units/L (7-56) 08/28/18 12:30 Alkaline Phosphatase 59 units/L (35-129) 08/28/18 12:30 Total Creatine Kinase 339 units/L (30-135) H 08/21/18 10:20 CK-MB (CK-2) 28.4 ng/mL (0.0-4.0) H 08/21/18 10:20 CK-MB (CK-2) Rel Index 8.3 (0-4) H 08/21/18 10:20 Troponin T 0.052 ng/mL (0.00-0.029) H 08/21/18 10:20 Total Protein 5.3 g/dL (6.3-8.2) L 08/28/18 12:30 Albumin 3.4 g/dL (3.9-5) L 08/28/18 12:30 Albumin/Globulin Ratio 1.8 % 08/28/18 12:30 Triglycerides 71 mg/dL (2-149) 08/20/18 21:53 Cholesterol 173 mg/dL (50-199) 08/20/18 21:53 LDL Cholesterol Direct 115 mg/dL (50-130) 08/20/18 21:53 HDL Cholesterol 60 mg/dL (40-59) H 08/20/18 21:53 Cholesterol/HDL Ratio 2.88 % 08/20/18 21:53 Lipase 27 units/L (13-60) 08/20/18 21:53 TSH 1.120 mlU/mL (0.270-4.200) 08/23/18 06:00 Free T4 1.14 ng/dL (0.76-1.46) 08/23/18 06:00 Total Cortisol 69.1 mcg/dL () 08/25/18 05:50 Urine Color Yellow (Yellow) 08/20/18 19:43 Urine Turbidity Clear (Clear) 08/20/18 19:43 Urine pH 6.0 (5.0-7.0) 08/20/18 19:43 Ur Specific [place] 1.018 (1.003-1.030) 08/20/18 19:43 Urine Protein 100 mg/dl mg/dL (Negative) 08/20/18 19:43 Urine Glucose (UA) Neg mg/dL (Negative) 08/20/18 19:43 Urine Ketones Neg mg/dL (Negative) 08/20/18 19:43 Urine Blood Neg (Negative) 08/20/18 19:43 Urine Nitrite Neg (Negative) 08/20/18 19:43 Urine Bilirubin Neg (Negative) 08/20/18 19:43 Urine Urobilinogen < 2.0 mg/dL (<2.0) 08/20/18 19:43 Ur Leukocyte Esterase Neg (Negative) 08/20/18 19:43 Urine WBC (Auto) 1.0 /HPF (0.0-6.0) 08/20/18 19:43 Urine RBC (Auto) 7.0 /HPF (0.0-6.0) 08/20/18 19:43 U Epithel Cells (Auto) < 1.0 /HPF (0-13.0) 08/20/18 19:43 Hyaline Casts 1 /LPF 08/20/18 19:43 Urine Mucus Few /HPF 08/20/18 19:43 Urine Osmolality 466 Mosm/kg 08/22/18 18:10 Urine Creatinine 19.4 mg/dL (0.1-20.0) 08/27/18 15:29 Urine Sodium 13 mmol/L 08/22/18 18:10 Urine Chloride 36.9 mmolL (110-250) L 08/22/18 18:10 Urine Total Protein 23 mg/dL (5-11.8) H 08/27/18 15:29 Active Medications - Current Medications Current Medications: Generic Name Dose Route Start Last Admin Trade Name Freq PRN Reason Stop Dose Admin Acetaminophen 650 mg 08/21/18 04:26 08/26/18 23:35 Tylenol PO 650 mg Q4H PRN Administration Pain MILD(1-3)/Fever >100.5/CASTRO Albuterol/Ipratropium 1 ampul 08/28/18 08:00 08/31/18 13:41 Duoneb *Not For Prn Use* IH 1 ampul TIDRT HARINI Administration Amiodarone HCl 200 mg 08/31/18 10:00 08/31/18 10:08 Cordarone PO 200 mg QDAY HARINI Administration Apixaban 2.5 mg 08/30/18 22:00 08/31/18 10:09 Eliquis PO 2.5 mg Q12HR HARINI Administration Protocol Arformoterol Tartrate 15 mcg 08/23/18 20:00 08/31/18 08:48 Brovana Nebu IH 15 mcg Q12HRT HARINI Administration Atorvastatin Calcium 20 mg 08/23/18 22:00 08/30/18 21:47 Lipitor PO 20 mg QHS HARINI Administration Benzocaine/Menthol 1 each 08/22/18 12:23 Cepacol X Strength MM Q2HR PRN Sore Throat Budesonide 0.5 mg 08/23/18 20:00 08/31/18 08:48 Pulmicort IH 0.5 mg Q12HRT HARINI Administration Cyclobenzaprine HCl 5 mg 08/21/18 17:53 08/24/18 03:08 Flexeril PO 5 mg Q8H PRN Administration Muscle Spasm Fludrocortisone Acetate 0.1 mg 08/29/18 10:00 08/31/18 10:12 Florinef PO 0.1 mg 3XW HARINI Administration Furosemide 40 mg 08/31/18 16:00 08/31/18 17:12 Lasix IV 40 mg 0600,1800 HARINI Administration Hydralazine HCl 5 mg 08/21/18 04:32 Apresoline IV Q6H PRN Hypertension Hydroxychloroquine Sulfate 200 mg 08/21/18 13:00 08/31/18 10:09 Plaquenil PO 200 mg QDAY HARINI Administration Lidocaine HCl 15 ml 08/28/18 14:00 08/31/18 15:00 Magic Mouthwash PO 15 ml TID HARINI Administration Metoprolol Tartrate 25 mg 08/29/18 13:00 08/31/18 02:12 Lopressor PO 25 mg Q6H HARINI Administration Nifedipine 30 mg 08/22/18 19:00 08/30/18 20:00 Procardia Xl PO 30 mg Q24H HARINI Administration Nitroglycerin 0.4 mg 08/24/18 06:00 08/31/18 05:07 Nitro Dur TD 0.4 mg QDAY@0600 [facility] Administration Ondansetron HCl 4 mg 08/21/18 04:26 08/31/18 05:07 Zofran IV 4 mg Q4H PRN Administration Nausea And Vomiting Pantoprazole Sodium 40 mg 08/22/18 13:37 08/31/18 10:09 Protonix PO 40 mg QDAY HARINI Administration Phenol 1 spray 08/22/18 12:23 08/28/18 21:08 Chloraseptic MM 1 spray PRN PRN Administration Sore Throat Polyethylene Glycol 17 gm 08/30/18 09:16 Miralax 3350 PO QDAY PRN Constipation Senna/Docusate Sodium 2 tab 08/25/18 10:25 Senokot S PO Q12H PRN Laxative Effect Sodium Chloride 10 ml 08/21/18 10:00 08/31/18 16:55 Sodium Chloride Flush Syringe 10 Ml IV Not Given BID HARINI Sodium Chloride 10 ml 08/21/18 04:26 08/28/18 16:46 Sodium Chloride Flush Syringe 10 Ml IV 10 ml PRN PRN Administration LINE FLUSH Trazodone HCl 100 mg 08/22/18 19:00 08/30/18 21:47 Desyrel PO 100 mg Q24H HARINI Administration Zolpidem Tartrate 5 mg 08/27/18 11:06 Ambien PO QHS PRN Sleep Nutrition/Malnutrition Assess - Dietary Evaluation Nutrition/Malnutrition Findings: Nutrition Notes Start: 08/23/18 14:01 Freq: Status: Active Protocol: Document 08/30/18 12:14 RD (Rec: 08/30/18 12:44 RD [email or web address]) Co-Sign 08/30/18 12:14 LP Nutrition Notes Initial or Follow up Reassessment Current Diagnosis Hypertension Other Pertinent Diagnosis hyponatremia, lupus, depression, anxiety Current Diet CARDIAC Labs/Tests BUN 26 Pertinent Medications Lasix Height 5 ft 2 in Weight 58.06 kg [place] Body Weight (kg) 50.00 BMI 23.3 Subjective/Other Information Pt reported eating much better , stated she ate most of her breakfast today and half of her lunch yesterday. Pt reports a better appetite. Pt states she does not like Ensure Enlive and would like Ensure Clear instead. Percent of energy/protein needs met: 100%/ 100% Burn Absent Trauma Absent Current % PO Good (75-100%) #1 Nutrition Diagnosis Inadequate oral intake As Evidenced by Signs and Symptoms Pt meeting 100% of calorie and protein needs Diagnosis Progress(for reassessment Resolved documentation) Is patient on ventilator? No Is Patient Ambulatory and/or Out of Bed Yes REE-([place]-St. Jeor-ambulatory/OOB) [ 1266.005 NUTR.[id number]] Calculation Used for Recommendations [place]-St Jeor Additional Notes Protein needs: (1-1.2g/kg/day) 58-70g/day Fluid needs: 1mL/kcal Nutrition Intervention Change Diet Order: Continue cardiac Add Supplement/Snack (indicate name/kcal Ensure Clear BID /protein ) Provides kCal: 480 Provides Protein (gm) 16 Goal #1 Continue to meet at least 75% of nutrient needs via PO and ONS intakes Anticipated Discharge Needs: Cardiac diet Follow-Up By: 09/06/18 Additional Comments f/u: stable intakes
[2018-08-31] MEDS: SENOKOT S PO PRN (20:26)
[2018-08-31] MEDS: DESYREL PO SCH (21:53)
[2018-08-31] MEDS: PROCARDIA XL PO SCH (21:53)
[2018-09-01] MEDS: LOPRESSOR PO SCH ×6 (01:51→22:28)
[2018-09-01] MEDS: MAGIC MOUTHWASH PO SCH ×3 (01:52→15:59)
[2018-09-01] MEDS: NITRO DUR TD SCH (06:06)
[2018-09-01] MEDS: LASIX IV SCH ×2 (06:06→18:21)
[2018-09-01 06:50] LABS: Calcium 7.7 mg/dL (8.4-10.2)
[2018-09-01] MEDS: BROVANA NEBU IH SCH ×2 (07:27→20:15)
[2018-09-01] MEDS: PULMICORT IH SCH ×2 (07:27→20:15)
[2018-09-01] MEDS: DUONEB *Not for PRN Use IH SCH ×3 (07:28→20:16)
--- NOTE | 2018-09-01 09:46 | Progress Note ---
Assessment and Plan Shortness of breath chest CTA: no evidence of PE Dizziness no acute intracranial process by head CT. Hyponatremia Elevated transaminase Hyperkalemia NSTEMI -patient and family members declined further cardiac evaluation and prefers conservative cardiac management. Chronic RBBB Paroxysmal Atrial flutter on amiodarone and metoprolol for suppression. initiated on low dose eliquis Echocardiogram reveals evidence of severe pulmonary hypertension, RVSP 70-75 mmHg. Normal left ventricular systolic function, ejection fraction 50-55%. Continue medical management for paroxysmal Aflutter. Subjective Date of service: 09/01/18 Principal diagnosis: SOB Interval history: Patient reports nausea this morning. She denies chest pain. No distress noted. Objective Vital Signs Temp Pulse Pulse Pulse Pulse Resp Resp 09/01/18 08:43 97.5 F L 65 22 09/01/18 08:17 54 L 20 09/01/18 06:08 09/01/18 06:06 54 L 09/01/18 02:04 97.5 F L 80 09/01/18 01:53 64 09/01/18 01:51 64 09/01/18 01:50 32.1 F L 65 08/31/18 22:00 61 80 20 08/31/18 21:51 57 L 08/31/18 21:48 82 08/31/18 21:41 08/31/18 21:40 74 08/31/18 20:07 98.3 F 57 L 20 08/31/18 18:44 08/31/18 17:10 62 08/31/18 14:25 97.9 F 52 L 21 08/31/18 13:45 56 L 54 L 16 08/31/18 10:15 54 L 18 08/31/18 10:00 65 52 L 18 Resp BP BP BP Pulse Ox 09/01/18 08:43 146/56 97 09/01/18 08:17 09/01/18 06:08 133/50 09/01/18 06:06 133/50 09/01/18 02:04 143/48 94 09/01/18 01:53 143/48 09/01/18 01:51 143/48 09/01/18 01:50 91 08/31/18 22:00 08/31/18 21:51 109/55 08/31/18 21:48 18 03/27/19 21:41 97 08/31/18 21:40 18 08/31/18 20:07 109/55 98 08/31/18 18:44 122/59 08/31/18 17:10 121/57 98 08/31/18 14:25 127/52 96 08/31/18 13:45 20 08/31/18 10:15 112/58 95 08/31/18 10:00 - Physical Examination General: No Apparent Distress HEENT: Positive: PERRL Neck: Positive: trachea midline Cardiac: Positive: Irregularly Regular Lungs: Positive: Decreased Breath Sounds Neuro: Positive: Grossly Intact, Weakness Skin: Positive: Bruising Extremities: Absent: lower extr. pulses - Labs and Meds Comprehensive Metabolic Panel 09/01/18 Range/Units 05:04 Sodium 131 L (137-145) mmol/L Potassium 4.1 (3.6-5.0) mmol/L Chloride 82.8 L (98-107) mmol/L Carbon Dioxide 37 H (22-30) mmol/L BUN 41 H (7-17) mg/dL Creatinine 1.0 (0.7-1.2) mg/dL Glucose 113 H (65-100) mg/dL Calcium 7.7 L (8.4-10.2) mg/dL - Allied health notes Allied health notes reviewed: nursing
[2018-09-01] MEDS: FLORINEF PO SCH (09:58)
[2018-09-01] MEDS: PLAQUENIL PO SCH (09:58)
[2018-09-01] MEDS: CORDARONE PO SCH ×2 (09:58→15:58)
[2018-09-01] MEDS: PROTONIX PO SCH (09:58)
[2018-09-01] MEDS: ELIQUIS PO SCH (09:58)
[2018-09-01] MEDS: SODIUM CHLORIDE FLUSH SYRINGE 10 ML IV SCH (09:59)
--- NOTE | 2018-09-01 10:29 | Progress Note ---
Assessment and Plan Assessment and plan: 87-year-old woman with a history of hypertension, lupus comes to the emergency room complaining of nausea vomiting, generalized weakness, dizziness. Symptoms started after her losartan was changed to lisinopril due to recall of losartan. she reports decreased oral intake Echocardiogram shows well-preserved left ventricular systolic function, mild to moderate concentric left ventricle hypertrophy, but dilated left and right atrium, moderate mitral regurgitation, moderate to severe tricuspid regurgitation and severe pulmonary hypertension. 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 Orthostatic vital signs wnl, Na now normal dc losartan, K improved, she did not tolerate Kayexalate, rx with insulin and d50w, and K now normal iv fluids were dc due to fluid overload, cardiac enzymes are detectable, and mildly elevated, Cardiology consult appreciated, she is not interested in cath., may consider stress test when she is felling better switched BP meds to ca ch dylan CTA chest and LE dopplers neg for VTE cont iv lasix, cont rate./rhythym control and eliquis per cardiology -wean oxygen as tolerated senior scrum master consult appreciated sp mascorro, which was removed, patient now urinating with no issues -anusol and tucks as needed for hemorrhoid discomfort, already on stool s ofteners DVT prophylaxis; lovenox Cont PT, daughter would like subacute rehab, awaiting placement The patient frequently vomits when all her pills are given to her together. I have explained to the nurse that she simply receive one pill at a time, and her pills are supposed to be spaced out by one hour each. The patient's takes her pills one at a time at home and spaces them out. This has been explained to the nursing staff. And the orders have been amended in [place]. History Interval history: Review of systems Constitutional: No fevers, co gen weakness CVS: No chest pain, no orthopnea, c/o pedal edema, and sob GI: No abdominal pain, no diarrhea, no constipation; she vomited this morning after she took all her pills at the same time c/o rectal pain due to hemorrhoids Respiratory: sob is improved Hospitalist Physical - Physical exam Narrative exam: General.: Appears well, no distress, nontoxic HEENT: Moist mucous membranes, extraocular muscles intact, no lymphadenopathy Neck: supple Cardiac: S1-S2 heard Lungs: decreased air entry, rales in bases Abdomen: soft , nontender, nondistended, bowel sounds positive Extremities: 2 plus bipedal edema Skin: no rash or lesions Neurologic: no gross focal deficits Psych: calm, and cooperative - Constitutional Vitals: Temp Pulse Resp BP Pulse Ox 97.5 F L 65 22 146/56 97 09/01/18 08:43 09/01/18 08:43 09/01/18 08:43 09/01/18 10:10 09/01/18 08:43 General appearance: Present: no acute distress Results - Labs CBC & Chem 7: 08/28/18 12:30 09/01/18 05:04 Labs: Laboratory Last Values WBC 10.9 K/mm3 (4.5-11.0) 08/28/18 12:30 RBC 4.66 M/mm3 (3.65-5.03) 08/28/18 12:30 Hgb 12.5 gm/dl (10.1-14.3) 08/28/18 12:30 Hct 38.5 % (30.3-42.9) 08/28/18 12:30 MCV 83 fl (79-97) 08/28/18 12:30 MCH 27 pg (28-32) L 08/28/18 12:30 MCHC 33 % (30-34) 08/28/18 12:30 RDW 15.8 % (13.2-15.2) H 08/28/18 12:30 Plt Count 278 K/mm3 (140-440) 08/28/18 12:30 Lymph % (Auto) 7.7 % (13.4-35.0) L 08/28/18 12:30 [place] % (Auto) 10.4 % (0.0-7.3) H 08/28/18 12:30 Eos % (Auto) 1.1 % (0.0-4.3) 08/28/18 12:30 Baso % (Auto) 0.2 % (0.0-1.8) 08/28/18 12:30 Lymph # 0.8 K/mm3 (1.2-5.4) L 08/28/18 12:30 [place] # 1.1 K/mm3 (0.0-0.8) H 08/28/18 12:30 Eos # 0.1 K/mm3 (0.0-0.4) 08/28/18 12:30 Baso # 0.0 K/mm3 (0.0-0.1) 08/28/18 12:30 Add Manual Diff Complete 08/24/18 04:16 Total Counted 100 08/24/18 04:16 Seg Neutrophils % 80.6 % (40.0-70.0) H 08/28/18 12:30 Seg Neuts % (Manual) 97.0 % (40.0-70.0) H 08/24/18 04:16 Band Neutrophils % 0 % 08/24/18 04:16 Lymphocytes % (Manual) 1.0 % (13.4-35.0) L 08/24/18 04:16 Reactive Lymphs % (Man) 0 % 08/24/18 04:16 Monocytes % (Manual) 2.0 % (0.0-7.3) 08/24/18 04:16 Eosinophils % (Manual) 0 % (0.0-4.3) 08/24/18 04:16 Basophils % (Manual) 0 % (0.0-1.8) 08/24/18 04:16 Metamyelocytes % 0 % 08/24/18 04:16 Myelocytes % 0 % 08/24/18 04:16 Promyelocytes % 0 % 08/24/18 04:16 Blast Cells % 0 % 08/24/18 04:16 Nucleated RBC % Not Reportable 08/24/18 04:16 Seg Neutrophils # 8.8 K/mm3 (1.8-7.7) H 08/28/18 12:30 Seg Neutrophils # Man 6.5 K/mm3 (1.8-7.7) 08/24/18 04:16 Band Neutrophils # 0.0 K/mm3 08/24/18 04:16 Lymphocytes # (Manual) 0.1 K/mm3 (1.2-5.4) L 08/24/18 04:16 Abs React Lymphs (Man) 0.0 K/mm3 08/24/18 04:16 Monocytes # (Manual) 0.1 K/mm3 (0.0-0.8) 08/24/18 04:16 Eosinophils # (Manual) 0.0 K/mm3 (0.0-0.4) 08/24/18 04:16 Basophils # (Manual) 0.0 K/mm3 (0.0-0.1) 08/24/18 04:16 Metamyelocytes # 0.0 K/mm3 08/24/18 04:16 Myelocytes # 0.0 K/mm3 08/24/18 04:16 Promyelocytes # 0.0 K/mm3 08/24/18 04:16 Blast Cells # 0.0 K/mm3 08/24/18 04:16 WBC Morphology Not Reportable 08/24/18 04:16 Hypersegmented Neuts Not Reportable 08/24/18 04:16 Hyposegmented Neuts Not Reportable 08/24/18 04:16 Hypogranular Neuts Not Reportable 08/24/18 04:16 Smudge Cells Not Reportable 08/24/18 04:16 Toxic Granulation Not Reportable 08/24/18 04:16 Toxic Vacuolation Not Reportable 08/24/18 04:16 Dohle Bodies Not Reportable 08/24/18 04:16 Pelger-Huet Anomaly Not Reportable 08/24/18 04:16 Kaden Rods Not Reportable 08/24/18 04:16 Platelet Estimate Consistent w auto 08/24/18 04:16 Clumped Platelets Not Reportable 08/24/18 04:16 Plt Clumps, EDTA Not Reportable 08/24/18 04:16 Large Platelets Not Reportable 08/24/18 04:16 Giant Platelets Not Reportable 08/24/18 04:16 Platelet Satelliting Not Reportable 08/24/18 04:16 Plt Morphology Comment Not Reportable 08/24/18 04:16 RBC Morphology Not Reportable 08/24/18 04:16 Dimorphic RBCs Not Reportable 08/24/18 04:16 Polychromasia Not Reportable 08/24/18 04:16 Hypochromasia Not Reportable 08/24/18 04:16 Poikilocytosis Not Reportable 08/24/18 04:16 Anisocytosis Not Reportable 08/24/18 04:16 Microcytosis Not Reportable 08/24/18 04:16 Macrocytosis Not Reportable 08/24/18 04:16 Spherocytes Not Reportable 08/24/18 04:16 Pappenheimer Bodies Not Reportable 08/24/18 04:16 Sickle Cells Not Reportable 08/24/18 04:16 Target Cells Not Reportable 08/24/18 04:16 Tear Drop Cells Not Reportable 08/24/18 04:16 Ovalocytes Not Reportable 08/24/18 04:16 Helmet Cells Not Reportable 08/24/18 04:16 Dougherty-Brenham Bodies Not Reportable 08/24/18 04:16 [place] Rings Not Reportable 08/24/18 04:16 Pasquale Cells Not Reportable 08/24/18 04:16 Bite Cells Not Reportable 08/24/18 04:16 Crenated Cell Not Reportable 08/24/18 04:16 Elliptocytes Not Reportable 08/24/18 04:16 Acanthocytes (Spur) Not Reportable 08/24/18 04:16 Rouleaux Not Reportable 08/24/18 04:16 Hemoglobin C Crystals Not Reportable 08/24/18 04:16 Schistocytes Not Reportable 08/24/18 04:16 Malaria parasites Not Reportable 08/24/18 04:16 Sky Bodies Not Reportable 08/24/18 04:16 Hem Pathologist Commnt No 08/24/18 04:16 PT 13.8 Sec. (12.2-14.9) 08/24/18 04:16 INR 1.00 (0.87-1.13) 08/24/18 04:16 APTT 24.3 Sec. (24.2-36.6) 08/24/18 04:16 POC ABG pH 7.193 (7.35-7.45) L 08/23/18 18:22 POC ABG pCO2 54.9 (35-45) H 08/23/18 18:22 POC ABG pO2 102 (80-105) 08/23/18 18:22 POC ABG HCO3 21.1 (22-26 mml/L) 08/23/18 18:22 POC ABG Total CO2 23 (23-27mmol/L) 08/23/18 18:22 POC ABG O2 Sat 96 08/23/18 18:22 POC ABG Base Excess -7 ((-2) - (+3)mmol/L) 08/23/18 18:22 FiO2 40 % 08/23/18 18:22 Sodium 131 mmol/L (137-145) L 09/01/18 05:04 Potassium 4.1 mmol/L (3.6-5.0) 09/01/18 05:04 Chloride 82.8 mmol/L (98-107) L 09/01/18 05:04 Carbon Dioxide 37 mmol/L (22-30) H 09/01/18 05:04 Anion Gap 15 mmol/L 09/01/18 05:04 BUN 41 mg/dL (7-17) H 09/01/18 05:04 Creatinine 1.0 mg/dL (0.7-1.2) 09/01/18 05:04 Estimated GFR 53 ml/min 09/01/18 05:04 BUN/Creatinine Ratio 41 % 09/01/18 05:04 Glucose 113 mg/dL (65-100) H 09/01/18 05:04 POC Glucose 94 (70-105) 08/27/18 17:21 Calcium 7.7 mg/dL (8.4-10.2) L 09/01/18 05:04 Phosphorus 2.90 mg/dL (2.5-4.5) 08/28/18 12:30 Magnesium 1.70 mg/dL (1.7-2.3) 08/28/18 12:30 Total Bilirubin 0.40 mg/dL (0.1-1.2) 08/28/18 12:30 Direct Bilirubin < 0.2 mg/dL (0-0.2) 08/28/18 12:30 Indirect Bilirubin 0.2 mg/dL 08/28/18 12:30 AST 72 units/L (5-40) H 08/28/18 12:30 ALT 52 units/L (7-56) 08/28/18 12:30 Alkaline Phosphatase 59 units/L (35-129) 08/28/18 12:30 Total Creatine Kinase 339 units/L (30-135) H 08/21/18 10:20 CK-MB (CK-2) 28.4 ng/mL (0.0-4.0) H 08/21/18 10:20 CK-MB (CK-2) Rel Index 8.3 (0-4) H 08/21/18 10:20 Troponin T 0.052 ng/mL (0.00-0.029) H 08/21/18 10:20 Total Protein 5.3 g/dL (6.3-8.2) L 08/28/18 12:30 Albumin 3.4 g/dL (3.9-5) L 08/28/18 12:30 Albumin/Globulin Ratio 1.8 % 08/28/18 12:30 Triglycerides 71 mg/dL (2-149) 08/20/18 21:53 Cholesterol 173 mg/dL (50-199) 08/20/18 21:53 LDL Cholesterol Direct 115 mg/dL (50-130) 08/20/18 21:53 HDL Cholesterol 60 mg/dL (40-59) H 08/20/18 21:53 Cholesterol/HDL Ratio 2.88 % 08/20/18 21:53 Lipase 27 units/L (13-60) 08/20/18 21:53 TSH 1.120 mlU/mL (0.270-4.200) 08/23/18 06:00 Free T4 1.14 ng/dL (0.76-1.46) 08/23/18 06:00 Total Cortisol 69.1 mcg/dL () 08/25/18 05:50 Urine Color Yellow (Yellow) 08/20/18 19:43 Urine Turbidity Clear (Clear) 08/20/18 19:43 Urine pH 6.0 (5.0-7.0) 08/20/18 19:43 Ur Specific [place] 1.018 (1.003-1.030) 08/20/18 19:43 Urine Protein 100 mg/dl mg/dL (Negative) 08/20/18 19:43 Urine Glucose (UA) Neg mg/dL (Negative) 08/20/18 19:43 Urine Ketones Neg mg/dL (Negative) 08/20/18 19:43 Urine Blood Neg (Negative) 08/20/18 19:43 Urine Nitrite Neg (Negative) 08/20/18 19:43 Urine Bilirubin Neg (Negative) 08/20/18 19:43 Urine Urobilinogen < 2.0 mg/dL (<2.0) 08/20/18 19:43 Ur Leukocyte Esterase Neg (Negative) 08/20/18 19:43 Urine WBC (Auto) 1.0 /HPF (0.0-6.0) 08/20/18 19:43 Urine RBC (Auto) 7.0 /HPF (0.0-6.0) 08/20/18 19:43 U Epithel Cells (Auto) < 1.0 /HPF (0-13.0) 08/20/18 19:43 Hyaline Casts 1 /LPF 08/20/18 19:43 Urine Mucus Few /HPF 08/20/18 19:43 Urine Osmolality 466 Mosm/kg 08/22/18 18:10 Urine Creatinine 19.4 mg/dL (0.1-20.0) 08/27/18 15:29 Urine Sodium 13 mmol/L 08/22/18 18:10 Urine Chloride 36.9 mmolL (110-250) L 08/22/18 18:10 Urine Total Protein 23 mg/dL (5-11.8) H 08/27/18 15:29 Active Medications - Current Medications Current Medications: Generic Name Dose Route Start Last Admin Trade Name Freq PRN Reason Stop Dose Admin Acetaminophen 650 mg 08/21/18 04:26 08/26/18 23:35 Tylenol PO 650 mg Q4H PRN Administration Pain MILD(1-3)/Fever >100.5/CASTRO Albuterol/Ipratropium 1 ampul 08/28/18 08:00 09/01/18 07:28 Duoneb *Not For Prn Use* IH Not Given TIDRT [facility] Amiodarone HCl 200 mg 08/31/18 10:00 09/01/18 09:58 Cordarone PO 200 mg QDAY HARINI Administration Apixaban 2.5 mg 08/30/18 22:00 09/01/18 09:58 Eliquis PO 2.5 mg Q12HR HARINI Administration Protocol Arformoterol Tartrate 15 mcg 08/23/18 20:00 09/01/18 07:27 Brovana Nebu IH 15 mcg Q12HRT HARINI Administration Atorvastatin Calcium 20 mg 08/23/18 22:00 08/31/18 21:53 Lipitor PO 20 mg QHS HARINI Administration Benzocaine/Menthol 1 each 08/22/18 12:23 Cepacol X Strength MM Q2HR PRN Sore Throat Budesonide 0.5 mg 08/23/18 20:00 09/01/18 07:27 Pulmicort IH 0.5 mg Q12HRT HARINI Administration Cyclobenzaprine HCl 5 mg 08/21/18 17:53 08/24/18 03:08 Flexeril PO 5 mg Q8H PRN Administration Muscle Spasm Fludrocortisone Acetate 0.1 mg 08/29/18 10:00 09/01/18 09:58 Florinef PO 0.1 mg 3XW HARINI Administration Furosemide 40 mg 08/31/18 16:00 09/01/18 06:06 Lasix IV 40 mg 0600,1800 [facility] Administration Hydralazine HCl 5 mg 08/21/18 04:32 Apresoline IV Q6H PRN Hypertension Hydroxychloroquine Sulfate 200 mg 08/21/18 13:00 09/01/18 09:58 Plaquenil PO 200 mg QDAY [facility] Administration Lidocaine HCl 15 ml 08/28/18 14:00 09/01/18 09:57 Magic Mouthwash PO 15 ml TID [facility] Administration Metoprolol Tartrate 25 mg 08/29/18 13:00 09/01/18 10:11 Lopressor PO 25 mg Q6H [facility] Administration Nifedipine 30 mg 08/22/18 19:00 08/31/18 21:53 Procardia Xl PO Not Given Q24H [facility] Nitroglycerin 0.4 mg 08/24/18 06:00 09/01/18 06:06 Nitro Dur TD 0.4 mg QDAY@0600 [facility] Administration Ondansetron HCl 4 mg 08/21/18 04:26 08/31/18 05:07 Zofran IV 4 mg Q4H PRN Administration Nausea And Vomiting Pantoprazole Sodium 40 mg 08/22/18 13:37 09/01/18 09:58 Protonix PO 40 mg QDAY [facility] Administration Phenol 1 spray 08/22/18 12:23 08/28/18 21:08 Chloraseptic MM 1 spray PRN PRN Administration Sore Throat Polyethylene Glycol 17 gm 08/30/18 09:16 Miralax 3350 PO QDAY PRN Constipation Senna/Docusate Sodium 2 tab 08/25/18 10:25 08/31/18 20:26 Senokot S PO 2 tab Q12H PRN Administration Laxative Effect Sodium Chloride 10 ml 08/21/18 10:00 09/01/18 09:59 Sodium Chloride Flush Syringe 10 Ml IV 10 ml BID HARINI Administration Sodium Chloride 10 ml 08/21/18 04:26 08/28/18 16:46 Sodium Chloride Flush Syringe 10 Ml IV 10 ml PRN PRN Administration LINE FLUSH Trazodone HCl 100 mg 08/22/18 19:00 08/31/18 21:53 Desyrel PO 100 mg Q24H HARINI Administration Zolpidem Tartrate 5 mg 08/27/18 11:06 Ambien PO QHS PRN Sleep Nutrition/Malnutrition Assess - Dietary Evaluation Nutrition/Malnutrition Findings: Nutrition Notes Start: 08/23/18 14:01 Freq: Status: Active Protocol: Document 08/30/18 12:14 RD (Rec: 08/30/18 12:44 RD [email or web address]) Co-Sign 08/30/18 12:14 LP Nutrition Notes Initial or Follow up Reassessment Current Diagnosis Hypertension Other Pertinent Diagnosis hyponatremia, lupus, depression, anxiety Current Diet CARDIAC Labs/Tests BUN 26 Pertinent Medications Lasix Height 5 ft 2 in Weight 58.06 kg [place] Body Weight (kg) 50.00 BMI 23.3 Subjective/Other Information Pt reported eating much better , stated she ate most of her breakfast today and half of her lunch yesterday. Pt reports a better appetite. Pt states she does not like Ensure Enlive and would like Ensure Clear instead. Percent of energy/protein needs met: 100%/ 100% Burn Absent Trauma Absent Current % PO Good (75-100%) #1 Nutrition Diagnosis Inadequate oral intake As Evidenced by Signs and Symptoms Pt meeting 100% of calorie and protein needs Diagnosis Progress(for reassessment Resolved documentation) Is patient on ventilator? No Is Patient Ambulatory and/or Out of Bed Yes REE-([place] Je[place]-ambulatory/OOB) [ 1266.005 [id number]] Calculation Used for Recommendations [place] Je[place] Additional Notes Protein needs: (1-1.2g/kg/day) 58-70g/day Fluid needs: 1mL/kcal Nutrition Intervention Change Diet Order: Continue cardiac Add Supplement/Snack (indicate name/kcal Ensure Clear BID /protein ) Provides kCal: 480 Provides Protein (gm) 16 Goal #1 Continue to meet at least 75% of nutrient needs via PO and ONS intakes Anticipated Discharge Needs: Cardiac diet Follow-Up By: 09/06/18 Additional Comments f/u: stable intakes
[2018-09-01] MEDS ORDERED: TUCKS PAD TP PRN (10:49)
[2018-09-01] MEDS ORDERED: PROCTOSOL-HC PR PRN (10:49)
--- NOTE | 2018-09-01 14:19 | Progress Note ---
Assessment and Plan Imp: 1. Hyponatremia 2. Hyperkalemia 3. Bilateral pleural effusions, ? CHF 4. NSTEMI 5. Pulm HTN, unclear etiology; could be due to L sided diastolic dysfunction 6. Acute respiratory failure, hypoxia 7. R/o Aspiration 8. SLE, doubt flare Rec: 1. Agree w/ Lasix IV and monitor sodium closely; no need for steroids pulm-franco, continue daily net negative state 2. Wean off O2 to keep sats 88% or greater; daughter refused repeat ABG. Should be able to wean off completely. Would still do walk test prior to discharge if patient and family in agree. 3.Consider outpatient PFTs re: pulm HTN; optimally would need RHC prior to considering pulmonary vasodilators 4. Pulm status is stable to improving. Can follow up with Melvin in 10-14 days post discharge. Will sign off, call if questions. Subjective Date of service: 09/01/18 Principal diagnosis: SOB Interval history: No acute events. Objective Vital Signs - 12hr 09/01/18 09/01/18 09/01/18 06:06 06:08 07:50 Temperature Pulse Rate 54 L Pulse Rate [ 83 Bilateral Throughout] Pulse Rate [ 84 Bilateral] Pulse Rate [ Left Brachial] Respiratory Rate Respiratory 16 Rate [Bilateral Throughout] Respiratory 16 Rate [Bilateral ] Blood Pressure 133/50 133/50 Blood Pressure [Right] O2 Sat by Pulse Oximetry 09/01/18 09/01/18 09/01/18 08:17 08:43 10:10 Temperature 97.5 F L Pulse Rate 65 Pulse Rate [ Bilateral Throughout] Pulse Rate [ Bilateral] Pulse Rate [ 54 L Left Brachial] Respiratory 20 22 Rate Respiratory Rate [Bilateral Throughout] Respiratory Rate [Bilateral ] Blood Pressure 146/56 Blood Pressure 146/56 [Right] O2 Sat by Pulse 97 Oximetry Constitutional: no acute distress, alert Eyes: non-icteric ENT: oropharynx moist Neck: supple Effort: normal Ascultation: Bilateral: diminished breath sounds (bases) Cardiovascular: other (ir/ir, no mrg) Gastrointestinal: normoactive bowel sounds, soft, non-tender, non-distended Integumentary: normal Extremities: no cyanosis, pink and warm, edema (2+ bilateral LE edema) Neurologic: normal mental status, non-focal exam, pupils equal and round, CN II- XII normal Psychiatric: mood appropriate, affect normal CBC and BMP: 08/28/18 12:30 09/01/18 05:04 ABG, PT/INR, D-dimer: ABG POC ABG pH 7.193 (7.35-7.45) L 08/23/18 18:22 POC ABG pCO2 54.9 (35-45) H 08/23/18 18:22 POC ABG pO2 102 (80-105) 08/23/18 18:22 POC ABG HCO3 21.1 (22-26 mml/L) 08/23/18 18:22 POC ABG Total CO2 23 (23-27mmol/L) 08/23/18 18:22 POC ABG O2 Sat 96 08/23/18 18:22 PT/INR, D-dimer PT 13.8 Sec. (12.2-14.9) 08/24/18 04:16 INR 1.00 (0.87-1.13) 08/24/18 04:16 Abnormal lab findings: Abnormal Labs 08/20/18 08/20/18 08/20/18 21:53 21:53 21:53 MCH RDW Lymph % (Auto) 12.4 L [place] % (Auto) 8.0 H Lymph # 0.9 L [place] # Seg Neutrophils % 79.1 H Seg Neuts % (Manual) Lymphocytes % (Manual) Seg Neutrophils # Lymphocytes # (Manual) APTT 23.1 L POC ABG pH POC ABG pCO2 POC ABG pO2 Sodium 123 L Potassium 5.5 H Chloride 86.9 L Carbon Dioxide BUN 18 H Creatinine Glucose 104 H POC Glucose Calcium AST 62 H ALT 82 H Total Creatine Kinase 257 H CK-MB (CK-2) 22.0 H CK-MB (CK-2) Rel Index 8.5 H Troponin T 0.062 H Total Protein Albumin HDL Cholesterol 60 H Urine Creatinine Urine Chloride Urine Total Protein 08/21/18 08/21/18 08/21/18 05:12 10:20 10:20 MCH 27 L RDW Lymph % (Auto) 9.6 L [place] % (Auto) 9.2 H Lymph # 0.5 L [place] # Seg Neutrophils % 80.8 H Seg Neuts % (Manual) Lymphocytes % (Manual) Seg Neutrophils # Lymphocytes # (Manual) APTT POC ABG pH POC ABG pCO2 POC ABG pO2 Sodium Potassium Chloride Carbon Dioxide BUN Creatinine Glucose POC Glucose Calcium AST ALT Total Creatine Kinase 272 H 339 H CK-MB (CK-2) 23.5 H 28.4 H CK-MB (CK-2) Rel Index 8.6 H 8.3 H Troponin T 0.065 H 0.052 H Total Protein Albumin HDL Cholesterol Urine Creatinine Urine Chloride Urine Total Protein 08/21/18 08/22/18 08/22/18 15:44 03:13 18:10 MCH RDW Lymph % (Auto) [place] % (Auto) Lymph # [place] # Seg Neutrophils % Seg Neuts % (Manual) Lymphocytes % (Manual) Seg Neutrophils # Lymphocytes # (Manual) APTT POC ABG pH POC ABG pCO2 POC ABG pO2 Sodium 125 L 124 L Potassium 5.6 H 5.3 H Chloride 90.7 L 93.1 L Carbon Dioxide 21 L BUN 20 H 21 H Creatinine Glucose 113 H 116 H POC Glucose Calcium 8.1 L 7.8 L AST ALT Total Creatine Kinase CK-MB (CK-2) CK-MB (CK-2) Rel Index Troponin T Total Protein Albumin HDL Cholesterol Urine Creatinine 89.3 H Urine Chloride 36.9 L Urine Total Protein 08/23/18 08/23/18 08/23/18 05:22 06:00 18:22 MCH RDW Lymph % (Auto) [place] % (Auto) Lymph # [place] # Seg Neutrophils % Seg Neuts % (Manual) Lymphocytes % (Manual) Seg Neutrophils # Lymphocytes # (Manual) APTT POC ABG pH 7.120 L 7.193 L POC ABG pCO2 63.6 H 54.9 H POC ABG pO2 107 H Sodium 123 L Potassium 5.7 H Chloride 92.0 L Carbon Dioxide BUN 24 H Creatinine Glucose 113 H POC Glucose Calcium 8.1 L AST ALT Total Creatine Kinase CK-MB (CK-2) CK-MB (CK-2) Rel Index Troponin T Total Protein Albumin HDL Cholesterol Urine Creatinine Urine Chloride Urine Total Protein 08/23/18 08/24/18 08/24/18 23:48 00:26 04:16 MCH RDW Lymph % (Auto) [place] % (Auto) Lymph # [place] # Seg Neutrophils % Seg Neuts % (Manual) Lymphocytes % (Manual) Seg Neutrophils # Lymphocytes # (Manual) APTT POC ABG pH POC ABG pCO2 POC ABG pO2 Sodium 125 L Potassium Chloride 93.1 L Carbon Dioxide 21 L BUN 19 H Creatinine 0.6 L Glucose 133 H 118 H POC Glucose < 40 L Calcium 8.0 L AST ALT Total Creatine Kinase CK-MB (CK-2) CK-MB (CK-2) Rel Index Troponin T Total Protein Albumin HDL Cholesterol Urine Creatinine Urine Chloride Urine Total Protein 08/24/18 08/24/18 08/24/18 04:16 06:12 11:49 MCH 27 L RDW Lymph % (Auto) [place] % (Auto) Lymph # [place] # Seg Neutrophils % Seg Neuts % (Manual) 97.0 H Lymphocytes % (Manual) 1.0 L Seg Neutrophils # Lymphocytes # (Manual) 0.1 L APTT POC ABG pH POC ABG pCO2 POC ABG pO2 Sodium Potassium Chloride Carbon Dioxide BUN Creatinine Glucose POC Glucose 114 H 186 H Calcium AST ALT Total Creatine Kinase CK-MB (CK-2) CK-MB (CK-2) Rel Index Troponin T Total Protein Albumin HDL Cholesterol Urine Creatinine Urine Chloride Urine Total Protein 08/24/18 08/25/18 08/25/18 22:28 05:50 07:36 MCH RDW Lymph % (Auto) [place] % (Auto) Lymph # [place] # Seg Neutrophils % Seg Neuts % (Manual) Lymphocytes % (Manual) Seg Neutrophils # Lymphocytes # (Manual) APTT POC ABG pH POC ABG pCO2 POC ABG pO2 Sodium 133 L D Potassium Chloride 96.4 L Carbon Dioxide BUN 20 H Creatinine Glucose 147 H POC Glucose 110 H 122 H Calcium 8.2 L AST ALT Total Creatine Kinase CK-MB (CK-2) CK-MB (CK-2) Rel Index Troponin T Total Protein Albumin HDL Cholesterol Urine Creatinine Urine Chloride Urine Total Protein 08/25/18 08/25/18 08/25/18 11:37 16:29 22:17 MCH RDW Lymph % (Auto) [place] % (Auto) Lymph # [place] # Seg Neutrophils % Seg Neuts % (Manual) Lymphocytes % (Manual) Seg Neutrophils # Lymphocytes # (Manual) APTT POC ABG pH POC ABG pCO2 POC ABG pO2 Sodium Potassium Chloride Carbon Dioxide BUN Creatinine Glucose POC Glucose 131 H 132 H 127 H Calcium AST ALT Total Creatine Kinase CK-MB (CK-2) CK-MB (CK-2) Rel Index Troponin T Total Protein Albumin HDL Cholesterol Urine Creatinine Urine Chloride Urine Total Protein 08/26/18 08/27/18 08/27/18 05:27 08:16 15:29 MCH RDW Lymph % (Auto) [place] % (Auto) Lymph # [place] # Seg Neutrophils % Seg Neuts % (Manual) Lymphocytes % (Manual) Seg Neutrophils # Lymphocytes # (Manual) APTT POC ABG pH POC ABG pCO2 POC ABG pO2 Sodium 135 L Potassium 5.1 H Chloride 92.9 L Carbon Dioxide 33 H D 33 H BUN 25 H 24 H Creatinine 0.6 L Glucose 114 H 117 H POC Glucose Calcium 8.1 L 8.3 L AST ALT Total Creatine Kinase CK-MB (CK-2) CK-MB (CK-2) Rel Index Troponin T Total Protein Albumin HDL Cholesterol Urine Creatinine Urine Chloride Urine Total Protein 23 H 08/28/18 08/28/18 08/29/18 12:30 12:30 05:36 MCH 27 L RDW 15.8 H Lymph % (Auto) 7.7 L [place] % (Auto) 10.4 H Lymph # 0.8 L [place] # 1.1 H Seg Neutrophils % 80.6 H Seg Neuts % (Manual) Lymphocytes % (Manual) Seg Neutrophils # 8.8 H Lymphocytes # (Manual) APTT POC ABG pH POC ABG pCO2 POC ABG pO2 Sodium Potassium 3.2 L D Chloride 90.1 L 90.1 L Carbon Dioxide 35 H 40 H BUN 25 H 25 H Creatinine Glucose 129 H POC Glucose Calcium 8.1 L 8.0 L AST 72 H ALT Total Creatine Kinase CK-MB (CK-2) CK-MB (CK-2) Rel Index Troponin T Total Protein 5.3 L Albumin 3.4 L HDL Cholesterol Urine Creatinine Urine Chloride Urine Total Protein 08/30/18 08/31/18 09/01/18 08:08 04:41 05:04 MCH RDW Lymph % (Auto) [place] % (Auto) Lymph # [place] # Seg Neutrophils % Seg Neuts % (Manual) Lymphocytes % (Manual) Seg Neutrophils # Lymphocytes # (Manual) APTT POC ABG pH POC ABG pCO2 POC ABG pO2 Sodium 132 L 131 L Potassium Chloride 88.9 L 84.9 L 82.8 L Carbon Dioxide 40 H 36 H 37 H BUN 26 H 33 H 41 H Creatinine Glucose 113 H POC Glucose Calcium 8.2 L 7.9 L 7.7 L AST ALT Total Creatine Kinase CK-MB (CK-2) CK-MB (CK-2) Rel Index Troponin T Total Protein Albumin HDL Cholesterol Urine Creatinine Urine Chloride Urine Total Protein Allied health notes reviewed: nursing
--- NOTE | 2018-09-01 15:43 | Progress Note ---
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 Na was improving s/p tolvaptan and on IV diuretic therapy, but now trending down again after switching lasix to po. agree with resuming IV lasix 40mg bid for volume control. Will give another dose of tolvaptan. (2) Elevated troponin Current Visit: Yes Status: Acute Plan to address problem: Workup noted per cardiology. Echocardiogram is been reviewed. CTA noted without any acute abnormalities. Family and patient does not want to go through with cardiac cath at this time and are opting for more medical/conservative management. (3) Nausea & vomiting Current Visit: Yes Status: Acute Plan to address problem: improved (4) Weakness Current Visit: Yes Status: Acute Plan to address problem: Management per primary team. Recommend physical therapy evaluation. (5) HTN (hypertension) Current Visit: No Status: Chronic Plan to address problem: We will monitor on her current regimen. Subjective Date of service: 09/01/18 Principal diagnosis: SOB Interval history: Pt denies CP, SOB, palpitations, fever, chills, dysuria. decreased UOP noted with worsening SOB Objective - Vital Signs Vital signs: Vital Signs - 12hr 09/01/18 09/01/18 09/01/18 06:06 06:08 07:50 Temperature Pulse Rate 54 L Pulse Rate [ 83 Bilateral Throughout] Pulse Rate [ 84 Bilateral] Pulse Rate [ Left Brachial] Respiratory Rate Respiratory 16 Rate [Bilateral Throughout] Respiratory 16 Rate [Bilateral ] Blood Pressure 133/50 133/50 Blood Pressure [Right] O2 Sat by Pulse Oximetry 09/01/18 09/01/18 09/01/18 08:17 08:43 10:00 Temperature 97.5 F L Pulse Rate 65 65 Pulse Rate [ Bilateral Throughout] Pulse Rate [ Bilateral] Pulse Rate [ 54 L Left Brachial] Respiratory 20 22 Rate Respiratory Rate [Bilateral Throughout] Respiratory Rate [Bilateral ] Blood Pressure Blood Pressure 146/56 [Right] O2 Sat by Pulse 97 Oximetry 09/01/18 10:10 Temperature Pulse Rate Pulse Rate [ Bilateral Throughout] Pulse Rate [ Bilateral] Pulse Rate [ Left Brachial] Respiratory Rate Respiratory Rate [Bilateral Throughout] Respiratory Rate [Bilateral ] Blood Pressure 146/56 Blood Pressure [Right] O2 Sat by Pulse Oximetry - General Appearance General appearance: well-developed, appears stated age EENT: ATNC, PERRL, mucous membranes moist Neck: no JVD Respiratory: Present: Decreased Breath Sounds Cardiology: regular, S1S2 Gastrointestinal: normoactive bowel sounds Integumentary: no rash, other (+ edema b/l LE ) Neurologic: no focal deficit, alert and oriented x3, strength 5/5, CN 3-12 intact Psychiatric: mood/affect appropriate, cooperative - Lab 08/28/18 12:30 09/01/18 05:04 Most recent lab results Calcium 7.7 mg/dL (8.4-10.2) L 09/01/18 05:04 Phosphorus 2.90 mg/dL (2.5-4.5) 08/28/18 12:30 Magnesium 1.70 mg/dL (1.7-2.3) 08/28/18 12:30 Urine Creatinine 19.4 mg/dL (0.1-20.0) 08/27/18 15:29 Urine Sodium 13 mmol/L 08/22/18 18:10 Urine Total Protein 23 mg/dL (5-11.8) H 08/27/18 15:29 Medications & Allergies - Medications Allergies/Adverse Reactions: Allergies aspirin Allergy (Unknown, Verified 08/20/18 18:48) Unknown cephalexin monohydrate [From Keflex] Allergy (Unknown, Verified 08/20/18 18:48) Unknown diazepam [From Valium] Allergy (Unknown, Verified 08/20/18 18:48) Unknown doxycycline calcium [From Vibramycin] Allergy (Unknown, Verified 08/20/18 18:48) Unknown doxycycline hyclate [From Vibramycin] Allergy (Unknown, Verified 08/20/18 18:48) Unknown doxycycline monohydrate [From Vibramycin] Allergy (Unknown, Verified 08/20/18 18:48) Unknown lorazepam [From Ativan] Allergy (Unknown, Verified 08/20/18 18:48) Diarrhea meperidine HCl [From Demerol] Allergy (Unknown, Verified 08/20/18 18:48) Unknown ofloxacin [From Floxin] Allergy (Unknown, Verified 08/20/18 18:48) Unknown pentazocine lactate [From Talwin] Allergy (Unknown, Verified 08/20/18 18:48) Unknown ciprofloxacin Allergy (Verified 08/20/18 18:48) Unknown fexofenadine [From Nadine] Allergy (Verified 08/20/18 18:48) Unknown hydrocodone Allergy (Verified 08/20/18 18:48) Unknown morphine Allergy (Verified 08/20/18 18:48) Unknown Sulfa (Sulfonamide Antibiotics) Allergy (Verified 08/20/18 18:48) Unknown adhesive Adverse Reaction (Verified 08/20/18 18:48) Rash Home Medications: Home Medications Medication Instructions Recorded Confirmed Last Taken Type Hydroxychloroquine [Plaquenil] 200 mg PO QDAY 08/30/17 08/21/18 Unknown History Losartan [Cozaar] 50 mg PO QDAY 08/21/18 08/21/18 Unknown History NIFEdipine XL [Procardia Xl] 30 mg PO QHS 08/21/18 08/21/18 Unknown History traZODone [Desyrel] 100 mg PO QHS 08/21/18 08/21/18 Unknown History Active Medications: Generic Name Dose Route Start Last Admin Trade Name Freq PRN Reason Stop Dose Admin Acetaminophen 650 mg 08/21/18 04:26 08/26/18 23:35 Tylenol PO 650 mg Q4H PRN Administration Pain MILD(1-3)/Fever >100.5/CASTRO Albuterol/Ipratropium 1 ampul 08/28/18 08:00 09/01/18 13:27 Duoneb *Not For Prn Use* IH Not Given TIDRT [facility] Amiodarone HCl 200 mg 09/01/18 12:00 Cordarone PO Q24H HARINI Apixaban 2.5 mg 09/02/18 07:00 Eliquis PO Q24H [facility] Protocol Arformoterol Tartrate 15 mcg 08/23/18 20:00 09/01/18 07:27 Brovana Nebu IH 15 mcg Q12HRT [facility]INI Administration Atorvastatin Calcium 20 mg 08/23/18 22:00 08/31/18 21:53 Lipitor PO 20 mg QHS HARINI Administration Benzocaine/Menthol 1 each 08/22/18 12:23 Cepacol X Strength MM Q2HR PRN Sore Throat Budesonide 0.5 mg 08/23/18 20:00 09/01/18 07:27 Pulmicort IH 0.5 mg Q12HRT HARINI Administration Cyclobenzaprine HCl 5 mg 08/21/18 17:53 08/24/18 03:08 Flexeril PO 5 mg Q8H PRN Administration Muscle Spasm Fludrocortisone Acetate 0.1 mg 08/29/18 10:00 09/01/18 09:58 Florinef PO 0.1 mg 3XW [facility] Administration Furosemide 40 mg 08/31/18 16:00 09/01/18 06:06 Lasix IV 40 mg 0600,1800 [facility] Administration Hydralazine HCl 5 mg 08/21/18 04:32 Apresoline IV Q6H PRN Hypertension Hydrocortisone Acetate 1 applic 09/01/18 10:49 Proctosol-Hc UT Q8H PRN Hemorrhoids Hydroxychloroquine Sulfate 200 mg 09/02/18 08:00 Plaquenil PO Q24H [facility] Lidocaine HCl 15 ml 08/28/18 14:00 09/01/18 09:57 Magic Mouthwash PO 15 ml TID [facility] Administration Metoprolol Tartrate 25 mg 08/29/18 13:00 09/01/18 10:11 Lopressor PO 25 mg Q6H [facility] Administration Nifedipine 30 mg 09/02/18 09:00 Procardia Xl PO Q24H [facility] Nitroglycerin 0.4 mg 08/24/18 06:00 09/01/18 06:06 Nitro Dur TD 0.4 mg QDAY@0600 [facility] Administration Ondansetron HCl 4 mg 08/21/18 04:26 08/31/18 05:07 Zofran IV 4 mg Q4H PRN Administration Nausea And Vomiting Pantoprazole Sodium 40 mg 08/22/18 13:37 09/01/18 09:58 Protonix PO 40 mg QDAY [facility] Administration Phenol 1 spray 08/22/18 12:23 08/28/18 21:08 Chloraseptic MM 1 spray PRN PRN Administration Sore Throat Polyethylene Glycol 17 gm 08/30/18 09:16 Miralax 3350 PO QDAY PRN Constipation Senna/Docusate Sodium 2 tab 08/25/18 10:25 08/31/18 20:26 Senokot S PO 2 tab Q12H PRN Administration Laxative Effect Sodium Chloride 10 ml 08/21/18 10:00 09/01/18 09:59 Sodium Chloride Flush Syringe 10 Ml IV 10 ml BID [facility]INI Administration Sodium Chloride 10 ml 08/21/18 04:26 08/28/18 16:46 Sodium Chloride Flush Syringe 10 Ml IV 10 ml PRN PRN Administration LINE FLUSH Trazodone HCl 100 mg 08/22/18 19:00 08/31/18 21:53 Desyrel PO 100 mg Q24H [facility] Administration Witch Rhea/Glycerin 1 each 09/01/18 10:49 Tucks Pad TP PRN PRN Hemorrhoids Zolpidem Tartrate 5 mg 08/27/18 11:06 Ambien PO QHS PRN Sleep
[2018-09-01] MEDS: FLEXERIL PO PRN (15:56)
[2018-09-01] MEDS ORDERED: SAMSCA PO ONE (16:30)
[2018-09-01] MEDS: DESYREL PO SCH (22:28)
[2018-09-02] MEDS: MAGIC MOUTHWASH PO SCH ×4 (05:44→23:33)
[2018-09-02] MEDS: LASIX IV SCH (06:09)
[2018-09-02] MEDS: NITRO DUR TD SCH (06:11)
[2018-09-02] MEDS: SODIUM CHLORIDE FLUSH SYRINGE 10 ML IV SCH ×2 (06:15→09:42)
[2018-09-02 06:49] LABS: Calcium 8.1 mg/dL (8.4-10.2)
[2018-09-02] MEDS: LOPRESSOR PO SCH ×4 (06:54→23:32)
[2018-09-02] MEDS: ELIQUIS PO SCH (06:59)
[2018-09-02] MEDS: PROCARDIA XL PO SCH (08:45)
[2018-09-02] MEDS: PLAQUENIL PO SCH (08:45)
[2018-09-02] MEDS: PROTONIX PO SCH (09:41)
[2018-09-02] MEDS: FLORINEF PO SCH (09:41)
--- NOTE | 2018-09-02 09:50 | Progress Note ---
Assessment and Plan Shortness of breath chest CTA: no evidence of PE Dizziness no acute intracranial process by head CT. Hyponatremia Elevated transaminase Hyperkalemia NSTEMI - patient and family members declined further cardiac evaluation and prefers conservative cardiac management. Chronic RBBB Paroxysmal Atrial flutter on amiodarone and metoprolol for suppression. initiated on low dose eliquis Echocardiogram reveals evidence of severe pulmonary hypertension, RVSP 70-75 mmHg. Normal left ventricular systolic function, ejection fraction 50-55%. Recommendations: Continue medical management for paroxysmal Aflutter. Switch IV lasix to po Subjective Date of service: 09/02/18 Principal diagnosis: SOB Interval history: Patient appears pale and lethargic Patient denies chest pain or shortness of breath Patient is not on tele Objective Vital Signs Temp Pulse Pulse Resp Resp BP BP 09/02/18 07:06 98.9 F 72 16 140/49 09/02/18 07:04 72 140/49 09/02/18 06:11 64 148/64 09/02/18 02:51 68 09/02/18 02:00 97.8 F 64 18 148/66 09/02/18 00:25 67 20 09/01/18 22:28 64 153/63 09/01/18 20:17 64 20 09/01/18 20:10 97.3 F L 61 18 153/63 09/01/18 15:57 135/57 09/01/18 15:06 98.0 F 60 20 132/50 09/01/18 10:10 146/56 09/01/18 10:00 65 Pulse Ox 09/02/18 07:06 94 09/02/18 07:04 09/02/18 06:11 09/02/18 02:51 88 09/02/18 02:00 95 09/02/18 00:25 09/01/18 22:28 09/01/18 20:17 97 09/01/18 20:10 94 09/01/18 15:57 09/01/18 15:06 92 09/01/18 10:10 09/01/18 10:00 - Physical Examination General: No Apparent Distress HEENT: Positive: PERRL Neck: Positive: trachea midline Cardiac: Positive: Reg Rate and Rhythm Lungs: Positive: Normal Exam Neuro: Positive: Grossly Intact, Weakness Abdomen: Positive: Soft Skin: Positive: Bruising Extremities: Absent: lower extr. pulses - Labs and Meds Comprehensive Metabolic Panel 09/02/18 Range/Units 05:13 Sodium 131 L (137-145) mmol/L Potassium 4.1 (3.6-5.0) mmol/L Chloride 83.2 L (98-107) mmol/L Carbon Dioxide 40 H (22-30) mmol/L BUN 43 H (7-17) mg/dL Creatinine 0.9 (0.7-1.2) mg/dL Glucose 111 H (65-100) mg/dL Calcium 8.1 L (8.4-10.2) mg/dL - Allied health notes Allied health notes reviewed: nursing
[2018-09-02] MEDS: BROVANA NEBU IH SCH ×2 (09:59→20:10)
[2018-09-02] MEDS: PULMICORT IH SCH ×2 (09:59→20:10)
[2018-09-02] MEDS: DUONEB *Not for PRN Use IH SCH ×3 (09:59→20:10)
[2018-09-02] MEDS: MACROBID PO SCH ×2 (10:19→23:36)
[2018-09-02] MEDS: CORDARONE PO SCH (11:52)
--- NOTE | 2018-09-02 15:23 | Progress Note ---
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 cont laisx 40mg po bid, another tolvaptan 15mg po given. discussed Na restriction /fluid restriction to 1.5L/day. (2) Nausea & vomiting Current Visit: Yes Status: Acute Plan to address problem: improved (3) Weakness Current Visit: Yes Status: Acute Plan to address problem: Management per primary team. Recommend physical therapy evaluation. (4) HTN (hypertension) Current Visit: No Status: Chronic Plan to address problem: We will monitor on her current regimen. (5) NSTEMI (non-ST elevated myocardial infarction) Current Visit: Yes Status: Acute Plan to address problem: Pt and family declined further cardiac evaluation and prefers conservative cardiac management. Follow cardiology recommendations Subjective Date of service: 09/02/18 Principal diagnosis: SOB Interval history: Pt denies CP, SOB, palpitations, fever, chills, dysuria. worsening b/l LE edema reported. Objective - Vital Signs Vital signs: Vital Signs - 12hr 09/02/18 09/02/18 09/02/18 06:11 07:04 07:06 Temperature 98.9 F Pulse Rate 64 72 72 Pulse Rate [ Bilateral Throughout] Pulse Rate [ From Monitor] Respiratory 16 Rate Respiratory Rate [Bilateral Throughout] Blood Pressure 148/64 140/49 Blood Pressure 140/49 [Right] O2 Sat by Pulse 94 Oximetry 09/02/18 09/02/18 09/02/18 09:59 10:00 10:09 Temperature Pulse Rate 65 Pulse Rate [ 57 L 60 Bilateral Throughout] Pulse Rate [ 65 From Monitor] Respiratory 18 Rate Respiratory 18 18 Rate [Bilateral Throughout] Blood Pressure Blood Pressure [Right] O2 Sat by Pulse 98 Oximetry 09/02/18 09/02/18 09/02/18 13:33 13:42 14:36 Temperature 98.1 F Pulse Rate 63 61 Pulse Rate [ 60 Bilateral Throughout] Pulse Rate [ From Monitor] Respiratory 20 Rate Respiratory 18 Rate [Bilateral Throughout] Blood Pressure 101/41 101/41 Blood Pressure [Right] O2 Sat by Pulse 94 Oximetry 09/02/18 14:46 Temperature Pulse Rate Pulse Rate [ 59 L Bilateral Throughout] Pulse Rate [ From Monitor] Respiratory Rate Respiratory 18 Rate [Bilateral Throughout] Blood Pressure Blood Pressure [Right] O2 Sat by Pulse Oximetry - General Appearance General appearance: well-developed, appears stated age, chronically ill EENT: ATNC, PERRL, mucous membranes moist Neck: no JVD Respiratory: Present: Decreased Breath Sounds Cardiology: regular, S1S2 Gastrointestinal: normoactive bowel sounds Integumentary: no rash, other (2+ b/l pitting edema LE ) Neurologic: no focal deficit, alert and oriented x3, strength 5/5, CN 3-12 intact Psychiatric: mood/affect appropriate, cooperative - Lab 08/28/18 12:30 09/02/18 05:13 Most recent lab results Calcium 8.1 mg/dL (8.4-10.2) L 09/02/18 05:13 Phosphorus 2.90 mg/dL (2.5-4.5) 08/28/18 12:30 Magnesium 1.70 mg/dL (1.7-2.3) 08/28/18 12:30 Urine Creatinine 19.4 mg/dL (0.1-20.0) 08/27/18 15:29 Urine Sodium 13 mmol/L 08/22/18 18:10 Urine Total Protein 23 mg/dL (5-11.8) H 08/27/18 15:29 Medications & Allergies - Medications Allergies/Adverse Reactions: Allergies Sulfa (Sulfonamide Antibiotics) Allergy (Mild, Verified 09/02/18 11:13) Unknown rashes of her perineum and her mouth aspirin Allergy (Unknown, Verified 08/20/18 18:48) Unknown cephalexin monohydrate [From Keflex] Allergy (Unknown, Verified 08/20/18 18:48) Unknown diazepam [From Valium] Allergy (Unknown, Verified 08/20/18 18:48) Unknown doxycycline calcium [From Vibramycin] Allergy (Unknown, Verified 08/20/18 18:48) Unknown doxycycline hyclate [From Vibramycin] Allergy (Unknown, Verified 08/20/18 18:48) Unknown doxycycline monohydrate [From Vibramycin] Allergy (Unknown, Verified 08/20/18 18:48) Unknown lorazepam [From Ativan] Allergy (Unknown, Verified 08/20/18 18:48) Diarrhea meperidine HCl [From Demerol] Allergy (Unknown, Verified 08/20/18 18:48) Unknown ofloxacin [From Floxin] Allergy (Unknown, Verified 08/20/18 18:48) Unknown pentazocine lactate [From Talwin] Allergy (Unknown, Verified 08/20/18 18:48) Unknown ciprofloxacin Allergy (Verified 08/20/18 18:48) Unknown fexofenadine [From Nadine] Allergy (Verified 08/20/18 18:48) Unknown hydrocodone Allergy (Verified 08/20/18 18:48) Unknown morphine Allergy (Verified 08/20/18 18:48) Unknown adhesive Adverse Reaction (Verified 08/20/18 18:48) Rash Home Medications: Home Medications Medication Instructions Recorded Confirmed Last Taken Type Hydroxychloroquine [Plaquenil] 200 mg PO QDAY 08/30/17 08/21/18 Unknown History Losartan [Cozaar] 50 mg PO QDAY 08/21/18 08/21/18 Unknown History NIFEdipine XL [Procardia Xl] 30 mg PO QHS 08/21/18 08/21/18 Unknown History traZODone [Desyrel] 100 mg PO QHS 08/21/18 08/21/18 Unknown History Active Medications: Generic Name Dose Route Start Last Admin Trade Name Freq PRN Reason Stop Dose Admin Acetaminophen 650 mg 08/21/18 04:26 08/26/18 23:35 Tylenol PO 650 mg Q4H PRN Administration Pain MILD(1-3)/Fever >100.5/CASTRO Albuterol/Ipratropium 1 ampul 08/28/18 08:00 09/02/18 14:36 Duoneb *Not For Prn Use* IH 1 ampul TIDRT HARINI Administration Amiodarone HCl 200 mg 09/01/18 12:00 09/02/18 11:52 Cordarone PO 200 mg Q24H HARINI Administration Apixaban 2.5 mg 09/02/18 07:00 09/02/18 06:59 Eliquis PO 2.5 mg Q24H HARINI Administration Protocol Arformoterol Tartrate 15 mcg 08/23/18 20:00 09/02/18 09:59 Brovana Nebu IH 15 mcg Q12HRT HARINI Administration Atorvastatin Calcium 20 mg 08/23/18 22:00 09/01/18 22:27 Lipitor PO 20 mg QHS HARINI Administration Benzocaine/Menthol 1 each 08/22/18 12:23 Cepacol X Strength MM Q2HR PRN Sore Throat Budesonide 0.5 mg 08/23/18 20:00 09/02/18 09:59 Pulmicort IH 0.5 mg Q12HRT [facility] Administration Cyclobenzaprine HCl 5 mg 08/21/18 17:53 09/01/18 15:56 Flexeril PO 5 mg Q8H PRN Administration Muscle Spasm Fludrocortisone Acetate 0.1 mg 08/29/18 10:00 09/02/18 09:41 Florinef PO 0.1 mg 3XW [facility] Administration Furosemide 40 mg 09/02/18 18:00 Lasix PO 0600,1800 [facility] Hydralazine HCl 5 mg 08/21/18 04:32 Apresoline IV Q6H PRN Hypertension Hydrocortisone Acetate 1 applic 09/01/18 10:49 09/01/18 16:09 Proctosol-Hc MI 1 applic Q8H PRN Administration Hemorrhoids Hydroxychloroquine Sulfate 200 mg 09/02/18 08:00 09/02/18 08:45 Plaquenil PO 200 mg Q24H [facility] Administration Lidocaine HCl 15 ml 08/28/18 14:00 09/02/18 13:43 Magic Mouthwash PO Not Given TID [facility] Metoprolol Tartrate 25 mg 08/29/18 13:00 09/02/18 13:42 Lopressor PO Not Given Q6H [facility] Nifedipine 30 mg 09/02/18 09:00 09/02/18 08:45 Procardia Xl PO 30 mg Q24H [facility] Administration Nitrofurantoin Macrocrystals 100 mg 09/02/18 10:00 09/02/18 10:19 Macrobid PO 100 mg Q12HR [facility] Administration Nitroglycerin 0.4 mg 08/24/18 06:00 09/02/18 06:11 Nitro Dur TD 0.4 mg QDAY@0600 [facility] Administration Ondansetron HCl 4 mg 08/21/18 04:26 08/31/18 05:07 Zofran IV 4 mg Q4H PRN Administration Nausea And Vomiting Pantoprazole Sodium 40 mg 08/22/18 13:37 09/02/18 09:41 Protonix PO 40 mg QDAY [facility] Administration Phenol 1 spray 08/22/18 12:23 08/28/18 21:08 Chloraseptic MM 1 spray PRN PRN Administration Sore Throat Polyethylene Glycol 17 gm 08/30/18 09:16 Miralax 3350 PO QDAY PRN Constipation Senna/Docusate Sodium 2 tab 08/25/18 10:25 08/31/18 20:26 Senokot S PO 2 tab Q12H PRN Administration Laxative Effect Sodium Chloride 10 ml 08/21/18 10:00 09/02/18 09:42 Sodium Chloride Flush Syringe 10 Ml IV 10 ml BID HARINI Administration Sodium Chloride 10 ml 08/21/18 04:26 08/28/18 16:46 Sodium Chloride Flush Syringe 10 Ml IV 10 ml PRN PRN Administration LINE FLUSH Trazodone HCl 100 mg 08/22/18 19:00 09/01/18 22:28 Desyrel PO 100 mg Q24H HARINI Administration Witch Rhea/Glycerin 1 each 09/01/18 10:49 09/01/18 16:09 Tucks Pad TP 1 each PRN PRN Administration Hemorrhoids Zolpidem Tartrate 5 mg 08/27/18 11:06 Ambien PO QHS PRN Sleep
[2018-09-02] MEDS ORDERED: SAMSCA PO NR (16:00)
[2018-09-02] MEDS: LASIX PO SCH (17:03)
[2018-09-02] MEDS: DESYREL PO SCH (23:32)
[2018-09-03 06:37] LABS: Calcium 7.8 mg/dL (8.4-10.2)
[2018-09-03] MEDS: PLAQUENIL PO SCH (08:22)
[2018-09-03] MEDS: ELIQUIS PO SCH (08:22)
[2018-09-03] MEDS: PROCARDIA XL PO SCH (08:24)
[2018-09-03] MEDS: MAGIC MOUTHWASH PO SCH ×3 (08:24→21:00)
[2018-09-03] MEDS: LOPRESSOR PO SCH ×3 (08:25→21:06)
[2018-09-03] MEDS: PULMICORT IH SCH ×2 (08:32→21:39)
[2018-09-03] MEDS: DUONEB *Not for PRN Use IH SCH ×3 (08:32→21:47)
[2018-09-03] MEDS: BROVANA NEBU IH SCH ×2 (08:33→21:46)
[2018-09-03] MEDS: MACROBID PO SCH ×2 (10:08→21:00)
[2018-09-03] MEDS: SODIUM CHLORIDE FLUSH SYRINGE 10 ML IV SCH ×2 (10:08→21:03)
[2018-09-03] MEDS: FLORINEF PO SCH (10:09)
[2018-09-03] MEDS: PROTONIX PO SCH (10:09)
[2018-09-03] MEDS: CORDARONE PO SCH (15:58)
[2018-09-03] MEDS: DESYREL PO SCH (21:12)
[2018-09-03] MEDS: FLEXERIL PO PRN (21:12)
[2018-09-03] MEDS: LASIX PO SCH (21:22)
[2018-09-03] MEDS: NITRO DUR TD SCH (21:23)
--- NOTE | 2018-09-03 22:36 | Progress Note ---
Assessment and Plan 87-year-old woman with a history of hypertension, lupus comes to the emergency room complaining of nausea vomiting, generalized weakness, dizziness. Symptoms started after her losartan was changed to lisinopril due to recall of losartan. she reports decreased oral intake Echocardiogram shows well-preserved left ventricular systolic function, mild to moderate concentric left ventricle hypertrophy, but dilated left and right atrium, moderate mitral regurgitation, moderate to severe tricuspid regurgitation and severe pulmonary hypertension. 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 Orthostatic vital signs wnl, Na now normal dc losartan, K improved, she did not tolerate Kayexalate, rx with insulin and d50w, and K now normal iv fluids were dc due to fluid overload, cardiac enzymes are detectable, and mildly elevated, Cardiology consult appreciated, she is not interested in cath., may consider stress test when she is felling better switched BP meds to ca ch dylan CTA chest and LE dopplers neg for VTE cont iv lasix, cont rate./rhythym control and eliquis per cardiology -wean oxygen as tolerated molder consult appreciated sp mascorro, which was removed, patient now urinating with no issues -anusol and tucks as needed for hemorrhoid discomfort, already on stool softeners DVT prophylaxis; lovenox Cont PT, daughter would like subacute rehab, awaiting placement Subjective Date of service: 09/03/18 Principal diagnosis: SOB Interval history: Patient seen and examined. No new complaints. Laying quietly in bed. Afebrile. No nausea no vomiting. Objective - Exam Narrative Exam: Constitutional: Well-nourished well-developed. In no distress Head: Normocephalic atraumatic Eyes: Pupils are equal round and reactive to light Nose: No enlarged turbinates, no septal deviation. Mouth: Moist mucous membranes. Neck: Supple no thyromegaly. No bruit. No JVD Heart: Regular rate and rhythm, S1-S2 normal. No rubs murmurs or gallop Lungs: Clear to auscultation bilaterally. no rales or rhonchi Abdomen: Soft, nontender. Bowel sound are present. Extremities: No edema, no cyanosis, no clubbing. Neuro: Alert oriented Oriented x3. No focal sensory or motor deficit. Skin: No rashes or hyperpigmented spots Musculoskeletal system: No joint pain or swelling Hematological: No petechia or subcutanous hemorrhages. Immunological: No multiple septic spots on the skin Lymphatic: No generalized lymphadenopathy Psychiatry: Euthymic. Calm. - Constitutional Vitals: Vital Signs - 12hr 09/03/18 09/03/18 09/03/18 21:06 21:47 21:48 Pulse Rate 110 H Pulse Rate [ 75 Bilateral Throughout] Respiratory 18 Rate [Bilateral Throughout] Blood Pressure 116/49 O2 Sat by Pulse 98 Oximetry - Labs CBC & Chem 7: 08/28/18 12:30 09/03/18 05:32 Labs: Abnormal lab results 09/03/18 Range/Units 05:32 Sodium 134 L (137-145) mmol/L Chloride 85.0 L (98-107) mmol/L Carbon Dioxide 40 H (22-30) mmol/L BUN 37 H (7-17) mg/dL Glucose 128 H (65-100) mg/dL Calcium 7.8 L (8.4-10.2) mg/dL
--- NOTE | 2018-09-03 22:38 | Progress Note ---
Assessment and Plan 87-year-old woman with a history of hypertension, lupus comes to the emergency room complaining of nausea vomiting, generalized weakness, dizziness. Symptoms started after her losartan was changed to lisinopril due to recall of losartan. she reports decreased oral intake Echocardiogram shows well-preserved left ventricular systolic function, mild to moderate concentric left ventricle hypertrophy, but dilated left and right atriu m, moderate mitral regurgitation, moderate to severe tricuspid regurgitation and severe pulmonary hypertension. 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 Orthostatic vital signs wnl, Na now normal dc losartan, K improved, she did not tolerate Kayexalate, rx with insulin and d50w, and K now normal iv fluids were dc due to fluid overload, cardiac enzymes are detectable, and mildly elevated, Cardiology consult appreciated, she is not interested in cath., may consider stress test when she is felling better switched BP meds to ca ch dylan CTA chest and LE dopplers neg for VTE cont iv lasix, cont rate./rhythym control and eliquis per cardiology -wean oxygen as tolerated child abuse worker consult appreciated sp mascorro, which was removed, patient now urinating with no issues -anusol and tucks as needed for hemorrhoid discomfort, already on stool softeners DVT prophylaxis; lovenox Cont PT, daughter would like subacute rehab, awaiting placement Subjective Date of service: 09/02/18 Principal diagnosis: SOB, hyponatremia Interval history: Patient seen and examined. No new complaints. Laying quietly in bed. Afebrile. No nausea no vomiting. Objective - Exam Narrative Exam: Constitutional: Well-nourished well-developed. In no distress Head: Normocephalic atraumatic Eyes: Pupils are equal round and reactive to light Nose: No enlarged turbinates, no septal deviation. Mouth: Moist mucous membranes. Neck: Supple no thyromegaly. No bruit. No JVD Heart: Regular rate and rhythm, S1-S2 normal. No rubs murmurs or gallop Lungs: Clear to auscultation bilaterally. no rales or rhonchi Abdomen: Soft, nontender. Bowel sound are present. Extremities: No edema, no cyanosis, no clubbing. Neuro: Alert oriented Oriented x3. No focal sensory or motor deficit. Skin: No rashes or hyperpigmented spots Musculoskeletal system: No joint pain or swelling Hematological: No petechia or subcutanous hemorrhages. Immunological: No multiple septic spots on the skin Lymphatic: No generalized lymphadenopathy Psychiatry: Euthymic. Calm. - Constitutional Vitals: Vital Signs - 12hr 09/03/18 09/03/18 09/03/18 21:06 21:47 21:48 Pulse Rate 110 H Pulse Rate [ 75 Bilateral Throughout] Respiratory 18 Rate [Bilateral Throughout] Blood Pressure 116/49 O2 Sat by Pulse 98 Oximetry - Labs CBC & Chem 7: 08/28/18 12:30 09/03/18 05:32 Labs: Abnormal lab results 09/03/18 Range/Units 05:32 Sodium 134 L (137-145) mmol/L Chloride 85.0 L (98-107) mmol/L Carbon Dioxide 40 H (22-30) mmol/L BUN 37 H (7-17) mg/dL Glucose 128 H (65-100) mg/dL Calcium 7.8 L (8.4-10.2) mg/dL
[2018-09-04] MEDS: LOPRESSOR PO SCH ×4 (03:09→18:25)
[2018-09-04] MEDS: LASIX PO SCH ×2 (06:29→18:25)
[2018-09-04] MEDS: NITRO DUR TD SCH (06:30)
[2018-09-04] MEDS: SODIUM CHLORIDE FLUSH SYRINGE 10 ML IV SCH ×3 (06:37→22:30)
[2018-09-04] MEDS: PROCARDIA XL PO SCH (08:00)
[2018-09-04 08:45] LABS: Hemoglobin 6.6 gm/dl (10.1-14.3); Mean Corpuscular HGB Conc 33 % (30-34); Mean Corpuscular Volume 83 fl (79-97); Platelet Count 265 K/mm3 (140-440); Red Blood Count 2.41 M/mm3 (3.65-5.03); Red Cell Distribution Width 15.5 % (13.2-15.2)
[2018-09-04 09:13] LABS: Alanine Aminotransferase 95 units/L (7-56); Albumin 2.5 g/dL (3.9-5); BUN/Creatinine Ratio 34; Blood Urea Nitrogen 27 mg/dL (7-17); Calcium 7.8 mg/dL (8.4-10.2); Hemolysis Index 0
[2018-09-04] MEDS: FLORINEF PO SCH (09:22)
[2018-09-04] MEDS: ELIQUIS PO SCH (09:23)
[2018-09-04] MEDS: MACROBID PO SCH ×2 (09:23→22:31)
[2018-09-04] MEDS: PLAQUENIL PO SCH (09:23)
[2018-09-04] MEDS: PROTONIX PO SCH (09:23)
[2018-09-04] MEDS: MAGIC MOUTHWASH PO SCH ×3 (09:24→23:16)
[2018-09-04] MEDS: SENOKOT S PO PRN (09:34)
[2018-09-04] MEDS: BROVANA NEBU IH SCH ×2 (11:06→20:41)
[2018-09-04] MEDS: DUONEB *Not for PRN Use IH SCH ×3 (11:07→20:41)
[2018-09-04] MEDS: PULMICORT IH SCH ×2 (11:07→20:41)
[2018-09-04 13:00] LABS: Band Neutrophils # (Manual) 0.2 K/mm3; Basophils % (Manual) 0 % (0.0-1.8); Eosinophils % (Manual) 0 % (0.0-4.3); Total Cells Counted 100
[2018-09-04 13:01] LABS: Large Platelets Few; Platelet Estimate Consistent w Auto; Target Cells Few
[2018-09-04] MEDS ORDERED: NACL 0.9% 500 ML 500 ML IV ONE (13:11)
--- NOTE | 2018-09-04 13:11 | Progress Note ---
Assessment and Plan 87-year-old woman with a history of hypertension, lupus comes to the emergency room complaining of nausea vomiting, generalized weakness, dizziness. Symptoms started after her losartan was changed to lisinopril due to recall of losartan. she reports decreased oral intake Echocardiogram shows well-preserved left ventricular systolic function, mild to moderate concentric left ventricle hypertrophy, but dilated left and right atrium, moderate mitral regurgitation, moderate to severe tricuspid regurgitation and severe pulmonary hypertension. 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 Repeat UA for any hematuria. Obtain CT scan of the abdomen and pelvis with and without contrast. Obtain urology consult after CT is done Stool for occult blood Blood cx for Leukocytosis -High sodium improved cardiac enzymes are detectable, and mildly elevated, Cardiology consult appreciated, she is not interested in cath., may consider stress test when she is felling better switched BP meds to ca ch dylan CTA chest and LE dopplers neg for VTE cont iv lasix, cont rate./rhythym control and eliquis per cardiology -wean oxygen as tolerated printing table hand consult appreciated On Westbrook's catheter -anusol and tucks as needed for hemorrhoid discomfort, already on stool softeners DVT prophylaxis; lovenox Cont PT, daughter would like subacute rehab, awaiting placement Subjective Date of service: 09/04/18 Principal diagnosis: SOB, hyponatremia Interval history: Patient seen and examined. No new complaints. Laying quietly in bed. Afebrile. nauseated but no vomiting. Objective - Exam Narrative Exam: Constitutional: Well-nourished well-developed. In no distress. Patient's daughter by the bedside Head: Normocephalic atraumatic Eyes: Palor. Pupils are equal round and reactive to light Nose: No enlarged turbinates, no septal deviation. Mouth: Moist mucous membranes. Neck: Supple no thyromegaly. No bruit. No JVD Heart: Regular rate and rhythm, S1-S2 normal. No rubs murmurs or gallop Lungs: Clear to auscultation bilaterally. no rales or rhonchi Abdomen: Soft, nontender. Bowel sound are present. Extremities: No edema, no cyanosis, no clubbing. Neuro: Alert oriented Oriented x3. No focal sensory or motor deficit. Skin: No rashes or hyperpigmented spots Genitourinary system: Indwelling Westbrook's catheter with clear urine Musculoskeletal system: No joint pain or swelling Hematological: No petechia or subcutanous hemorrhages. Immunological: No multiple septic spots on the skin Lymphatic: No generalized lymphadenopathy Psychiatry: Euthymic. Calm. - Constitutional Vitals: Vital Signs - 12hr 09/04/18 09/04/18 09/04/18 02:32 03:09 06:30 Temperature 98.3 F Pulse Rate 78 78 Respiratory 20 Rate Blood Pressure 119/42 118/49 118/49 - Labs CBC & Chem 7: 09/04/18 08:02 09/04/18 08:02 Labs: Abnormal lab results 09/04/18 09/04/18 Range/Units 08:02 08:02 WBC 15.3 H (4.5-11.0) K/mm3 RBC 2.41 L (3.65-5.03) M/mm3 Hgb 6.6 L (10.1-14.3) gm/dl Hct 20.0 L (30.3-42.9) % MCH 27 L (28-32) pg RDW 15.5 H (13.2-15.2) % Seg Neuts % (Manual) 96.0 H (40.0-70.0) % Lymphocytes % (Manual) 0 L (13.4-35.0) % Seg Neutrophils # Man 14.7 H (1.8-7.7) K/mm3 Lymphocytes # (Manual) 0.0 L (1.2-5.4) K/mm3 Sodium 133 L (137-145) mmol/L Chloride 81.9 L (98-107) mmol/L Carbon Dioxide 39 H (22-30) mmol/L BUN 27 H (7-17) mg/dL Glucose 115 H (65-100) mg/dL Calcium 7.8 L (8.4-10.2) mg/dL AST 46 H (5-40) units/L ALT 95 H (7-56) units/L Total Protein 4.8 L (6.3-8.2) g/dL Albumin 2.5 L (3.9-5) g/dL
[2018-09-04] MEDS: CORDARONE PO SCH (13:13)
[2018-09-04] MEDS: REGLAN IV PRN ×2 (13:49→22:31)
--- NOTE | 2018-09-04 16:16 | XRay Report ---
PROCEDURE: XR CHEST 1V AP HISTORY: shortness of breath FINDINGS: Single frontal view of the chest was acquired and compared to the prior examination of 2018. There is stable cardiomegaly. There is a new right basilar infiltrate suspicious for pneumonia. The l eft lung appears clear. IMPRESSION: New right basilar infiltrate This document is electronically signed by Jose Cordoba MD., September 04 2018 04:14:22 PM ET
--- NOTE | 2018-09-04 17:50 | Cat Scan Report ---
PROCEDURE: CT ABDOMEN PELVIS WO/W CON TECHNIQUE: Computerized axial tomography of the abdomen and pelvis was performed before and after th e IV injection of 100 mL iodinated nonionic contrast. Automated exposure control, adjustment of mA an d/or kV according to patient size, or iterative reconstruction dose optimization techniques were util ized. CT DOSE LENGTH PRODUCT: 3050.6 mGycm HISTORY: urinary obstruction COMPARISONS: None . FINDINGS: Visualized lower thorax: Bilateral pleural effusions and lung base consolidation. Liver: Normal size and attenuation. Spleen: Normal size and attenuation. Gallbladder and biliary system: Gallbladder is present. Pancreas: Normal. Adrenals: Normal. Kidneys: Right renal cysts. No hydronephrosis bilaterally. There is patchy decreased cortical enhance ment in the right kidney lower pole, which is nonspecific. Correlate for possible pyelonephritis GI tract: No bowel obstruction or inflammation . Lymph nodes and mesentery: Normal. Vasculature: Aortic atherosclerotic calcification. Bladder: Decompressed with Westbrook catheter. Reproductive organs: Uterus is absent. Peritoneum: There is moderate volume of free fluid in the pelvis and right upper quadrant. Musculoskeletal structures: Severe right hip joint osteoarthritis. Other: There is a hematoma of the right lower anterior abdominal wall musculature involving the righ t rectus abdominis, measuring 6.6 x 8.9 x 7.4 cm . IMPRESSION: There is a large hematoma of the right lower anterior abdominal wall musculature measuring up to 8.9 cm. No hydronephrosis bilaterally. There is patchy decreased cortical enhancement in the right kidney low er pole which is nonspecific. Correlate for possible pyelonephritis. Bilateral pleural effusions and atelectasis or infectious airspace consolidation. This document is electronically signed by Rosetta Davidson MD., September 04 2018 05:48:32 PM ET
[2018-09-04] MEDS: DESYREL PO SCH (23:15)
[2018-09-05] MEDS: LOPRESSOR PO SCH ×4 (01:47→20:00)
[2018-09-05] MEDS: NITRO DUR TD SCH (05:35)
[2018-09-05] MEDS: LASIX PO SCH ×2 (05:35→19:54)
[2018-09-05 06:27] LABS: Hematocrit 24.2 % (30.3-42.9); Mean Corpuscular HGB Conc 33 % (30-34); Mean Corpuscular Volume 82 fl (79-97); Platelet Count 270 K/mm3 (140-440); Red Blood Count 2.95 M/mm3 (3.65-5.03); Red Cell Distribution Width 16.2 % (13.2-15.2)
[2018-09-05 06:35] LABS: INR 1.05 (0.87-1.13); Partial Thromboplastin Time 26.4 Sec. (24.2-36.6)
[2018-09-05 06:52] LABS: Alanine Aminotransferase 80 units/L (7-56); Albumin 2.6 g/dL (3.9-5); BUN/Creatinine Ratio 31; Blood Urea Nitrogen 25 mg/dL (7-17); Hemolysis Index 5
[2018-09-05] MEDS: MAGIC MOUTHWASH PO SCH ×3 (08:08→20:28)
[2018-09-05 08:41] LABS: Basophils % (Manual) 0 % (0.0-1.8); Eosinophils % (Manual) 0 % (0.0-4.3); Total Cells Counted 100
[2018-09-05 08:42] LABS: Anisocytosis Few; Platelet Estimate Consistent w Auto; Poikilocytosis Few
[2018-09-05] MEDS: DUONEB *Not for PRN Use IH SCH ×3 (09:27→23:36)
[2018-09-05] MEDS: PULMICORT IH SCH ×2 (09:27→23:24)
[2018-09-05] MEDS: BROVANA NEBU IH SCH ×2 (09:28→23:24)
[2018-09-05] MEDS: FLORINEF PO SCH (11:05)
[2018-09-05] MEDS: MACROBID PO SCH ×2 (11:48→22:04)
[2018-09-05] MEDS: PROTONIX PO SCH (11:49)
[2018-09-05] MEDS: ELIQUIS PO SCH (12:05)
[2018-09-05] MEDS: PLAQUENIL PO SCH (12:06)
[2018-09-05] MEDS: CORDARONE PO SCH (13:57)
[2018-09-05] MEDS: MIRALAX 3350 PO PRN (14:07)
[2018-09-05] MEDS: PROCARDIA XL PO SCH (14:45)
[2018-09-05] MEDS: SODIUM CHLORIDE FLUSH SYRINGE 10 ML IV SCH ×2 (14:49→22:05)
--- NOTE | 2018-09-05 17:33 | Progress Note ---
Assessment and Plan 87-year-old woman with a history of hypertension, lupus comes to the emergency room complaining of nausea vomiting, generalized weakness, dizziness. Symptoms started after her losartan was changed to lisinopril due to recall of losartan. she reports decreased oral intake Echocardiogram shows well-preserved left ventricular systolic function, mild to moderate concentric left ventricle hypertrophy, but dilated left and right atrium, moderate mitral regurgitation, moderate to severe tricuspid regurgitation and severe pulmonary hypertension. Diagnosis Pneumonia - new onset. 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 Repeat UA for any hematuria. Obtain CT scan of the abdomen and pelvis with and without contrast. Showed no abnormality. 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 Still short of breath. Laying quietly in bed. Afebrile. nauseated but no vomiting. Objective - Exam Narrative Exam: Constitutional: Alert. Well-nourished well-developed. In no distress. Head: Normocephalic atraumatic Eyes: Palor. Pupils are equal round and reactive to light Nose: No enlarged turbinates, no septal deviation. Mouth: Moist mucous membranes. Neck: Supple no thyromegaly. No bruit. No JVD Heart: Regular rate and rhythm, S1-S2 normal. No rubs murmurs or gallop Lungs: decreased bilaterally. no rales or rhonchi Abdomen: Soft, nontender. Bowel sound are present. Extremities: No edema, no cyanosis, no clubbing. Neuro: Alert oriented Oriented x3. No focal sensory or motor deficit. Skin: 1+ edema or hyperpigmented spots Genitourinary system: Indwelling Westbrook's catheter with clear urine Musculoskeletal system: No joint pain or swelling Hematological: No petechia or subcutanous hemorrhages. Immunological: No multiple septic spots on the skin Lymphatic: No generalized lymphadenopathy Psychiatry: Euthymic. Calm. - Constitutional Vitals: Vital Signs - 12hr 09/05/18 09/05/18 09/05/18 05:35 08:09 09:27 Temperature 98.2 F Pulse Rate 90 93 H Pulse Rate [ 114 H Bilateral Throughout] Respiratory 18 Rate Respiratory 20 Rate [Bilateral Throughout] Blood Pressure 116/49 127/53 O2 Sat by Pulse 90 94 Oximetry 09/05/18 09/05/18 09/05/18 09:37 13:49 15:15 Temperature 98.1 F Pulse Rate 129 H Pulse Rate [ 122 H 120 H Bilateral Throughout] Respiratory 18 Rate Respiratory 20 20 Rate [Bilateral Throughout] Blood Pressure 122/58 O2 Sat by Pulse 93 Oximetry 09/05/18 15:25 Temperature Pulse Rate Pulse Rate [ 122 H Bilateral Throughout] Respiratory Rate Respiratory 20 Rate [Bilateral Throughout] Blood Pressure O2 Sat by Pulse Oximetry - Labs CBC & Chem 7: 09/05/18 05:46 09/05/18 05:46 Labs: Abnormal lab results 09/04/18 09/05/18 09/05/18 Range/Units 13:26 05:46 05:46 WBC 13.6 H (4.5-11.0) K/mm3 RBC 2.95 L (3.65-5.03) M/mm3 Hgb 8.0 L (10.1-14.3) gm/dl Hct 24.2 L (30.3-42.9) % MCH 27 L (28-32) pg RDW 16.2 H (13.2-15.2) % Seg Neuts % (Manual) 97.0 H (40.0-70.0) % Lymphocytes % (Manual) 2.0 L (13.4-35.0) % Seg Neutrophils # Man 13.2 H (1.8-7.7) K/mm3 Lymphocytes # (Manual) 0.3 L (1.2-5.4) K/mm3 Sodium 135 L (137-145) mmol/L Chloride 85.2 L (98-107) mmol/L Carbon Dioxide 39 H (22-30) mmol/L BUN 25 H (7-17) mg/dL Glucose 121 H (65-100) mg/dL Calcium 8.0 L (8.4-10.2) mg/dL ALT 80 H (7-56) units/L Total Protein 5.0 L (6.3-8.2) g/dL Albumin 2.6 L (3.9-5) g/dL Crossmatch See Detail
[2018-09-05] MEDS ORDERED: VANCOMYCIN PHARMACY TO DOSE IV SCH (19:00)
[2018-09-05] MEDS ORDERED: VANCOMYCIN 1,250 MG in NACL 0.9% 250ML 250 ML IV ONE (19:00)
[2018-09-05] MEDS: DESYREL PO SCH (20:27)
[2018-09-05] MEDS ORDERED: ZOSYN/NS 3.375GM/50ML 3.375 GM/50 ML BAG IV SCH (22:00)
[2018-09-05] MEDS: ZOSYN/NS 2.25 GM/50ML 2.25 GM/50 ML BAG IV SCH (22:05)
[2018-09-05] MEDS: AMBIEN PO PRN (22:43)
[2018-09-06 01:50] LABS: Hematocrit 24.2 % (30.3-42.9); Hemoglobin 7.9 gm/dl (10.1-14.3)
[2018-09-06] MEDS: LOPRESSOR PO SCH ×4 (02:00→22:35)
[2018-09-06 02:07] LABS: INR 1.1 (0.87-1.13)
[2018-09-06 02:08] LABS: Partial Thromboplastin Time 32.4 Sec. (24.2-36.6)
[2018-09-06] MEDS: ZOSYN/NS 2.25 GM/50ML 2.25 GM/50 ML BAG IV SCH ×4 (05:00→22:37)
[2018-09-06] MEDS: NITRO DUR TD SCH (05:22)
[2018-09-06] MEDS: LASIX PO SCH ×2 (05:22→17:20)
[2018-09-06] MEDS: ELIQUIS PO SCH (06:05)
[2018-09-06 06:09] LABS: Basophils % (Auto) 0.1 % (0.0-1.8); Eosinophils # (Auto) 0.1 K/mm3 (0.0-0.4); Eosinophils % (Auto) 1.2 % (0.0-4.3); Hematocrit 23.2 % (30.3-42.9); Hemoglobin 7.6 gm/dl (10.1-14.3); Lymphocytes # (Auto) 0.4 K/mm3 (1.2-5.4); Lymphocytes % (Auto) 3.3 % (13.4-35.0); Mean Corpuscular HGB Conc 33 % (30-34); Mean Corpuscular Volume 83 fl (79-97); Monocytes # (Auto) 0.9 K/mm3 (0.0-0.8); Monocytes % (Auto) 7.8 % (0.0-7.3); Platelet Count 259 K/mm3 (140-440); Red Blood Count 2.78 M/mm3 (3.65-5.03); Red Cell Distribution Width 15.7 % (13.2-15.2)
[2018-09-06 06:35] LABS: Alanine Aminotransferase 69 units/L (7-56); Albumin 2.4 g/dL (3.9-5); BUN/Creatinine Ratio 36; Blood Urea Nitrogen 29 mg/dL (7-17); Calcium 7.8 mg/dL (8.4-10.2); Hemolysis Index 8
[2018-09-06] MEDS: MAGIC MOUTHWASH PO SCH ×3 (08:00→22:38)
[2018-09-06] MEDS: PROCARDIA XL PO SCH (09:00)
[2018-09-06] MEDS: FLORINEF PO SCH (10:00)
[2018-09-06] MEDS: PROTONIX PO SCH (10:02)
[2018-09-06] MEDS: MACROBID PO SCH ×2 (10:02→22:34)
[2018-09-06] MEDS: SODIUM CHLORIDE FLUSH SYRINGE 10 ML IV SCH ×2 (10:11→22:37)
[2018-09-06] MEDS: BROVANA NEBU IH SCH ×2 (10:16→20:21)
[2018-09-06] MEDS: DUONEB *Not for PRN Use IH SCH ×3 (10:16→20:21)
[2018-09-06] MEDS: PULMICORT IH SCH ×2 (10:16→20:21)
--- NOTE | 2018-09-06 14:42 | Progress Note ---
Assessment and Plan Assessment and plan: 87-year-old woman with a history of hypertension, lupus comes to the emergency room complaining of nausea vomiting, generalized weakness, dizziness. Symptoms started after her losartan was changed to lisinopril due to recall of losartan. she reports decreased oral intake Echocardiogram shows well-preserved left ventricular systolic function, mild to moderate concentric left ventricle hypertrophy, but dilated left and right atrium, moderate mitral regurgitation, moderate to severe tricuspid regurgitation and severe pulmonary hypertension. 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 I have explained to the nurse that she simply receive one pill at a time, and her pills are supposed to be spaced out by one hour each. The patient's takes her pills one at a time at home and spaces them out. This has been explained to the nursing staff. And the orders have been amended in [employer]. History Interval history: Review of systems Constitutional: No fevers, co gen weakness CVS: No chest pain, no orthopnea, c/o pedal edema, and sob GI: No abdominal pain, no diarrhea, no constipation; no more vomiting c/o rectal pain due to hemorrhoids Respiratory: sob is improved Hospitalist Physical - Physical exam Narrative exam: General.: Appears well, no distress, nontoxic HEENT: Moist mucous membranes, extraocular muscles intact, no lymphadenopathy Neck: supple Cardiac: S1-S2 heard Lungs: decreased air entry, rales in bases Abdomen: soft , nontender, nondistended, bowel sounds positive Extremities: 2 plus bipedal edema Skin: no rash or lesions Neurologic: no gross focal deficits Psych: calm, and cooperative - Constitutional Vitals: Temp Pulse Resp BP Pulse Ox 97.1 F L 100 H 18 132/58 96 09/06/18 14:06 09/06/18 14:19 09/06/18 14:19 09/06/18 14:06 09/06/18 10:00 General appearance: Present: no acute distress Results - Labs CBC & Chem 7: 09/06/18 05:13 09/06/18 05:13 Labs: Laboratory Last Values WBC 11.2 K/mm3 (4.5-11.0) H 09/06/18 05:13 RBC 2.78 M/mm3 (3.65-5.03) L 09/06/18 05:13 Hgb 7.6 gm/dl (10.1-14.3) L 09/06/18 05:13 Hct 23.2 % (30.3-42.9) L 09/06/18 05:13 MCV 83 fl (79-97) 09/06/18 05:13 MCH 27 pg (28-32) L 09/06/18 05:13 MCHC 33 % (30-34) 09/06/18 05:13 RDW 15.7 % (13.2-15.2) H 09/06/18 05:13 Plt Count 259 K/mm3 (140-440) 09/06/18 05:13 Lymph % (Auto) 3.3 % (13.4-35.0) L 09/06/18 05:13 Davis % (Auto) 7.8 % (0.0-7.3) H 09/06/18 05:13 Eos % (Auto) 1.2 % (0.0-4.3) 09/06/18 05:13 Baso % (Auto) 0.1 % (0.0-1.8) 09/06/18 05:13 Lymph # 0.4 K/mm3 (1.2-5.4) L 09/06/18 05:13 Davis # 0.9 K/mm3 (0.0-0.8) H 09/06/18 05:13 Eos # 0.1 K/mm3 (0.0-0.4) 09/06/18 05:13 Baso # 0.0 K/mm3 (0.0-0.1) 09/06/18 05:13 Add Manual Diff Complete 09/05/18 05:46 Total Counted 100 09/05/18 05:46 Seg Neutrophils % 87.6 % (40.0-70.0) H 09/06/18 05:13 Seg Neuts % (Manual) 97.0 % (40.0-70.0) H 09/05/18 05:46 Band Neutrophils % 0 % 09/05/18 05:46 Lymphocytes % (Manual) 2.0 % (13.4-35.0) L 09/05/18 05:46 Reactive Lymphs % (Man) 0 % 09/05/18 05:46 Monocytes % (Manual) 1.0 % (0.0-7.3) 09/05/18 05:46 Eosinophils % (Manual) 0 % (0.0-4.3) 09/05/18 05:46 Basophils % (Manual) 0 % (0.0-1.8) 09/05/18 05:46 Metamyelocytes % 0 % 09/05/18 05:46 Myelocytes % 0 % 09/05/18 05:46 Promyelocytes % 0 % 09/05/18 05:46 Blast Cells % 0 % 09/05/18 05:46 Nucleated RBC % Not Reportable 09/05/18 05:46 Seg Neutrophils # 9.9 K/mm3 (1.8-7.7) H 09/06/18 05:13 Seg Neutrophils # Man 13.2 K/mm3 (1.8-7.7) H 09/05/18 05:46 Band Neutrophils # 0.0 K/mm3 09/05/18 05:46 Lymphocytes # (Manual) 0.3 K/mm3 (1.2-5.4) L 09/05/18 05:46 Abs React Lymphs (Man) 0.0 K/mm3 09/05/18 05:46 Monocytes # (Manual) 0.1 K/mm3 (0.0-0.8) 09/05/18 05:46 Eosinophils # (Manual) 0.0 K/mm3 (0.0-0.4) 09/05/18 05:46 Basophils # (Manual) 0.0 K/mm3 (0.0-0.1) 09/05/18 05:46 Metamyelocytes # 0.0 K/mm3 09/05/18 05:46 Myelocytes # 0.0 K/mm3 09/05/18 05:46 Promyelocytes # 0.0 K/mm3 09/05/18 05:46 Blast Cells # 0.0 K/mm3 09/05/18 05:46 WBC Morphology Not Reportable 09/05/18 05:46 Hypersegmented Neuts Not Reportable 09/05/18 05:46 Hyposegmented Neuts Not Reportable 09/05/18 05:46 Hypogranular Neuts Not Reportable 09/05/18 05:46 Smudge Cells Not Reportable 09/05/18 05:46 Toxic Granulation Not Reportable 09/05/18 05:46 Toxic Vacuolation Not Reportable 09/05/18 05:46 Dohle Bodies Not Reportable 09/05/18 05:46 Pelger-Huet Anomaly Not Reportable 09/05/18 05:46 Kaden Rods Not Reportable 09/05/18 05:46 Platelet Estimate Consistent w auto 09/05/18 05:46 Clumped Platelets Not Reportable 09/05/18 05:46 Plt Clumps, EDTA Not Reportable 09/05/18 05:46 Large Platelets Not Reportable 09/05/18 05:46 Giant Platelets Not Reportable 09/05/18 05:46 Platelet Satelliting Not Reportable 09/05/18 05:46 Plt Morphology Comment Not Reportable 09/05/18 05:46 RBC Morphology Not Reportable 09/05/18 05:46 Dimorphic RBCs Not Reportable 09/05/18 05:46 Polychromasia Not Reportable 09/05/18 05:46 Hypochromasia Not Reportable 09/05/18 05:46 Poikilocytosis Few 09/05/18 05:46 Anisocytosis Few 09/05/18 05:46 Microcytosis Not Reportable 09/05/18 05:46 Macrocytosis Not Reportable 09/05/18 05:46 Spherocytes Not Reportable 09/05/18 05:46 Pappenheimer Bodies Not Reportable 09/05/18 05:46 Sickle Cells Not Reportable 09/05/18 05:46 Target Cells Not Reportable 09/05/18 05:46 Tear Drop Cells Not Reportable 09/05/18 05:46 Ovalocytes Not Reportable 09/05/18 05:46 Helmet Cells Not Reportable 09/05/18 05:46 [place] Bodies Not Reportable 09/05/18 05:46 [place] Rings Not Reportable 09/05/18 05:46 [place] Cells Not Reportable 09/05/18 05:46 Bite Cells Not Reportable 09/05/18 05:46 Crenated Cell Not Reportable 09/05/18 05:46 Elliptocytes Few 09/05/18 05:46 Acanthocytes (Spur) Not Reportable 09/05/18 05:46 Rouleaux Not Reportable 09/05/18 05:46 Hemoglobin C Crystals Not Reportable 09/05/18 05:46 Schistocytes Not Reportable 09/05/18 05:46 Malaria parasites Not Reportable 09/05/18 05:46 Sky Bodies Not Reportable 09/05/18 05:46 Hem Pathologist Commnt No 09/05/18 05:46 PT 14.9 Sec. (12.2-14.9) 09/06/18 01:27 INR 1.10 (0.87-1.13) 09/06/18 01:27 APTT 32.4 Sec. (24.2-36.6) 09/06/18 01:27 POC ABG pH 7.193 (7.35-7.45) L 08/23/18 18:22 POC ABG pCO2 54.9 (35-45) H 08/23/18 18:22 POC ABG pO2 102 (80-105) 08/23/18 18:22 POC ABG HCO3 21.1 (22-26 mml/L) 08/23/18 18:22 POC ABG Total CO2 23 (23-27mmol/L) 08/23/18 18:22 POC ABG O2 Sat 96 08/23/18 18:22 POC ABG Base Excess -7 ((-2) - (+3)mmol/L) 08/23/18 18:22 FiO2 40 % 08/23/18 18:22 Sodium 134 mmol/L (137-145) L 09/06/18 05:13 Potassium 3.7 mmol/L (3.6-5.0) 09/06/18 05:13 Chloride 84.8 mmol/L (98-107) L 09/06/18 05:13 Carbon Dioxide 36 mmol/L (22-30) H 09/06/18 05:13 Anion Gap 17 mmol/L 09/06/18 05:13 BUN 29 mg/dL (7-17) H 09/06/18 05:13 Creatinine 0.8 mg/dL (0.7-1.2) 09/06/18 05:13 Estimated GFR > 60 ml/min 09/06/18 05:13 BUN/Creatinine Ratio 36 % 09/06/18 05:13 Glucose 100 mg/dL (65-100) 09/06/18 05:13 POC Glucose 94 (70-105) 08/27/18 17:21 Calcium 7.8 mg/dL (8.4-10.2) L 09/06/18 05:13 Phosphorus 2.90 mg/dL (2.5-4.5) 08/28/18 12:30 Magnesium 1.70 mg/dL (1.7-2.3) 08/28/18 12:30 Total Bilirubin 1.40 mg/dL (0.1-1.2) H 09/06/18 05:13 Direct Bilirubin < 0.2 mg/dL (0-0.2) 08/28/18 12:30 Indirect Bilirubin 0.2 mg/dL 08/28/18 12:30 AST 48 units/L (5-40) H 09/06/18 05:13 ALT 69 units/L (7-56) H 09/06/18 05:13 Alkaline Phosphatase 65 units/L (35-129) 09/06/18 05:13 Total Creatine Kinase 339 units/L (30-135) H 08/21/18 10:20 CK-MB (CK-2) 28.4 ng/mL (0.0-4.0) H 08/21/18 10:20 CK-MB (CK-2) Rel Index 8.3 (0-4) H 08/21/18 10:20 Troponin T 0.052 ng/mL (0.00-0.029) H 08/21/18 10:20 Total Protein 4.9 g/dL (6.3-8.2) L 09/06/18 05:13 Albumin 2.4 g/dL (3.9-5) L 09/06/18 05:13 Albumin/Globulin Ratio 1.0 % 09/06/18 05:13 Triglycerides 71 mg/dL (2-149) 08/20/18 21:53 Cholesterol 173 mg/dL (50-199) 08/20/18 21:53 LDL Cholesterol Direct 115 mg/dL (50-130) 08/20/18 21:53 HDL Cholesterol 60 mg/dL (40-59) H 08/20/18 21:53 Cholesterol/HDL Ratio 2.88 % 08/20/18 21:53 Lipase 27 units/L (13-60) 08/20/18 21:53 TSH 1.120 mlU/mL (0.270-4.200) 08/23/18 06:00 Free T4 1.14 ng/dL (0.76-1.46) 08/23/18 06:00 Total Cortisol 69.1 mcg/dL () 08/25/18 05:50 Urine Color Yellow (Yellow) 08/20/18 19:43 Urine Turbidity Clear (Clear) 08/20/18 19:43 Urine pH 6.0 (5.0-7.0) 08/20/18 19:43 Ur Specific [place] 1.018 (1.003-1.030) 08/20/18 19:43 Urine Protein 100 mg/dl mg/dL (Negative) 08/20/18 19:43 Urine Glucose (UA) Neg mg/dL (Negative) 08/20/18 19:43 Urine Ketones Neg mg/dL (Negative) 08/20/18 19:43 Urine Blood Neg (Negative) 08/20/18 19:43 Urine Nitrite Neg (Negative) 08/20/18 19:43 Urine Bilirubin Neg (Negative) 08/20/18 19:43 Urine Urobilinogen < 2.0 mg/dL (<2.0) 08/20/18 19:43 Ur Leukocyte Esterase Neg (Negative) 08/20/18 19:43 Urine WBC (Auto) 1.0 /HPF (0.0-6.0) 08/20/18 19:43 Urine RBC (Auto) 7.0 /HPF (0.0-6.0) 08/20/18 19:43 U Epithel Cells (Auto) < 1.0 /HPF (0-13.0) 08/20/18 19:43 Hyaline Casts 1 /LPF 08/20/18 19:43 Urine Mucus Few /HPF 08/20/18 19:43 Urine Osmolality 466 Mosm/kg 08/22/18 18:10 Urine Creatinine 19.4 mg/dL (0.1-20.0) 08/27/18 15:29 Urine Sodium 13 mmol/L 08/22/18 18:10 Urine Chloride 36.9 mmolL (110-250) L 08/22/18 18:10 Urine Total Protein 23 mg/dL (5-11.8) H 08/27/18 15:29 Blood Type O POSITIVE 09/04/18 13:26 Antibody Screen Negative 09/04/18 13:26 Crossmatch See Detail 09/04/18 13:26 Active Medications - Current Medications Current Medications: Generic Name Dose Route Start Last Admin Trade Name Freq PRN Reason Stop Dose Admin Acetaminophen 650 mg 08/21/18 04:26 08/26/18 23:35 Tylenol PO 650 mg Q4H PRN Administration Pain MILD(1-3)/Fever >100.5/CASTRO Albuterol/Ipratropium 1 ampul 08/28/18 08:00 09/06/18 14:23 Duoneb *Not For Prn Use* IH 1 ampul TIDRT HARINI Administration Amiodarone HCl 200 mg 09/01/18 12:00 09/05/18 13:57 Cordarone PO 200 mg Q24H HARINI Administration Apixaban 2.5 mg 09/02/18 07:00 09/06/18 06:05 Eliquis PO 2.5 mg Q24H HARINI Administration Protocol Arformoterol Tartrate 15 mcg 08/23/18 20:00 09/06/18 10:16 Brovana Nebu IH 15 mcg Q12HRT HARINI Administration Atorvastatin Calcium 20 mg 08/23/18 22:00 09/05/18 22:04 Lipitor PO 20 mg QHS HARINI Administration Benzocaine/Menthol 1 each 08/22/18 12:23 Cepacol X Strength MM Q2HR PRN Sore Throat Budesonide 0.5 mg 08/23/18 20:00 09/06/18 10:16 Pulmicort IH 0.5 mg Q12HRT HARINI Administration Cyclobenzaprine HCl 5 mg 08/21/18 17:53 09/03/18 21:12 Flexeril PO 5 mg Q8H PRN Administration Muscle Spasm Fludrocortisone Acetate 0.1 mg 08/29/18 10:00 09/06/18 10:00 Florinef PO Not Given 3XW HARINI Furosemide 40 mg 09/02/18 18:00 09/06/18 05:22 Lasix PO 40 mg 0600,1800 HARINI Administration Hydralazine HCl 5 mg 08/21/18 04:32 Apresoline IV Q6H PRN Hypertension Hydrocortisone Acetate 1 applic 09/01/18 10:49 09/01/18 16:09 Proctosol-Hc [place] 1 applic Q8H PRN Administration Hemorrhoids Hydroxychloroquine Sulfate 200 mg 09/02/18 08:00 09/05/18 12:06 Plaquenil PO 200 mg Q24H HARINI Administration Piperacillin Sod/Tazobactam Sod 2.25 gm in 50 mls @ 50 mls/hr 09/05/18 22:00 09/06/18 10:11 Zosyn/Ns 2.25 Gm/50ml IV 50 mls/hr Q6H HARINI Administration Vancomycin HCl 1 gm in 250 mls @ 166.667 mls/hr 09/06/18 20:00 Vancomycin/Ns 1 Gm/250 Ml IV Q24H [facility] Lidocaine HCl 15 ml 08/28/18 14:00 09/06/18 08:00 Magic Mouthwash PO Not Given TID [facility] Metoclopramide HCl 10 mg 09/04/18 13:28 09/04/18 22:31 Reglan IV 10 mg Q6H PRN Administration Nausea And Vomiting Metoprolol Tartrate 12.5 mg 09/06/18 01:00 09/06/18 02:15 Lopressor PO 12.5 mg BID [facility] Administration Nifedipine 30 mg 09/02/18 09:00 09/06/18 09:00 Procardia Xl PO Not Given Q24H [facility] Nitrofurantoin Macrocrystals 100 mg 09/02/18 10:00 09/06/18 10:02 Macrobid PO 100 mg Q12HR HARINI Administration Nitroglycerin 0.4 mg 08/24/18 06:00 09/06/18 05:22 Nitro Dur TD 0.4 mg QDAY@0600 HARINI Administration Pantoprazole Sodium 40 mg 08/22/18 13:37 09/06/18 10:02 Protonix PO 40 mg QDAY HARINI Administration Phenol 1 spray 08/22/18 12:23 08/28/18 21:08 Chloraseptic MM 1 spray PRN PRN Administration Sore Throat Polyethylene Glycol 17 gm 08/30/18 09:16 09/05/18 14:07 Miralax 3350 PO 17 gm QDAY PRN Administration Constipation Senna/Docusate Sodium 2 tab 08/25/18 10:25 09/04/18 09:34 Senokot S PO 1 tab Q12H PRN Administration Laxative Effect Sodium Chloride 10 ml 08/21/18 10:00 09/06/18 10:11 Sodium Chloride Flush Syringe 10 Ml IV 10 ml BID HARNII Administration Sodium Chloride 10 ml 08/21/18 04:26 08/28/18 16:46 Sodium Chloride Flush Syringe 10 Ml IV 10 ml PRN PRN Administration LINE FLUSH Trazodone HCl 100 mg 08/22/18 19:00 09/05/18 20:27 Desyrel PO Not Given Q24H [facility] Witch Rhea/Glycerin 1 each 09/01/18 10:49 09/01/18 16:09 Tucks Pad TP 1 each PRN PRN Administration Hemorrhoids Zolpidem Tartrate 5 mg 08/27/18 11:06 09/05/18 22:43 Ambien PO 5 mg QHS PRN Administration Sleep Nutrition/Malnutrition Assess - Dietary Evaluation Nutrition/Malnutrition Findings: Nutrition Notes Start: 08/23/18 14:01 Freq: Status: Active Protocol: Document 09/06/18 12:19 EB (Rec: 09/06/18 12:26 EB [id number]) Co-Sign 09/06/18 12:19 LP Nutrition Notes Initial or Follow up Reassessment Current Diagnosis Hypertension Other Pertinent Diagnosis hyponatremia, lupus, depression, anxiety Current Diet CARDIAC Labs/Tests BUN 29 Pertinent Medications Lasix Height 5 ft 2 in Weight 59.4 kg [place] Body Weight (kg) 50.00 BMI 23.9 Subjective/Other Information Pt in room with daughter at time of visit. Pt reports 100% consumption of meals yesterday and today. Pt states she likes oatmeal and fruit, and request Ensure Clear Mixed page. Percent of energy/protein needs met: 100%/ 100% Burn Absent Trauma Absent Current % PO Good (75-100%) Body Fat Depletion Moderate depletion (severe) Muscle Mass Moderate Depletion (severe) #1 Nutrition Diagnosis Inadequate oral intake As Evidenced by Signs and Symptoms Pt meeting 100% of calorie and protein needs Diagnosis Progress(for reassessment Resolved documentation) Is patient on ventilator? No Is Patient Ambulatory and/or Out of Bed Yes REE-([facility]-ambulatory/OOB) [ [id number] [id number]] Calculation Used for Recommendations [facility] Additional Notes Protein needs: (1-1.2g/kg/day) 58-70g/day Fluid needs: 1mL/kcal Nutrition Intervention Change Diet Order: Continue cardiac Add Supplement/Snack (indicate name/kcal Ensure Clear BID /protein ) Provides kCal: 480 Provides Protein (gm) 16 Goal #1 Continue to meet at least 75% of nutrient needs via PO and ONS intakes Anticipated Discharge Needs: Cardiac diet Revisit per MD consult or patient Sign Off request:
[2018-09-06] MEDS: CORDARONE PO SCH (15:55)
[2018-09-06] MEDS: PLAQUENIL PO SCH (15:56)
[2018-09-06] MEDS: REGLAN IV PRN (17:20)
[2018-09-06] MEDS: DESYREL PO SCH ×2 (17:20→18:39)
[2018-09-06] MEDS: VANCOMYCIN/NS 1 GM/250 ML 1 GM/250 ML BAG IV SCH (21:00)
[2018-09-06] MEDS: AMBIEN PO PRN (22:35)
[2018-09-07] MEDS: ZOSYN/NS 2.25 GM/50ML 2.25 GM/50 ML BAG IV SCH ×4 (04:41→22:14)
[2018-09-07] MEDS: NITRO DUR TD SCH ×2 (04:51→05:29)
[2018-09-07] MEDS: LASIX PO SCH ×3 (04:53→18:15)
[2018-09-07] MEDS: FLEXERIL PO PRN (05:41)
[2018-09-07] MEDS: ELIQUIS PO SCH ×2 (05:43→07:39)
[2018-09-07] MEDS: DUONEB *Not for PRN Use IH SCH ×3 (08:43→21:34)
[2018-09-07] MEDS: BROVANA NEBU IH SCH ×2 (08:43→21:32)
[2018-09-07] MEDS: PULMICORT IH SCH ×2 (08:44→21:32)
[2018-09-07] MEDS: LOPRESSOR PO SCH ×2 (10:01→22:16)
[2018-09-07] MEDS: PROTONIX PO SCH (10:02)
[2018-09-07] MEDS: MACROBID PO SCH ×2 (10:02→22:15)
[2018-09-07] MEDS: SODIUM CHLORIDE FLUSH SYRINGE 10 ML IV SCH ×2 (10:03→22:18)
[2018-09-07] MEDS: FLORINEF PO SCH (10:03)
[2018-09-07] MEDS: PROCARDIA XL PO SCH (10:16)
[2018-09-07] MEDS: PLAQUENIL PO SCH (10:17)
[2018-09-07] MEDS: CORDARONE PO SCH (13:44)
[2018-09-07] MEDS ORDERED: FLEXERIL PO PRN (14:03)
[2018-09-07] MEDS: MIRALAX 3350 PO PRN (14:17)
--- NOTE | 2018-09-07 14:24 | Progress Note ---
Assessment and Plan Assessment and plan: 87-year-old woman with a history of hypertension, lupus comes to the emergency room complaining of nausea vomiting, generalized weakness, dizziness. Symptoms started after her losartan was changed to lisinopril due to recall of losartan. she reports decreased oral intake Echocardiogram shows well-preserved left ventricular systolic function, mild to moderate concentric left ventricle hypertrophy, but dilated left and right atrium, moderate mitral regurgitation, moderate to severe tricuspid regurgitation and severe pulmonary hypertension. 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 Orthostatic vital signs wnl, Na now normal dc losartan, K improved, she did not tolerate Kayexalate, rx with insulin and d50w, and K now normal iv fluids were dc due to fluid overload, cardiac enzymes are detectable, and mildly elevated, Cardiology consult appreciated, she is not interested in cath., may consider stress test when she is felling better * switched BP meds to ca ch dylan * CTA chest and LE dopplers were neg for VTE * cont lasix, cont rate./rhythym control and eliquis per cardiology * -wean oxygen as tolerated fundraising director consult appreciated sp mascorro, she failed TOV and mascorro re-inserted -anusol and tucks as needed for hemorrhoid discomfort, already on stool softeners DVT prophylaxis; lovenox Cont PT, daughter would like subacute rehab, awaiting placement The patient frequently vomits when all her pills are given to her together. I have explained to the nurse that she simply receive one pill at a time, and her pills are supposed to be spaced out by one hour each. The patient's takes her pills one at a time at home and spaces them out. This has been explained to the nursing staff. And the orders have been amended in rumr: turn off the lights. History Interval history: Review of systems Constitutional: No fevers, co gen weakness CVS: No chest pain, no orthopnea, c/o pedal edema, and sob GI: No abdominal pain, no diarrhea, no constipation; no more vomiting c/o rectal pain due to hemorrhoids Respiratory: sob is improved Hospitalist Physical - Physical exam Narrative exam: General.: Appears well, no distress, nontoxic HEENT: Moist mucous membranes, extraocular muscles intact, no lymphadenopathy Neck: supple Cardiac: S1-S2 heard Lungs: decreased air entry, rales in bases Abdomen: soft , nontender, nondistended, bowel sounds positive Extremities: 2 plus bipedal edema Skin: no rash or lesions Neurologic: no gross focal deficits Psych: calm, and cooperative - Constitutional Vitals: Temp Pulse Resp BP Pulse Ox 98.0 F 84 16 145/65 95 09/07/18 09:19 09/07/18 13:34 09/07/18 13:34 09/07/18 10:01 09/07/18 08:45 General appearance: Present: no acute distress Results - Labs CBC & Chem 7: 09/06/18 05:13 09/06/18 05:13 Labs: Laboratory Last Values WBC 11.2 K/mm3 (4.5-11.0) H 09/06/18 05:13 RBC 2.78 M/mm3 (3.65-5.03) L 09/06/18 05:13 Hgb 7.6 gm/dl (10.1-14.3) L 09/06/18 05:13 Hct 23.2 % (30.3-42.9) L 09/06/18 05:13 MCV 83 fl (79-97) 09/06/18 05:13 MCH 27 pg (28-32) L 09/06/18 05:13 MCHC 33 % (30-34) 09/06/18 05:13 RDW 15.7 % (13.2-15.2) H 09/06/18 05:13 Plt Count 259 K/mm3 (140-440) 09/06/18 05:13 Lymph % (Auto) 3.3 % (13.4-35.0) L 09/06/18 05:13 Pepin % (Auto) 7.8 % (0.0-7.3) H 09/06/18 05:13 Eos % (Auto) 1.2 % (0.0-4.3) 09/06/18 05:13 Baso % (Auto) 0.1 % (0.0-1.8) 09/06/18 05:13 Lymph # 0.4 K/mm3 (1.2-5.4) L 09/06/18 05:13 Pepin # 0.9 K/mm3 (0.0-0.8) H 09/06/18 05:13 Eos # 0.1 K/mm3 (0.0-0.4) 09/06/18 05:13 Baso # 0.0 K/mm3 (0.0-0.1) 09/06/18 05:13 Add Manual Diff Complete 09/05/18 05:46 Total Counted 100 09/05/18 05:46 Seg Neutrophils % 87.6 % (40.0-70.0) H 09/06/18 05:13 Seg Neuts % (Manual) 97.0 % (40.0-70.0) H 09/05/18 05:46 Band Neutrophils % 0 % 09/05/18 05:46 Lymphocytes % (Manual) 2.0 % (13.4-35.0) L 09/05/18 05:46 Reactive Lymphs % (Man) 0 % 09/05/18 05:46 Monocytes % (Manual) 1.0 % (0.0-7.3) 09/05/18 05:46 Eosinophils % (Manual) 0 % (0.0-4.3) 09/05/18 05:46 Basophils % (Manual) 0 % (0.0-1.8) 09/05/18 05:46 Metamyelocytes % 0 % 09/05/18 05:46 Myelocytes % 0 % 09/05/18 05:46 Promyelocytes % 0 % 09/05/18 05:46 Blast Cells % 0 % 09/05/18 05:46 Nucleated RBC % Not Reportable 09/05/18 05:46 Seg Neutrophils # 9.9 K/mm3 (1.8-7.7) H 09/06/18 05:13 Seg Neutrophils # Man 13.2 K/mm3 (1.8-7.7) H 09/05/18 05:46 Band Neutrophils # 0.0 K/mm3 09/05/18 05:46 Lymphocytes # (Manual) 0.3 K/mm3 (1.2-5.4) L 09/05/18 05:46 Abs React Lymphs (Man) 0.0 K/mm3 09/05/18 05:46 Monocytes # (Manual) 0.1 K/mm3 (0.0-0.8) 09/05/18 05:46 Eosinophils # (Manual) 0.0 K/mm3 (0.0-0.4) 09/05/18 05:46 Basophils # (Manual) 0.0 K/mm3 (0.0-0.1) 09/05/18 05:46 Metamyelocytes # 0.0 K/mm3 09/05/18 05:46 Myelocytes # 0.0 K/mm3 09/05/18 05:46 Promyelocytes # 0.0 K/mm3 09/05/18 05:46 Blast Cells # 0.0 K/mm3 09/05/18 05:46 WBC Morphology Not Reportable 09/05/18 05:46 Hypersegmented Neuts Not Reportable 09/05/18 05:46 Hyposegmented Neuts Not Reportable 09/05/18 05:46 Hypogranular Neuts Not Reportable 09/05/18 05:46 Smudge Cells Not Reportable 09/05/18 05:46 Toxic Granulation Not Reportable 09/05/18 05:46 Toxic Vacuolation Not Reportable 09/05/18 05:46 Dohle Bodies Not Reportable 09/05/18 05:46 Pelger-Huet Anomaly Not Reportable 09/05/18 05:46 Kaden Rods Not Reportable 09/05/18 05:46 Platelet Estimate Consistent w auto 09/05/18 05:46 Clumped Platelets Not Reportable 09/05/18 05:46 Plt Clumps, EDTA Not Reportable 09/05/18 05:46 Large Platelets Not Reportable 09/05/18 05:46 Giant Platelets Not Reportable 09/05/18 05:46 Platelet Satelliting Not Reportable 09/05/18 05:46 Plt Morphology Comment Not Reportable 09/05/18 05:46 RBC Morphology Not Reportable 09/05/18 05:46 Dimorphic RBCs Not Reportable 09/05/18 05:46 Polychromasia Not Reportable 09/05/18 05:46 Hypochromasia Not Reportable 09/05/18 05:46 Poikilocytosis Few 09/05/18 05:46 Anisocytosis Few 09/05/18 05:46 Microcytosis Not Reportable 09/05/18 05:46 Macrocytosis Not Reportable 09/05/18 05:46 Spherocytes Not Reportable 09/05/18 05:46 Pappenheimer Bodies Not Reportable 09/05/18 05:46 Sickle Cells Not Reportable 09/05/18 05:46 Target Cells Not Reportable 09/05/18 05:46 Tear Drop Cells Not Reportable 09/05/18 05:46 Ovalocytes Not Reportable 09/05/18 05:46 Helmet Cells Not Reportable 09/05/18 05:46 [place] Bodies Not Reportable 09/05/18 05:46 Tatum Rings Not Reportable 09/05/18 05:46 Pasquale Cells Not Reportable 09/05/18 05:46 Bite Cells Not Reportable 09/05/18 05:46 Crenated Cell Not Reportable 09/05/18 05:46 Elliptocytes Few 09/05/18 05:46 Acanthocytes (Spur) Not Reportable 09/05/18 05:46 Rouleaux Not Reportable 09/05/18 05:46 Hemoglobin C Crystals Not Reportable 09/05/18 05:46 Schistocytes Not Reportable 09/05/18 05:46 Malaria parasites Not Reportable 09/05/18 05:46 Sky Bodies Not Reportable 09/05/18 05:46 Hem Pathologist Commnt No 09/05/18 05:46 PT 14.9 Sec. (12.2-14.9) 09/06/18 01:27 INR 1.10 (0.87-1.13) 09/06/18 01:27 APTT 32.4 Sec. (24.2-36.6) 09/06/18 01:27 POC ABG pH 7.193 (7.35-7.45) L 08/23/18 18:22 POC ABG pCO2 54.9 (35-45) H 08/23/18 18:22 POC ABG pO2 102 (80-105) 08/23/18 18:22 POC ABG HCO3 21.1 (22-26 mml/L) 08/23/18 18:22 POC ABG Total CO2 23 (23-27mmol/L) 08/23/18 18:22 POC ABG O2 Sat 96 08/23/18 18:22 POC ABG Base Excess -7 ((-2) - (+3)mmol/L) 08/23/18 18:22 FiO2 40 % 08/23/18 18:22 Sodium 134 mmol/L (137-145) L 09/06/18 05:13 Potassium 3.7 mmol/L (3.6-5.0) 09/06/18 05:13 Chloride 84.8 mmol/L (98-107) L 09/06/18 05:13 Carbon Dioxide 36 mmol/L (22-30) H 09/06/18 05:13 Anion Gap 17 mmol/L 09/06/18 05:13 BUN 29 mg/dL (7-17) H 09/06/18 05:13 Creatinine 0.8 mg/dL (0.7-1.2) 09/06/18 05:13 Estimated GFR > 60 ml/min 09/06/18 05:13 BUN/Creatinine Ratio 36 % 09/06/18 05:13 Glucose 100 mg/dL (65-100) 09/06/18 05:13 POC Glucose 94 (70-105) 08/27/18 17:21 Calcium 7.8 mg/dL (8.4-10.2) L 09/06/18 05:13 Phosphorus 2.90 mg/dL (2.5-4.5) 08/28/18 12:30 Magnesium 1.70 mg/dL (1.7-2.3) 08/28/18 12:30 Total Bilirubin 1.40 mg/dL (0.1-1.2) H 09/06/18 05:13 Direct Bilirubin < 0.2 mg/dL (0-0.2) 08/28/18 12:30 Indirect Bilirubin 0.2 mg/dL 08/28/18 12:30 AST 48 units/L (5-40) H 09/06/18 05:13 ALT 69 units/L (7-56) H 09/06/18 05:13 Alkaline Phosphatase 65 units/L (35-129) 09/06/18 05:13 Total Creatine Kinase 339 units/L (30-135) H 08/21/18 10:20 CK-MB (CK-2) 28.4 ng/mL (0.0-4.0) H 08/21/18 10:20 CK-MB (CK-2) Rel Index 8.3 (0-4) H 08/21/18 10:20 Troponin T 0.052 ng/mL (0.00-0.029) H 08/21/18 10:20 Total Protein 4.9 g/dL (6.3-8.2) L 09/06/18 05:13 Albumin 2.4 g/dL (3.9-5) L 09/06/18 05:13 Albumin/Globulin Ratio 1.0 % 09/06/18 05:13 Triglycerides 71 mg/dL (2-149) 08/20/18 21:53 Cholesterol 173 mg/dL (50-199) 08/20/18 21:53 LDL Cholesterol Direct 115 mg/dL (50-130) 08/20/18 21:53 HDL Cholesterol 60 mg/dL (40-59) H 08/20/18 21:53 Cholesterol/HDL Ratio 2.88 % 08/20/18 21:53 Lipase 27 units/L (13-60) 08/20/18 21:53 TSH 1.120 mlU/mL (0.270-4.200) 08/23/18 06:00 Free T4 1.14 ng/dL (0.76-1.46) 08/23/18 06:00 Total Cortisol 69.1 mcg/dL () 08/25/18 05:50 Urine Color Yellow (Yellow) 08/20/18 19:43 Urine Turbidity Clear (Clear) 08/20/18 19:43 Urine pH 6.0 (5.0-7.0) 08/20/18 19:43 Ur Specific [place] 1.018 (1.003-1.030) 08/20/18 19:43 Urine Protein 100 mg/dl mg/dL (Negative) 08/20/18 19:43 Urine Glucose (UA) Neg mg/dL (Negative) 08/20/18 19:43 Urine Ketones Neg mg/dL (Negative) 08/20/18 19:43 Urine Blood Neg (Negative) 08/20/18 19:43 Urine Nitrite Neg (Negative) 08/20/18 19:43 Urine Bilirubin Neg (Negative) 08/20/18 19:43 Urine Urobilinogen < 2.0 mg/dL (<2.0) 08/20/18 19:43 Ur Leukocyte Esterase Neg (Negative) 08/20/18 19:43 Urine WBC (Auto) 1.0 /HPF (0.0-6.0) 08/20/18 19:43 Urine RBC (Auto) 7.0 /HPF (0.0-6.0) 08/20/18 19:43 U Epithel Cells (Auto) < 1.0 /HPF (0-13.0) 08/20/18 19:43 Hyaline Casts 1 /LPF 08/20/18 19:43 Urine Mucus Few /HPF 08/20/18 19:43 Urine Osmolality 466 Mosm/kg 08/22/18 18:10 Urine Creatinine 19.4 mg/dL (0.1-20.0) 08/27/18 15:29 Urine Sodium 13 mmol/L 08/22/18 18:10 Urine Chloride 36.9 mmolL (110-250) L 08/22/18 18:10 Urine Total Protein 23 mg/dL (5-11.8) H 08/27/18 15:29 Blood Type O POSITIVE 09/04/18 13:26 Antibody Screen Negative 09/04/18 13:26 Crossmatch See Detail 09/04/18 13:26 Active Medications - Current Medications Current Medications: Generic Name Dose Route Start Last Admin Trade Name Freq PRN Reason Stop Dose Admin Acetaminophen 650 mg 08/21/18 04:26 08/26/18 23:35 Tylenol PO 650 mg Q4H PRN Administration Pain MILD(1-3)/Fever >100.5/CASTRO Albuterol/Ipratropium 1 ampul 08/28/18 08:00 09/07/18 13:33 Duoneb *Not For Prn Use* IH 1 ampul TIDRT HARINI Administration Amiodarone HCl 200 mg 09/01/18 12:00 09/07/18 13:44 Cordarone PO 200 mg Q24H HARINI Administration Apixaban 2.5 mg 09/02/18 07:00 09/07/18 07:39 Eliquis PO Not Given Q24H HARINI Protocol Arformoterol Tartrate 15 mcg 08/23/18 20:00 09/07/18 08:43 Brovana Nebu IH 15 mcg Q12HRT HARINI Administration Atorvastatin Calcium 20 mg 08/23/18 22:00 09/06/18 22:34 Lipitor PO 20 mg QHS HARINI Administration Benzocaine/Menthol 1 each 08/22/18 12:23 Cepacol X Strength MM Q2HR PRN Sore Throat Budesonide 0.5 mg 08/23/18 20:00 09/07/18 08:44 Pulmicort IH 0.5 mg Q12HRT HARINI Administration Cyclobenzaprine HCl 5 mg 09/07/18 14:03 Flexeril PO QHS PRN Muscle Spasm Fludrocortisone Acetate 0.1 mg 08/29/18 10:00 09/07/18 10:03 Florinef PO Not Given 3XW HARINI Furosemide 40 mg 09/02/18 18:00 09/07/18 05:29 Lasix PO Not Given 0600,1800 HARINI Hydralazine HCl 5 mg 08/21/18 04:32 Apresoline IV Q6H PRN Hypertension Hydrocortisone Acetate 1 applic 09/01/18 10:49 09/01/18 16:09 Proctosol-Hc MD 1 applic Q8H PRN Administration Hemorrhoids Hydroxychloroquine Sulfate 200 mg 09/02/18 08:00 09/07/18 10:17 Plaquenil PO 200 mg Q24H HARINI Administration Piperacillin Sod/Tazobactam Sod 2.25 gm in 50 mls @ 50 mls/hr 09/05/18 22:00 09/07/18 10:00 Zosyn/Ns 2.25 Gm/50ml IV 50 mls/hr Q6H HARINI Administration Vancomycin HCl 1 gm in 250 mls @ 166.667 mls/hr 09/06/18 20:00 09/06/18 21:00 Vancomycin/Ns 1 Gm/250 Ml IV 166.667 mls/hr Q24H HARINI Administration Lidocaine HCl 15 ml 08/28/18 14:00 09/06/18 22:38 Magic Mouthwash PO Not Given TID HARINI Metoclopramide HCl 10 mg 09/04/18 13:28 09/06/18 17:20 Reglan IV 10 mg Q6H PRN Administration Nausea And Vomiting Metoprolol Tartrate 12.5 mg 09/06/18 01:00 09/07/18 10:01 Lopressor PO 12.5 mg BID HARINI Administration Nifedipine 30 mg 09/02/18 09:00 09/07/18 10:16 Procardia Xl PO 30 mg Q24H HARINI Administration Nitrofurantoin Macrocrystals 100 mg 09/02/18 10:00 09/07/18 10:02 Macrobid PO 09/08/18 22:01 100 mg Q12HR HARINI Administration Nitroglycerin 0.4 mg 08/24/18 06:00 09/07/18 05:29 Nitro Dur TD Not Given QDAY@0600 HARINI Pantoprazole Sodium 40 mg 08/22/18 13:37 09/07/18 10:02 Protonix PO 40 mg QDAY HARINI Administration Phenol 1 spray 08/22/18 12:23 08/28/18 21:08 Chloraseptic MM 1 spray PRN PRN Administration Sore Throat Polyethylene Glycol 17 gm 08/30/18 09:16 09/07/18 14:17 Miralax 3350 PO 17 gm QDAY PRN Administration Constipation Senna/Docusate Sodium 2 tab 08/25/18 10:25 09/04/18 09:34 Senokot S PO 1 tab Q12H PRN Administration Laxative Effect Sodium Chloride 10 ml 08/21/18 10:00 09/07/18 10:03 Sodium Chloride Flush Syringe 10 Ml IV 10 ml BID HARINI Administration Sodium Chloride 10 ml 08/21/18 04:26 08/28/18 16:46 Sodium Chloride Flush Syringe 10 Ml IV 10 ml PRN PRN Administration LINE FLUSH Trazodone HCl 100 mg 08/22/18 19:00 09/06/18 18:39 Desyrel PO Not Given Q24H HARINI Witch Rhea/Glycerin 1 each 09/01/18 10:49 09/01/18 16:09 Tucks Pad TP 1 each PRN PRN Administration Hemorrhoids Zolpidem Tartrate 5 mg 08/27/18 11:06 09/06/18 22:35 Ambien PO 5 mg QHS PRN Administration Sleep Nutrition/Malnutrition Assess - Dietary Evaluation Nutrition/Malnutrition Findings: Nutrition Notes Start: 08/23/18 14:01 Freq: Status: Active Protocol: Document 09/06/18 12:19 EB (Rec: 09/06/18 12:26 EB [id number]) Co-Sign 09/06/18 12:19 LP Nutrition Notes Initial or Follow up Reassessment Current Diagnosis Hypertension Other Pertinent Diagnosis hyponatremia, lupus, depression, anxiety Current Diet CARDIAC Labs/Tests BUN 29 Pertinent Medications Lasix Height 5 ft 2 in Weight 59.4 kg [place] Body Weight (kg) 50.00 BMI 23.9 Subjective/Other Information Pt in room with daughter at time of visit. Pt reports 100% consumption of meals yesterday and today. Pt states she likes oatmeal and fruit, and request Ensure Clear Mixed page. Percent of energy/protein needs met: 100%/ 100% Burn Absent Trauma Absent Current % PO Good (75-100%) Body Fat Depletion Moderate depletion (severe) Muscle Mass Moderate Depletion (severe) #1 Nutrition Diagnosis Inadequate oral intake As Evidenced by Signs and Symptoms Pt meeting 100% of calorie and protein needs Diagnosis Progress(for reassessment Resolved documentation) Is patient on ventilator? No Is Patient Ambulatory and/or Out of Bed Yes REE-([facility]-ambulatory/OOB) [ [id number] [id number]] Calculation Used for Recommendations [facility] Additional Notes Protein needs: (1-1.2g/kg/day) 58-70g/day Fluid needs: 1mL/kcal Nutrition Intervention Change Diet Order: Continue cardiac Add Supplement/Snack (indicate name/kcal Ensure Clear BID /protein ) Provides kCal: 480 Provides Protein (gm) 16 Goal #1 Continue to meet at least 75% of nutrient needs via PO and ONS intakes Anticipated Discharge Needs: Cardiac diet Revisit per MD consult or patient Sign Off request:
[2018-09-07] MEDS: REGLAN IV PRN (14:38)
[2018-09-07] MEDS: SODIUM CHLORIDE FLUSH SYRINGE 10 ML IV PRN ×2 (14:38→18:16)
[2018-09-07] MEDS: MAGIC MOUTHWASH PO SCH ×2 (17:56→22:18)
[2018-09-07] MEDS: VANCOMYCIN/NS 1 GM/250 ML 1 GM/250 ML BAG IV SCH (20:25)
[2018-09-07] MEDS: DESYREL PO SCH (20:28)
[2018-09-07] MEDS ORDERED: DUONEB *Not for PRN Use IH ONE (21:32)
[2018-09-08] MEDS: SENOKOT S PO PRN (04:29)
[2018-09-08] MEDS: ZOSYN/NS 2.25 GM/50ML 2.25 GM/50 ML BAG IV SCH ×2 (04:29→10:01)
[2018-09-08 05:27] LABS: Hematocrit 23.8 % (30.3-42.9); Hemoglobin 7.8 gm/dl (10.1-14.3)
[2018-09-08] MEDS: LASIX PO SCH (06:42)
[2018-09-08] MEDS: NITRO DUR TD SCH (06:44)
[2018-09-08 08:29] VITALS: BP 123/73
--- NOTE | 2018-09-08 09:28 | Discharge Summary ---
Providers - Providers Date of Admission: 08/20/18 23:44 Attending physician: HERNANDEZ ABBASI MD 08/21/18 15:07 Consult to Physician [CONS] Routine Comment: Consulting Provider: DARIEN TORRES Physician Instructions: Reason For Exam: elevated trop Consult to Physician [CONS] Routine Comment: called answ. serv/chris Consulting Provider: ANIRUDH CRUMP Physician Instructions: Reason For Exam: hyponatremia 08/21/18 17:52 Physical Therapy Evaluation and Treat [CONS] Routine Comment: Reason For Exam: ataxia 08/22/18 23:40 Consult to Dietitian/Nutrition [CONS] Routine Physician Instructions: Reason For Exam: Reason for Consult: Malnutrition 08/25/18 10:19 Speech Therapy Evaluation and Treat [CONS] Routine Reason For Exam: Dysphagia symptoms at home, SOB 08/27/18 11:05 Consult Acute Rehabilitation [CONS] Routine Consulting Provider: Physician Instructions: Reason For Exam: IRU Evaluation 08/29/18 10:32 Occupational Therapy Evaluate and Treat [CONS] Routine Comment: Reason For Exam: Debility Primary care physician: ERVIN PERALES MD Hospitalization Condition: Fair Hospital course: 87-year-old woman with a history of hypertension, lupus comes to the emergency room complaining of nausea vomiting, generalized weakness, dizziness. Symptoms started after her losartan was changed to lisinopril due to recall of losartan. she reports decreased oral intake Echocardiogram shows well-preserved left ventricular systolic function, mild to moderate concentric left ventricle hypertrophy, but dilated left and right atrium, moderate mitral regurgitation, moderate to severe tricuspid regurgitation and severe pulmonary hypertension. 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 The patient was treated with mineralocorticoid and received tolvaptan 2 doses. She also receives normal saline. Serial sodium improved Acute diastolic CHF; IV fluids when then discontinued, she was treated with diuretics. Her medications were optimized, echo showed preserved EF. She was seen by cardiology, she was offered stress test but refused. The patient did not want any invasive procedures or testing, she opted for medical management. If her medications optimized. Acute respiratory failure;, the patient was diuresed, she received steroids and nebs. She was also treated with oxygen. She clinically improved. CTA chest and the wax from E Dopplers are negative for VTE Hyperkalemia; losartan was discontinued, the patient was treated with insulin and D50, potassium then normalized. Atrial flutter with RVR. She was seen by cardiology, higher mental optimized for rate control, she was started on blood thinner. Malnutrition; She received dietitian consult, was given nutritional supplements for malnutrition Urinary retention; [place] was inserted, TOV was attempted, but patient failed, therefore [place] was reinserted. She needs to follow up with urology as an outpatient for urodynamic and trial of void Nausea vomiting; patient has frequent vomiting when she takes too many pills at a time or consume see much food. She was treated with antiemetics. And was advised to take her pills one at a time and to consume food slowly. Debility; the patient received physical therapy while in hospital. She's being discharged to a subacute rehabilitation facility Disposition: [id number] SNF W PADMA CERT Time spent for discharge: 33 mins Core Measure Documentation - Palliative Care Palliative Care/ Comfort Measures: Not Applicable - Core Measures Any of the following diagnoses?: heart failure - Heart Failure Discharge Requirements TOSIN/ARB for LVSD if EF <40%: Not Applicable Beta dylan at discharge: Yes Exam - Physical Exam Narrative exam: General.: Appears well, no distress, nontoxic HEENT: Moist mucous membranes, extraocular muscles intact, no lymphadenopathy Neck: supple Cardiac: S1-S2 heard Lungs: decreased air entry, rales in bases Abdomen: soft , nontender, nondistended, bowel sounds positive Extremities: 1 plus bipedal edema Skin: no rash or lesions Neurologic: no gross focal deficits Psych: calm, and cooperative - Constitutional Vitals: Temp Pulse Resp BP Pulse Ox 97.5 F L 51 L 15 123/73 91 09/08/18 07:38 09/08/18 07:38 09/08/18 07:38 09/08/18 07:38 09/08/18 07:38 Plan Follow up with: JUNIOR SILVESTRE MD [Staff Physician] - 7 Days DARIEN TORRES MD [Staff Physician] - 7 Days QUYNH GRIFFIN MD [Staff Physician] - 3-5 Days Prescriptions: Zolpidem [Ambien] 5 mg PO QHS PRN #30 tablet PRN Reason: Sleep
[2018-09-08] MEDS: BROVANA NEBU IH SCH (10:00)
[2018-09-08] MEDS: DUONEB *Not for PRN Use IH SCH (10:00)
[2018-09-08] MEDS: PULMICORT IH SCH (10:00)
[2018-09-08] MEDS: SODIUM CHLORIDE FLUSH SYRINGE 10 ML IV SCH (10:02)
[2018-09-08] MEDS: FLORINEF PO SCH (10:08)
[2018-09-08] MEDS ORDERED: ZOFRAN IV PRN (10:30)
[2018-09-08] MEDS: ELIQUIS PO SCH (12:24)
[2018-09-08] MEDS: CORDARONE PO SCH (12:24)
[2018-09-08] MEDS: LOPRESSOR PO SCH (12:25)
[2018-09-08] MEDS: MACROBID PO SCH (12:25)
[2018-09-08] MEDS: MAGIC MOUTHWASH PO SCH (12:26)
[2018-09-08] MEDS: PROTONIX PO SCH ×2 (12:26→12:40)
[2018-09-08] MEDS: PROCARDIA XL PO SCH ×2 (12:30→12:40)
[2018-09-08] MEDS: PLAQUENIL PO SCH (12:31)
== END 2018-09-08 14:15 | DRG 280 ==
LOC: ED 18:46 → 2B-ACE 23:44
PROVIDERS: ADMIT Internal Medicine; ATTEND Internal Medicine
PROC: 4A033R1 Measurement of Arterial Saturation, Peripheral, Percutaneous Approach (ICD-10-PCS; principal; 2018-08-23)
PROC: 30233N1 Transfusion of Nonautologous Red Blood Cells into Peripheral Vein, Percutaneous Approach (ICD-10-PCS; 2018-09-04)
DX: I21.4 Non-ST elevation (NSTEMI) myocardial infarction (principal); I50.31 Acute diastolic (congestive) heart failure; J96.02 Acute respiratory failure with hypercapnia; J96.01 Acute respiratory failure with hypoxia; J18.9 Pneumonia, unspecified organism; E44.0 Moderate protein-calorie malnutrition; E22.2 Syndrome of inappropriate secretion of antidiuretic hormone; J44.1 Chronic obstructive pulmonary disease with (acute) exacerbation; I48.92 Unspecified atrial flutter; D68.59 Other primary thrombophilia; E87.5 Hyperkalemia; E86.0 Dehydration; R33.9 Retention of urine, unspecified; K64.9 Unspecified hemorrhoids; I45.10 Unspecified right bundle-branch block; I27.20 Pulmonary hypertension, unspecified; G90.8 Other disorders of autonomic nervous system; I11.0 Hypertensive heart disease with heart failure; M32.9 Systemic lupus erythematosus, unspecified; Z90.710 Acquired absence of both cervix and uterus; Z90.89 Acquired absence of other organs; Z82.49 Family history of ischemic heart disease and other diseases of the circulatory system; Z88.1 Allergy status to other antibiotic agents; Z88.5 Allergy status to narcotic agent; Z88.2 Allergy status to sulfonamides; Z88.8 Allergy status to other drugs, medicaments and biological substances; Z91.048 Other nonmedicinal substance allergy status; Z87.891 Personal history of nicotine dependence; Z68.24 Body mass index [BMI] 24.0-24.9, adult
CPT/HCPCS: 36415; 36600; 70450; 71045; 71046; 71275; 74178; 80048; 80053; 80061; 80076; 81001; 82436; 82533; 82550; 82553; 82570; 82803; 82947; 82962; 83690; 83735; 83935; 84100; 84132; 84156; 84300; 84439; 84443; 84484; 85007; 85014; 85018; 85025; 85049; 85610; 85730; 86850; 86900; 86901; 86920; 87086; 93005; 93010; 93306; 93970; 94640; 94760; G0378; A9270-GY; J1650; J1720; J1815; J1940; J2405; J2543; J2765; J2920; J3370; J3475; J7030; J7040; J7050; P9016; Q9967